=== PATIENT | male | born 1975 | race Caucasian/White ===

== ENCOUNTER 2016-12-08 12:44 | Emergency (ER) | payer OTHER ==
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
--- NOTE | 2016-12-08 17:57 | ED ORDER SUMMARY ---
..... Patient: JUANIS HENSON OrderSheet [facility] VisitID: [id number] [place] [address] 41y, M Registration Date/Time: 12/08/2016 ORDER SHEET Weight: 113.3 kg (stated) Allergies: No Known Drug Allergy GENERAL ORDERS: Culture, Wound Surface (Arm) (R) Urgent (15:28 12/08/2016 EKoroleva P.A.-C) (Ack 15:30 LNations ER Tech1) (16:43 JRomanelli R.N.) CBC w Diff Urgent (15:29 12/08/2016 EKoroleva P.A.-C) (Ack 15:30 LNations ER Tech1) (15:49 JRomanelli R.N.) BMP Urgent (15:29 12/08/2016 EKoroleva P.A.-C) (Ack 15:30 LNations ER Tech1) (15:49 JRomanelli R.N.) Acetone, Serum Urgent (16:04 12/08/2016 EKoroleva P.A.-C) (Ack 16:10 LTapper) (17:10 JRomanelli R.N.) (17:10 LNations ER Tech1) POC Glucose (16:57 12/08/2016 EKoroleva P.A.-C) (Ack 17:09 LNations ER Tech1) (17:09 LNations ER Tech1) (17:10 JRomanelli R.N.) MEDICATION ORDERS: Insulin Reg Subcut 6 units (HIGH ALERT MEDICATION, NOW) (17:13 12/08/2016 EKoroleva P.A.-C) (17:44 JRomanelli R.N.) Bactrim DS PO (Tablet 800-160 mg) 2 tabs (NOW) (17:30 12/08/2016 EKoroleva P.A.-C) (17:45 JRomanelli R.N.) IV FLUIDS: IV NS : initial bolus 1000 mL (1000 mL/hr), then 1000 mL/hr for X1 (NOW); Vazquez (15:28 12/08/2016 EKoroleva P.A.-C) (15:51 JRomanelli R.N.) Dilaudid IV 1 mg (HIGH ALERT MEDICATION, NOW) (15:29 12/08/2016 Trung Julian) (15:51 Tracy Atikns) ORDER SHEET NOTES: [Electronically signed by Mary Arias P.A.-C (18:20 12/08/2016)] [Electronically signed by Javier Centeno R.N. (18:32 12/08/2016)] [Electronically locked/signed by Javier Centeno R.N. (18:32 12/08/2016)]
--- NOTE | 2016-12-08 17:57 | ED ORDER SUMMARY ---
..... Patient: JUANIS HENSON OrderSheet [facility] VisitID: [id number] [place] [address] 41y, M Registration Date/Time: 12/08/2016 ORDER SHEET Weight: 113.3 kg (stated) Allergies: No Known Drug Allergy GENERAL ORDERS: Culture, Wound Surface (Arm) (R) Urgent (15:28 12/08/2016 EKoroleva P.A.-C) (Ack 15:30 LNations ER Tech1) (16:43 JRomanelli R.N.) CBC w Diff Urgent (15:29 12/08/2016 EKoroleva P.A.-C) (Ack 15:30 LNations ER Tech1) (15:49 JRomanelli R.N.) BMP Urgent (15:29 12/08/2016 EKoroleva P.A.-C) (Ack 15:30 LNations ER Tech1) (15:49 JRomanelli R.N.) Acetone, Serum Urgent (16:04 12/08/2016 EKoroleva P.A.-C) (Ack 16:10 LTapper) (17:10 JRomanelli R.N.) (17:10 LNations ER Tech1) POC Glucose (16:57 12/08/2016 EKoroleva P.A.-C) (Ack 17:09 LNations ER Tech1) (17:09 LNations ER Tech1) (17:10 JRomanelli R.N.) MEDICATION ORDERS: Insulin Reg Subcut 6 units (HIGH ALERT MEDICATION, NOW) (17:13 12/08/2016 EKoroleva P.A.-C) (17:44 JRomanelli R.N.) Bactrim DS PO (Tablet 800-160 mg) 2 tabs (NOW) (17:30 12/08/2016 EKoroleva P.A.-C) (17:45 JRomanelli R.N.) IV FLUIDS: IV NS : initial bolus 1000 mL (1000 mL/hr), then 1000 mL/hr for X1 (NOW); Vazquez (15:28 12/08/2016 EKoroleva P.A.-C) (15:51 JRomanelli R.N.) Dilaudid IV 1 mg (HIGH ALERT MEDICATION, NOW) (15:29 12/08/2016 Trung Julian) (15:51 Tracy Atkins) ORDER SHEET NOTES: [Electronically signed by Mary Arias P.A.-C (18:20 12/08/2016)] [Electronically signed by Javier Centeno R.N. (18:32 12/08/2016)] [Electronically locked/signed by Javier Cneteno R.N. (18:32 12/08/2016)]
--- NOTE | 2016-12-08 17:57 | ED NURSING NOTES ---
Clinical Report - Nurses [address] [place] [address] 12/08/2016 12:47 [id number] Triage time 14:05 Dec 08 2016. Chief Complaint: SKIN LESION and . RUE. --14:14 Arya Cano R.N. Acuity: LEVEL 3. Alert. CHERI COMA SCORE: Cheri Coma Scale: 15- eyes open spontaneously (4); best verbal response- oriented x 4 (5); best motor response- obeys commands (6). --14:20 Arya Cano R.N. 14:19 12/08/16. BP: 162/108. HR: 100. RR: 18. O2 saturation: 95%. Temp: 98.5 F. Pain level now: 810. Additional comments: RUE. --14:20 Arya Cano R.N. Weight: 113.3 kg stated. Height/Length: 70 inches Per Patient. BMI: 35.8. --14:17 Arya Cano R.N. Medications Levomir Insulin. --14:11 Arya Cano R.N. NovoLOG Subcutaneous. --14:11 Arya Cano R.N. Abilify Oral. KlonoPIN Oral. Lisinopril Oral. Metoprolol Tartrate Oral. Synthroid Oral. Zoloft Oral. --14:13 Arya Cano R.N. Allergies No Known Drug Allergy. --14:13 Arya Cano R.N. History Arrived by private vehicle. Historian: patient. Unaccompanied. Primary physician (none). ( RUE abscess on the forearm). Reported as located on the right forearm. ( Pain in RUE). 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 --14:14 Arya Cano R.N. Arrived by private vehicle. Historian: patient. Unaccompanied. It is described as burning and painful. SOCIAL HX: Heavy tobacco smoker (cigarette)- 1 pack per day. No alcohol use or drug use. No infectious disease exposure. ABUSE ASSESSMENT: No report of abuse. FALL RISK ASSESSMENT: Fall risk assessment completed. No fall risk identified. NUTRITIONAL RISK ASSESSMENT: The nutritional risk assessment revealed no deficiencies. FUNCTIONAL ASSESSMENT: Functional assessment: no impairments noted. LEARNING NEEDS ASSESSMENT: The learning needs assessment revealed no barriers. SKIN INTEGRITY ASSESSMENT: Skin integrity risk assessment completed. No skin integrity risk identified. --14:20 Arya Cano R.N. PROBLEMS: Thyroid Disease. Hypertension. Diabetes Mellitus. --14:16 Arya Cano R.N. ADDITIONAL SURGERIES: Back Surgery. --14:16 Arya Cano R.N. Interventions ID band on patient. To room. --14:20 Arya Cano R.N. PHYSICAL ASSESSMENT Ambulatory to room. GENERAL / NEURO / PSYCH: Alert. Appears in pain. Oriented X 4. HEENT: Mucous membranes are pink. RESPIRATORY: Respirations not labored. CVS: Pulses within normal limits. GI / : Abdomen nontender. SKIN: Skin is warm and dry. Tenderness on the right forearm. Erythema on the right forearm. No skin rash. ( Abscess RFA). --15:19 Arya Cano R.N. NURSING PROGRESS NOTES Patient gowned. Reassurance given to the patient. Patient identifiers checked. Call light placed in reach. Side rails up x 1. Bed placed in lowest position. Brakes of bed on. Patient ready for evaluation- chart flagged and ED physician and PA notified. --15:19 Arya Cano R.N. 15:45 12/08/2016 Site #1 started via IV in the right upper arm with an 22g angiocath, with aseptic technique and good blood return; one attempt. Saline lock flushed with 10 mL saline. --15:50 Arya Cano R.N. 15:51 12/08/2016 Started IV Fluids IV NS (Saline); at 1000 mL/hr over 60 minute(s) via site #1 via IV pump. Allergies verified and confirmed 5 rights. IV patency established. IV site checked: no pain, redness, or swelling. IV flushed thoroughly pre- and post-medication administration. --15:51 Arya Cano R.N. 15:51 12/08/2016 Dilaudid (HYDROmorphone HCl PF) IVP 1 mg given over 2 minute(s) via site #1. Allergies verified, confirmed 5 rights and sedative warning given to the patient. IV patency established. IV site checked: no pain, redness, or swelling. IV flushed thoroughly pre- and post-medication administration. IVP given by RN. --15:51 Arya Cano R.N. 16:00. Patient ID band checked for patient name, birthdate and medical record number: patient confirmed. Wound to right forearm swabbed for culture; collected by PA. Specimen labeled in the presence of the patient ((R) forearm abscess). --16:45 Arya Cano R.N. Glucose: 316. --17:11 Mata Lr 17:44 12/08/2016 Regular Insulin * Subcutaneous 6 Units RUE --17:44 Arya Cano R.N. 17:45 12/08/2016 Bactrim DS (Sulfamethoxazole-TMP DS) PO Tablets 2 tab given. Allergies verified and confirmed 5 rights. --17:45 Arya Cano R.N. late entry -16:30. ( wound dressed by tech). --18:16 Javier Centeno R.N. 18:00 12/08/2016 IV Fluids IV NS Discontinued: bag #1 infused. Total amount infused: 1Liter mL. IV patency established. IV site checked: no pain, redness, or swelling. IV flushed thoroughly. --18:30 Javier Centeno R.N. Applied sterile bulky dressing consisting of Band-Aid. Secured with kerlix. --18:31 Mata Lr. DISPOSITION / DISCHARGE 18:14 12/08/2016 Site #1 removed upon discharge. Catheter intact. --18:15 Javier Centeno R.N. 18:16 12/08/16. Condition at departure: improved. The goals identified in the patient's plan of care were met. ( Pt given phone number for follow up care for repacking in 2 days). No learning barriers present. Discharge instructions provided and reviewed with the patient. Reviewed warnings. Reviewed medication(s). Treatments reviewed. Patient verbalized understanding. Written instructions provided in Wallisian. The patient was discharged by the physician assistant food service manager. He was discharged home and accompanied by family. He left the Emergency Department ambulatory and via private vehicle. Patient driving. FALL RISK ASSESSMENT: Fall risk assessment completed. No fall risk identified. --18:16 Javier Centeno R.N. 18:14 12/08/16. BP: 158/99. HR: 89. RR: 14. O2 saturation: 99% on room air. Temp: 98.2 F (oral). --18:16 Javier Centeno R.N. 18:17 12/08/16. Departure time: 18:17. --18:17 Javier Centeno R.N. Locked/Released at 12/08/2016 18:32 by Javier Centeno R.N.
--- NOTE | 2016-12-08 17:57 | ED NURSING NOTES ---
Clinical Report - Nurses [facility] [address] [place] [address] 12/08/2016 12:47 [id number] Triage time 14:05 Dec 08 2016. Chief Complaint: SKIN LESION and . RUE. --14:14 Arya Cano R.N. Acuity: LEVEL 3. Alert. CHERI COMA SCORE: Cheri Coma Scale: 15- eyes open spontaneously (4); best verbal response- oriented x 4 (5); best motor response- obeys commands (6). --14:20 Arya Cano R.N. 14:19 12/08/16. BP: 162/108. HR: 100. RR: 18. O2 saturation: 95%. Temp: 98.5 F. Pain level now: 810. Additional comments: RUE. --14:20 Arya Cano R.N. Weight: 113.3 kg stated. Height/Length: 70 inches Per Patient. BMI: 35.8. --14:17 Arya Cano R.N. Medications Levomir Insulin. --14:11 Arya Cano R.N. NovoLOG Subcutaneous. --14:11 Arya Cano R.N. Abilify Oral. KlonoPIN Oral. Lisinopril Oral. Metoprolol Tartrate Oral. Synthroid Oral. Zoloft Oral. --14:13 Arya Cano R.N. Allergies No Known Drug Allergy. --14:13 Arya Cano R.N. History Arrived by private vehicle. Historian: patient. Unaccompanied. Primary physician (none). ( RUE abscess on the forearm). Reported as located on the right forearm. ( Pain in RUE). Treatment [employer]PER[employer]: (Sulfa Antibiotic). --14:14 Arya Cano R.N. Arrived by private vehicle. Historian: patient. Unaccompanied. It is described as burning and painful. SOCIAL HX: Heavy tobacco smoker (cigarette)- 1 pack per day. No alcohol use or drug use. No infectious disease exposure. ABUSE ASSESSMENT: No report of abuse. FALL RISK ASSESSMENT: Fall risk assessment completed. No fall risk identified. NUTRITIONAL RISK ASSESSMENT: The nutritional risk assessment revealed no deficiencies. FUNCTIONAL ASSESSMENT: Functional assessment: no impairments noted. LEARNING NEEDS ASSESSMENT: The learning needs assessment revealed no barriers. SKIN INTEGRITY ASSESSMENT: Skin integrity risk assessment completed. No skin integrity risk identified. --14:20 Arya Cano R.N. PROBLEMS: Thyroid Disease. Hypertension. Diabetes Mellitus. --14:16 Arya Cano R.N. ADDITIONAL SURGERIES: Back Surgery. --14:16 Arya Cano R.N. Interventions ID band on patient. To room. --14:20 Arya Cano R.N. PHYSICAL ASSESSMENT Ambulatory to room. GENERAL / NEURO / PSYCH: Alert. Appears in pain. Oriented X 4. HEENT: Mucous membranes are pink. RESPIRATORY: Respirations not labored. CVS: Pulses within normal limits. GI / : Abdomen nontender. SKIN: Skin is warm and dry. Tenderness on the right forearm. Erythema on the right forearm. No skin rash. ( Abscess RFA). --15:19 Arya Cano R.N. NURSING PROGRESS NOTES Patient gowned. Reassurance given to the patient. Patient identifiers checked. Call light placed in reach. Side rails up x 1. Bed placed in lowest position. Brakes of bed on. Patient ready for evaluation- chart flagged and ED physician and PA notified. --15:19 Arya Cano R.N. 15:45 12/08/2016 Site #1 started via IV in the right upper arm with an 22g angiocath, with aseptic technique and good blood return; one attempt. Saline lock flushed with 10 mL saline. --15:50 Arya Cano R.N. 15:51 12/08/2016 Started IV Fluids IV NS (Saline); at 1000 mL/hr over 60 minute(s) via site #1 via IV pump. Allergies verified and confirmed 5 rights. IV patency established. IV site checked: no pain, redness, or swelling. IV flushed thoroughly pre- and post-medication administration. --15:51 Arya Cano R.N. 15:51 12/08/2016 Dilaudid (HYDROmorphone HCl PF) IVP 1 mg given over 2 minute(s) via site #1. Allergies verified, confirmed 5 rights and sedative warning given to the patient. IV patency established. IV site checked: no pain, redness, or swelling. IV flushed thoroughly pre- and post-medication administration. IVP given by RN. --15:51 Arya Cano R.N. 16:00. Patient ID band checked for patient name, birthdate and medical record number: patient confirmed. Wound to right forearm swabbed for culture; collected by PA. Specimen labeled in the presence of the patient ((R) forearm abscess). --16:45 Arya Cano R.N. Glucose: 316. --17:11 Mata Lr 17:44 12/08/2016 Regular Insulin * Subcutaneous 6 Units RUE --17:44 Arya Cano R.N. 17:45 12/08/2016 Bactrim DS (Sulfamethoxazole-TMP DS) PO Tablets 2 tab given. Allergies verified and confirmed 5 rights. --17:45 Arya Cano R.N. late entry -16:30. ( wound dressed by tech). --18:16 Javier Centeno R.N. 18:00 12/08/2016 IV Fluids IV NS Discontinued: bag #1 infused. Total amount infused: 1Liter mL. IV patency established. IV site checked: no pain, redness, or swelling. IV flushed thoroughly. --18:30 Javier Centeno R.N. Applied sterile bulky dressing consisting of Band-Aid. Secured with kerlix. --18:31 Mata Lr. DISPOSITION / DISCHARGE 18:14 12/08/2016 Site #1 removed upon discharge. Catheter intact. --18:15 Javier Centeno R.N. 18:16 12/08/16. Condition at departure: improved. The goals identified in the patient's plan of care were met. ( Pt given phone number for follow up care for repacking in 2 days). No learning barriers present. Discharge instructions provided and reviewed with the patient. Reviewed warnings. Reviewed medication(s). Treatments reviewed. Patient verbalized understanding. Written instructions provided in Omani. The patient was discharged by the physician histology assistant. He was discharged home and accompanied by family. He left the Emergency Department ambulatory and via private vehicle. Patient driving. FALL RISK ASSESSMENT: Fall risk assessment completed. No fall risk identified. --18:16 Javier Centeno R.N. 18:14 12/08/16. BP: 158/99. HR: 89. RR: 14. O2 saturation: 99% on room air. Temp: 98.2 F (oral). --18:16 Javier Centeno R.N. 18:17 12/08/16. Departure time: 18:17. --18:17 Javier Centeno R.N. Locked/Released at 12/08/2016 18:32 by Javier Centeno R.N.
--- NOTE | 2016-12-08 18:33 | ED MAR SUMMARY ---
..... Medication Administration Record [facility] [address] [place] [address] Patient: JUANIS HENSON Visit ID: [id number] 41y, M Weight: 113.3 kg Height/Length: 70 in BMI: 35.8 ALLERGIES: No Known Drug Allergy Start 15:51 12/08/2016 Arya Cano RAnuel, Stop 18:00 12/08/2016 Javier Centeno R.N. Medication Administered: IV NS (SALINE), Dose: IV Fluids over 60 minute(s), Rate: 1000 mL/hr, Site: #1 right upper arm. Medication Ordered: IV NS : initial bolus 1000 mL (1000 mL/hr), then 1000 mL/hr for X1 (NOW); Vazquez. Given 15:51 12/08/2016 Arya Cano RAnuel Medication Administered: DILAUDID [IVP] (HYDROMORPHONE HCL PF), Dose: 1 mg IVP over 2 minute(s), Site: #1 right upper arm. Medication Ordered: Dilaudid IV 1 mg (HIGH ALERT MEDICATION, NOW). Given 17:44 12/08/2016 Arya Cano RAlteheaN. Medication Administered: Regular Insulin *, Dose: 6 Units * Subcutaneous. Medication Ordered: Insulin Reg Subcut 6 units (HIGH ALERT MEDICATION, NOW). Given 17:45 12/08/2016 Arya Cano RAletheaN. Medication Administered: BACTRIM DS [PO] (SULFAMETHOXAZOLE-TMP DS), Dose: 2 tab Tablets PO. Medication Ordered: Bactrim DS PO (Tablet 800-160 mg) 2 tabs (NOW).
--- NOTE | 2016-12-08 18:33 | ED MAR SUMMARY ---
..... Medication Administration Record [facility] [address] [place] [address] Patient: JUANIS HENSON Visit ID: [id number] 41y, M Weight: 113.3 kg Height/Length: 70 in BMI: 35.8 ALLERGIES: No Known Drug Allergy Start 15:51 12/08/2016 Arya Cnao RAnuel, Stop 18:00 12/08/2016 Javier Centeno R.N. Medication Administered: IV NS (SALINE), Dose: IV Fluids over 60 minute(s), Rate: 1000 mL/hr, Site: #1 right upper arm. Medication Ordered: IV NS : initial bolus 1000 mL (1000 mL/hr), then 1000 mL/hr for X1 (NOW); Vazquez. Given 15:51 12/08/2016 Arya Cano RAnuel Medication Administered: DILAUDID [IVP] (HYDROMORPHONE HCL PF), Dose: 1 mg IVP over 2 minute(s), Site: #1 right upper arm. Medication Ordered: Dilaudid IV 1 mg (HIGH ALERT MEDICATION, NOW). Given 17:44 12/08/2016 Arya Cano RAletheaN. Medication Administered: Regular Insulin *, Dose: 6 Units * Subcutaneous. Medication Ordered: Insulin Reg Subcut 6 units (HIGH ALERT MEDICATION, NOW). Given 17:45 12/08/2016 Arya Cano RAletheaN. Medication Administered: BACTRIM DS [PO] (SULFAMETHOXAZOLE-TMP DS), Dose: 2 tab Tablets PO. Medication Ordered: Bactrim DS PO (Tablet 800-160 mg) 2 tabs (NOW).
--- NOTE | 2016-12-08 18:33 | ED MED RECONCILIATION SUMMARY ---
Patient: JUANIS HENSON Medication Reconciliation Report [facility] VisitID: [id number] [place] [address] 41y, M Registration Date/Time: 12/08/2016 Weight: 113.3 kg Height/Length: 70 in. BMI: 35.8 ALLERGIES: No Known Drug Allergy The patient's Home Medications are listed below: THE FOLLOWING MEDICATIONS NEED TO BE RECONCILED: Abilify Oral KlonoPIN Oral Levomir Insulin Lisinopril Oral Metoprolol Tartrate Oral NovoLOG Subcutaneous Synthroid Oral Zoloft Oral The source(s) of the original Home Medication information: Not obtained. The following Medications were given to the patient in the Emergency Department: IV NS IV Fluids bolus 0, then 1000 mL/hr, administered: 12/08/2016 3:51:00 PM Dilaudid [IVP] IVP 1 mg, administered: 12/08/2016 3:51:00 PM Regular Insulin Subcutaneous 6 Units, administered: 12/08/2016 5:44:00 PM Bactrim DS [PO] PO 2 tab, administered: 12/08/2016 5:45:00 PM The following Medications were prescribed to the patient: Hydrocodone/APAP 5mg / 325mg: take 1 orally every 6 hours as needed for pain. Dispense ten (10). No refill. -- Mary Arias P.AAlethea-Shante Lancets : 100 , use as directed, up to 6x daily. -- Mary Arias P.A.-Shante Bactrim DS 800 mg / 160 mg: take 1 tablet orally every 12 hours for 10 days. No refill. Substitution is permissible. -- Mary Arias P.A.-C
--- NOTE | 2016-12-08 18:33 | ED MED RECONCILIATION SUMMARY ---
Patient: JUANIS HENSON Medication Reconciliation Report [facility] VisitID: [id number] [place] [address] 41y, M Registration Date/Time: 12/08/2016 Weight: 113.3 kg Height/Length: 70 in. BMI: 35.8 ALLERGIES: No Known Drug Allergy The patient's Home Medications are listed below: THE FOLLOWING MEDICATIONS NEED TO BE RECONCILED: Abilify Oral KlonoPIN Oral Levomir Insulin Lisinopril Oral Metoprolol Tartrate Oral NovoLOG Subcutaneous Synthroid Oral Zoloft Oral The source(s) of the original Home Medication information: Not obtained. The following Medications were given to the patient in the Emergency Department: IV NS IV Fluids bolus 0, then 1000 mL/hr, administered: 12/08/2016 3:51:00 PM Dilaudid [IVP] IVP 1 mg, administered: 12/08/2016 3:51:00 PM Regular Insulin Subcutaneous 6 Units, administered: 12/08/2016 5:44:00 PM Bactrim DS [PO] PO 2 tab, administered: 12/08/2016 5:45:00 PM The following Medications were prescribed to the patient: Hydrocodone/APAP 5mg / 325mg: take 1 orally every 6 hours as needed for pain. Dispense ten (10). No refill. -- Mary Arias P.AAlethea-Shante Lancets : 100 , use as directed, up to 6x daily. -- Mary Arias P.A.-Shante Bactrim DS 800 mg / 160 mg: take 1 tablet orally every 12 hours for 10 days. No refill. Substitution is permissible. -- Mary Arias P.A.-C
--- NOTE | 2016-12-08 18:33 | ED DISCHARGE INSTRUCTIONS ---
Patient: JUANIS HENSON General Instructions [facility] VisitID: [id number] [place] [address] 41y, M Registration Date/Time: 12/08/2016 Single deep abscess to the right upper extremity with incision and drainage. Chronic, poorly controlled type 1 diabetes. Hypertension. INSTRUCTIONS ( Call for appointment and re-packing/ packing removal in 2-3 days Warm packs to area Take your medicaitons). Prescription Medications: Hydrocodone/APAP 5mg / 325mg: take 1 orally every 6 hours as needed for pain. Dispense ten (10). No refill. Bactrim DS 800 mg / 160 mg: take 1 tablet orally every 12 hours for 10 days. No refill. Substitution is permissible. Lancets : 100 , use as directed, up to 6x daily. ADDITIONAL INFORMATION Abscess [Incision & Drainage] An abscess (sometimes called a boil) occurs when bacteria get trapped under the skin and begin to grow. Pus forms inside the abscess as the body responds to the bacteria. An abscess can occur with an insect bite, ingrown hair, blocked oil gland, pimple, cyst, or puncture wound. Treatment of your abscess has required an incision to drain the pus. If the abscess pocket was large, a gauze packing may have been inserted. This will need to be removed and possibly replaced on your next visit. Antibiotics are not required in the treatment of a simple abscess, unless the infection is spreading into the skin around the wound (known as cellulitis). Healing of the wound will take about one to two weeks depending on the size of the abscess. Healthy tissue will grow from the bottom and sides of the opening until it seals over. Home Care: The wound may drain for the first two days. Cover the wound with a clean dry dressing. If the dressing becomes soaked with blood or pus, change it. If a gauze packing was placed inside the abscess cavity, you may be advised to remove it yourself. You may do this in the shower. Once the packing is removed, you should wash the area in the shower or bath 3 to 4 times a day, until the skin opening has closed. If you were prescribed antibiotics, take them as directed until they are all gone. You may use acetaminophen (Tylenol) or ibuprofen (Motrin, Advil) to control pain, unless another pain medicine was prescribed. [ NOTE: If you have liver disease or ever had a stomach ulcer, talk with your doctor before using these medicines.] Follow Up with your doctor as advised by our staff. If a gauze packing was inserted in your wound, it should be removed in 1-2 days. Check your wound every day for the signs of worsening infection listed below. Get Prompt Medical Attention if any of the following occur: Increasing redness or swelling Red streaks in the skin leading away from the wound Increasing local pain or swelling Continued pus draining from the wound two days after treatment Fever of 100.4F (38C) or higher, or as directed by your healthcare provider Hydrocodone Bitartrate, Acetaminophen Oral tablet What is this medicine? ACETAMINOPHEN; HYDROCODONE (a set a CORY albina fen; ashish droe KOE done) is a pain reliever. It is used to treat mild to moderate pain. How should I use this medicine? Take this medicine by mouth. Swallow it with a full glass of water. Follow the directions on the prescription label. If the medicine upsets your stomach, take the medicine with food or milk. Do not take more than you are told to take. Talk to your college associate regarding the use of this medicine in children. This medicine is not approved for use in children. What side effects may I notice from receiving this medicine? Side effects that you should report to your doctor or health home care giver as soon as possible: allergic reactions like skin rash, itching or hives, swelling of the face, lips, or tongue breathing problems confusion feeling faint or lightheaded, falls stomach pain yellowing of the eyes or skin Side effects that usually do not require medical attention (report to your doctor or health home care giver if they continue or are bothersome): nausea, vomiting stomach upset What may interact with this medicine? alcohol antihistamines isoniazid medicines for depression, anxiety, or psychotic disturbances medicines for sleep muscle relaxants naltrexone narcotic medicines (opiates) for pain phenobarbital ritonavir tramadol What if I miss a dose? If you miss a dose, take it as soon as you can. If it is almost time for your next dose, take only that dose. Do not take double or extra doses. Where should I keep my medicine? Keep out of the reach of children. This medicine can be abused. Keep your medicine in a safe place to protect it from theft. Do not share this medicine with anyone. Selling or giving away this medicine is dangerous and against the law. Store at room temperature between 15 and 30 degrees C (59 and 86 degrees F). Protect from light. Keep container tightly closed. Throw away any unused medicine after the expiration date. Discard unused medicine and used packaging carefully. Pets and children can be harmed if they find used or lost packages. What should I tell my health care provider before I take this medicine? They need to know if you have any of these conditions: brain tumor Crohn's disease, inflammatory bowel disease, or ulcerative colitis drink more than 3 alcohol-containing drinks per day drug abuse or addiction head injury heart or circulation problems kidney disease or problems going to the bathroom liver disease lung disease, asthma, or breathing problems an unusual or allergic reaction to acetaminophen, hydrocodone, other opioid analgesics, other medicines, foods, dyes, or preservatives or trying to get breast-feeding What should I watch for while using this medicine? Tell your doctor or health home care giver if your pain does not go away, if it gets worse, or if you have new or a different type of pain. You may develop tolerance to the medicine. Tolerance means that you will need a higher dose of the medicine for pain relief. Tolerance is normal and is expected if you take the medicine for a long time. Do not suddenly stop taking your medicine because you may develop a severe reaction. Your body becomes used to the medicine. This does NOT mean you are addicted. Addiction is a behavior related to getting and using a drug for a non-medical reason. If you have pain, you have a medical reason to take pain medicine. Your doctor will tell you how much medicine to take. If your doctor wants you to stop the medicine, the dose will be slowly lowered over time to avoid any side effects. You may get drowsy or dizzy when you first start taking the medicine or change doses. Do not drive, use machinery, or do anything that may be dangerous until you know how the medicine affects you. Stand or sit up slowly. There are different types of narcotic medicines (opiates) for pain. If you take more than one type at the same time, you may have more side effects. Give your health care provider a list of all medicines you use. Your doctor will tell you how much medicine to take. Do not take more medicine than directed. Call emergency for help if you have problems breathing. The medicine will cause constipation. Try to have a bowel movement at least every 2 to 3 days. If you do not have a bowel movement for 3 days, call your doctor or health home care giver. Too much acetaminophen can be very dangerous. Do not take Tylenol (acetaminophen) or medicines that contain acetaminophen with this medicine. Many non-prescription medicines contain acetaminophen. Always read the labels carefully. Sulfamethoxazole, Trimethoprim Oral tablet What is this medicine? SULFAMETHOXAZOLE; TRIMETHOPRIM or SMX-TMP (suhl fuh meth OK julien zohl; trye METH oh prim) is a combination of a sulfonamide antibiotic and a second antibiotic, trimethoprim. It is used to treat or prevent certain kinds of bacterial infections. It will not work for colds, flu, or other viral infections. How should I use this medicine? Take this medicine by mouth with a full glass of water. Follow the directions on the prescription label. Take your medicine at regular intervals. Do not take it more often than directed. Do not skip doses or stop your medicine early. Talk to your college associate regarding the use of this medicine in children. Special care may be needed. This medicine has been used in children as young as 2 months of age. What side effects may I notice from receiving this medicine? Side effects that you should report to your doctor or health home care giver as soon as possible: allergic reactions like skin rash or hives, swelling of the face, lips, or tongue breathing problems fever or chills, sore throat irregular heartbeat, chest pain joint or muscle pain pain or difficulty passing urine red pinpoint spots on skin redness, blistering, peeling or loosening of the skin, including inside the mouth unusual bleeding or bruising unusually weak or tired yellowing of the eyes or skin Side effects that usually do not require medical attention (report to your doctor or health home care giver if they continue or are bothersome): diarrhea dizziness headache loss of appetite nausea, vomiting nervousness What may interact with this medicine? Do not take this medicine with any of the following medications: aminobenzoate potassium dofetilide metronidazole This medicine may also interact with the following medications: HERBIE inhibitors like benazepril, enalapril, lisinopril, and ramipril cyclosporine digoxin diuretics indomethacin medicines for diabetes methenamine methotrexate phenytoin potassium supplements pyrimethamine sulfinpyrazone tricyclic antidepressants warfarin What if I miss a dose? If you miss a dose, take it as soon as you can. If it is almost time for your next dose, take only that dose. Do not take double or extra doses. Where should I keep my medicine? Keep out of the reach of children. Store at room temperature between 20 to 25 degrees C (68 to 77 degrees F). Protect from light. Throw away any unused medicine after the expiration date. What should I tell my health care provider before I take this medicine? They need to know if you have any of these conditions: anemia asthma being treated with anticonvulsants if you frequently drink alcohol containing drinks kidney disease liver disease low level of folic acid or [id number] dehydrogenase poor nutrition or malabsorption porphyria severe allergies thyroid disorder an unusual or allergic reaction to sulfamethoxazole, trimethoprim, sulfa drugs, other medicines, foods, dyes, or preservatives or trying to get breast-feeding What should I watch for while using this medicine? Tell your doctor or health home care giver if your symptoms do not improve. Drink several glasses of water a day to reduce the risk of kidney problems. Do not treat diarrhea with over the counter products. Contact your doctor if you have diarrhea that lasts more than 2 days or if it is severe and watery. This medicine can make you more sensitive to the sun. Keep out of the sun. If you cannot avoid being in the sun, wear protective clothing and use a sunscreen. Do not use sun lamps or tanning beds/booths. You have been given the following additional information: Abscess, Incision And Drainage Hydrocodone Bitartrate, Acetaminophen Oral tablet Sulfamethoxazole, Trimethoprim Oral tablet (Electronically signed by Mary Arias P.A.-C 12/08/2016 18:20)
--- NOTE | 2016-12-08 18:33 | ED DISCHARGE INSTRUCTIONS ---
Patient: JUANIS HENSON General Instructions [facility] VisitID: [id number] [place] [address] 41y, M Registration Date/Time: 12/08/2016 Single deep abscess to the right upper extremity with incision and drainage. Chronic, poorly controlled type 1 diabetes. Hypertension. INSTRUCTIONS ( Call for appointment and re-packing/ packing removal in 2-3 days Warm packs to area Take your medicaitons). Prescription Medications: Hydrocodone/APAP 5mg / 325mg: take 1 orally every 6 hours as needed for pain. Dispense ten (10). No refill. Bactrim DS 800 mg / 160 mg: take 1 tablet orally every 12 hours for 10 days. No refill. Substitution is permissible. Lancets : 100 , use as directed, up to 6x daily. ADDITIONAL INFORMATION Abscess [Incision & Drainage] An abscess (sometimes called a boil) occurs when bacteria get trapped under the skin and begin to grow. Pus forms inside the abscess as the body responds to the bacteria. An abscess can occur with an insect bite, ingrown hair, blocked oil gland, pimple, cyst, or puncture wound. Treatment of your abscess has required an incision to drain the pus. If the abscess pocket was large, a gauze packing may have been inserted. This will need to be removed and possibly replaced on your next visit. Antibiotics are not required in the treatment of a simple abscess, unless the infection is spreading into the skin around the wound (known as cellulitis). Healing of the wound will take about one to two weeks depending on the size of the abscess. Healthy tissue will grow from the bottom and sides of the opening until it seals over. Home Care: The wound may drain for the first two days. Cover the wound with a clean dry dressing. If the dressing becomes soaked with blood or pus, change it. If a gauze packing was placed inside the abscess cavity, you may be advised to remove it yourself. You may do this in the shower. Once the packing is removed, you should wash the area in the shower or bath 3 to 4 times a day, until the skin opening has closed. If you were prescribed antibiotics, take them as directed until they are all gone. You may use acetaminophen (Tylenol) or ibuprofen (Motrin, Advil) to control pain, unless another pain medicine was prescribed. [ NOTE: If you have liver disease or ever had a stomach ulcer, talk with your doctor before using these medicines.] Follow Up with your doctor as advised by our staff. If a gauze packing was inserted in your wound, it should be removed in 1-2 days. Check your wound every day for the signs of worsening infection listed below. Get Prompt Medical Attention if any of the following occur: Increasing redness or swelling Red streaks in the skin leading away from the wound Increasing local pain or swelling Continued pus draining from the wound two days after treatment Fever of 100.4F (38C) or higher, or as directed by your healthcare provider Hydrocodone Bitartrate, Acetaminophen Oral tablet What is this medicine? ACETAMINOPHEN; HYDROCODONE (a set a CORY albina fen; ashish droe KOE done) is a pain reliever. It is used to treat mild to moderate pain. How should I use this medicine? Take this medicine by mouth. Swallow it with a full glass of water. Follow the directions on the prescription label. If the medicine upsets your stomach, take the medicine with food or milk. Do not take more than you are told to take. Talk to your construction equipment mechanic helper regarding the use of this medicine in children. This medicine is not approved for use in children. What side effects may I notice from receiving this medicine? Side effects that you should report to your doctor or health caretaker grounds as soon as possible: allergic reactions like skin rash, itching or hives, swelling of the face, lips, or tongue breathing problems confusion feeling faint or lightheaded, falls stomach pain yellowing of the eyes or skin Side effects that usually do not require medical attention (report to your doctor or health caretaker grounds if they continue or are bothersome): nausea, vomiting stomach upset What may interact with this medicine? alcohol antihistamines isoniazid medicines for depression, anxiety, or psychotic disturbances medicines for sleep muscle relaxants naltrexone narcotic medicines (opiates) for pain phenobarbital ritonavir tramadol What if I miss a dose? If you miss a dose, take it as soon as you can. If it is almost time for your next dose, take only that dose. Do not take double or extra doses. Where should I keep my medicine? Keep out of the reach of children. This medicine can be abused. Keep your medicine in a safe place to protect it from theft. Do not share this medicine with anyone. Selling or giving away this medicine is dangerous and against the law. Store at room temperature between 15 and 30 degrees C (59 and 86 degrees F). Protect from light. Keep container tightly closed. Throw away any unused medicine after the expiration date. Discard unused medicine and used packaging carefully. Pets and children can be harmed if they find used or lost packages. What should I tell my health care provider before I take this medicine? They need to know if you have any of these conditions: brain tumor Crohn's disease, inflammatory bowel disease, or ulcerative colitis drink more than 3 alcohol-containing drinks per day drug abuse or addiction head injury heart or circulation problems kidney disease or problems going to the bathroom liver disease lung disease, asthma, or breathing problems an unusual or allergic reaction to acetaminophen, hydrocodone, other opioid analgesics, other medicines, foods, dyes, or preservatives or trying to get breast-feeding What should I watch for while using this medicine? Tell your doctor or health caretaker grounds if your pain does not go away, if it gets worse, or if you have new or a different type of pain. You may develop tolerance to the medicine. Tolerance means that you will need a higher dose of the medicine for pain relief. Tolerance is normal and is expected if you take the medicine for a long time. Do not suddenly stop taking your medicine because you may develop a severe reaction. Your body becomes used to the medicine. This does NOT mean you are addicted. Addiction is a behavior related to getting and using a drug for a non-medical reason. If you have pain, you have a medical reason to take pain medicine. Your doctor will tell you how much medicine to take. If your doctor wants you to stop the medicine, the dose will be slowly lowered over time to avoid any side effects. You may get drowsy or dizzy when you first start taking the medicine or change doses. Do not drive, use machinery, or do anything that may be dangerous until you know how the medicine affects you. Stand or sit up slowly. There are different types of narcotic medicines (opiates) for pain. If you take more than one type at the same time, you may have more side effects. Give your health care provider a list of all medicines you use. Your doctor will tell you how much medicine to take. Do not take more medicine than directed. Call emergency for help if you have problems breathing. The medicine will cause constipation. Try to have a bowel movement at least every 2 to 3 days. If you do not have a bowel movement for 3 days, call your doctor or health caretaker grounds. Too much acetaminophen can be very dangerous. Do not take Tylenol (acetaminophen) or medicines that contain acetaminophen with this medicine. Many non-prescription medicines contain acetaminophen. Always read the labels carefully. Sulfamethoxazole, Trimethoprim Oral tablet What is this medicine? SULFAMETHOXAZOLE; TRIMETHOPRIM or SMX-TMP (suhl fuh meth OK julien zohl; trye METH oh prim) is a combination of a sulfonamide antibiotic and a second antibiotic, trimethoprim. It is used to treat or prevent certain kinds of bacterial infections. It will not work for colds, flu, or other viral infections. How should I use this medicine? Take this medicine by mouth with a full glass of water. Follow the directions on the prescription label. Take your medicine at regular intervals. Do not take it more often than directed. Do not skip doses or stop your medicine early. Talk to your construction equipment mechanic helper regarding the use of this medicine in children. Special care may be needed. This medicine has been used in children as young as 2 months of age. What side effects may I notice from receiving this medicine? Side effects that you should report to your doctor or health caretaker grounds as soon as possible: allergic reactions like skin rash or hives, swelling of the face, lips, or tongue breathing problems fever or chills, sore throat irregular heartbeat, chest pain joint or muscle pain pain or difficulty passing urine red pinpoint spots on skin redness, blistering, peeling or loosening of the skin, including inside the mouth unusual bleeding or bruising unusually weak or tired yellowing of the eyes or skin Side effects that usually do not require medical attention (report to your doctor or health caretaker grounds if they continue or are bothersome): diarrhea dizziness headache loss of appetite nausea, vomiting nervousness What may interact with this medicine? Do not take this medicine with any of the following medications: aminobenzoate potassium dofetilide metronidazole This medicine may also interact with the following medications: HERBIE inhibitors like benazepril, enalapril, lisinopril, and ramipril cyclosporine digoxin diuretics indomethacin medicines for diabetes methenamine methotrexate phenytoin potassium supplements pyrimethamine sulfinpyrazone tricyclic antidepressants warfarin What if I miss a dose? If you miss a dose, take it as soon as you can. If it is almost time for your next dose, take only that dose. Do not take double or extra doses. Where should I keep my medicine? Keep out of the reach of children. Store at room temperature between 20 to 25 degrees C (68 to 77 degrees F). Protect from light. Throw away any unused medicine after the expiration date. What should I tell my health care provider before I take this medicine? They need to know if you have any of these conditions: anemia asthma being treated with anticonvulsants if you frequently drink alcohol containing drinks kidney disease liver disease low level of folic acid or [id number] dehydrogenase poor nutrition or malabsorption porphyria severe allergies thyroid disorder an unusual or allergic reaction to sulfamethoxazole, trimethoprim, sulfa drugs, other medicines, foods, dyes, or preservatives or trying to get breast-feeding What should I watch for while using this medicine? Tell your doctor or health caretaker grounds if your symptoms do not improve. Drink several glasses of water a day to reduce the risk of kidney problems. Do not treat diarrhea with over the counter products. Contact your doctor if you have diarrhea that lasts more than 2 days or if it is severe and watery. This medicine can make you more sensitive to the sun. Keep out of the sun. If you cannot avoid being in the sun, wear protective clothing and use a sunscreen. Do not use sun lamps or tanning beds/booths. You have been given the following additional information: Abscess, Incision And Drainage Hydrocodone Bitartrate, Acetaminophen Oral tablet Sulfamethoxazole, Trimethoprim Oral tablet (Electronically signed by Mary Arias P.A.-C 12/08/2016 18:20)
== END 2016-12-08 18:17 | disposition home or self-care (01) ==
LOC: ED SRH 12:44
DX: L02.413 Cutaneous abscess of right upper limb (principal); E10.628 Type 1 diabetes mellitus with other skin complications; I10 Essential (primary) hypertension; E07.9 Disorder of thyroid, unspecified; Z79.899 Other long term (current) drug therapy; F17.210 Nicotine dependence, cigarettes, uncomplicated
CPT/HCPCS: 90047; 90131; 90148; 90301; 90309; 95059

== ENCOUNTER 2016-12-13 14:34 | Emergency (ER) | payer OTHER ==
--- NOTE | 2016-12-13 16:08 | DIAGNOSTIC IMAGING REPORT ---
PROCEDURE: XR CHEST 1 VIEW INDICATION: CHEST PAIN, initial encounter TECHNIQUE: Portable AP view 03:22 p.m. COMPARISON: None. FINDINGS: Lungs are clear. Heart and mediastinum are normal. Thorax is normal. IMPRESSION: 1. Negative chest.
--- NOTE | 2016-12-13 17:30 | ED CLINICAL REPORT ---
Clinical Report - Physicians/Mid Levels [facility] [address] [place] [address] 12/13/2016 14:35 Patient: JUANIS TOWNSEND Time Seen: 15:12. Arrived- By private vehicle. Historian- patient. HISTORY OF PRESENT ILLNESS Chief Complaint: CHEST PAIN. This started today at 3 AM and is still present. It has been constant and waxing/waning. Onset during light activity. At its maximum, severity described as severe. When seen in the E.D., severity described as severe. Modifying factors. Not worsened by anything. Not relieved by anything. It is described as located in the left chest area and left arm. The patient has had nausea and has experienced diaphoresis. He has had vomiting (1 times). No difficulty breathing. Similar symptoms previously: ( Review of old records [facility] 11/12/2016 Admitted for sepsis due to multiple lower extremity abscesses. Hx IVDA Meth). Recent medical care: The patient was seen recently at this facility in the emergency department. ( For treatment of Abscess at [facility] on 12/08 2016 ICU - [facility]) "septic" abscess/diabetes). REVIEW OF SYSTEMS No fever, cough, pedal edema, headache or sore throat. No blurred vision, abdominal pain, black stools, difficulty with urination or skin rash. No bloody stools. He has had chills. All systems otherwise negative, except as recorded above. PAST HISTORY PCP: Ops: Back x 5, Cardiac ablation, cardiac cath (5-6 years ago) Hosp: Cardiac Cath, recent hosp for Sepsis Illness: DM. AF, multiple abscesses, HBP, Bipolar. SOCIAL HISTORY Smoker- current status unknown. ADDITIONAL NOTES The nursing notes have been reviewed. PHYSICAL EXAM Appearance: Alert. No acute distress. Eyes: Eyes normal inspection. Neck: Normal inspection. Neck supple. CVS: Normal heart rate and rhythm. Heart sounds normal. Respiratory: No respiratory distress. Breath sounds normal. Chest nontender. Abdomen: Soft and nontender. Obese. Skin: Skin warm. Normal skin color. Extremities: (multiple healing medical vein punctures and I&D incisions.). Neuro: No alteration in mental status. LABS, X-RAYS, AND EKG EKG: No acute process. Rate: 102. Tachycardia. EKG #2: Normal. Chest X-ray: No acute disease. (PROCEDURE: XR CHEST 1 VIEW INDICATION: CHEST PAIN, initial encounter TECHNIQUE: Portable AP view 03:22 p.m. COMPARISON: None. FINDINGS: Lungs are clear. Heart and mediastinum are normal. Thorax is normal. IMPRESSION: 1. Negative chest. Electronically Final signed by:Oleg Sow MD 12/13/2016 4:08:02 PM). The X-rays were interpreted by the radiologist and contemporaneously by me. Laboratory Tests: CBC w Diff: (NIKOLAS: 12/13/2016 15:10) ( MsgRcvd 12/13/2016 15:24) Final results Test Result Flag Units (Reference) WHITE BLOOD COUNT 8.8 K/uL (4.5-11.5) RED BLOOD COUNT 5.91 H M/uL (4.50-5.90) HEMOGLOBIN 16.0 gm/dL (13.5-17.5) HEMATOCRIT 47.8 % (41.0-53.0) MEAN CELL VOLUME 81 fL (80-100) MEAN CORPUSCULAR HGB 27 pg (26-34) MEAN CORPUSCULAR HGB CONC 33 g/dL (31-37) RED CELL DISTRIBUTION WIDTH 14.6 % (11.6-14.8) PLATELET COUNT 258 K/uL (150-400) NEUTROPHIL % 70.5 % (50-75) LYMPH % 22.4 L % (25-40) MONO % 4.7 % (3-14) EOSINOPHIL % 1.6 % (0-4) BASOPHIL % 0.8 % (0-2) [id number]: (NIKOLAS: 12/13/2016 15:10) ( MsgRcvd 12/13/2016 16:57) Final results Test Result Flag Units (Reference) D-DIMER QUANTITATIVE 0.52 ug/mLFEU (0.27-0.52) The primary value of this quantitative assay relates toits negative predictive value (i.e. exclusion) of pulmonaryembolism/deep vein thrombosis/DIC.Elevated levels of d-dimer may also occur with:, age, cancer, inflammation, liver disease,post-op, infection, hematoma, coronary disease, peripheralarteriopathy, bleeding disorders and thrombolytic treatment.Results should be correlated with other clinical andradiological data.Testing Methodology: Latex Immunoassay BNP: (NIKOLAS: 12/13/2016 15:10) ( [facility] [place] [facility]13/[place] 15:48) Final results Test Result Flag Units (Reference) B-TYPE NATRIURETIC PEPTIDE 15.7 pg/ml (5-100) CHEM 13 PANEL: (NIKOLAS: 12/13/2016 15:10) ( LagRcvd 12/13/2016 15:45) Final results Test Result Flag Units (Reference) GLUCOSE 495 H mg/dL (70-110) BUN 14 mg/dL (7-18) CREATININE 1.1 mg/dL (0.6-1.3) Estimated GFR >60 mL/min Estimated GFR- >60 mL/min Note: Persistent reduction over 3 months in eGFR<60 mL/min/1.73 m2 defines CKD. Patients with eGFR values>=60 mL/min/1.73 m2 may also have CKD if evidence ofpersistent proteinuria. Additional information may be foundat www.[email or web address].org. SODIUM 133 L mmol/L (136-145) POTASSIUM 4.2 mmol/L (3.5-5.1) CHLORIDE 98 mmol/L (98-107) CARBON DIOXIDE 22 mmol/L (21-32) CALCIUM 9.1 mg/dL (8.5-10.1) TOTAL PROTEIN 7.9 g/dL (6.4-8.2) ALBUMIN 3.3 g/dL (3.3-5.0) BILIRUBIN, TOTAL 0.4 mg/dL (0.0-1.0) ALKALINE PHOSPHATASE 110 U/L (46-116) AST (SGOT) 22 U/L (15-37) ALT (SGPT) 43 U/L (12-78) MAGNESIUM 1.8 mg/dL (1.8-2.4) CPK 71 U/L (24-260) TROPONIN I <0.05 L ng/mL (0.00-1.5) TROPONIN REFERENCE RANGE:<0.1 NEGATIVE0.1-1.5 INDETERMINANT>1.5 POSITIVE . PROGRESS AND PROCEDURES Course of Care: 15:12 12/13/16. Report from RN. Initaial orders given 16:12 12/13/16. Troponin negative 12 hours after symptom onset with continuous pain. The likelihood of this being ACS is very very low. 16:18 12/13/16. INSULIN 10 200 PER DAY. He states that he would take 50 units of regular insulin for his BS of over 400. We will start with 10 IV. 16:21 12/13/16. Re Does not want to take toraol 17:06 12/13/16. D.dimer is negative. 17:17 12/13/16. Mr Townsend is offered NTG, Toradol, Gi coctail Hydrococone for his non cardiac pain. He is angry and states that from his prior experience he should have been promptly given morphine. And that he is being treated like a drug addict. He is the only person to bring this subject up. Since he had a normal EKG after 12 hours of continuous pain corroborated by negative cardiac markers at 12 hours of pain this is very unlikely ACS. After 10 units of regular insulin the patient's BS declines from just under 500 to 318. This can be further managed at home. 12/13/2016 17:58 BP: 145/72. HR: 100. RR: 20. O2 saturation: 97%. Temp: 98.5 F. 12/13/2016 15:52 BP: 137/73. HR: 104. RR: 20. O2 saturation: 97%. 12/13/2016 15:21 BP: 141/77. 12/13/2016 14:45 BP: 155/99. HR: 105. RR: 25. O2 saturation: 98%. Temp: 98.2 F. Pain level now: 8/10. Differential Diagnosis: I considered myocardial infarction, unstable angina, aortic dissection, pulmonary embolism, pneumonia, pneumothorax and esophageal spasm as a possible cause of chest pain in this patient. (esophageal rupture). Disposition: Discharged. CLINICAL IMPRESSION Atypical chest pain. DIABETES POOR CONTROL. INSTRUCTIONS (IMMEDIATE RECHECK FOR FEVER, SHORTNESS OF BREATH OR MARKED CHANGE IN PAIN. IT DOES NOT LOOK LIKE HEART ATTACK, UNSTABLE ANGINA, COLLAPSED LUNG, AORTIC ANEURISM OR BLOOD CLOT IN LUNG. ESTABLISH PRIMARY CARE AMONG OTHER THINGS I OFFERED YOU HYDROCODONE FOR TONIGHT. YOU MAY USE THE MEDICATIONS GIVEN THE OTHER NIGHT WELL.). Follow-up with: [facility], , , [address], , [place], [id number] Follow up. Call for an appointment. Reason for referral: ESTABLISH PRIMARY CARE (Electronically signed by Drake Zhang MD 12/15/2016 14:08)
--- NOTE | 2016-12-13 17:30 | ED CLINICAL REPORT ---
Clinical Report - Physicians/Mid Levels [facility] [address] [place] [address] 12/13/2016 14:35 Patient: JUANIS TOWNSEND Time Seen: 15:12. Arrived- By private vehicle. Historian- patient. HISTORY OF PRESENT ILLNESS Chief Complaint: CHEST PAIN. This started today at 3 AM and is still present. It has been constant and waxing/waning. Onset during light activity. At its maximum, severity described as severe. When seen in the E.D., severity described as severe. Modifying factors. Not worsened by anything. Not relieved by anything. It is described as located in the left chest area and left arm. The patient has had nausea and has experienced diaphoresis. He has had vomiting (1 times). No difficulty breathing. Similar symptoms previously: ( Review of old records [facility] 11/12/2016 Admitted for sepsis due to multiple lower extremity abscesses. Hx IVDA Meth). Recent medical care: The patient was seen recently at this facility in the emergency department. ( For treatment of Abscess at [facility] on 12/08 2016 ICU - [facility]) "septic" abscess/diabetes). REVIEW OF SYSTEMS No fever, cough, pedal edema, headache or sore throat. No blurred vision, abdominal pain, black stools, difficulty with urination or skin rash. No bloody stools. He has had chills. All systems otherwise negative, except as recorded above. PAST HISTORY PCP: Ops: Back x 5, Cardiac ablation, cardiac cath (5-6 years ago) Hosp: Cardiac Cath, recent hosp for Sepsis Illness: DM. AF, multiple abscesses, HBP, Bipolar. SOCIAL HISTORY Smoker- current status unknown. ADDITIONAL NOTES The nursing notes have been reviewed. PHYSICAL EXAM Appearance: Alert. No acute distress. Eyes: Eyes normal inspection. Neck: Normal inspection. Neck supple. CVS: Normal heart rate and rhythm. Heart sounds normal. Respiratory: No respiratory distress. Breath sounds normal. Chest nontender. Abdomen: Soft and nontender. Obese. Skin: Skin warm. Normal skin color. Extremities: (multiple healing medical vein punctures and I&D incisions.). Neuro: No alteration in mental status. LABS, X-RAYS, AND EKG EKG: No acute process. Rate: 102. Tachycardia. EKG #2: Normal. Chest X-ray: No acute disease. (PROCEDURE: XR CHEST 1 VIEW INDICATION: CHEST PAIN, initial encounter TECHNIQUE: Portable AP view 03:22 p.m. COMPARISON: None. FINDINGS: Lungs are clear. Heart and mediastinum are normal. Thorax is normal. IMPRESSION: 1. Negative chest. Electronically Final signed by:Oleg Sow MD 12/13/2016 4:08:02 PM). The X-rays were interpreted by the radiologist and contemporaneously by me. Laboratory Tests: CBC w Diff: (NIKOLAS: 12/13/2016 15:10) ( MsgRcvd 12/13/2016 15:24) Final results Test Result Flag Units (Reference) WHITE BLOOD COUNT 8.8 K/uL (4.5-11.5) RED BLOOD COUNT 5.91 H M/uL (4.50-5.90) HEMOGLOBIN 16.0 gm/dL (13.5-17.5) HEMATOCRIT 47.8 % (41.0-53.0) MEAN CELL VOLUME 81 fL (80-100) MEAN CORPUSCULAR HGB 27 pg (26-34) MEAN CORPUSCULAR HGB CONC 33 g/dL (31-37) RED CELL DISTRIBUTION WIDTH 14.6 % (11.6-14.8) PLATELET COUNT 258 K/uL (150-400) NEUTROPHIL % 70.5 % (50-75) LYMPH % 22.4 L % (25-40) MONO % 4.7 % (3-14) EOSINOPHIL % 1.6 % (0-4) BASOPHIL % 0.8 % (0-2) [id number]: (NIKOLAS: 12/13/2016 15:10) ( MsgRcvd 12/13/2016 16:57) Final results Test Result Flag Units (Reference) D-DIMER QUANTITATIVE 0.52 ug/mLFEU (0.27-0.52) The primary value of this quantitative assay relates toits negative predictive value (i.e. exclusion) of pulmonaryembolism/deep vein thrombosis/DIC.Elevated levels of d-dimer may also occur with:, age, cancer, inflammation, liver disease,post-op, infection, hematoma, coronary disease, peripheralarteriopathy, bleeding disorders and thrombolytic treatment.Results should be correlated with other clinical andradiological data.Testing Methodology: Latex Immunoassay BNP: (NIKOLAS: 12/13/2016 15:10) ( [facility] 12/13/2016 15:48) Final results Test Result Flag Units (Reference) B-TYPE NATRIURETIC PEPTIDE 15.7 pg/ml (5-100) CHEM 13 PANEL: (NIKOLAS: 12/13/2016 15:10) ( OhgRcvd 12/13/2016 15:45) Final results Test Result Flag Units (Reference) GLUCOSE 495 H mg/dL (70-110) BUN 14 mg/dL (7-18) CREATININE 1.1 mg/dL (0.6-1.3) Estimated GFR >60 mL/min Estimated GFR- >60 mL/min Note: Persistent reduction over 3 months in eGFR<60 mL/min/1.73 m2 defines CKD. Patients with eGFR values>=60 mL/min/1.73 m2 may also have CKD if evidence ofpersistent proteinuria. Additional information may be foundat www.[email or web address].org. SODIUM 133 L mmol/L (136-145) POTASSIUM 4.2 mmol/L (3.5-5.1) CHLORIDE 98 mmol/L (98-107) CARBON DIOXIDE 22 mmol/L (21-32) CALCIUM 9.1 mg/dL (8.5-10.1) TOTAL PROTEIN 7.9 g/dL (6.4-8.2) ALBUMIN 3.3 g/dL (3.3-5.0) BILIRUBIN, TOTAL 0.4 mg/dL (0.0-1.0) ALKALINE PHOSPHATASE 110 U/L (46-116) AST (SGOT) 22 U/L (15-37) ALT (SGPT) 43 U/L (12-78) MAGNESIUM 1.8 mg/dL (1.8-2.4) CPK 71 U/L (24-260) TROPONIN I <0.05 L ng/mL (0.00-1.5) TROPONIN REFERENCE RANGE:<0.1 NEGATIVE0.1-1.5 INDETERMINANT>1.5 POSITIVE . PROGRESS AND PROCEDURES Course of Care: 15:12 12/13/16. Report from RN. Initaial orders given 16:12 12/13/16. Troponin negative 12 hours after symptom onset with continuous pain. The likelihood of this being ACS is very very low. 16:18 12/13/16. INSULIN 10 200 PER DAY. He states that he would take 50 units of regular insulin for his BS of over 400. We will start with 10 IV. 16:21 12/13/16. Re Does not want to take toraol 17:06 12/13/16. D.dimer is negative. 17:17 12/13/16. Mr Townsend is offered NTG, Toradol, Gi coctail Hydrococone for his non cardiac pain. He is angry and states that from his prior experience he should have been promptly given morphine. And that he is being treated like a drug addict. He is the only person to bring this subject up. Since he had a normal EKG after 12 hours of continuous pain corroborated by negative cardiac markers at 12 hours of pain this is very unlikely ACS. After 10 units of regular insulin the patient's BS declines from just under 500 to 318. This can be further managed at home. 12/13/2016 17:58 BP: 145/72. HR: 100. RR: 20. O2 saturation: 97%. Temp: 98.5 F. 12/13/2016 15:52 BP: 137/73. HR: 104. RR: 20. O2 saturation: 97%. 12/13/2016 15:21 BP: 141/77. 12/13/2016 14:45 BP: 155/99. HR: 105. RR: 25. O2 saturation: 98%. Temp: 98.2 F. Pain level now: 8/10. Differential Diagnosis: I considered myocardial infarction, unstable angina, aortic dissection, pulmonary embolism, pneumonia, pneumothorax and esophageal spasm as a possible cause of chest pain in this patient. (esophageal rupture). Disposition: Discharged. CLINICAL IMPRESSION Atypical chest pain. DIABETES POOR CONTROL. INSTRUCTIONS (IMMEDIATE RECHECK FOR FEVER, SHORTNESS OF BREATH OR MARKED CHANGE IN PAIN. IT DOES NOT LOOK LIKE HEART ATTACK, UNSTABLE ANGINA, COLLAPSED LUNG, AORTIC ANEURISM OR BLOOD CLOT IN LUNG. ESTABLISH PRIMARY CARE AMONG OTHER THINGS I OFFERED YOU HYDROCODONE FOR TONIGHT. YOU MAY USE THE MEDICATIONS GIVEN THE OTHER NIGHT WELL.). Follow-up with: [facility], , , [address], , [place], [address] Follow up. Call for an appointment. Reason for referral: ESTABLISH PRIMARY CARE (Electronically signed by Drake Zhang MD 12/15/2016 14:08)
--- NOTE | 2016-12-13 17:30 | ED ORDER SUMMARY ---
..... Patient: JUANIS HENSON OrderSheet [facility] VisitID: [id number] [address] [place] [address] 41y, M Registration Date/Time: 12/13/2016 ORDER SHEET Weight: 117.9 kg (stated) Allergies: NKA GENERAL ORDERS: Chest 1V Urgent (15:12 12/13/2016 Leonel LUCIO) (15:17 GMarshall R.N.) Manager Of Enterprise (Continuous) (15:13 12/13/2016 Leonel LUCIO) (15:17 GMarshall R.N.) Cardiac Panel Stat (15:13 12/13/2016 Leonel LUCIO) (15:17 GMarshall R.N.) BNP Urgent (15:13 12/13/2016 Leonel LUCIO) (15:17 GMarshall R.N.) Oxygen (2 L/min) (NC) (15:13 12/13/2016 Leonel LUCIO) (15:17 GMarshall R.N.) Pulse oximeter (15:13 12/13/2016 Leonel LUCIO) (15:17 GMarshall R.N.) EKG - ER Stat (15:13 12/13/2016 Leonel LUCIO) (15:17 GMarshall R.N.) EKG - ER Repeat Stat (16:14 12/13/2016 Leonel LUCIO) (Ack 16:31 Irving) (16:49 GMarshall R.N.) - (WATER TO DRINK PLZ) (16:15 12/13/2016 Leonel LUCIO) (Ack 16:31 Irving) (16:47 GMarshall R.N.) D-Dimer Urgent (16:44 12/13/2016 Leonel LUCIO) (Ack 16:46 Irving) (16:47 GMarshall R.N.) MEDICATION ORDERS: NitroGLYCERIN Paste Topical 1 in. (NOW) (15:13 12/13/2016 Leonel LUCIO) (15:20 GMarshall R.N.) NitroGLYCERIN SL 0.4 mg (NOW) (15:13 12/13/2016 Leonel LUCIO) (15:20 GMarshall R.N.) GI Cocktail WHITE PO 30 mL with Lidocaine Viscous Mouth/Throat 15 mL, Maalox Plus Oral 15 mL (16:15 12/13/2016 Leonel LUCIO) (16:48 GMarshall R.N.) IV FLUIDS: IV Saline Lock (15:13 12/13/2016 Leonel LUCIO) (15:20 GMarshall R.N.) Toradol IV 30 mg (NOW) (16:14 12/13/2016 Leonel LUCIO) (Cancelled: Patient Usyntde29:38 GMarshall R.N.) Insulin Reg IV 10 units (HIGH ALERT MEDICATION, NOW) (16:17 12/13/2016 Leonel LUCIO) (16:48 GMarshall R.N.) IV NS : initial bolus none -, then 500 mL/hr for 2h (NOW); Urgent (16:18 12/13/2016 Leonel LUCIO) (16:38 GMarshall R.N.) ORDER SHEET NOTES: [Electronically signed by Tyrone Singh R.N. (18:08 12/13/2016)] [Electronically signed by Drake Zhang MD (14:08 12/15/2016)] [Electronically locked/signed by Tyrone Singh R.N. (18:08 12/13/2016)]
--- NOTE | 2016-12-13 17:30 | ED NURSING NOTES ---
Clinical Report - Nurses [facility] [address] [place] [address] 12/13/2016 14:35 Patient: JUANIS HENSON TRIAGE Triage time 14:46. Acuity: LEVEL 2. Chief Complaint: CHEST PAIN. Alert. MAGI COMA SCORE: [place] Coma Scale: 15- eyes open spontaneously (4); best verbal response- oriented x 4 (5); best motor response- obeys commands (6). --14:57 Comfort Winkler R.N. 14:45 12/13/16. BP: 155/99. HR: 105. RR: 25. O2 saturation: 98%. Temp: 98.2 F. Pain level now: 8/10. Additional comments: 98% on RA. States pain located in upper left chest area and radiates down to left arm. . --14:57 Comfort Winkler R.N. Weight: 117.9 kg stated. Height/Length: 70 inches Per Patient. BMI: 37.3. --14:51 Comfort Winkler R.N. Medications Metoprolol Tartrate Oral. --14:47 Comfort Winkler R.N. ASA Oral 81, daily. --14:48 Comfort Winkler R.N. ClonazePAM Oral. --14:48 Comfort Winkler R.N. Nitroglycerin Sublingual. --14:48 Comfort Winkler R.N. Abilify Oral. --14:48 Comfort Winkler R.N. NovoLOG FlexPen Subcutaneous 40-50, tid. --14:49 Comfort Winkler R.N. Levamir 50 uniits, 2x a day. --14:50 Comfort Winkler R.N. Allergies NKA. --14:50 Comfort Winkler R.N. History Arrived by private vehicle. Historian: patient. This started last night. ( Pt states he has gastric ulcer, thought that was what was bothering him last night, but pain continued to worsen today. Located over left chest, down to left elbow.). PAST MEDICAL HX: Severe type I diabetes mellitus (38 years). Has had diabetic complications including prior DKA, heart disease and neuropathy. ( Past meth use, clean since .). SOCIAL HX: Heavy tobacco smoker- less than 1 pack per day. FALL RISK ASSESSMENT: Fall risk assessment completed. No fall risk identified. NUTRITIONAL RISK ASSESSMENT: The nutritional risk assessment revealed no deficiencies. FUNCTIONAL ASSESSMENT: Functional assessment: no impairments noted. LEARNING NEEDS ASSESSMENT: The learning needs assessment revealed no barriers. SKIN INTEGRITY ASSESSMENT: Skin integrity risk assessment completed. No skin integrity risk identified. --14:57 Comfort Winkler R.N. Assessment The patient states feels the same. --14:57 Comfort Winkler R.N. Interventions ID band on patient. --14:57 Comfort Winkler R.N. NURSING PROGRESS NOTES EKG time: (1505). EKG was performed by a tech and shown to the ED physician. --15:07 Mata Lr 15:10 12/13/2016 Site #1 started via IV in the left upper arm with an 20g angiocath, with aseptic technique and good blood return; one attempt. Blood drawn: rainbow set. Labeled in the presence of the patient and sent to the lab. Saline lock flushed with 10 mL saline. --15:20 Tyrone Singh R.N. 15:15 12/13/2016 Nitroglycerin SL Tablets 0.4 mg given. --15:20 Tyrone Singh R.N. 15:15 12/13/2016 NITROGLYCERIN PASTE Topical Paste 1 inch. Applied to the left upper back. --15:20 Tyrone Singh R.N. 15:10. ( complaining of pain 06/11. Dr Zhang notified. Orders received). --15:21 Tyrone Singh R.N. 15:21 12/13/16. BP: 141/77. --15:21 Tyrone Singh R.N. 15:52 12/13/16. BP: 137/73. HR: 104. RR: 20. O2 saturation: 97%. Pain level now 06/11. --15:55 Tyrone Singh R.N. 15:51 12/13/2016 Nitroglycerin SL Tablets 0.4 mg given. Allergies verified and confirmed 5 rights. --15:56 Tyrone Singh R.N. EKG time: (1631). EKG was performed by a tech and shown to the ED physician. --16:36 Mata Lr 16:38 12/13/2016 Started bag #1 1000 mL IV Fluids IV NS (Saline); at 500 mL/hr over 1 hour(s) via site #1 --16:38 Tyrone Singh R.N. ( Patient continues to complain of chest pain. Now he is angry stating he has never been treated like this before at any of the many hospitals he has gone to. States he wants something stronger for pain, but can't take IV Toradol. Agreed to try the GI cocktail.). --16:46 Tyrone Singh R.N. 16:38 12/13/2016 Insulin REG IVP 10 unit given over 1 minute(s) via site #1. IV patency established. IV site checked: no pain, redness, or swelling. IV flushed thoroughly pre- and post-medication administration. --16:48 Tyrone Singh R.N. 16:43 12/13/2016 GI COCKTAIL WHITE (Simethicone) PO Oral Suspension 30 mL given. --16:48 Tyrone Singh R.N. ( No relief from white GI cocktail. States wants to go home. He can manage his diabetes from home.). --16:59 Tyrone Singh R.N. Finger stick glucose: 318 mg/dL; performed by nurse. --17:57 Tyrone Singh R.N. 17:57 12/13/2016 Site #1 removed upon discharge. --17:58 Tyrone Singh R.N. 17:58 12/13/16. BP: 145/72. HR: 100. RR: 20. O2 saturation: 97%. Temp: 98.5 F. Pain level now 10. --18:00 Tyrone Singh R.N. 17:57 12/13/2016 IV Fluids IV NS Discontinued: bag #1 infused upon discharge. Total amount infused: 950 mL. IV patency established. IV site checked: no pain, redness, or swelling. IV flushed thoroughly. --18:07 Tyrone Singh R.N. DISPOSITION / DISCHARGE Condition at departure: unchanged. No learning barriers present. Discharge instructions provided and reviewed with the patient. Written instructions provided in Chinese. The patient was discharged by the physician. He was discharged home. He left the Emergency Department ambulatory. --18:02 Tyrone Singh R.N. Locked/Released at 12/13/2016 18:08 by Tyrone Sinhg R.N.
--- NOTE | 2016-12-13 17:30 | ED ORDER SUMMARY ---
..... Patient: JUANIS HENSON OrderSheet [facility] VisitID: [id number] [address] [place] [address] 41y, M Registration Date/Time: 12/13/2016 ORDER SHEET Weight: 117.9 kg (stated) Allergies: NKA GENERAL ORDERS: Chest 1V Urgent (15:12 12/13/2016 Leonel LUCIO) (15:17 GMarshall R.N.) Curtain Roller Assembler (Continuous) (15:13 12/13/2016 Leonel LUCIO) (15:17 GMarshall R.N.) Cardiac Panel Stat (15:13 12/13/2016 Leonel LUCIO) (15:17 GMarshall R.N.) BNP Urgent (15:13 12/13/2016 Leonel LUCIO) (15:17 GMarshall R.N.) Oxygen (2 L/min) (NC) (15:13 12/13/2016 Leonel LUCIO) (15:17 GMarshall R.N.) Pulse oximeter (15:13 12/13/2016 Leonel LUCIO) (15:17 GMarshall R.N.) EKG - ER Stat (15:13 12/13/2016 Leonel LUCIO) (15:17 GMarshall R.N.) EKG - ER Repeat Stat (16:14 12/13/2016 Leonel LUCIO) (Ack 16:31 Irving) (16:49 GMarshall R.N.) - (WATER TO DRINK PLZ) (16:15 12/13/2016 Leonel LUCIO) (Ack 16:31 Irving) (16:47 GMarshall R.N.) D-Dimer Urgent (16:44 12/13/2016 Leonel LUCIO) (Ack 16:46 Irving) (16:47 GMarshall R.N.) MEDICATION ORDERS: NitroGLYCERIN Paste Topical 1 in. (NOW) (15:13 12/13/2016 Leonel LUCIO) (15:20 GMarshall R.N.) NitroGLYCERIN SL 0.4 mg (NOW) (15:13 12/13/2016 Leonel LUCIO) (15:20 GMarshall R.N.) GI Cocktail WHITE PO 30 mL with Lidocaine Viscous Mouth/Throat 15 mL, Maalox Plus Oral 15 mL (16:15 12/13/2016 Leonel LUCIO) (16:48 GMarshall R.N.) IV FLUIDS: IV Saline Lock (15:13 12/13/2016 Leonel LUCIO) (15:20 GMarshall R.N.) Toradol IV 30 mg (NOW) (16:14 12/13/2016 Leonel LUCIO) (Cancelled: Patient Cvwaquw10:38 GMarshall R.N.) Insulin Reg IV 10 units (HIGH ALERT MEDICATION, NOW) (16:17 12/13/2016 Leonel LUCIO) (16:48 GMarshall R.N.) IV NS : initial bolus none -, then 500 mL/hr for 2h (NOW); Urgent (16:18 12/13/2016 Leonel LUCIO) (16:38 GMarshall R.N.) ORDER SHEET NOTES: [Electronically signed by Tyrone Singh R.N. (18:08 12/13/2016)] [Electronically signed by Drake Zhang MD (14:08 12/15/2016)] [Electronically locked/signed by Tyrone Singh R.N. (18:08 12/13/2016)]
--- NOTE | 2016-12-15 14:08 | ED MAR SUMMARY ---
..... Medication Administration Record [facility] [address] [place] [address] Patient: JUANIS HENSON Visit ID: [id number] 41y, M Weight: 117.9 kg Height/Length: 70 in BMI: 37.3 ALLERGIES: NKA Given 15:15 12/13/2016 Tyrone Singh R.N. Medication Administered: NITROGLYCERIN PASTE [TOPICAL], Dose: 1 in. Paste Topical. Medication Ordered: NitroGLYCERIN Paste Topical 1 in. (NOW). Given 15:15 12/13/2016 Tyrone Singh R.N. Medication Administered: NITROGLYCERIN [SL], Dose: 0.4 mg Tablets SL. Medication Ordered: NitroGLYCERIN SL 0.4 mg (NOW). Given 15:51 12/13/2016 Tyrone Singh R.N. Medication Administered: NITROGLYCERIN [SL], Dose: 0.4 mg Tablets SL. Medication Ordered: NitroGLYCERIN SL 0.4 mg (NOW). Given 16:38 12/13/2016 Tyrone Singh R.N. Medication Administered: INSULIN REG [IVP], Dose: 10 unit IVP over 1 minute(s), Site: #1 left upper arm. Medication Ordered: Insulin Reg IV 10 units (HIGH ALERT MEDICATION, NOW). Start 16:38 12/13/2016 Tyrone Singh R.N., Stop 17:57 12/13/2016 Tyrone Singh R.N. Medication Administered: IV NS (SALINE), Dose: IV Fluids over 1 hour(s), Rate: 500 mL/hr, Dispensed: 1000 mL bag, Site: #1 left upper arm. Medication Ordered: IV NS : initial bolus none -, then 500 mL/hr for 2h (NOW); Urgent. Given 16:43 12/13/2016 Tyrone Signh R.N. Medication Administered: GI COCKTAIL WHITE [PO] (SIMETHICONE), Dose: 30 mL Oral Suspension PO. Medication Ordered: GI Cocktail WHITE PO 30 mL with Lidocaine Viscous Mouth/Throat 15 mL, Maalox Plus Oral 15 mL.
--- NOTE | 2016-12-15 14:08 | ED MAR SUMMARY ---
..... Medication Administration Record [facility] [address] [place] [address] Patient: JUANIS HENSON Visit ID: [id number] 41y, M Weight: 117.9 kg Height/Length: 70 in BMI: 37.3 ALLERGIES: NKA Given 15:15 12/13/2016 Tyrone Singh R.N. Medication Administered: NITROGLYCERIN PASTE [TOPICAL], Dose: 1 in. Paste Topical. Medication Ordered: NitroGLYCERIN Paste Topical 1 in. (NOW). Given 15:15 12/13/2016 Tyrone Singh R.N. Medication Administered: NITROGLYCERIN [SL], Dose: 0.4 mg Tablets SL. Medication Ordered: NitroGLYCERIN SL 0.4 mg (NOW). Given 15:51 12/13/2016 Tyrone Singh R.N. Medication Administered: NITROGLYCERIN [SL], Dose: 0.4 mg Tablets SL. Medication Ordered: NitroGLYCERIN SL 0.4 mg (NOW). Given 16:38 12/13/2016 Tyrone Singh R.N. Medication Administered: INSULIN REG [IVP], Dose: 10 unit IVP over 1 minute(s), Site: #1 left upper arm. Medication Ordered: Insulin Reg IV 10 units (HIGH ALERT MEDICATION, NOW). Start 16:38 12/13/2016 Tyrone Singh R.N., Stop 17:57 12/13/2016 Tyrone Sinhg R.N. Medication Administered: IV NS (SALINE), Dose: IV Fluids over 1 hour(s), Rate: 500 mL/hr, Dispensed: 1000 mL bag, Site: #1 left upper arm. Medication Ordered: IV NS : initial bolus none -, then 500 mL/hr for 2h (NOW); Urgent. Given 16:43 12/13/2016 Tyrone Singh R.N. Medication Administered: GI COCKTAIL WHITE [PO] (SIMETHICONE), Dose: 30 mL Oral Suspension PO. Medication Ordered: GI Cocktail WHITE PO 30 mL with Lidocaine Viscous Mouth/Throat 15 mL, Maalox Plus Oral 15 mL.
--- NOTE | 2016-12-15 14:08 | ED DISCHARGE INSTRUCTIONS ---
Patient: JUANIS HENSON General Instructions [facility] VisitID: [id number] [address] [place] [address] 41y, M Registration Date/Time: 12/13/2016 Atypical chest pain. DIABETES POOR CONTROL. INSTRUCTIONS (IMMEDIATE RECHECK FOR FEVER, SHORTNESS OF BREATH OR MARKED CHANGE IN PAIN. IT DOES NOT LOOK LIKE HEART ATTACK, UNSTABLE ANGINA, COLLAPSED LUNG, AORTIC ANEURISM OR BLOOD CLOT IN LUNG. ESTABLISH PRIMARY CARE AMONG OTHER THINGS I OFFERED YOU HYDROCODONE FOR TONIGHT. YOU MAY USE THE MEDICATIONS GIVEN THE OTHER NIGHT WELL.). Follow-up with: [facility], , , [address], [place], [phone] Follow up. Call for an appointment. Reason for referral: ESTABLISH PRIMARY CARE (Electronically signed by Drake Zhang MD 12/15/2016 14:08)
--- NOTE | 2016-12-15 14:08 | ED DISCHARGE INSTRUCTIONS ---
Patient: JUANIS HENSON General Instructions [facility] VisitID: [id number] [address] [place] [address] 41y, M Registration Date/Time: 12/13/2016 Atypical chest pain. DIABETES POOR CONTROL. INSTRUCTIONS (IMMEDIATE RECHECK FOR FEVER, SHORTNESS OF BREATH OR MARKED CHANGE IN PAIN. IT DOES NOT LOOK LIKE HEART ATTACK, UNSTABLE ANGINA, COLLAPSED LUNG, AORTIC ANEURISM OR BLOOD CLOT IN LUNG. ESTABLISH PRIMARY CARE AMONG OTHER THINGS I OFFERED YOU HYDROCODONE FOR TONIGHT. YOU MAY USE THE MEDICATIONS GIVEN THE OTHER NIGHT WELL.). Follow-up with: [facility], , , [address], [place], [address] Follow up. Call for an appointment. Reason for referral: ESTABLISH PRIMARY CARE (Electronically signed by Drake Zhang MD 12/15/2016 14:08)
--- NOTE | 2016-12-15 14:09 | ED MED RECONCILIATION SUMMARY ---
Patient: JUANIS HENSON Medication Reconciliation Report [facility] VisitID: [id number] [address] [place] [address] 41y, M Registration Date/Time: 12/13/2016 Weight: 117.9 kg Height/Length: 70 in. BMI: 37.3 ALLERGIES: NKA The patient's Home Medications are listed below: THE FOLLOWING MEDICATIONS NEED TO BE RECONCILED: Abilify Oral ASA Oral 81, daily ClonazePAM Oral Levamir 50 uniits, 2x a day Metoprolol Tartrate Oral Nitroglycerin Sublingual NovoLOG FlexPen Subcutaneous 40-50, tid The source(s) of the original Home Medication information: Not obtained. The following Medications were given to the patient in the Emergency Department: Nitroglycerin [SL] SL 0.4 mg, administered: 12/13/2016 3:15:00 PM NITROGLYCERIN PASTE [TOPICAL] Topical 1 in., administered: 12/13/2016 3:15:00 PM Nitroglycerin [SL] SL 0.4 mg, administered: 12/13/2016 3:51:00 PM IV NS IV Fluids bolus 0, then 500 mL/hr, administered: 12/13/2016 4:38:00 PM GI COCKTAIL WHITE [PO] PO 30 mL, administered: 12/13/2016 4:43:00 PM Insulin REG [IVP] IVP 10 unit, administered: 12/13/2016 4:38:00 PM The following Medications were prescribed to the patient: None.
--- NOTE | 2016-12-15 14:09 | ED MED RECONCILIATION SUMMARY ---
Patient: JUANIS HENSON Medication Reconciliation Report [facility] VisitID: [id number] [address] [place] [address] 41y, M Registration Date/Time: 12/13/2016 Weight: 117.9 kg Height/Length: 70 in. BMI: 37.3 ALLERGIES: NKA The patient's Home Medications are listed below: THE FOLLOWING MEDICATIONS NEED TO BE RECONCILED: Abilify Oral ASA Oral 81, daily ClonazePAM Oral Levamir 50 uniits, 2x a day Metoprolol Tartrate Oral Nitroglycerin Sublingual NovoLOG FlexPen Subcutaneous 40-50, tid The source(s) of the original Home Medication information: Not obtained. The following Medications were given to the patient in the Emergency Department: Nitroglycerin [SL] SL 0.4 mg, administered: 12/13/2016 3:15:00 PM NITROGLYCERIN PASTE [TOPICAL] Topical 1 in., administered: 12/13/2016 3:15:00 PM Nitroglycerin [SL] SL 0.4 mg, administered: 12/13/2016 3:51:00 PM IV NS IV Fluids bolus 0, then 500 mL/hr, administered: 12/13/2016 4:38:00 PM GI COCKTAIL WHITE [PO] PO 30 mL, administered: 12/13/2016 4:43:00 PM Insulin REG [IVP] IVP 10 unit, administered: 12/13/2016 4:38:00 PM The following Medications were prescribed to the patient: None.
== END 2016-12-13 17:55 | disposition home or self-care (01) ==
LOC: ED SRH 14:34
DX: R07.89 Other chest pain (principal); E11.65 Type 2 diabetes mellitus with hyperglycemia; I10 Essential (primary) hypertension; Z79.4 Long term (current) use of insulin; Z79.82 Long term (current) use of aspirin; F17.210 Nicotine dependence, cigarettes, uncomplicated; R11.2 Nausea with vomiting, unspecified
CPT/HCPCS: 90100; 90616; 91320; 91556; 92610; 92720; 95059

== ENCOUNTER 2016-12-19 15:14 | Emergency (ER) | payer OTHER ==
--- NOTE | 2016-12-19 17:46 | DIAGNOSTIC IMAGING REPORT ---
PROCEDURE: XR FOREARM - LEFT INDICATION: Follow-up incision and drainage. TECHNIQUE: AP and lateral views. COMPARISON: None. FINDINGS: There is a small amount of subcutaneous emphysema in the medial/proximal soft tissues of the left forearm. There is no evidence of radiopaque foreign body. Osseous structures are normal. IMPRESSION: 1. Small amount of subcutaneous emphysema in the proximal left forearm compatible with postsurgical changes. 2. Otherwise negative left forearm. 3. Fine discussed with PAC. Adryan.
--- NOTE | 2016-12-19 19:35 | ED CLINICAL REPORT ---
Clinical Report - Physicians/Mid Levels [facility] [address] [place] [address] 12/19/2016 15:13 Patient: JUANIS HENSON Time Seen: 15:33 Dec 19 2016. Arrived- By private vehicle. Historian- patient. HISTORY OF PRESENT ILLNESS This started 3 days ago and is still present and worsening. (patient has a history of schizophrenia. His fatherwas ill and he recently came to [place] to be with him. However, yesterday his fatherdied from a heart attack. Patient says he needs to stay here now to deal with the and thinks he'll probably move air. In the meantime she is overdue for his IMAbilify. He also takes Klonopin for anxiety. Additionally, 3 or 4 days ago he started to get pain and swelling in his left forearm. He says he has a history of multiple abscesses which never grow MRSA according to him. He is requesting a refill of medication as well as treatment for his abscess.). Similar symptoms previously: Many times. Recent medical care: The patient was seen recently at this facility. REVIEW OF SYSTEMS No fever, cough, difficulty breathing, abdominal pain or nausea. No vomiting, chills, difficulty with urination or headache. He has had skin rash. All systems otherwise negative, except as recorded above. PAST HISTORY See nurses notes. Diabetes mellitus. Schizophrenia. No history of heart disease. SOCIAL HISTORY Smoker- current status unknown. History of drug use. ADDITIONAL NOTES The nursing notes have been reviewed. PHYSICAL EXAM Appearance: Alert. No acute distress. Eyes: Pupils equal, round and reactive to light. Eyes normal inspection. ENT: Ears normal. Pharynx normal. Neck: Normal inspection. Neck supple. No JVD. CVS: Normal heart rate and rhythm. Heart sounds normal. Respiratory: No respiratory distress. Breath sounds normal. Abdomen: Soft and nontender. Skin: Single large abscess with fluctuance and cellulitis to left arm. Cellulitis to left arm. No lymphangitis. Neuro: Oriented X 3. No motor deficit. No sensory deficit. Psych: Speech normal. Cognition normal. Thought process and content normal. No apparent delusions. Denies suicidal thoughts. Patient does not express homicidal thoughts. PROGRESS AND PROCEDURES Incision & Drainage of Abscess: The abscess is located in the left arm. The risks of the procedure, benefits and alternatives were explained. Consent was obtained. Parenteral Dilaudid administered. Local anesthesia provided using 2% lidocaine with epi. Skin cleansed with Hibiclens. The abscess was incised with a #15 surgical blade. A moderate amount of pus was drained. Cavity was packed with gauze. Sample obtained for cultures and gram stain. A dressing was applied. Estimated blood loss: 1 mL. Course of Care: 17:36 12/19/16. Patient stable but fairly significant hyperglycemia. IM insulin ordered as well. Patient's glucose improving after subcutaneous insulin. He'll need a follow-up tomorrow for reevaluation of the incision. He was given Dilaudid here. I also gave him a prescription for Klonopin and his Abilify. Disposition: Discharged. CLINICAL IMPRESSION Chronic schizophrenia. Deep abscess to the left upper extremity with incision and drainage (with cellulitis). Chronic, poorly controlled type 2 diabetes with hyperglycemia. INSTRUCTIONS Take Tylenol (Acetaminophen) or Motrin (Ibuprofen) as needed for fever control. Take medication according to label instructions. Rest at home today and tomorrow. Warnings: CONTROLLED SUBSTANCE WARNINGS. GENERAL WARNINGS: Return or contact your physician immediately if your condition worsens or changes unexpectedly, if not improving as expected, or if other problems arise. Specifically return if vomiting, breathing difficulty or fever greater than 102 degrees F fails to improve. Prescription Medications: Abilify 15 mg. Dispense fifteen (15). No refills. Substitution is permissible. Keflex 500 mg: take 1 capsule orally every 6 hours for 7 days. No refill. Substitution is permissible. Septra DS 800 mg / 160 mg: take 1 tablet orally every 12 hours for 5 days. No refill. Substitution is permissible. Klonopin 1 mg tablet: Take 1 orally every 8 hours. Dispense ten (10). No refills. Substitution is permissible. Disp: Abilify Maintena 400mg vial (1 dose). Simg IM Q 3 weeks for schizophrenia. Bring dose to ER for treatment. Follow-up: Return to the emergency department tomorrow even if well. Understanding of the discharge instructions verbalized by patient. (Electronically signed by Junito Boyd, 12/19/2016 23:44)
--- NOTE | 2016-12-19 19:35 | ED NURSING NOTES ---
Clinical Report - Nurses [facility] [address] [place] [address] 12/19/2016 15:13 Patient: JUANIS HENSON TRIAGE Triage time 1540. Acuity: LEVEL 4. Chief Complaint: BOIL and TENDER AREA. --15:45 Kiley Potter R.N. 15:41 12/19/16. BP: 152/84. HR: 92. RR: 20. O2 saturation: 99%. Temp: 98.5 F. Pain level now: 05/11. --15:45 Kiley Potter R.N. Weight: 117.9 kg stated. Height/Length: 70 inches Per Patient. BMI: 37.3. --15:42 Kiley Potter R.N. Medications Abilify Oral. ASA Oral 81, daily. ClonazePAM Oral. Levamir 50 uniits, 2x a day. Metoprolol Tartrate Oral. Nitroglycerin Sublingual. NovoLOG FlexPen Subcutaneous 40-50, tid. --15:43 Kiley Potter R.N. Allergies NKA. --15:43 Kiley Potter R.N. History Arrived by private vehicle. Historian: patient. Unaccompanied. Primary physician (no local PCP). Reported as located on the left forearm. Onset. (12/14 started itching). SOCIAL HX: Heavy tobacco smoker (cigarette)- 1 pack per day. Occasional alcohol use. No drug use. --15:45 Kiley Potter R.N. ( Pt states he is "in a mental health crisis"- is not suicidal, but needs his mental health meds since his father yesterday -- called crisis center and was told to come here "so things don't fall apart"). SELF HARM ASSESSMENT: A self harm assessment was performed. The patient answered "yes" to the question "Have you recently felt down, depressed, or hopeless?", "Have you noticed less interest or pleasure in doing things?" and "Have you ever tried to hurt yourself before today?" and "no" to the question "Do you have thoughts of harming or killing yourself?", "Are you here because you tried to hurt yourself?", "Have you recently had thoughts about harming or killing others?" and "Do you have any dangerous items in your possession?". --15:52 Kiley Potter R.N. PROBLEMS: Atypical Chest Pain. Abscess. Thyroid Disease. Hypertension. Diabetes Mellitus. --15:44 Kiley Potter R.N. ADDITIONAL SURGERIES: Back Surgery. --15:44 Kiley Potter R.N. Interventions ID band on patient. To treatment room. --15:45 Kiley Potter R.N. PHYSICAL ASSESSMENT 15:40. Ambulatory to room. Patient gowned. GENERAL / NEURO / PSYCH: Alert. The patient does not appear to be in acute distress. Oriented X 4. RESPIRATORY: Respirations not labored. CVS: Capillary refill less than 2 seconds. SKIN: Skin tenderness present. Swelling present. Increased warmth present. Erythema present. --15:46 Kiley Potter R.N. NURSING PROGRESS NOTES 15:40. Patient gowned. Head of bed elevated. Reassurance given. Patient identifiers checked. Call light placed in reach. Side rails up. Bed placed in lowest position. Patient ready for evaluation- chart flagged. --15:45 Kiley Potter R.N. 16:23 12/19/2016 Site #1 started via IV in the right hand with an 22g angiocath; one attempt. Blood drawn: rainbow set and cultures x1. Labeled in the presence of the patient. Saline lock flushed with 10 mL saline. --16:23 Jeri Monterroso R.N. 16:35 12/19/2016 Started bag #1 1000 mL IV Fluids IV NS (Saline); at 1000 mL/hr over 1 hour(s) via site #1 via IV pump. IV patency established. IV site checked: no pain, redness, or swelling. IV flushed thoroughly pre- and post-medication administration. --16:49 Kilye Potter R.N. 16:35 12/19/2016 Zofran (Ondansetron HCl) IVP 8 mg given over 2 minute(s) via site #1. IV patency established. IV site checked: no pain, redness, or swelling. IV flushed thoroughly pre- and post-medication administration. IVP given by RN. --16:51 Kiley Potter R.N. 16:40 12/19/2016 Dilaudid (HYDROmorphone HCl PF) IVP 1 mg given over 1 minute(s) via site #1. IV patency established. IV site checked: no pain, redness, or swelling. IV flushed thoroughly pre- and post-medication administration. IVP given by RN. --16:52 Kiley Potter R.N. 16:42 12/19/2016 Started 1 gm of Ancef (CeFAZolin Sodium) IVPB in bag #1 50 mL; at 150 mL/hr over 20 minute(s) via site #1 via IV pump. IV patency established. IV site checked: no pain, redness, or swelling. IV flushed thoroughly pre- and post-medication administration (will give 1Gm + 1 Gm consecutively). --16:54 Kiley Potter R.N. 17:10 12/19/2016 Ancef IVPB Bag Change: bag #1 infused. Total amount infused: 50. STARTED bag #2 (50 mL) at 150 mL/hr. --18:19 Kiley Potter R.N. 17:40 12/19/2016 Ancef IVPB Discontinued: bag #2 infused upon discharge. Total amount infused: 50 mL. IV patency established. IV site checked: no pain, redness, or swelling. IV flushed thoroughly. --18:23 Kiley Potter R.N. 18:00 12/19/2016 Insulin Reg Subcutaneous 20 unit given. Given in the right deltoid. --18:18 Kiley Potter R.N. 18:12 12/19/2016 IV Fluids IV NS Bag Change: bag #1 STOPPED. Total amount infused: 1000. STARTED bag #2 (1000 mL) at 1000 mL/hr via IV pump. IV patency established. IV site checked: no pain, redness, or swelling. IV flushed thoroughly. --18:17 Kiley Potter R.N. Finger stick glucose: 1915: 360 mg/dL. --19:17 Dena Blackwell late entry -16:20 IV started and labs drawn and sent. --23:20 Kiley Potter R.N. 16:40 pain meds given, pt c/o burning pain to red site on left arm. --23:20 Kiley Potter R.N. 17:00. I & D: Incision and Drainage of abscess performed by PA. Assisted by one tech. The abscess is located on the left forearm. Preparation: Incision and Drainage tray set up with 2% lidocaine with epi. Procedure; a moderate amount of pus was drained. Sample obtained for cultures and gram stain. A dressing was applied. Post-procedure: he was stable, no complications, bleeding controlled and dressing intact. Total time of assist / procedure: 15 minutes. --23:22 Kiley Potter R.N. 17:45. ( Pt cont. to c/o arm pain, ERPA notified.). --23:24 Kiley Potter R.N. 17:45 12/19/16. BP: 168/88. HR: 100. RR: 22. O2 saturation: 98%. Temp: deferred. Pain level now: 07/12. --23:24 Kiley Potter R.N. 19:15. Applied clean bulky dressing consisting of 4x4 gauze, following the application of antibiotic ointment (bacitracin). Secured with tape and kerlix. --23:25 Kiley Potter R.N. 19:20. ( Pt states he "just wants to go home" , FSBS rechecked). --23:26 Kiley Potter R.N. 19:30. ( Pt standing at door, states he is going to leave, ERPA in to talk with pt.). --23:27 Kiley Potter R.N. 19:30 12/19/2016 IV Fluids IV NS Discontinued: bag #2 STOPPED upon discharge. Total amount infused: 700 mL. IV patency established. IV site checked: no pain, redness, or swelling. IV flushed thoroughly. --23:28 Kiley Potter R.N. 19:30 12/19/2016 IV Saline Lock Drip IV Discontinued: bag #2 STOPPED upon discharge. Total amount infused: 0 mL. IV patency established. IV site checked: no pain, redness, or swelling. IV flushed thoroughly. --23:29 Kiley Potter R.N. 19:35 12/19/2016 Site #1 removed upon discharge. Bandaid applied. --23:27 Kiley Potter R.N. DISPOSITION / DISCHARGE 19:40. Condition at departure: improved and stable. No learning barriers present. Discharge instructions provided and reviewed with the patient. Reviewed medication(s) (abilify, keflex, septra, klonopin,). Patient verbalized understanding. Written instructions provided in French. The patient was discharged home and accompanied by editor. He left the Emergency Department ambulatory and via private vehicle. [employer] driving. --23:18 Kiley Potter R.N. 19:40 12/19/16. BP: 148/78. HR: 84. RR: 18. O2 saturation: 97% on room air. Temp: deferred. Pain level now: 06/11. --23:18 Kiley Potter R.N. Locked/Released at 12/19/2016 23:29 by Kiley Potter R.N.
--- NOTE | 2016-12-19 19:35 | ED ORDER SUMMARY ---
..... Patient: JUANIS HENSON OrderSheet [facility] VisitID: [id number] [address] [place] [address] 41y, M Registration Date/Time: 12/19/2016 ORDER SHEET Weight: 117.9 kg (stated) Allergies: NKA GENERAL ORDERS: Culture, Wound Surface (Arm) (Left forearm) Urgent (17:06 12/19/2016 JCoates) (Ack 17:35 LTapper) (18:17 DDean R.N.) CBC w Diff Urgent (17:06 12/19/2016 JCoates) (Ack 17:35 LTapper) (18:17 DDean R.N.) CMP Urgent (17:06 12/19/2016 JCoates) (Ack 17:35 LTapper) (18:17 DDean R.N.) Lactate, Serum Urgent (17:06 12/19/2016 JCoates) (Ack 17:35 LTapper) (18:04 JCoates) (Cancelled: Physician Order18:04 JCoates) Forearm Left Urgent (17:12 12/19/2016 JCoates) (Ack 17:35 LTapper) (19:11 [facility]) - (POC glucose. Thanks.) (18:24 12/19/2016 JCoates) (19:42 Darci ER Crtts) MEDICATION ORDERS: Lidocaine-Epinephrine Injection 2 % (soln) (NOW, place at bedside, with syringes & needles) (16:03 12/19/2016 JCoates) (Ack 16:28 DDean R.N.) (Cancelled: Other16:28 DDean R.N.) - (Abilify Maintena 400 mg IM in the ER. Thanks.) (17:12 12/19/2016 JCoates) (Cancelled: Other18:01 DDean R.N.) Insulin Reg Subcut 20 units (NOW) (17:35 12/19/2016 JCoates) (Ack 18:01 DDean R.N.) (18:18 DDean R.N.) IV FLUIDS: IV NS with Normal Saline 1 Liter: initial bolus 1000 mL (1000 mL/hr), then 1000 mL/hr for X1 (NOW) (16:02 12/19/2016 JCoates) (Ack 16:28 DDean R.N.) (16:49 DDean R.N.) Ancef IV 2 gm/100mL (NOW) (16:12/19/2016 JCoates) (Ack 16:28 DDean R.N.) (16:54 DDean R.N.) IV Saline Lock (16:03 12/19/2016 JCoates) (16:23 LSullivan R.N.) Zofran IV 8 mg (NOW) (16:24 12/19/2016 JCoates) (Ack 16:28 DDean R.N.) (16:51 DDean R.N.) Dilaudid IV 1 mg (NOW) (16:24 12/19/2016 JCoates) (Ack 16:28 DDean R.N.) (16:52 DDean R.N.) ORDER SHEET NOTES: [Electronically signed by Kiley Potter R.N. (23:29 12/19/2016)] [Electronically signed by Junito Boyd (23:44 12/19/2016)] [Electronically locked/signed by Kiley Potter R.N. (23:29 12/19/2016)]
--- NOTE | 2016-12-19 19:35 | ED ORDER SUMMARY ---
..... Patient: JUANIS HENSON OrderSheet [facility] VisitID: [id number] [address] [place] [address] 41y, M Registration Date/Time: 12/19/2016 ORDER SHEET Weight: 117.9 kg (stated) Allergies: NKA GENERAL ORDERS: Culture, Wound Surface (Arm) (Left forearm) Urgent (17:06 12/19/2016 JCoates) (Ack 17:35 LTapper) (18:17 DDean R.N.) CBC w Diff Urgent (17:06 12/19/2016 JCoates) (Ack 17:35 LTapper) (18:17 DDean R.N.) CMP Urgent (17:06 12/19/2016 JCoates) (Ack 17:35 LTapper) (18:17 DDean R.N.) Lactate, Serum Urgent (17:06 12/19/2016 JCoates) (Ack 17:35 LTapper) (18:04 JCoates) (Cancelled: Physician Order18:04 JCoates) Forearm Left Urgent (17:12 12/19/2016 JCoates) (Ack 17:35 LTapper) (19:11 [facility]) - (POC glucose. Thanks.) (18:24 12/19/2016 JCoates) (19:42 Darci ER Coil Former) MEDICATION ORDERS: Lidocaine-Epinephrine Injection 2 % (soln) (NOW, place at bedside, with syringes & needles) (16:03 12/19/2016 JCoates) (Ack 16:28 DDean R.N.) (Cancelled: Other16:28 DDean R.N.) - (Abilify Maintena 400 mg IM in the ER. Thanks.) (17:12 12/19/2016 JCoates) (Cancelled: Other18:01 DDean R.N.) Insulin Reg Subcut 20 units (NOW) (17:35 12/19/2016 JCoates) (Ack 18:01 DDean R.N.) (18:18 DDean R.N.) IV FLUIDS: IV NS with Normal Saline 1 Liter: initial bolus 1000 mL (1000 mL/hr), then 1000 mL/hr for X1 (NOW) (16:02 12/19/2016 JCoates) (Ack 16:28 DDean R.N.) (16:49 DDean R.N.) Ancef IV 2 gm/100mL (NOW) (16:12/19/2016 JCoates) (Ack 16:28 DDean R.N.) (16:54 DDean R.N.) IV Saline Lock (16:03 12/19/2016 JCoates) (16:23 LSullivan R.N.) Zofran IV 8 mg (NOW) (16:24 12/19/2016 JCoates) (Ack 16:28 DDean R.N.) (16:51 DDean R.N.) Dilaudid IV 1 mg (NOW) (16:24 12/19/2016 JCoates) (Ack 16:28 DDean R.N.) (16:52 DDean R.N.) ORDER SHEET NOTES: [Electronically signed by Kiley Potter R.N. (23:29 12/19/2016)] [Electronically signed by Junito Boyd (23:44 12/19/2016)] [Electronically locked/signed by Kiley Potter R.N. (23:29 12/19/2016)]
--- NOTE | 2016-12-19 23:44 | ED MAR SUMMARY ---
..... Medication Administration Record [facility] [address], [place] [address] Patient: JUANIS HENSON Visit ID: [id number] 41y, M Weight: 117.9 kg Height/Length: 70 in BMI: 37.3 ALLERGIES: NKA Start 16:35 12/19/2016 Kiley Potter R.N., Stop 19:30 12/19/2016 Kiley Potter R.N. Medication Administered: IV NS (SALINE), Dose: IV Fluids over 1 hour(s), Rate: 1000 mL/hr, Dispensed: 1000 mL bag, Site: #1 right hand. Medication Ordered: IV NS with Normal Saline 1 Liter: initial bolus 1000 mL (1000 mL/hr), then 1000 mL/hr for X1 (NOW). Given 16:35 12/19/2016 Kiley Potter R.N. Medication Administered: ZOFRAN [IVP] (ONDANSETRON HCL), Dose: 8 mg IVP over 2 minute(s), Site: #1 right hand. Medication Ordered: Zofran IV 8 mg (NOW). Given 16:40 12/19/2016 Kiley Potter R.N. Medication Administered: DILAUDID [IVP] (HYDROMORPHONE HCL PF), Dose: 1 mg IVP over 1 minute(s), Site: #1 right hand. Medication Ordered: Dilaudid IV 1 mg (NOW). Start 16:42 12/19/2016 Kiley Potter R.N., Stop 17:40 12/19/2016 Kiley Potter R.N. Medication Administered: ANCEF [IVPB] (CEFAZOLIN SODIUM), Dose: 1 gm IVPB over 20 minute(s), Rate: 150 mL/hr, Dispensed: 50 mL bag, Site: #1 right hand. Medication Ordered: Ancef IV 2 gm/100mL (NOW). Given 18:00 12/19/2016 Kiley Potter R.N. Medication Administered: INSULIN REG [SUBCUTANEOUS], Dose: 20 unit Subcutaneous. Medication Ordered: Insulin Reg Subcut 20 units (NOW).
--- NOTE | 2016-12-19 23:44 | ED MED RECONCILIATION SUMMARY ---
Patient: JUANIS HENSON Medication Reconciliation Report [facility] VisitID: [id number] [address] [place] [address] 41y, M Registration Date/Time: 12/19/2016 Weight: 117.9 kg Height/Length: 70 in. BMI: 37.3 ALLERGIES: NKA The patient's Home Medications are listed below: THE FOLLOWING MEDICATIONS NEED TO BE RECONCILED: Abilify Oral ASA Oral 81, daily ClonazePAM Oral Levamir 50 uniits, 2x a day Metoprolol Tartrate Oral Nitroglycerin Sublingual NovoLOG FlexPen Subcutaneous 40-50, tid The source(s) of the original Home Medication information: Not obtained. The following Medications were given to the patient in the Emergency Department: IV NS IV Fluids bolus 0, then 1000 mL/hr, administered: 12/19/2016 4:35:00 PM Zofran [IVP] IVP 8 mg, administered: 12/19/2016 4:35:00 PM Dilaudid [IVP] IVP 1 mg, administered: 12/19/2016 4:40:00 PM Ancef [IVPB] IVPB bolus 0, then 1 gm 150 mL/hr, administered: 12/19/2016 4:42:00 PM Insulin Reg [Subcutaneous] Subcutaneous 20 unit, administered: 12/19/2016 6:00:00 PM The following Medications were prescribed to the patient: Abilify 15 mg. Dispense fifteen (15). No refills. Substitution is permissible. -- Junito Byod Keflex 500 mg: take 1 capsule orally every 6 hours for 7 days. No refill. Substitution is permissible. -- Junito Boyd Septra DS 800 mg / 160 mg: take 1 tablet orally every 12 hours for 5 days. No refill. Substitution is permissible. -- Junito Boyd Klonopin 1 mg tablet: Take 1 orally every 8 hours. Dispense ten (10). No refills. Substitution is permissible. -- Junito Boyd Disp: Abilify Maintena 400mg vial (1 dose).Simg IM Q 3 weeks for schizophrenia. Bring dose to ER for treatment. -- Junito Boyd
--- NOTE | 2016-12-19 23:44 | ED DISCHARGE INSTRUCTIONS ---
Patient: JUANIS HENSON General Instructions [facility] VisitID: [id number] [place] [address] 41y, M Registration Date/Time: 12/19/2016 Chronic schizophrenia. Deep abscess to the left upper extremity with incision and drainage (with cellulitis). Chronic, poorly controlled type 2 diabetes with hyperglycemia. INSTRUCTIONS Take Tylenol (Acetaminophen) or Motrin (Ibuprofen) as needed for fever control. Take medication according to label instructions. Rest at home today and tomorrow. Warnings: CONTROLLED SUBSTANCE WARNINGS. GENERAL WARNINGS: Return or contact your physician immediately if your condition worsens or changes unexpectedly, if not improving as expected, or if other problems arise. Specifically return if vomiting, breathing difficulty or fever greater than 102 degrees F fails to improve. Prescription Medications: Abilify 15 mg. Dispense fifteen (15). No refills. Substitution is permissible. Keflex 500 mg: take 1 capsule orally every 6 hours for 7 days. No refill. Substitution is permissible. Septra DS 800 mg / 160 mg: take 1 tablet orally every 12 hours for 5 days. No refill. Substitution is permissible. Klonopin 1 mg tablet: Take 1 orally every 8 hours. Dispense ten (10). No refills. Substitution is permissible. Disp: Abilify Maintena 400mg vial (1 dose). Simg IM Q 3 weeks for schizophrenia. Bring dose to ER for treatment. Follow-up: Return to the emergency department tomorrow even if well. Understanding of the discharge instructions verbalized by patient. ADDITIONAL INFORMATION Abscess [Incision & Drainage] An abscess (sometimes called a boil) occurs when bacteria get trapped under the skin and begin to grow. Pus forms inside the abscess as the body responds to the bacteria. An abscess can occur with an insect bite, ingrown hair, blocked oil gland, pimple, cyst, or puncture wound. Treatment of your abscess has required an incision to drain the pus. If the abscess pocket was large, a gauze packing may have been inserted. This will need to be removed and possibly replaced on your next visit. Antibiotics are not required in the treatment of a simple abscess, unless the infection is spreading into the skin around the wound (known as cellulitis). Healing of the wound will take about one to two weeks depending on the size of the abscess. Healthy tissue will grow from the bottom and sides of the opening until it seals over. Home Care: The wound may drain for the first two days. Cover the wound with a clean dry dressing. If the dressing becomes soaked with blood or pus, change it. If a gauze packing was placed inside the abscess cavity, you may be advised to remove it yourself. You may do this in the shower. Once the packing is removed, you should wash the area in the shower or bath 3 to 4 times a day, until the skin opening has closed. If you were prescribed antibiotics, take them as directed until they are all gone. You may use acetaminophen (Tylenol) or ibuprofen (Motrin, Advil) to control pain, unless another pain medicine was prescribed. [ NOTE: If you have liver disease or ever had a stomach ulcer, talk with your doctor before using these medicines.] Follow Up with your doctor as advised by our staff. If a gauze packing was inserted in your wound, it should be removed in 1-2 days. Check your wound every day for the signs of worsening infection listed below. Get Prompt Medical Attention if any of the following occur: Increasing redness or swelling Red streaks in the skin leading away from the wound Increasing local pain or swelling Continued pus draining from the wound two days after treatment Fever of 100.4F (38C) or higher, or as directed by your healthcare provider Cellulitis You have an infection of the skin known as cellulitis. This usually starts with a scrape, cut, insect bite, blister or other opening in the skin which becomes infected. This is a serious condition. It must be watched closely to be sure the infection is not spreading. With antibiotic treatment, the size of the red area will gradually shrink in size until the skin returns to normal. This will take 7-10 days. The red area should never increase in size once the antibiotic medicine has been started. Occasionally, an infection will be resistant to one antibiotic and another one will have to be used. Home Care: 1) Limit the use of the affected part, since excess movement can cause the infection to spread. 2) If the infection is on your leg, walk as little as possible during the first few days of the treatment. Keep your leg elevated while sitting. This will reduce swelling. 3) Take all of the antibiotic medicine exactly as directed until it is gone. Be careful not to miss any doses, especially during the first seven days. Follow Up with your doctor or this facility as directed. Check the infected area daily for the warning signs listed below. Get Prompt Medical Attention if any of the following occur: -- Spreading area of redness -- Increasing swelling or pain -- Appearance of pus or drainage -- Fever over 100.4 F (38.0 C) oral, or over 101.4 F (38.6 C) rectal, after two days on antibiotics Diabetes with High Blood Sugar You have been treated for high blood sugar (hyperglycemia). This may be becauseof an infection or other illness;eating too many sweets or starches ; not taking enough insulin. Home care High blood sugar may cause symptoms that you can learn to recognize, such as these: If you feel like your blood sugar may be too high, measure it using a blood or urine test. If it is above your usual range, use the "sliding scale"rRegular insulin dose your doctor gave you to correct this. If no "sliding scale" orders were given, contact your doctor for further advice. If your blood sugar is over 300, and you can't reach your doctor, go to the hospital emergency room. Monitor and write down your blood sugars - and insulin dose, if you take insulin - atleast twice a day. Do this before breakfast and before dinner. Do this for the next 3 to 5 days. Follow-up care [facility] to review your blood sugar records. You will find out if you need to adjust your dose of insulin or other medicine for blood sugar. When to seek medical care Get prompt medical attention if either of these occur: High blood sugar.Symptoms are frequent urination, feeling dizzy, thirst, headache, nausea or vomiting, abdominal pain, and drowsiness or loss of consciousness. Low blood sugar. Symptoms are fatigue, headache, shakes, excess sweating, hunger, anxiety, reduced vision, drowsiness, weakness, confusion or loss of consciousness, and seizure. Cephalexin Monohydrate Oral tablet What is this medicine? CEPHALEXIN (sef a SHIMA in) is a cephalosporin antibiotic. It is used to treat certain kinds of bacterial infections It will not work for colds, flu, or other viral infections. How should I use this medicine? Take this medicine by mouth with a full glass of water. Follow the directions on the prescription label. This medicine can be taken with or without food. Take your medicine at regular intervals. Do not take your medicine more often than directed. Take all of your medicine as directed even if you think you are better. Do not skip doses or stop your medicine early. Talk to your youth manager regarding the use of this medicine in children. While this drug may be prescribed for selected conditions, precautions do apply. What side effects may I notice from receiving this medicine? Side effects that you should report to your doctor or health caregiver services home as soon as possible: allergic reactions like skin rash, itching or hives, swelling of the face, lips, or tongue breathing problems pain or trouble passing urine redness, blistering, peeling or loosening of the skin, including inside the mouth severe or watery diarrhea unusually weak or tired yellowing of the eyes, skin Side effects that usually do not require medical attention (report to your doctor or health caregiver services home if they continue or are bothersome): gas or heartburn genital or anal irritation headache joint or muscle pain nausea, vomiting What may interact with this medicine? probenecid some other antibiotics What if I miss a dose? If you miss a dose, take it as soon as you can. If it is almost time for your next dose, take only that dose. Do not take double or extra doses. There should be at least 4 to 6 hours between doses. Where should I keep my medicine? Keep out of the reach of children. Store at room temperature between 59 and 86 degrees F (15 and 30 degrees C). Throw away any unused medicine after the expiration date. What should I tell my health care provider before I take this medicine? They need to know if you have any of these conditions: kidney disease stomach or intestine problems, especially colitis an unusual or allergic reaction to cephalexin, other cephalosporins, penicillins, other antibiotics, medicines, foods, dyes or preservatives or trying to get breast-feeding What should I watch for while using this medicine? Tell your doctor or health caregiver services home if your symptoms do not begin to improve in a few days. Do not treat diarrhea with over the counter products. Contact your doctor if you have diarrhea that lasts more than 2 days or if it is severe and watery. If you have diabetes, you may get a false-positive result for sugar in your urine. Check with your doctor or health caregiver services home. Sulfamethoxazole, Trimethoprim Oral tablet What is this medicine? SULFAMETHOXAZOLE; TRIMETHOPRIM or SMX-TMP (suhl fuh meth OK julien zohl; trye METH oh prim) is a combination of a sulfonamide antibiotic and a second antibiotic, trimethoprim. It is used to treat or prevent certain kinds of bacterial infections. It will not work for colds, flu, or other viral infections. How should I use this medicine? Take this medicine by mouth with a full glass of water. Follow the directions on the prescription label. Take your medicine at regular intervals. Do not take it more often than directed. Do not skip doses or stop your medicine early. Talk to your youth manager regarding the use of this medicine in children. Special care may be needed. This medicine has been used in children as young as 2 months of age. What side effects may I notice from receiving this medicine? Side effects that you should report to your doctor or health caregiver services home as soon as possible: allergic reactions like skin rash or hives, swelling of the face, lips, or tongue breathing problems fever or chills, sore throat irregular heartbeat, chest pain joint or muscle pain pain or difficulty passing urine red pinpoint spots on skin redness, blistering, peeling or loosening of the skin, including inside the mouth unusual bleeding or bruising unusually weak or tired yellowing of the eyes or skin Side effects that usually do not require medical attention (report to your doctor or health caregiver services home if they continue or are bothersome): diarrhea dizziness headache loss of appetite nausea, vomiting nervousness What may interact with this medicine? Do not take this medicine with any of the following medications: aminobenzoate potassium dofetilide metronidazole This medicine may also interact with the following medications: HERBIE inhibitors like benazepril, enalapril, lisinopril, and ramipril cyclosporine digoxin diuretics indomethacin medicines for diabetes methenamine methotrexate phenytoin potassium supplements pyrimethamine sulfinpyrazone tricyclic antidepressants warfarin What if I miss a dose? If you miss a dose, take it as soon as you can. If it is almost time for your next dose, take only that dose. Do not take double or extra doses. Where should I keep my medicine? Keep out of the reach of children. Store at room temperature between 20 to 25 degrees C (68 to 77 degrees F). Protect from light. Throw away any unused medicine after the expiration date. What should I tell my health care provider before I take this medicine? They need to know if you have any of these conditions: anemia asthma being treated with anticonvulsants if you frequently drink alcohol containing drinks kidney disease liver disease low level of folic acid or [id number] dehydrogenase poor nutrition or malabsorption porphyria severe allergies thyroid disorder an unusual or allergic reaction to sulfamethoxazole, trimethoprim, sulfa drugs, other medicines, foods, dyes, or preservatives or trying to get breast-feeding What should I watch for while using this medicine? Tell your doctor or health caregiver services home if your symptoms do not improve. Drink several glasses of water a day to reduce the risk of kidney problems. Do not treat diarrhea with over the counter products. Contact your doctor if you have diarrhea that lasts more than 2 days or if it is severe and watery. This medicine can make you more sensitive to the sun. Keep out of the sun. If you cannot avoid being in the sun, wear protective clothing and use a sunscreen. Do not use sun lamps or tanning beds/booths. You have been given the following additional information: Abscess, Incision And Drainage Cellulitis Diabetic Hyperglycemia Cephalexin Monohydrate Oral tablet Sulfamethoxazole, Trimethoprim Oral tablet Rest at home today and tomorrow. (Electronically signed by Junito Boyd, 12/19/2016 23:44)
--- NOTE | 2016-12-19 23:44 | ED MAR SUMMARY ---
..... Medication Administration Record Merged With [facility] [address], [place] [address] Patient: JUANIS HENSON Visit ID: [id number] 41y, M Weight: 117.9 kg Height/Length: 70 in BMI: 37.3 ALLERGIES: NKA Start 16:35 12/19/2016 Kiley Potter R.N., Stop 19:30 12/19/2016 Kiley Potter R.N. Medication Administered: IV NS (SALINE), Dose: IV Fluids over 1 hour(s), Rate: 1000 mL/hr, Dispensed: 1000 mL bag, Site: #1 right hand. Medication Ordered: IV NS with Normal Saline 1 Liter: initial bolus 1000 mL (1000 mL/hr), then 1000 mL/hr for X1 (NOW). Given 16:35 12/19/2016 Kiley Potter R.N. Medication Administered: ZOFRAN [IVP] (ONDANSETRON HCL), Dose: 8 mg IVP over 2 minute(s), Site: #1 right hand. Medication Ordered: Zofran IV 8 mg (NOW). Given 16:40 12/19/2016 Kiley Potter R.N. Medication Administered: DILAUDID [IVP] (HYDROMORPHONE HCL PF), Dose: 1 mg IVP over 1 minute(s), Site: #1 right hand. Medication Ordered: Dilaudid IV 1 mg (NOW). Start 16:42 12/19/2016 Kiley Potter R.N., Stop 17:40 12/19/2016 Kiley Potter R.N. Medication Administered: ANCEF [IVPB] (CEFAZOLIN SODIUM), Dose: 1 gm IVPB over 20 minute(s), Rate: 150 mL/hr, Dispensed: 50 mL bag, Site: #1 right hand. Medication Ordered: Ancef IV 2 gm/100mL (NOW). Given 18:00 12/19/2016 Kiley Pottre R.N. Medication Administered: INSULIN REG [SUBCUTANEOUS], Dose: 20 unit Subcutaneous. Medication Ordered: Insulin Reg Subcut 20 units (NOW).
--- NOTE | 2016-12-19 23:44 | ED MED RECONCILIATION SUMMARY ---
Patient: JUANIS HENSON Medication Reconciliation Report [facility] VisitID: [id number] [address] [place] [place] [address] 41y, M Registration Date/Time: 12/19/2016 Weight: 117.9 kg Height/Length: 70 in. BMI: 37.3 ALLERGIES: NKA The patient's Home Medications are listed below: THE FOLLOWING MEDICATIONS NEED TO BE RECONCILED: Abilify Oral ASA Oral 81, daily ClonazePAM Oral Levamir 50 uniits, 2x a day Metoprolol Tartrate Oral Nitroglycerin Sublingual NovoLOG FlexPen Subcutaneous 40-50, tid The source(s) of the original Home Medication information: Not obtained. The following Medications were given to the patient in the Emergency Department: IV NS IV Fluids bolus 0, then 1000 mL/hr, administered: 12/19/2016 4:35:00 PM Zofran [IVP] IVP 8 mg, administered: 12/19/2016 4:35:00 PM Dilaudid [IVP] IVP 1 mg, administered: 12/19/2016 4:40:00 PM Ancef [IVPB] IVPB bolus 0, then 1 gm 150 mL/hr, administered: 12/19/2016 4:42:00 PM Insulin Reg [Subcutaneous] Subcutaneous 20 unit, administered: 12/19/2016 6:00:00 PM The following Medications were prescribed to the patient: Abilify 15 mg. Dispense fifteen (15). No refills. Substitution is permissible. -- Junito Boyd Keflex 500 mg: take 1 capsule orally every 6 hours for 7 days. No refill. Substitution is permissible. -- Junito Boyd Septra DS 800 mg / 160 mg: take 1 tablet orally every 12 hours for 5 days. No refill. Substitution is permissible. -- Junito Boyd Klonopin 1 mg tablet: Take 1 orally every 8 hours. Dispense ten (10). No refills. Substitution is permissible. -- Junito Boyd Disp: Abilify Maintena 400mg vial (1 dose).Simg IM Q 3 weeks for schizophrenia. Bring dose to ER for treatment. -- Junito Boyd
== END 2016-12-19 19:40 | disposition home or self-care (01) ==
LOC: ED SRH 15:14
DX: L02.414 Cutaneous abscess of left upper limb (principal); E11.65 Type 2 diabetes mellitus with hyperglycemia; F20.89 Other schizophrenia; Z79.4 Long term (current) use of insulin

== ENCOUNTER 2017-01-12 15:50 | Emergency (ER) | payer OTHER ==
--- NOTE | 2017-01-12 17:12 | DIAGNOSTIC IMAGING REPORT ---
PROCEDURE: XR CHEST 2 VIEW INDICATION: CHEST PAIN TECHNIQUE: PA and lateral views. COMPARISON: Chest 12/13/2016 FINDINGS: Lungs are clear. Heart and mediastinum are normal. Thorax is normal. IMPRESSION: 1. Negative chest.
--- NOTE | 2017-01-12 19:30 | ED ORDER SUMMARY ---
..... Patient: JUANIS HENSON OrderSheet [facility] VisitID: [id number] [place] [address] 41y, M Registration Date/Time: 01/12/2017 ORDER SHEET Weight: 117.9 kg (stated) Allergies: NKA, NSAIDs GENERAL ORDERS: Plant Ecologist (Continuous) (16:11 01/12/2017 SBalde R.N. per protocol) (16:11 SBalde R.N.) Cardiac Panel Stat (16:11 01/12/2017 SBalde R.N. per protocol) (Ack 16:14 RKaruga) (16:39 SBalde R.N.) UA-Culture if indicated Urgent (16:11 01/12/2017 SBalde R.N. per protocol) (Ack 16:14 RKaruga) (17:13 SBalde R.N.) Oxygen (2 L/min) (NC) (16:11 01/12/2017 SBalde R.N. per protocol) (Ack 17:19 SBalde R.N.) Pulse oximeter (16:11 01/12/2017 SBalde R.N. per protocol) (16:36 SBalde R.N.) EKG - ER Stat (16:11 01/12/2017 SBalde R.N. per protocol) (16:11 SBalde R.N.) Chest 2V Urgent (16:35 01/12/2017 SBalde R.N. per protocol) (Ack 16:38 RKaruga) (16:55 LTapper) Urine Drug Screen Urgent (17:38 01/12/2017 HBivens A.R.N.P.) (Ack 18:07 RKaruga) (18:29 RMarsden R.N.) CPK Urgent (17:40 01/12/2017 HBivens A.R.N.P.) (Ack 18:07 RKaruga) Troponin-I Urgent (17:40 01/12/2017 HBivens A.R.N.P.) (Ack 18:07 RKaruga) POC Glucose (30-40 min after insulin) (18:07 01/12/2017 HBivens A.R.N.P.) MEDICATION ORDERS: IV FLUIDS: IV Saline Lock (16:11 01/12/2017 SBalde R.N. per protocol) (Ack 17:13 SBalde R.N.) (18:14 JRomanelli R.N.) IV NS : initial bolus 1000 mL (1000 mL/hr), then none - (NOW) (18:07 01/12/2017 HBivens A.R.N.P.) (18:16 RMarsden R.N.) Insulin Reg IV 8 units (HIGH ALERT MEDICATION, NOW) (18:07 01/12/2017 HBivens A.R.N.P.) (Ack 18:16 RMarsden R.N.) (18:30 RMarsden R.N.) Toradol IV 30 mg (NOW) (18:14 01/12/2017 HBivens A.R.N.P.) (Ack 18:16 RMarsden R.N.) ORDER SHEET NOTES: [Electronically signed by Pennie WhartonRAletheaN.P. (20:04 01/12/2017)] [Electronically signed by Maribel Burk R.N. (08:38 01/15/2017)] [Electronically locked/signed by Maribel Burk R.N. (08:38 01/15/2017)]
--- NOTE | 2017-01-12 19:30 | ED CLINICAL REPORT ---
Clinical Report - Physicians/[facility] [address] [place] [address] 01/12/2017 15:51 Patient: JUANIS HENSON Time Seen: 16:38; initial patient contact, initial documentation, patient care assumed. Arrived- By ambulance. Historian- patient. HISTORY OF PRESENT ILLNESS Chief Complaint: CHEST PAIN and DISCOMFORT. It is described as sharp and "pain" and stabbing and it is described as located in the left chest area. No radiation. This started today and is still present. It was abrupt in onset. Onset during sleep. At its maximum, severity described as severe. When seen in the E.D., severity described as mild. Modifying factors- worsened by walking. Relieved by nitroglycerin (two, from patients own supply). Relief was transient. No nausea, vomiting, difficulty breathing or diaphoresis. 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 No additional chest pain. (pt states cp first started this am around 0800, was awakened by it, took x2 of his ntg, and pain went away, then went out later and was shopping and cp came back, so he called 911). Similar symptoms previously: Occasionally, worse. Recent medical care: Not recently seen/assessed. REVIEW OF SYSTEMS No fever or cough. All systems otherwise negative, except as recorded above. PAST HISTORY See nurses notes. PROBLEMS: Schizophrenia. Atypical Chest Pain. Abscess. Thyroid Disease. Hypertension. Diabetes Mellitus. --16:08 Francia Armas R.N. ADDITIONAL SURGERIES: Stent. --16:08 Francia Armas R.N. Recovering substance abuse (methamphetamines). SOCIAL HISTORY Heavy tobacco smoker. History of drug use 8 mos clean: methamphetamines. Is a recovering addict. No alcohol use. No recent travel. Is an out of state resident. Visiting locally. FAMILY HISTORY History of heart disease in first-degree relative (father). ADDITIONAL NOTES The nursing notes have been reviewed with agreement regarding the chief complaint, HPI, ROS, PMH and patient medications and allergies. PHYSICAL EXAM Vital Signs: 01/12/2017 16:00 BP: 115/94. HR: 88. RR: 18. O2 saturation: 99%. Temp: 98.2 F. Have been reviewed as abnormal and appear to be correct. Hypertensive. Heart rate normal. Respiratory rate normal. Temperature normal. Oxygen saturation normal. Appearance: Alert. Oriented X3. No acute distress. Anxious. Eyes: Pupils equal, round and reactive to light. Eyes normal inspection. Neck: Normal inspection. Neck supple. CVS: Normal heart rate and rhythm. Heart sounds normal. Pulses normal. Respiratory: No respiratory distress. Breath sounds normal. Chest nontender. Back: Normal external inspection. Skin: Skin warm and dry. Normal skin color. No rash. Normal skin turgor. (numerous scabs on B forearms and iv track yvan sites). Extremities: Extremities exhibit normal ROM. No lower extremity edema. Neuro: Oriented X 3. No motor deficit. No sensory deficit. LABS, X-RAYS, AND EKG EKG: EKG time: (1559). No acute process. No acute ischemia. Normal EKG. Rate: 87. Normal EKG. The study has been interpreted contemporaneously by me (and dr thurston). The EKG appears to be a good tracing. Chest X-ray: Great vessels normal. Normal Chest X-Ray. (IMPRESSION: 1. Negative chest. Electronically Final signed by:Winston Garza MD 01/12/2017 5:12:40 PM). The X-rays were interpreted by the radiologist and contemporaneously by me. Interpretation time: 17:37. Laboratory Tests: UA-Culture if indicated: (NIKOLAS: 01/12/2017 17:10) ( MsgRcvd 01/12/2017 17:30) Final results Test Result Flag Units (Reference) URINE COLOR YELLOW URINE APPEARANCE CLEAR URINE GLUCOSE 3+ (NEGATIVE) URINE BILIRUBIN NEGATIVE (NEGATIVE) URINE KETONE NEGATIVE (NEGATIVE) URINE SPECIFIC GRAVITY 1.015 (1.010-1.030) URINE PH 6.0 (5.0-8.0) URINE PROTEIN NEGATIVE (NEGATIVE) URINE UROBILINOGEN 0.2 EU/dL (0.2-1.0) URINE NITRITE NEGATIVE (NEGATIVE) URINE BLOOD NEGATIVE (NEGATIVE) URINE LEUK ESTERASE NEGATIVE (NEGATIVE) URINE RBC NONE SEEN rbc/hpf (0-1) URINE WBC RARE wbc/hpf (0-1) URINE EPITHELIAL CELLS 0-1 EPI/hpf (0-5) URINE BACTERIA NONE SEEN (NONE SEEN) URINE COMMENT CULT NOT INDICATED URINE CULTURES ARE SET-UP BASED ON THE FOLLOWING CRITERIA:POSITIVE NITRITEPOSITIVE LEUKOCYTE ESTERASEGREATER THAN 10 WHITE BLOOD CELLSMODERATE (2+) OR GREATER BACTERIA CBC w Diff: (NIKOLAS: 01/12/2017 16:20) ( [facility] 01/12/[facility] 16:52) Final results Test Result Flag Units (Reference) WHITE BLOOD COUNT 7.3 K/uL (4.5-11.5) RED BLOOD COUNT 5.53 M/uL (4.50-5.90) HEMOGLOBIN 14.7 gm/dL (13.5-17.5) HEMATOCRIT 43.9 % (41.0-53.0) MEAN CELL VOLUME 79 L fL (80-100) MEAN CORPUSCULAR HGB 27 pg (26-34) MEAN CORPUSCULAR HGB CONC 34 g/dL (31-37) RED CELL DISTRIBUTION WIDTH 14.5 % (11.6-14.8) PLATELET COUNT 250 K/uL (150-400) NEUTROPHIL % 64.6 % (50-75) LYMPH % 27.4 % (25-40) MONO % 6.0 % (3-14) EOSINOPHIL % 1.5 % (0-4) BASOPHIL % 0.5 % (0-2) Urine Drug Screen: (NIKOLAS: 01/12/2017 17:10) ( NmgRcvd 01/12/2017 18:01) Final results Test Result Flag Units (Reference) AMPHETAMINE/METHAMPHETAMINE NEGATIVE (NEGATIVE) BARBITURATE NEGATIVE (NEGATIVE) BENZODIAZEPINE NEGATIVE (NEGATIVE) CANNABINOID NEGATIVE (NEGATIVE) COCAINE NEGATIVE (NEGATIVE) ECSTASY NEGATIVE (NEGATIVE) METHADONE NEGATIVE (NEGATIVE) OPIATE NEGATIVE (NEGATIVE) The urine drug screen is a qualitative screening test fordrug overdose and abuse. All screen results should beconsidered as presumptive.Drugs screened for are as follows:BenzodiazepinesCocaineAmphetamines/MetamphetaminesTHC (Tetrahydrocannabinol)OpiatesBarbituratesEcstasyMethadonePositive results are unconfirmed. For confirmation, notifythe lab for the specimen to be sent to the reference lab.All confirmations must be performed by a differentmethodology.The ingestion of natural herbal and plant productscontaining Ephedra/Ephedra metabolites can produce in urineone or more substances capable of cross reacting withamphetamine/methamphetamine immunoassays. These testsprovide a preliminary result only. A more specificalternative chemical method must be used to obtain aconfirmed analytical result. CHEM 13 PANEL: (NIKOLAS: 01/12/2017 16:20) ( MsgRcvd 01/12/2017 16:53) Final results Test Result Flag Units (Reference) GLUCOSE 371 H mg/dL (70-110) BUN 10 mg/dL (7-18) CREATININE 1.0 mg/dL (0.6-1.3) Estimated GFR >60 mL/min Estimated GFR- >60 mL/min Note: Persistent reduction over 3 months in eGFR<60 mL/min/1.73 m2 defines CKD. Patients with eGFR values>=60 mL/min/1.73 m2 may also have CKD if evidence ofpersistent proteinuria. Additional information may be foundat www.kidney.org. SODIUM 133 L mmol/L (136-145) POTASSIUM 3.7 mmol/L (3.5-5.1) CHLORIDE 98 mmol/L (98-107) CARBON DIOXIDE 22 mmol/L (21-32) CALCIUM 8.8 mg/dL (8.5-10.1) TOTAL PROTEIN 7.6 g/dL (6.4-8.2) ALBUMIN 3.2 L g/dL (3.3-5.0) BILIRUBIN, TOTAL 0.5 mg/dL (0.0-1.0) ALKALINE PHOSPHATASE 92 U/L (46-116) AST (SGOT) 20 U/L (15-37) ALT (SGPT) 49 U/L (12-78) CPK 52 U/L (24-260) MAGNESIUM 1.8 mg/dL (1.8-2.4) TROPONIN I <0.05 ng/mL (0.00-1.5) TROPONIN REFERENCE RANGE:<0.1 NEGATIVE0.1-1.5 INDETERMINANT>1.5 POSITIVE . Bedside Tests: Glucose: moderate hyperglycemia - Finger stick glucose performed (378). --16:15 Francia Armas R.N. (performed at bedside). PROGRESS AND PROCEDURES Course of Care: pt upset with lab and nursing staff, c/o that if he has to have more blood work, then he wants iv, because nurse stuck him twice, and said someone would be back to put one in, and no one came back but lab, and he doesn't want to be 'just poked and poked', he wants iv, said the staff is treating him 'like a chump' and he wants maybe some ivf's for his sugar, and pt is upset 18:14 01/12/17. nurse informing me pt stated earlier he couldn't have nsaids because they make his ulcer worse 18:41 01/12/17. nurse now reporting pt is unhappy with his care, not happy about only given toradol, and declined toradol 1844. Dr Thurston aware of pt complaints 1849. back in room with nurse, tech as chaperones and assistance, pt unhappy with care, stating he wants to see , I am not qualified to see him, and we are trying to hurt him, because he can't have toradol with his ulcer hx, c/o nurses and being ignored, that they said they would be back after they stuck him, and they weren't, c/o about ems, and they were not even going to transport him, that he was going to complain to medicare, also c/o being able to hear people talking at the desk, demanding to see , refusing to let me talk, and swearing at times, then c/o staff and ems treating him like drug seeker, and that he would give urine to proove he hasn't done drugs, so that I would give him something else besides toradol, pt refusing blood work for 2nd set of cardiac enzymes, explained to pt he could either lets us do the blood work to properly assess his cp or he could go, pt informed of risks, and was encouraged that we were treating his cp, pt being uncooperative, c/o about everything still, so I exited room. Patient counseled in person regarding the patient's stable condition, test results and diagnosis. Differential Diagnosis: I considered muscle strain, costochondritis, myositis, pleurisy, myocardial infarction, intermediate coronary syndrome, unstable angina, angina, aortic dissection, mitral valve prolapse, pericarditis, palpitations, pulmonary embolism, pneumonia, lung cancer, gastroesophageal reflux disease, esophagitis and esophageal spasm as a possible cause of chest pain in this patient. This is a partial list of diagnoses considered. (substance abuse). CLINICAL IMPRESSION Chest pain characterized as "discomfort". (Electronically signed by Pennie Wharton A.R.N.P. 01/12/2017 20:04)
--- NOTE | 2017-01-12 19:30 | ED NURSING NOTES ---
Clinical Report - Nurses [facility] [place] [address] 01/12/2017 15:51 [id number] Triage time 16:00 Jan 12 2017. Acuity: LEVEL 2. Chief Complaint: CHEST PAIN and DISCOMFORT. Alert. No acute distress. (anxious). --16:09 Francia Armas R.N. 16:00 01/12/17. BP: 115/94. HR: 88. RR: 18. O2 saturation: 99%. Temp: 98.2 F. Pain level now 04/11. --16:09 Francia Armas R.N. Weight: 117.9 kg stated. Height/Length: 70 inches Per Patient. BMI: 37.3. --16:00 Francia Armas R.N. Medications Abilify Oral (Solution 1 mg/mL) 400 mg injection. ASA Oral 81, daily. ClonazePAM Oral 1 mg, 2x a day. Levamir 50 uniits, 2x a day. Metoprolol Tartrate Oral 25 mg. Nitroglycerin Sublingual 0.4 mg, as needed. NovoLOG FlexPen Subcutaneous 40-50, tid. --16:05 Francia Armas R.N. Synthroid Oral 75 mcg, daily. --16:06 Francia Armas R.N. Lisinopril Oral 20 mg, 2x a day. --16:06 Francia Armas R.N. Medication/allergy information source: the patient. --16:09 Francia Armas R.N. Allergies NKA. --16:05 Francia Armas R.N. NSAIDs. (doesn't take because he has a Peptic Ulcer) --16:07 Francia Armas R.N. History Arrived by EMS, and ([place]). Historian: patient. Accompanied by friend. Primary physician ([facility]). ( 0900, woke with left sided chest pain, took Nitro right away, took 2 SL. Resolved. Went shopping, ran errands, chest pain resumed, shortness of breath, called 911. Pt is staying with a friend at [facility] while here from [place]. Pt has been here since December. No plans to go back for now, has established a PCP at [facility]. ASA 324mg given RESTAURANT BUSSER by EMS.). Treatment RESTAURANT BUSSER: Took aspirin. ASA 325 mg PO. SOCIAL HX: Heavy tobacco smoker (cigarette)- 1 pack per day. 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 No alcohol use. No infectious disease exposure. FALL RISK ASSESSMENT: Fall risk assessment completed. No fall risk identified. NUTRITIONAL RISK ASSESSMENT: The nutritional risk assessment revealed no deficiencies. FUNCTIONAL ASSESSMENT: Functional assessment: no impairments noted. LEARNING NEEDS ASSESSMENT: The learning needs assessment revealed no barriers. SKIN INTEGRITY ASSESSMENT: Skin integrity risk assessment completed. No skin integrity risk identified. --16:09 Francia Armas R.N. Treatment RESTAURANT BUSSER: Finger stick glucose performed (378). --16:15 Francia Armas R.N. PROBLEMS: Schizophrenia. Atypical Chest Pain. Abscess. Thyroid Disease. Hypertension. Diabetes Mellitus. --16:08 Francia Armas R.N. ADDITIONAL SURGERIES: Stent. --16:08 Francia Armas R.N. Interventions ID band on patient. To room. --16:09 Francia Armas R.N. PHYSICAL ASSESSMENT To room via stretcher. GENERAL / NEURO / PSYCH: Oriented X 4. Appears anxious. CVS: Capillary refill less than 2 seconds. SKIN: Skin is warm and dry. --16:10 Francia Armas R.N. NURSING PROGRESS NOTES patient monitor, pulse oximeter and NIBP monitor placed on patient; front desk monitor- Lead II; monitor alarms on. Patient gowned. Reassurance given. Side rails up x 1. Bed placed in lowest position. Brakes of bed on. --16:09 Francia Armas R.N. ( Multiple attempts for IV access by Carolina Hammer RN. No IV at this time.). --16:16 Francia Armas R.N. 16:29 01/12/17. Finger stick glucose: 324 mg/dL; performed by nurse. --16:29 Adelaida Alamo R.N. EKG time: (15:59 PM). EKG was performed by a tech and shown to the ED physician. --16:42 Mata Lr 17:59 01/12/2017 Site #1 started via IV in the left upper arm with an 22g angiocath, with aseptic technique and good blood return; one attempt. Saline lock flushed with 10 mL saline (unable to draw blood from this site). --18:14 Arya Cano R.N. 18:16 01/12/2017 Started bag #1 1000 mL IV Fluids IV NS (Saline); bolus of 1000 mL wide open via site #1. Allergies verified and confirmed 5 rights. IV patency established. IV site checked: no pain, redness, or swelling. IV flushed thoroughly pre- and post-medication administration. --18:16 Adelaida Alamo R.N. 18:30 01/12/2017 Insulin REG IVP 8 unit given over 1 minute(s) via site #1. IV patency established. IV site checked: no pain, redness, or swelling. IV flushed thoroughly pre- and post-medication administration. --18:30 Adelaida Alamo R.N. late entry - 18:55. ( Pt became upset when offered toradol and refused the medication. Pt stated "you don't understand how much pain that gives me". HALEIGH Feldman explained that toradol would not affect his peptic ulcer, as it would bypass the stomach when given via IV. Pt asked for medicare number and the doctor and stated that he "received horrible care". HALEIGH Feldman explained that his care has followed protocol for a complaint of chest pain, and that his provider was Pennie Wharton NP. Pennie Smiley NP later went into the room with HALEIGH Feldman and this RN to discuss the patient's care. The patient told the JAVA SOFTWARE ARCHITECT he has been "treated like crap". The plan of care was explained again and the pt stated he just wants to leave. The pt's friend explained that the patient has been frustrated by recent health problems and past visits to healthcare providers.). --19:28 Adelaida Alamo R.N. ( Late Entry: chart taken away while charting and lost all charting details. Pt had multiple compliants during visit: Pt arrived with chest pain and started by saying he wanted us to do a drug screen so "you can se that I'm clean". "I have been clean for 8 months from using Meth". RN thanked pt for the information and informed that the test may not be necessary. Pt was a difficult IV stick, 2 attempts by another RN. Pt had cardiac protocol initiated, another RN will attempt an IV when pt returns from XRAY. IN the mean time, lab came and has drawn pt. Pt asked for something for his chest pain. RN informed provider. It was decided that if an IV cannot be placed we will do PO and SQ for meds and treatment, but will attempt an IV. Pt returned from XRAY, pt said, "you're not going to stick me over and over with lab draws, I want an IV. RN informed pt that we will try again and HALEIGH Koenig came in and was able to place a small 22g in the pt's LUE. IVF initiated. Insulin IV and when offered Tordol, pt became upset and stated he cannot have NSAIDS because of his ulcer. RN had informed provider this and the drug of choice would not affect pt's ulcer d/t route of administration. Pt refused Tordol, "you know beter than this". "I can't have that, I'll be puking all night". Pt wanted the Medicare Hotline Complaint # to file a complaint. RN asked provider to intervene and provider came in to talk with pt, HALEIGH Feldman and Adelaida RICARDO at bedside. Pt became more upset that he was seeing Nurse Practiioner and not a doctor, "I want to see a doctor now"! "I'm not doing anything more until I see a doctor". Current provider explained that ER Doctor is not going to come in and see him at this time. "I want to see a doctor", pt puts on the call light. More staff come to the room, Security at the door also, pt refuses more blood and states that we are not doing our jobs and he wants to see a doctor. Again, pt explained the plan of care and protocol to pt, he refuses and pt is told that if he is refusing care then he can sign out AMA, "you have the right to refuse the blood and Tordol, but we are not done with the workup". Pt holds on to the call light, asks to see a doctor over intercom, pt informed that RN will take out his IV and he will be escorted off the premises by security after he is dressed. Friend arrives and is apologetic for pt's behavior and has called for a ride.). --20:12 Francia Armas R.N. ( Late Entry: Pt left cooperative to the lobby with friend, all his belongings and bags with security.). --20:13 Francia Armas R.N. DISPOSITION / DISCHARGE Departure time: 19:10 Jan 12 2017. --20:14 Francia Armas R.N. 19:05 01/12/2017 Site #1 removed upon discharge. Bandage applied. --20:14 Francia Armas R.N. 20:14 01/12/17 late entry -. The patient left the Emergency Department against medical advice and without completion of treatment; patient was accompanied by a commercial decorator (refusing treatment). The patient appears to be alert and in no acute distress. The patient notified the ED staff prior to leaving the department and stated is leaving the ED due to personal reasons. Notified the ED physician and charge nurse of patient departure. Prior to leaving the ED, he was advised to return if needed. Patient refused to sign form prior to leaving. He left the Emergency Department ambulatory and via private vehicle. --20:14 Francia Armas R.N. Locked/Released at 01/15/2017 8:38 by Maribel Burk R.N.
--- NOTE | 2017-01-12 19:30 | ED NURSING NOTES ---
Clinical Report - Nurses [facility] [place] [address] 01/12/2017 15:51 [id number] TRI[facility] Triage time 16:00 Jan 12 2017. Acuity: LEVEL 2. Chief Complaint: CHEST PAIN and DISCOMFORT. Alert. No acute distress. (anxious). --16:09 Francia Armas R.N. 16:00 01/12/17. BP: 115/94. HR: 88. RR: 18. O2 saturation: 99%. Temp: 98.2 F. Pain level now 04/11. --16:09 Francia Armas R.N. Weight: 117.9 kg stated. Height/Length: 70 inches Per Patient. BMI: 37.3. --16:00 Francia Armas R.N. Medications Abilify Oral (Solution 1 mg/mL) 400 mg injection. ASA Oral 81, daily. ClonazePAM Oral 1 mg, 2x a day. Levamir 50 uniits, 2x a day. Metoprolol Tartrate Oral 25 mg. Nitroglycerin Sublingual 0.4 mg, as needed. NovoLOG FlexPen Subcutaneous 40-50, tid. --16:05 Francia Armas R.N. Synthroid Oral 75 mcg, daily. --16:06 Francia Armas R.N. Lisinopril Oral 20 mg, 2x a day. --16:06 Francia Armas R.N. Medication/allergy information source: the patient. --16:09 Francia Armas R.N. Allergies NKA. --16:05 Francia Armas R.N. NSAIDs. (doesn't take because he has a Peptic Ulcer) --16:07 Francia Armas R.N. History Arrived by EMS, and ([facility]). Historian: patient. Accompanied by friend. Primary physician ([facility]). ( 0900, woke with left sided chest pain, took Nitro right away, took 2 SL. Resolved. Went shopping, ran errands, chest pain resumed, shortness of breath, called 911. Pt is staying with a friend at [facility] while here from [place]. Pt has been here since December. No plans to go back for now, has established a PCP at [facility]. ASA 324mg given PRODUCTION SOUND MIXER by EMS.). Treatment PRODUCTION SOUND MIXER: Took aspirin. ASA 325 mg PO. SOCIAL HX: Heavy tobacco smoker (cigarette)- 1 pack per day. 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 No alcohol use. No infectious disease exposure. FALL RISK ASSESSMENT: Fall risk assessment completed. No fall risk identified. NUTRITIONAL RISK ASSESSMENT: The nutritional risk assessment revealed no deficiencies. FUNCTIONAL ASSESSMENT: Functional assessment: no impairments noted. LEARNING NEEDS ASSESSMENT: The learning needs assessment revealed no barriers. SKIN INTEGRITY ASSESSMENT: Skin integrity risk assessment completed. No skin integrity risk identified. --16:09 Francia Armas R.N. Treatment PRODUCTION SOUND MIXER: Finger stick glucose performed (378). --16:15 Francia Armas R.N. PROBLEMS: Schizophrenia. Atypical Chest Pain. Abscess. Thyroid Disease. Hypertension. Diabetes Mellitus. --16:08 Francia Armas R.N. ADDITIONAL SURGERIES: Stent. --16:08 Francia Armas R.N. Interventions ID band on patient. To room. --16:09 Francia Armas R.N. PHYSICAL ASSESSMENT To room via stretcher. GENERAL / NEURO / PSYCH: Oriented X 4. Appears anxious. CVS: Capillary refill less than 2 seconds. SKIN: Skin is warm and dry. --16:10 Francia Armas R.N. NURSING PROGRESS NOTES medical accounts receivable specialist, pulse oximeter and NIBP monitor placed on patient; cap inspector- Lead II; monitor alarms on. Patient gowned. Reassurance given. Side rails up x 1. Bed placed in lowest position. Brakes of bed on. --16:09 Francia Armas R.N. ( Multiple attempts for IV access by Carolina Hammer RN. No IV at this time.). --16:16 Francia Armas R.N. 16:29 01/12/17. Finger stick glucose: 324 mg/dL; performed by nurse. --16:29 Adelaida Alamo R.N. EKG time: (15:59 PM). EKG was performed by a tech and shown to the ED physician. --16:42 Mata Lr 17:59 01/12/2017 Site #1 started via IV in the left upper arm with an 22g angiocath, with aseptic technique and good blood return; one attempt. Saline lock flushed with 10 mL saline (unable to draw blood from this site). --18:14 Arya Cano R.N. 18:16 01/12/2017 Started bag #1 1000 mL IV Fluids IV NS (Saline); bolus of 1000 mL wide open via site #1. Allergies verified and confirmed 5 rights. IV patency established. IV site checked: no pain, redness, or swelling. IV flushed thoroughly pre- and post-medication administration. --18:16 Adelaida Alamo R.N. 18:30 01/12/2017 Insulin REG IVP 8 unit given over 1 minute(s) via site #1. IV patency established. IV site checked: no pain, redness, or swelling. IV flushed thoroughly pre- and post-medication administration. --18:30 Adelaida Alamo R.N. late entry - 18:55. ( Pt became upset when offered toradol and refused the medication. Pt stated "you don't understand how much pain that gives me". HALEIGH Feldman explained that toradol would not affect his peptic ulcer, as it would bypass the stomach when given via IV. Pt asked for medicare number and the doctor and stated that he "received horrible care". HALEIGH Feldman explained that his care has followed protocol for a complaint of chest pain, and that his provider was Pennie Wharton NP. Pennie Smiley NP later went into the room with HALEIGH Feldman and this RN to discuss the patient's care. The patient told the SOUND PERSON he has been "treated like crap". The plan of care was explained again and the pt stated he just wants to leave. The pt's friend explained that the patient has been frustrated by recent health problems and past visits to healthcare providers.). --19:28 Adelaida Alamo R.N. ( Late Entry: chart taken away while charting and lost all charting details. Pt had multiple compliants during visit: Pt arrived with chest pain and started by saying he wanted us to do a drug screen so "you can se that I'm clean". "I have been clean for 8 months from using Meth". RN thanked pt for the information and informed that the test may not be necessary. Pt was a difficult IV stick, 2 attempts by another RN. Pt had cardiac protocol initiated, another RN will attempt an IV when pt returns from XRAY. IN the mean time, lab came and has drawn pt. Pt asked for something for his chest pain. RN informed provider. It was decided that if an IV cannot be placed we will do PO and SQ for meds and treatment, but will attempt an IV. Pt returned from XRAY, pt said, "you're not going to stick me over and over with lab draws, I want an IV. RN informed pt that we will try again and HALEIGH Koenig came in and was able to place a small 22g in the pt's LUE. IVF initiated. Insulin IV and when offered Tordol, pt became upset and stated he cannot have NSAIDS because of his ulcer. RN had informed provider this and the drug of choice would not affect pt's ulcer d/t route of administration. Pt refused Tordol, "you know beter than this". "I can't have that, I'll be puking all night". Pt wanted the Medicare Hotline Complaint # to file a complaint. RN asked provider to intervene and provider came in to talk with pt, HALEIGH Feldman and Adelaida RICARDO at bedside. Pt became more upset that he was seeing Nurse Practiioner and not a doctor, "I want to see a doctor now"! "I'm not doing anything more until I see a doctor". Current provider explained that ER Doctor is not going to come in and see him at this time. "I want to see a doctor", pt puts on the call light. More staff come to the room, Security at the door also, pt refuses more blood and states that we are not doing our jobs and he wants to see a doctor. Again, pt explained the plan of care and protocol to pt, he refuses and pt is told that if he is refusing care then he can sign out AMA, "you have the right to refuse the blood and Tordol, but we are not done with the workup". Pt holds on to the call light, asks to see a doctor over intercom, pt informed that RN will take out his IV and he will be escorted off the premises by security after he is dressed. Friend arrives and is apologetic for pt's behavior and has called for a ride.). --20:12 Francia Armas R.N. ( Late Entry: Pt left cooperative to the lobby with friend, all his belongings and bags with security.). --20:13 Francia Armas R.N. DISPOSITION / DISCHARGE Departure time: 19:10 Jan 12 2017. --20:14 Francia Armas R.N. 19:05 01/12/2017 Site #1 removed upon discharge. Bandage applied. --20:14 Francia Armas R.N. 20:14 01/12/17 late entry -. The patient left the Emergency Department against medical advice and without completion of treatment; patient was accompanied by a shoe parts molder (refusing treatment). The patient appears to be alert and in no acute distress. The patient notified the ED staff prior to leaving the department and stated is leaving the ED due to personal reasons. Notified the ED physician and charge nurse of patient departure. Prior to leaving the ED, he was advised to return if needed. Patient refused to sign form prior to leaving. He left the Emergency Department ambulatory and via private vehicle. --20:14 Francia Armas R.N. Locked/Released at 01/15/2017 8:38 by Maribel Burk R.N.
--- NOTE | 2017-01-12 19:30 | ED ORDER SUMMARY ---
..... Patient: JUANIS HENSON OrderSheet [facility] VisitID: [id number] [place] [address] 41y, M Registration Date/Time: 01/12/2017 ORDER SHEET Weight: 117.9 kg (stated) Allergies: NKA, NSAIDs GENERAL ORDERS: Nurse Outreach Case Manager (Continuous) (16:11 01/12/2017 SBalde R.N. per protocol) (16:11 SBalde R.N.) Cardiac Panel Stat (16:11 01/12/2017 SBalde R.N. per protocol) (Ack 16:14 RKaruga) (16:39 SBalde R.N.) UA-Culture if indicated Urgent (16:11 01/12/2017 SBalde R.N. per protocol) (Ack 16:14 RKaruga) (17:13 SBalde R.N.) Oxygen (2 L/min) (NC) (16:11 01/12/2017 SBalde R.N. per protocol) (Ack 17:19 SBalde R.N.) Pulse oximeter (16:11 01/12/2017 SBalde R.N. per protocol) (16:36 SBalde R.N.) EKG - ER Stat (16:11 01/12/2017 SBalde R.N. per protocol) (16:11 SBalde R.N.) Chest 2V Urgent (16:35 01/12/2017 SBalde R.N. per protocol) (Ack 16:38 RKaruga) (16:55 LTapper) Urine Drug Screen Urgent (17:38 01/12/2017 HBivens A.R.N.P.) (Ack 18:07 RKaruga) (18:29 RMarsden R.N.) CPK Urgent (17:40 01/12/2017 HBivens A.R.N.P.) (Ack 18:07 RKaruga) Troponin-I Urgent (17:40 01/12/2017 HBivens A.R.N.P.) (Ack 18:07 RKaruga) POC Glucose (30-40 min after insulin) (18:07 01/12/2017 HBivens A.R.N.P.) MEDICATION ORDERS: IV FLUIDS: IV Saline Lock (16:11 01/12/2017 SBalde R.N. per protocol) (Ack 17:13 SBalde R.N.) (18:14 JRomanelli R.N.) IV NS : initial bolus 1000 mL (1000 mL/hr), then none - (NOW) (18:07 01/12/2017 HBivens A.R.N.P.) (18:16 RMarsden R.N.) Insulin Reg IV 8 units (HIGH ALERT MEDICATION, NOW) (18:07 01/12/2017 HBivens A.R.N.P.) (Ack 18:16 RMarsden R.N.) (18:30 RMarsden R.N.) Toradol IV 30 mg (NOW) (18:14 01/12/2017 HBivens A.R.N.P.) (Ack 18:16 RMarsden R.N.) ORDER SHEET NOTES: [Electronically signed by Pennie WhartonRAletheaN.P. (20:04 01/12/2017)] [Electronically signed by Maribel Burk R.N. (08:38 01/15/2017)] [Electronically locked/signed by Maribel Burk R.N. (08:38 01/15/2017)]
--- NOTE | 2017-01-15 08:39 | ED MAR SUMMARY ---
..... Medication Administration Record [facility] [address] [place] [address] Patient: JUANIS HENSON Visit ID: [id number] 41y, M Weight: 117.9 kg Height/Length: 70 in BMI: 37.3 ALLERGIES: NSAIDs, NKA Start 18:16 01/12/2017 Adelaida Alamo R.N. Medication Administered: IV NS (SALINE), Dose: IV Fluids, Bolus: 1000 mL wide open, Dispensed: 1000 mL bag, Site: #1 left upper arm. Medication Ordered: IV NS : initial bolus 1000 mL (1000 mL/hr), then none - (NOW). Given 18:30 01/12/2017 Adelaida Alamo R.N. Medication Administered: INSULIN REG [IVP], Dose: 8 unit IVP over 1 minute(s), Site: #1 left upper arm. Medication Ordered: Insulin Reg IV 8 units (HIGH ALERT MEDICATION, NOW).
--- NOTE | 2017-01-15 08:39 | ED DISCHARGE INSTRUCTIONS ---
Patient: JUANIS HENSON General Instructions [facility] VisitID: [id number] [place] [address] 41y, M Registration Date/Time: 01/12/2017 Chest pain characterized as "discomfort". ADDITIONAL INFORMATION Chest Pain, Uncertain Cause Chest pain can happen for a number of reasons. Sometimes the cause can not be determined. If yourcondition does not seem serious, and your pain does not appear to be coming from your heart, your doctor may recommend watching it closely. Sometimes the signs of a serious problem take more time to appear. Therefore, watch for the warning signs listed below. Home care After your visit, follow these recommendations: Rest today and avoid strenuous activity. Take any prescribed medicine as directed. Follow-up care Follow up with your doctor or this facility as instructed or if you do not start to feel better within 24 hours. Call 911 Get immediate medical attention if any of the following occur: A change in the type of pain: if it feels different, becomes more severe, lasts longer, or begins to spread into your shoulder, arm, neck, jaw or back Shortness of breath or increased pain with breathing Weakness, dizziness, or fainting Rapid heart beat Get prompt medical attention Call your doctor right away if any of the following occur: Cough with dark colored sputum (phlegm) or blood Fever of 100.4F(38C) or higher, or as directed by your health care provider Swelling, pain or redness in one leg You have been given the following additional information: Chest Pain, Uncertain Cause (Electronically signed by Pennie Wharton A.R.N.P. 01/12/2017 20:04)
--- NOTE | 2017-01-15 08:39 | ED MED RECONCILIATION SUMMARY ---
Patient: JUANIS HENSON Medication Reconciliation Report [facility] VisitID: [id number] [address] [place] [address] 41y, M Registration Date/Time: 01/12/2017 Weight: 117.9 kg Height/Length: 70 in. BMI: 37.3 ALLERGIES: NKA, NSAIDs The patient's Home Medications are listed below: THE FOLLOWING MEDICATIONS NEED TO BE RECONCILED: Abilify Oral (1 mg/mL) 400 mg injection ASA Oral 81, daily ClonazePAM Oral 1 mg, 2x a day Levamir 50 uniits, 2x a day Lisinopril Oral 20 mg, 2x a day Metoprolol Tartrate Oral 25 mg Nitroglycerin Sublingual 0.4 mg NovoLOG FlexPen Subcutaneous 40-50, tid Synthroid Oral 75 mcg, daily The source(s) of the original Home Medication information: patient The following Medications were given to the patient in the Emergency Department: IV NS IV Fluids bolus 1000 mL wide open, administered: 01/12/2017 6:16:00 PM Insulin REG [IVP] IVP 8 unit, administered: 01/12/2017 6:30:00 PM The following Medications were prescribed to the patient: None.
--- NOTE | 2017-01-15 08:39 | ED MAR SUMMARY ---
..... Medication Administration Record [facility] [address] [place] [address] Patient: JUANIS HENSON Visit ID: [id number] 41y, M Weight: 117.9 kg Height/Length: 70 in BMI: 37.3 ALLERGIES: NSAIDs, NKA Start 18:16 01/12/2017 Adelaida Alamo R.N. Medication Administered: IV NS (SALINE), Dose: IV Fluids, Bolus: 1000 mL wide open, Dispensed: 1000 mL bag, Site: #1 left upper arm. Medication Ordered: IV NS : initial bolus 1000 mL (1000 mL/hr), then none - (NOW). Given 18:30 01/12/2017 Adelaida Alamo R.N. Medication Administered: INSULIN REG [IVP], Dose: 8 unit IVP over 1 minute(s), Site: #1 left upper arm. Medication Ordered: Insulin Reg IV 8 units (HIGH ALERT MEDICATION, NOW).
--- NOTE | 2017-01-15 08:39 | ED MED RECONCILIATION SUMMARY ---
Patient: JUANIS HENSON Medication Reconciliation Report [facility] VisitID: [id number] [address] [place] [address] 41y, M Registration Date/Time: 01/12/2017 Weight: 117.9 kg Height/Length: 70 in. BMI: 37.3 ALLERGIES: NKA, NSAIDs The patient's Home Medications are listed below: THE FOLLOWING MEDICATIONS NEED TO BE RECONCILED: Abilify Oral (1 mg/mL) 400 mg injection ASA Oral 81, daily ClonazePAM Oral 1 mg, 2x a day Levamir 50 uniits, 2x a day Lisinopril Oral 20 mg, 2x a day Metoprolol Tartrate Oral 25 mg Nitroglycerin Sublingual 0.4 mg NovoLOG FlexPen Subcutaneous 40-50, tid Synthroid Oral 75 mcg, daily The source(s) of the original Home Medication information: patient The following Medications were given to the patient in the Emergency Department: IV NS IV Fluids bolus 1000 mL wide open, administered: 01/12/2017 6:16:00 PM Insulin REG [IVP] IVP 8 unit, administered: 01/12/2017 6:30:00 PM The following Medications were prescribed to the patient: None.
--- NOTE | 2017-01-15 08:39 | ED DISCHARGE INSTRUCTIONS ---
Patient: JUANIS HENSON General Instructions [facility] VisitID: [id number] [place] [address] 41y, M Registration Date/Time: 01/12/2017 Chest pain characterized as "discomfort". ADDITIONAL INFORMATION Chest Pain, Uncertain Cause Chest pain can happen for a number of reasons. Sometimes the cause can not be determined. If yourcondition does not seem serious, and your pain does not appear to be coming from your heart, your doctor may recommend watching it closely. Sometimes the signs of a serious problem take more time to appear. Therefore, watch for the warning signs listed below. Home care After your visit, follow these recommendations: Rest today and avoid strenuous activity. Take any prescribed medicine as directed. Follow-up care Follow up with your doctor or this facility as instructed or if you do not start to feel better within 24 hours. Call 911 Get immediate medical attention if any of the following occur: A change in the type of pain: if it feels different, becomes more severe, lasts longer, or begins to spread into your shoulder, arm, neck, jaw or back Shortness of breath or increased pain with breathing Weakness, dizziness, or fainting Rapid heart beat Get prompt medical attention Call your doctor right away if any of the following occur: Cough with dark colored sputum (phlegm) or blood Fever of 100.4F(38C) or higher, or as directed by your health care provider Swelling, pain or redness in one leg You have been given the following additional information: Chest Pain, Uncertain Cause (Electronically signed by Pennie Wharton A.R.N.P. 01/12/2017 20:04)
== END 2017-01-12 19:10 | disposition left against medical advice (07) ==
LOC: ED SRH 15:50
DX: R07.89 Other chest pain (principal); E11.9 Type 2 diabetes mellitus without complications; E07.9 Disorder of thyroid, unspecified; F17.210 Nicotine dependence, cigarettes, uncomplicated; Z95.5 Presence of coronary angioplasty implant and graft; Z79.82 Long term (current) use of aspirin; Z79.899 Other long term (current) drug therapy; Z79.4 Long term (current) use of insulin
CPT/HCPCS: 90004; 90074; 90098; 90100; 90616; 92610; 92720; 92760; 92761; 92762; 92763; 92764; 92765; 92766; 92767; 95059

== ENCOUNTER 2017-01-21 23:03 | Emergency (ER) | payer OTHER ==
--- NOTE | 2017-01-22 01:54 | ED NURSING NOTES ---
Clinical Report - Nurses [facility] [address] [place] [address] 01/21/2017 23:05 [id number] Triage time 23:Jan 21 2017. Acuity: LEVEL 3. Chief Complaint: (high blood sugar). 23:12 01/21/17. SEPSIS SCREEN: Sepsis Screen: negative. Negative (no infection suspected/documented). MAGI COMA SCORE: Chambers Coma Scale: 15- eyes open spontaneously (4); best verbal response- oriented x 4 (5); best motor response- obeys commands (6). --23:17 Melody Anna R.N. 23:12 01/21/17. BP: 162/102. HR: 94. RR: 18. O2 saturation: 100%. Temp: 97.9 F. Pain level now 7/10. --23:17 Melody Anna R.N. Weight: 117.9 kg stated. Height/Length: 70 inches Per Patient. BMI: 37.3. --23:12 Melody Anna R.N. Medications Abilify Oral (Solution 1 mg/mL) 400 mg injection. ASA Oral 81, daily. ClonazePAM Oral 1 mg, 2x a day. Levamir 50 uniits, 2x a day. Lisinopril Oral 20 mg, 2x a day. Metoprolol Tartrate Oral 25 mg. Nitroglycerin Sublingual 0.4 mg, as needed. NovoLOG FlexPen Subcutaneous 40-50, tid. Synthroid Oral 75 mcg, daily. --23:16 Melody Anna R.N. Allergies Non-Steroidal Antinflammatory. --23:15 Melody Anna R.N. Toradol. --23:16 Melody Anna R.N. Medication/allergy information source: the patient. --23:17 Melody Anna R.N. History Arrived by private vehicle. Historian: patient. Accompanied by family. This started today. ( checked sugar at home because he had blurred vision. meter read high, limit is 600. took levemir 50 units and novolog 50 around 9 pm, recheck sugar and 520. Now reading 363 in ER during triage). SOCIAL HX: Heavy tobacco smoker (cigarette)- 1 pack per day. Occasional alcohol use. History of drug use. (denies any drug use). No infectious disease exposure. ABUSE ASSESSMENT: No report of abuse. SELF HARM ASSESSMENT: A self harm assessment was performed. The patient answered "no" to the question "Have you recently felt down, depressed, or hopeless?", "Have you noticed less interest or pleasure in doing things?", "Do you have thoughts of harming or killing yourself?", "Are you here because you tried to hurt yourself?", "Have you ever tried to hurt yourself before today?", "Have you recently had thoughts about harming or killing others?" and "Do you have any dangerous items in your possession?". NUTRITIONAL RISK ASSESSMENT: The nutritional risk assessment revealed no deficiencies. FUNCTIONAL ASSESSMENT: Functional assessment: no impairments noted. LEARNING NEEDS ASSESSMENT: The learning needs assessment revealed no barriers. SKIN INTEGRITY ASSESSMENT: Skin integrity risk assessment completed. No skin integrity risk identified. --23:17 Melody Anna R.N. PROBLEMS: Chest Pain. Substance Abuse. Schizophrenia. Atypical Chest Pain. Hypertension. Thyroid Disease. Diabetes Mellitus. --23:16 Melody Anna R.N. Coronary Artery Disease. --23:17 Melody Anna R.N. ADDITIONAL SURGERIES: Back Surgery. Stent. --23:16 Melody Anna R.N. Coronary stents. --23:17 Melody Anna R.N. Interventions ID band on patient. --23:17 Melody Anna R.N. PHYSICAL ASSESSMENT 23:19 01/21/17. GENERAL / NEURO / PSYCH: Alert. Oriented X 4. HEENT: Pupils equal, round and reactive to light. No facial asymmetry noted. Mucous membranes are pink. RESPIRATORY: Breath sounds within normal limits. CVS: Capillary refill less than 2 seconds. Pulses within normal limits. GI / : Abdomen soft and nontender. SKIN: Skin intact. Skin is warm and dry. Normal skin turgor. --23:19 Melody Anna R.N. NURSING PROGRESS NOTES 23:20 01/21/17. The initial plan of care for this patient has been created This plan of care was discussed with the patient. Patient gowned. Reassurance given. Patient identifiers checked. Call light placed in reach. Side rails up x 1. Bed placed in lowest position. Brakes of bed on. Patient ready for evaluation. --23:20 Melody Anna R.N. Finger stick glucose: 363 mg/dL; ordered; performed by tech; result shown to the ED physician and RN. --23:23 Eric Wu, ER Benzol Operator 23:48 01/21/17. ( unsuccessful x 3 IV attempts. 2nd RN in to attempt access). --23:48 Melody Anna R.N. 23:55 01/21/2017 Site #1 started via IV in the right forearm with an 20g angiocath, with good blood return (unable to draw blood from site). --23:57 Melody Anna R.N. 23:58 01/21/2017 Started bag #1 1000 mL IV Fluids IV NS (Saline); at 1000 mL/hr over 1 hour(s) via site #1. Allergies verified and confirmed 5 rights. IV patency established. IV site checked: no pain, redness, or swelling. IV flushed thoroughly pre- and post-medication administration. --23:58 Melody Anna R.N. 00:55 01/22/2017 Insulin REG IVP 8 unit given over 1 minute(s) via site #1. Allergies verified and confirmed 5 rights. IV patency established. IV site checked: no pain, redness, or swelling. IV flushed thoroughly pre- and post-medication administration. IVP given by RN. --00:55 Melody Anna R.N. 01:00 01/22/2017 IV Fluids IV NS Discontinued: completed. Total amount infused: 1000 mL. IV patency established. IV site checked: no pain, redness, or swelling. IV flushed thoroughly. --01:11 Melody Anna R.N. 01:12 01/22/17. Reassessment after fluids administered and medication administered. He has had no adverse reaction. Overall patient status is the same- he states feels the same. --01:12 Melody Anna R.N. 01:12 01/22/17. BP: 139/86. HR: 90. RR: 18. O2 saturation: 98%. Temp: 97.7 F. Pain level now 04/11. --01:12 Melody Anna R.N. 01:42 01/22/17. Finger stick glucose: 212; performed by tech; result shown to the ED physician and RN. --01:42 Melody Anna R.N. DISPOSITION / DISCHARGE 02:01/22/2017 Site #1 removed upon discharge. Catheter intact. Pressure dressing applied. --02:01 Melody Anna R.N. 02:01 01/22/17. Departure time: 02:Jan 22 2017. Condition at departure: improved and stable. The goals identified in the patient's plan of care were met. No learning barriers present. Discharge instructions provided and reviewed with the patient. Patient verbalized understanding. Written instructions provided in Kittitian. The patient was discharged home and accompanied by paint grinder. He left the Emergency Department ambulatory and via private vehicle. Portfolio Administrator driving. --02:01 Melody Anna R.N. 01:11 01/22/17. BP: 139/86. HR: 90. RR: 18. O2 saturation: 98%. Temp: 97.7 F. Pain level now 04/11. 23:12 01/21/17. BP: 162/102. HR: 94. RR: 18. O2 saturation: 100%. Temp: 97.9 F. Pain level now 7/10. --02:01 Melody Anna R.N. Locked/Released at 01/22/2017 2:02 by Melody Anna R.N.
--- NOTE | 2017-01-22 01:54 | ED ORDER SUMMARY ---
..... Patient: JUANIS HENSON OrderSheet [facility] VisitID: [id number] [place] [address] 41y, M Registration Date/Time: 01/21/2017 ORDER SHEET Weight: 117.9 kg (stated) Allergies: Non-Steroidal Antinflammatory, Toradol GENERAL ORDERS: POC Glucose (23:24 01/21/2017 CHagerty ER Chart Changer per protocol) (23:24 CHagerty ER Chart Changer) CBC w Diff Urgent (:01/21/2017 Cain LUCIO) (Ack 23:28 SRedmond) (0:50 EInderbitzen R.N.) CMP Urgent (:01/21/2017 Cain LUCIO) (Ack 23:28 SRedmond) (0:50 EInderbitzen R.N.) UA-Culture if indicated Urgent (:01/21/2017 Cain LUCIO) (Ack 23:28 SRedmond) (0:50 EInderbitzen R.N.) Amylase Urgent (23:25 01/21/2017 Cain LUCIO) (Ack 23:28 SRedmond) (0:50 EInderbitzen R.N.) Lipase Urgent (:01/21/2017 Cain LUCIO) (Ack 23:28 SRedmond) (0:50 EInderbitzen R.N.) Acetone, Serum Urgent (:01/21/2017 Cain LUCIO) (Ack 23:28 SRedmond) (0:50 EInderbitzen R.N.) POC Glucose (Q 30 minutes) (00:44 01/22/2017 Cain LUCIO) (0:55 EInderbitzen R.N.) MEDICATION ORDERS: IV FLUIDS: IV NS : initial bolus 1000 mL (1000 mL/hr), then 150 mL/hr for 4h (NOW); Urgent (23:25 01/21/2017 Cani LUCIO) (23:58 EInderbitzen R.N.) Insulin Reg IV 8 units (HIGH ALERT MEDICATION, NOW) (00:43 01/22/2017 Cain LUCIO) (0:55 EInderbitzen R.N.) ORDER SHEET NOTES: [Electronically signed by Melody Anna R.N. (02:02 01/22/2017)] [Electronically signed by Edgardo Nuñez MD (06:49 01/22/2017)] [Electronically locked/signed by Melody Anna R.N. (02:02 01/22/2017)]
--- NOTE | 2017-01-22 01:54 | ED CLINICAL REPORT ---
Clinical Report - Physicians/Mid Levels [facility] [address] [place] [address] 01/21/2017 23:05 Patient: JUANSI HENSON Time Seen: 23:38. Arrived- By private vehicle. Historian- patient. HISTORY OF PRESENT ILLNESS Chief Complaint: DIZZINESS. At its maximum, severity described as moderate. When seen in the E.D., it was almost gone. This started today and is still present but is better now. It was gradual in onset. REVIEW OF SYSTEMS No chills, muscle aches, sweats, calf pain or chest pain. No cough, difficulty breathing, pedal edema, palpitations or abdominal pain. No black stools, bloody stools, constipation, diarrhea or nausea. No vomiting. The patient has had diabetic symptoms, including polydipsia and polyuria. No polyphagia, weight loss or fatigue. All systems otherwise negative, except as recorded above. PAST HISTORY Problems: Peptic Ulcer Disease. Coronary Artery Disease. Chest Pain. Substance Abuse. Schizophrenia. Atypical Chest Pain. Abscess. Hypertension. Thyroid Disease. Diabetes Mellitus. Additional Surgeries: Back Surgery. Coronary stents. Stent. Medications: Abilify Oral (Solution 1 mg/mL) 400 mg injection. ASA Oral 81, daily. ClonazePAM Oral 1 mg, 2x a day. Levamir 50 uniits, 2x a day. Lisinopril Oral 20 mg, 2x a day. Metoprolol Tartrate Oral 25 mg. Nitroglycerin Sublingual 0.4 mg, as needed. NovoLOG FlexPen Subcutaneous 40-50, tid. Synthroid Oral 75 mcg, daily. Allergies: Non-Steroidal Antinflammatory. Toradol. SOCIAL HISTORY Current every day heavy tobacco smoker (cigarette)- 1 pack per day. Occasional alcohol use. No drug use. FAMILY HISTORY Diabetes in first-degree relative (father); heart disease in first-degree relative (father). ADDITIONAL NOTES The nursing notes have been reviewed. PHYSICAL EXAM Vital Signs: 01/21/2017 23:12 BP: 162/102. HR: 94. RR: 18. O2 saturation: 100%. Temp: 97.9 F. Have been reviewed. Appearance: Alert. He is morbidly obese. Eyes: Pupils equal, round and reactive to light. ENT: Pharynx normal. Neck: Neck supple. CVS: Normal heart rate and rhythm. Heart sounds normal. Respiratory: No respiratory distress. Breath sounds normal. Abdomen: No visible injury. Soft and nontender. Bowel sounds normal. No organomegaly. No mass. Obese. Back: Normal inspection. Skin: Skin warm and dry. Normal skin color. Normal skin turgor. Extremities: Extremities exhibit normal ROM. No calf tenderness. No lower extremity edema. LABS, X-RAYS, AND EKG Laboratory Tests: UA-Culture if indicated: (NIKOLAS: 01/22/2017 00:45) ( MsgRcvd 01/22/2017 01:09) Final results Test Result Flag Units (Reference) URINE COLOR YELLOW URINE APPEARANCE CLEAR URINE GLUCOSE 3+ (NEGATIVE) URINE BILIRUBIN NEGATIVE (NEGATIVE) URINE KETONE NEGATIVE (NEGATIVE) URINE SPECIFIC GRAVITY 1.015 (1.010-1.030) URINE PH 5.0 (5.0-8.0) URINE PROTEIN NEGATIVE (NEGATIVE) URINE UROBILINOGEN 0.2 EU/dL (0.2-1.0) URINE NITRITE NEGATIVE (NEGATIVE) URINE BLOOD NEGATIVE (NEGATIVE) URINE LEUK ESTERASE NEGATIVE (NEGATIVE) URINE RBC 0-1 rbc/hpf (0-1) URINE WBC 0-1 wbc/hpf (0-1) URINE EPITHELIAL CELLS 0-1 EPI/hpf (0-5) URINE BACTERIA NONE SEEN (NONE SEEN) URINE COMMENT CULT NOT INDICATED URINE CULTURES ARE SET-UP BASED ON THE FOLLOWING CRITERIA:POSITIVE NITRITEPOSITIVE LEUKOCYTE ESTERASEGREATER THAN 10 WHITE BLOOD CELLSMODERATE (2+) OR GREATER BACTERIA CBC w Diff: (NIKOLAS: 01/22/2017 00:15) ( MsgRcvd 01/22/2017 00:33) Final results Test Result Flag Units (Reference) WHITE BLOOD COUNT 6.6 K/uL (4.5-11.5) RED BLOOD COUNT 5.27 M/uL (4.50-5.90) HEMOGLOBIN 14.1 gm/dL (13.5-17.5) HEMATOCRIT 42.4 % (41.0-53.0) MEAN CELL VOLUME 80 fL (80-100) MEAN CORPUSCULAR HGB 27 pg (26-34) MEAN CORPUSCULAR HGB CONC 33 g/dL (31-37) RED CELL DISTRIBUTION WIDTH 14.9 H % (11.6-14.8) PLATELET COUNT 206 K/uL (150-400) NEUTROPHIL % 66.2 % (50-75) LYMPH % 25.3 % (25-40) MONO % 7.2 % (3-14) EOSINOPHIL % 1.0 % (0-4) BASOPHIL % 0.3 % (0-2) CMP: (NIKOLAS: 01/22/2017 00:15) ( MsgRcvd 01/22/2017 00:35) Final results Test Result Flag Units (Reference) ACETONE, SERUM QUALITATIVE NEGATIVE (NEGATIVE) GLUCOSE 405 H mg/dL (70-110) BUN 13 mg/dL (7-18) CREATININE 0.9 mg/dL (0.6-1.3) Estimated GFR >60 mL/min Estimated GFR- >60 mL/min Note: Persistent reduction over 3 months in eGFR<60 mL/min/1.73 m2 defines CKD. Patients with eGFR values>=60 mL/min/1.73 m2 may also have CKD if evidence ofpersistent proteinuria. Additional information may be foundat www.kidney.org. SODIUM 137 mmol/L (136-145) POTASSIUM 3.9 mmol/L (3.5-5.1) CHLORIDE 102 mmol/L (98-107) CARBON DIOXIDE 23 mmol/L (21-32) CALCIUM 8.6 mg/dL (8.5-10.1) TOTAL PROTEIN 7.2 g/dL (6.4-8.2) ALBUMIN 3.2 L g/dL (3.3-5.0) BILIRUBIN, TOTAL 0.2 mg/dL (0.0-1.0) ALKALINE PHOSPHATASE 79 U/L (46-116) AST (SGOT) 10 L U/L (15-37) ALT (SGPT) 41 U/L (12-78) LIPASE 106 U/L (73-393) AMYLASE 27 U/L (25-115) . PROGRESS AND PROCEDURES Course of Care: Patient is stable. Patient/family counseled. Old medical records reviewed. Disposition: Discharged. Condition: stable. CLINICAL IMPRESSION Chronic, poorly controlled diabetes with hyperglycemia. INSTRUCTIONS Follow a diabetic diet. Warnings: Further evaluation is necessary. GENERAL WARNINGS: Return or contact your physician immediately if your condition worsens or changes unexpectedly, if not improving as expected, or if other problems arise. Your Current Medications: CONTINUE TAKING THE FOLLOWING MEDICATIONS: Abilify Oral : Solution 1 mg/mL, 400 mg injection. ASA Oral : 81 daily. ClonazePAM Oral : 1 mg 2x a day. Levamir* : 50 uniits 2x a day. Lisinopril Oral : 20 mg 2x a day. Metoprolol Tartrate Oral : 25 mg. Nitroglycerin Sublingual : 0.4 mg, prn. NovoLOG FlexPen Subcutaneous : 40-50 tid. Synthroid Oral : 75 mcg daily. Follow-up: Follow up with your doctor in seven days. Call for an appointment. Follow up with a specialist- as recommended by your primary care physician- licensing worker, dietitian, diabetes counseling. Understanding of the discharge instructions verbalized by patient. (Electronically signed by Edgardo Nuñez MD 01/22/2017 6:49)
--- NOTE | 2017-01-22 01:54 | ED ORDER SUMMARY ---
..... Patient: JUANIS HENSON OrderSheet [facility] VisitID: [id number] [place] [address] 41y, M Registration Date/Time: 01/21/2017 ORDER SHEET Weight: 117.9 kg (stated) Allergies: Non-Steroidal Antinflammatory, Toradol GENERAL ORDERS: POC Glucose (23:24 01/21/2017 CHagerty ER Music Publisher per protocol) (23:24 CHagerty ER Music Publisher) CBC w Diff Urgent (:01/21/2017 Cain LUCIO) (Ack 23:28 SRedmond) (0:50 EInderbitzen R.N.) CMP Urgent (:01/21/2017 Cain LUCIO) (Ack 23:28 SRedmond) (0:50 EInderbitzen R.N.) UA-Culture if indicated Urgent (:01/21/2017 Cain LUCIO) (Ack 23:28 SRedmond) (0:50 EInderbitzen R.N.) Amylase Urgent (23:25 01/21/2017 Cain LUCIO) (Ack 23:28 SRedmond) (0:50 EInderbitzen R.N.) Lipase Urgent (:01/21/2017 Cain LUCIO) (Ack 23:28 SRedmond) (0:50 EInderbitzen R.N.) Acetone, Serum Urgent (:01/21/2017 Cain LUCIO) (Ack 23:28 SRedmond) (0:50 EInderbitzen R.N.) POC Glucose (Q 30 minutes) (00:44 01/22/2017 Cain LUCIO) (0:55 EInderbitzen R.N.) MEDICATION ORDERS: IV FLUIDS: IV NS : initial bolus 1000 mL (1000 mL/hr), then 150 mL/hr for 4h (NOW); Urgent (23:25 01/21/2017 Cain LUCIO) (23:58 EInderbitzen R.N.) Insulin Reg IV 8 units (HIGH ALERT MEDICATION, NOW) (00:43 01/22/2017 Cain LUCIO) (0:55 EInderbitzen R.N.) ORDER SHEET NOTES: [Electronically signed by Melody Anna R.N. (02:02 01/22/2017)] [Electronically signed by Edgardo Nuñez MD (06:49 01/22/2017)] [Electronically locked/signed by Melody Anna R.N. (02:02 01/22/2017)]
--- NOTE | 2017-01-22 06:49 | ED MED RECONCILIATION SUMMARY ---
Patient: JUANIS HENSON Medication Reconciliation Report [facility] VisitID: [id number] [place] [address] 41y, M Registration Date/Time: 01/21/2017 Weight: 117.9 kg Height/Length: 70 in. BMI: 37.3 ALLERGIES: Non-Steroidal Antinflammatory, Toradol The patient's Home Medications are listed below: CONTINUE TAKING THE FOLLOWING MEDICATIONS: Abilify Oral (1 mg/mL) 400 mg injection ASA Oral 81, daily ClonazePAM Oral 1 mg, 2x a day Levamir 50 uniits, 2x a day Lisinopril Oral 20 mg, 2x a day Metoprolol Tartrate Oral 25 mg Nitroglycerin Sublingual 0.4 mg NovoLOG FlexPen Subcutaneous 40-50, tid Synthroid Oral 75 mcg, daily The source(s) of the original Home Medication information: patient The following Medications were given to the patient in the Emergency Department: IV NS IV Fluids bolus 0, then 1000 mL/hr, administered: 01/21/2017 11:58:00 PM Insulin REG [IVP] IVP 8 unit, administered: 01/22/2017 12:55:00 AM The following Medications were prescribed to the patient: None.
--- NOTE | 2017-01-22 06:49 | ED MAR SUMMARY ---
..... Medication Administration Record [facility] [address] [place] [address] Patient: JUANIS HENSON Visit ID: [id number] 41y, M Weight: 117.9 kg Height/Length: 70 in BMI: 37.3 ALLERGIES: Toradol, Non-Steroidal Antinflammatory Start 23:58 01/21/2017 Melody Anna R.N., Stop 01:00 01/22/2017 Melody Anna R.N. Medication Administered: IV NS (SALINE), Dose: IV Fluids over 1 hour(s), Rate: 1000 mL/hr, Dispensed: 1000 mL bag, Site: #1 right forearm. Medication Ordered: IV NS : initial bolus 1000 mL (1000 mL/hr), then 150 mL/hr for 4h (NOW); Urgent. Given 00:55 01/22/2017 Melody Anna R.N. Medication Administered: INSULIN REG [IVP], Dose: 8 unit IVP over 1 minute(s), Site: #1 right forearm. Medication Ordered: Insulin Reg IV 8 units (HIGH ALERT MEDICATION, NOW).
--- NOTE | 2017-01-22 06:49 | ED DISCHARGE INSTRUCTIONS ---
Patient: JUANIS HENSON General Instructions [facility] VisitID: [id number] [place] [address] 41y, M Registration Date/Time: 01/21/2017 Chronic, poorly controlled diabetes with hyperglycemia. INSTRUCTIONS Follow a diabetic diet. Warnings: Further evaluation is necessary. GENERAL WARNINGS: Return or contact your physician immediately if your condition worsens or changes unexpectedly, if not improving as expected, or if other problems arise. Your Current Medications: CONTINUE TAKING THE FOLLOWING MEDICATIONS: Abilify Oral : Solution 1 mg/mL, 400 mg injection. ASA Oral : 81 daily. ClonazePAM Oral : 1 mg 2x a day. Levamir* : 50 uniits 2x a day. Lisinopril Oral : 20 mg 2x a day. Metoprolol Tartrate Oral : 25 mg. Nitroglycerin Sublingual : 0.4 mg, prn. NovoLOG FlexPen Subcutaneous : 40-50 tid. Synthroid Oral : 75 mcg daily. Follow-up: Follow up with your doctor in seven days. Call for an appointment. Follow up with a specialist- as recommended by your primary care physician- camera systems engineer, dietitian, diabetes counseling. Understanding of the discharge instructions verbalized by patient. ADDITIONAL INFORMATION Diabetes with High Blood Sugar You have been treated for high blood sugar (hyperglycemia). This may be becauseof an infection or other illness;eating too many sweets or starches ; not taking enough insulin. Home care High blood sugar may cause symptoms that you can learn to recognize, such as these: If you feel like your blood sugar may be too high, measure it using a blood or urine test. If it is above your usual range, use the "sliding scale"rRegular insulin dose your doctor gave you to correct this. If no "sliding scale" orders were given, contact your doctor for further advice. If your blood sugar is over 300, and you can't reach your doctor, go to the hospital emergency room. Monitor and write down your blood sugars - and insulin dose, if you take insulin - atleast twice a day. Do this before breakfast and before dinner. Do this for the next 3 to 5 days. Follow-up care Follow up with your health care provderring the next week to review your blood sugar records. You will find out if you need to adjust your dose of insulin or other medicine for blood sugar. When to seek medical care Get prompt medical attention if either of these occur: High blood sugar.Symptoms are frequent urination, feeling dizzy, thirst, headache, nausea or vomiting, abdominal pain, and drowsiness or loss of consciousness. Low blood sugar. Symptoms are fatigue, headache, shakes, excess sweating, hunger, anxiety, reduced vision, drowsiness, weakness, confusion or loss of consciousness, and seizure. You have been given the following additional information: Diabetic Hyperglycemia (Electronically signed by Edgardo Nuñez MD 01/22/2017 6:49)
--- NOTE | 2017-01-22 06:49 | ED DISCHARGE INSTRUCTIONS ---
Patient: JUANIS HENSON General Instructions [facility] VisitID: [id number] [place] [address] 41y, M Registration Date/Time: 01/21/2017 Chronic, poorly controlled diabetes with hyperglycemia. INSTRUCTIONS Follow a diabetic diet. Warnings: Further evaluation is necessary. GENERAL WARNINGS: Return or contact your physician immediately if your condition worsens or changes unexpectedly, if not improving as expected, or if other problems arise. Your Current Medications: CONTINUE TAKING THE FOLLOWING MEDICATIONS: Abilify Oral : Solution 1 mg/mL, 400 mg injection. ASA Oral : 81 daily. ClonazePAM Oral : 1 mg 2x a day. Levamir* : 50 uniits 2x a day. Lisinopril Oral : 20 mg 2x a day. Metoprolol Tartrate Oral : 25 mg. Nitroglycerin Sublingual : 0.4 mg, prn. NovoLOG FlexPen Subcutaneous : 40-50 tid. Synthroid Oral : 75 mcg daily. Follow-up: Follow up with your doctor in seven days. Call for an appointment. Follow up with a specialist- as recommended by your primary care physician- shop teacher, dietitian, diabetes counseling. Understanding of the discharge instructions verbalized by patient. ADDITIONAL INFORMATION Diabetes with High Blood Sugar You have been treated for high blood sugar (hyperglycemia). This may be becauseof an infection or other illness;eating too many sweets or starches ; not taking enough insulin. Home care High blood sugar may cause symptoms that you can learn to recognize, such as these: If you feel like your blood sugar may be too high, measure it using a blood or urine test. If it is above your usual range, use the "sliding scale"rRegular insulin dose your doctor gave you to correct this. If no "sliding scale" orders were given, contact your doctor for further advice. If your blood sugar is over 300, and you can't reach your doctor, go to the hospital emergency room. Monitor and write down your blood sugars - and insulin dose, if you take insulin - atleast twice a day. Do this before breakfast and before dinner. Do this for the next 3 to 5 days. Follow-up care Follow up with your health care provderring the next week to review your blood sugar records. You will find out if you need to adjust your dose of insulin or other medicine for blood sugar. When to seek medical care Get prompt medical attention if either of these occur: High blood sugar.Symptoms are frequent urination, feeling dizzy, thirst, headache, nausea or vomiting, abdominal pain, and drowsiness or loss of consciousness. Low blood sugar. Symptoms are fatigue, headache, shakes, excess sweating, hunger, anxiety, reduced vision, drowsiness, weakness, confusion or loss of consciousness, and seizure. You have been given the following additional information: Diabetic Hyperglycemia (Electronically signed by Edgardo Nuñez MD 01/22/2017 6:49)
--- NOTE | 2017-01-22 06:49 | ED MED RECONCILIATION SUMMARY ---
Patient: JUANIS HENSON Medication Reconciliation Report [facility] VisitID: [id number] [address] [place] [address] 41y, M Registration Date/Time: 01/21/2017 Weight: 117.9 kg Height/Length: 70 in. BMI: 37.3 ALLERGIES: Non-Steroidal Antinflammatory, Toradol The patient's Home Medications are listed below: CONTINUE TAKING THE FOLLOWING MEDICATIONS: Abilify Oral (1 mg/mL) 400 mg injection ASA Oral 81, daily ClonazePAM Oral 1 mg, 2x a day Levamir 50 uniits, 2x a day Lisinopril Oral 20 mg, 2x a day Metoprolol Tartrate Oral 25 mg Nitroglycerin Sublingual 0.4 mg NovoLOG FlexPen Subcutaneous 40-50, tid Synthroid Oral 75 mcg, daily The source(s) of the original Home Medication information: patient The following Medications were given to the patient in the Emergency Department: IV NS IV Fluids bolus 0, then 1000 mL/hr, administered: 01/21/2017 11:58:00 PM Insulin REG [IVP] IVP 8 unit, administered: 01/22/2017 12:55:00 AM The following Medications were prescribed to the patient: None.
--- NOTE | 2017-01-22 06:49 | ED MAR SUMMARY ---
..... Medication Administration Record [facility] [address] [place] [address] Patient: JUANIS HENSON Visit ID: [id number] 41y, M Weight: 117.9 kg Height/Length: 70 in BMI: 37.3 ALLERGIES: Toradol, Non-Steroidal Antinflammatory Start 23:58 01/21/2017 Melody Anna R.N., Stop 01:00 01/22/2017 Melody Anna R.N. Medication Administered: IV NS (SALINE), Dose: IV Fluids over 1 hour(s), Rate: 1000 mL/hr, Dispensed: 1000 mL bag, Site: #1 right forearm. Medication Ordered: IV NS : initial bolus 1000 mL (1000 mL/hr), then 150 mL/hr for 4h (NOW); Urgent. Given 00:55 01/22/2017 Melody Anna R.N. Medication Administered: INSULIN REG [IVP], Dose: 8 unit IVP over 1 minute(s), Site: #1 right forearm. Medication Ordered: Insulin Reg IV 8 units (HIGH ALERT MEDICATION, NOW).
== END 2017-01-22 02:02 | disposition home or self-care (01) ==
LOC: ED SRH 23:03
DX: E11.65 Type 2 diabetes mellitus with hyperglycemia (principal); E07.9 Disorder of thyroid, unspecified; I10 Essential (primary) hypertension; Z79.82 Long term (current) use of aspirin; Z79.4 Long term (current) use of insulin; Z79.899 Other long term (current) drug therapy; Z88.5 Allergy status to narcotic agent; Z79.1 Long term (current) use of non-steroidal anti-inflammatories (NSAID)
CPT/HCPCS: 90004; 90074; 90098; 90100; 90301; 92235; 92530; 95059

== ENCOUNTER 2017-01-30 17:08 | Emergency (ER) | payer OTHER ==
--- NOTE | 2017-01-30 19:15 | ED ORDER SUMMARY ---
..... Patient: JUANIS HENSON OrderSheet Located Within [facility] VisitID: [id number] [place] [address] 41y, M Registration Date/Time: 01/30/2017 ORDER SHEET Weight: 90.7 kg (estimated) Allergies: Non-Steroidal Antinflammatory, Toradol GENERAL ORDERS: POC Glucose (approx 30-40 min after insulin) (17:30 01/30/2017 HBivens A.R.N.P.) (18:38 SBalde R.N.) CBC w Diff Urgent (17:30 01/30/2017 HBivens A.R.N.P.) (Ack 17:41 Sadianandez) (18:06 SBalde R.N.) CMP Urgent (17:01/30/2017 HBivens A.R.N.P.) (Ack 17:41 Sadianandez) (18:06 SBalde R.N.) Acetone, Serum Urgent (17:30 01/30/2017 HBivens A.R.N.P.) (Ack 17:41 Sadianandez) (18:08 SBalde R.N.) CPK Urgent (17:30 01/30/2017 HBivens A.R.N.P.) (Ack 17:41 Sadianandez) (18:06 SBalde R.N.) Troponin-I Urgent (17:30 01/30/2017 HBivens A.R.N.P.) (Ack 17:41 Sami) (18:06 SBalde R.N.) EKG - ER Stat (17:01/30/2017 HBivens A.R.N.P.) (Ack 17:41 Sami) (17:58 RKaruga) MEDICATION ORDERS: IV FLUIDS: IV NS : initial bolus 1000 mL (1000 mL/hr), then none - (NOW) (17:29 01/30/2017 HBivens A.R.N.P.) (18:06 SBalde R.N.) Insulin Reg IV 10 units (HIGH ALERT MEDICATION, NOW) (17:01/30/2017 HBivens A.R.N.P.) (18:08 SBnandini R.N.) IV Saline Lock (17:30 01/30/2017 HBivens A.R.N.P.) (18:06 SBalde R.N.) Dilaudid IV 1 mg (HIGH ALERT MEDICATION, NOW) (17:30 01/30/2017 HBivens A.R.N.P.) (18:08 SBalde R.N.) ORDER SHEET NOTES: [Electronically signed by Anuradha Dimas R.N. (19:37 01/30/2017)] [Electronically signed by Pennie WhartonNAletheaPAlethea (21:19 01/30/2017)] [Electronically locked/signed by Anuradha Dimas R.N. (19:37 01/30/2017)]
--- NOTE | 2017-01-30 19:15 | ED CLINICAL REPORT ---
Clinical Report - Physicians/Mid Levels [facility] [address] [place] [address] 01/30/2017 17:08 Patient: JUANIS HENSON Time Seen: 17:17; initial patient contact, initial documentation, patient care assumed. Arrived- By private vehicle. Historian- patient. RETURN VISIT: recently seen in this ED by another ED physician. Seen now for the same problem as before. HISTORY OF PRESENT ILLNESS Chief Complaint: ABNORMAL GLUCOSE. At its maximum, severity described as severe. This started today and is still present. (c/o chest pain, states that his sugar read twice high, which means it was over 600, last dose of insulin around 1400 today, chest pain comes on when his sugar gets high, feels same as he has in past, states that his sugar kept going up, which was making him anxious, and the anxiety made his chest pain worse and caused his bp to go up). Similar symptoms previously: Chronically, worse. Recent medical care: The patient was seen recently at this facility in the emergency department. ( txed here 01/21 for high blood sugar, 01/12 high blood sugar and chest pain, no f/u pt states he can't get a dr, no one will take his medicaid). REVIEW OF SYSTEMS No fever, cough, difficulty breathing, abdominal pain or vomiting. No diarrhea. He has had chest pain. All systems otherwise negative, except as recorded above. PAST HISTORY See nurses notes. PAST HISTORY See nurses notes. PROBLEMS: Schizophrenia. Atypical Chest Pain. Abscess. Thyroid Disease. Hypertension. Diabetes Mellitus. --16:08 Francia Armas R.N. ADDITIONAL SURGERIES: Stent. --16:08 Francia Armas R.N. Recovering substance abuse (methamphetamines). SOCIAL HISTORY Heavy tobacco smoker. 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 Is a recovering addict. No alcohol use. No recent travel. Is an out of state resident. Visiting locally. FAMILY HISTORY Diabetes in first-degree relative (father); heart disease in first-degree relative (father). ADDITIONAL NOTES The nursing notes have been reviewed with agreement regarding the chief complaint, HPI, ROS, PMH and patient medications and allergies. PHYSICAL EXAM Vital Signs: 01/30/2017 17:13 BP: 129/83. HR: 97. RR: 18. O2 saturation: 95%. Temp: 98.2 F. Have been reviewed as normal and appear to be correct. Appearance: Alert. No acute distress. Eyes: Pupils equal, round and reactive to light. Eyes normal inspection. Neck: Normal inspection. Neck supple. CVS: Normal heart rate and rhythm. Heart sounds normal. Pulses normal. Respiratory: No respiratory distress. Breath sounds normal. Chest nontender. Abdomen: No visible injury. Soft and nontender. Moderately obese. Back: Normal inspection. Skin: Skin warm and dry. Normal skin color. No rash. Normal skin turgor. Extremities: Extremities exhibit normal ROM. No lower extremity edema. Neuro: Oriented X 3. No motor deficit. No sensory deficit. LABS, X-RAYS, AND EKG EKG: EKG time: (1751). No acute process. No acute ischemia. Normal EKG. Rate: 97. Normal EKG. The study has been interpreted contemporaneously by me (and Dr Brennan). The EKG appears to be a good tracing. Interpretation time: 1751. Laboratory Tests: CBC w Diff: (NIKOLAS: 01/30/2017 18:00) ( MsgRcvd 01/30/2017 18:24) Final results Test Result Flag Units (Reference) WHITE BLOOD COUNT 8.5 K/uL (4.5-11.5) RED BLOOD COUNT 5.59 M/uL (4.50-5.90) HEMOGLOBIN 14.9 gm/dL (13.5-17.5) HEMATOCRIT 44.8 % (41.0-53.0) MEAN CELL VOLUME 80 fL (80-100) MEAN CORPUSCULAR HGB 27 pg (26-34) MEAN CORPUSCULAR HGB CONC 33 g/dL (31-37) RED CELL DISTRIBUTION WIDTH 15.1 H % (11.6-14.8) PLATELET COUNT 191 K/uL (150-400) NEUTROPHIL % 66.4 % (50-75) LYMPH % 24.8 L % (25-40) MONO % 7.7 % (3-14) EOSINOPHIL % 0.9 % (0-4) BASOPHIL % 0.2 % (0-2) CMP: (NIKOLAS: 01/30/2017 18:00) ( MsgRcvd 01/30/2017 18:58) Final results Test Result Flag Units (Reference) ACETONE, SERUM QUALITATIVE NEGATIVE (NEGATIVE) CPK 54 U/L (24-260) TROPONIN I <0.05 L ng/mL (0.00-1.5) TROPONIN REFERENCE RANGE:<0.1 NEGATIVE0.1-1.5 INDETERMINANT>1.5 POSITIVE GLUCOSE 503 *H mg/dL (70-110) CRITICAL RESULTS CALLEDCalled to HALEIGH GARVIN, 01/30/17 7723Were 2 patient identifiers used? YWas the result read back? Y BUN 16 mg/dL (7-18) CREATININE 1.1 mg/dL (0.6-1.3) Estimated GFR >60 mL/min Estimated GFR- >60 mL/min Note: Persistent reduction over 3 months in eGFR<60 mL/min/1.73 m2 defines CKD. Patients with eGFR values>=60 mL/min/1.73 m2 may also have CKD if evidence ofpersistent proteinuria. Additional information may be foundat www.kidney.org. SODIUM 131 L mmol/L (136-145) POTASSIUM 4.0 mmol/L (3.5-5.1) CHLORIDE 99 mmol/L (98-107) CARBON DIOXIDE 22 mmol/L (21-32) CALCIUM 8.9 mg/dL (8.5-10.1) TOTAL PROTEIN 7.4 g/dL (6.4-8.2) ALBUMIN 3.3 g/dL (3.3-5.0) BILIRUBIN, TOTAL 0.2 mg/dL (0.0-1.0) ALKALINE PHOSPHATASE 91 U/L (46-116) AST (SGOT) 23 U/L (15-37) ALT (SGPT) 54.0 U/L (12-78) . PROGRESS AND PROCEDURES Peripheral IV Placement: Time: 175. Performed by or. Indication: others unavailable to perform. IV placed in the right antecubital space with a 20g angiocath with aseptic technique and good blood return; one attempt. Saline lock flushed with 3 mL saline. Course of Care: pt has jing for #8 er visits, and this is 6th visit here since 12/08, see report for full details. pt is known to me and staff, remember pt from last visit, because he got angry at staff, was cussing and stormed out pt asking for pain meds as soon as I walked into room, and something other than tordadol, explained policy and given copy of it, agreed to treat pt's pain and pt fully aware that today would be last time for any controlled substance because pt has now maxed out, hit 01/11 policy 17:40. 17:24 01/30/17. Finger stick glucose: 431 mg/dL; performed by nurse; result shown to the RADIATION OFFICER. --17:24 Nahomy Queen R.N. Patient counseled in person regarding the patient's stable condition, test results and diagnosis. 19:14. Differential Diagnosis: Other possible considerations: substance abuse, drug seeking behavior, noncompliant, psych, dm uncontrolled, dka. Above considerations are based on history, physical exam, laboratory data and EKG. Differential diagnosis was discussed with patient. Disposition: Discharged home in good and improved condition (19:14). Condition: good and stable. CLINICAL IMPRESSION Chronic, poorly controlled type 1 diabetes with hyperglycemia. INSTRUCTIONS Warnings: GENERAL WARNINGS: Return or contact your physician immediately if your condition worsens or changes unexpectedly, if not improving as expected, or if other problems arise. Specifically return if problem worsens. Follow-up: Follow up with your doctor in about two days even if well. Call for an appointment. Summary of care provided to patient. Understanding of the discharge instructions verbalized by patient. Follow-up with: Garett Thomason MD, [facility], , [facility], [address] [place] [address] Follow up in about two days even if well. Call for an appointment. Summary of care provided to patient. (Electronically signed by Pennie Wharton A.R.N.P. 01/30/2017 21:19)
--- NOTE | 2017-01-30 19:15 | ED NURSING NOTES ---
Clinical Report - Nurses [facility] [address] [place] [address] 01/30/2017 17:08 Patient: JUANIS HENSON TRIAGE Triage time 17:13 Jan 30 2017. Acuity: LEVEL 3. Chief Complaint: (elevated blood sugar). Alert. No acute distress. (anxious). CHERI COMA SCORE: Cheri Coma Scale: 15- eyes open spontaneously (4); best verbal response- oriented x 4 (5); best motor response- obeys commands (6). --17:16 Francia Armas R.N. 17:13 01/30/17. BP: 129/83. HR: 97. RR: 18. O2 saturation: 95%. Temp: 98.2 F. Pain level now 0/10. --17:16 Francia Armas R.N. Weight: 90.7 kg estimated. Height/Length: 68 inches Estimated. BMI: 30.4. --17:12 Francia Armas R.N. Medications Abilify Oral (Solution 1 mg/mL) 400 mg injection. ASA Oral 81, daily. ClonazePAM Oral 1 mg, 2x a day. Levamir 50 uniits, 2x a day. Lisinopril Oral 20 mg, 2x a day. Metoprolol Tartrate Oral 25 mg. Nitroglycerin Sublingual 0.4 mg, as needed. NovoLOG FlexPen Subcutaneous 40-50, tid. Synthroid Oral 75 mcg, daily. --17:15 Francia Armas R.N. Medication/allergy information source: the patient. --17:16 Francia Armas R.N. Allergies Non-Steroidal Antinflammatory. Toradol. --17:15 Francia Armas R.N. History Arrived by private vehicle. Historian: patient. Primary physician (none). ( Blood Sugar reading read HIGH. Took Insulin 100 units Novolog, 50 units Levimir). This started just prior to arrival. 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 SOCIAL HX: Smoker- current status unknown. History of drug use. Is a recovering addict. No alcohol use. No infectious disease exposure. FALL RISK ASSESSMENT: Fall risk assessment completed. No fall risk identified. NUTRITIONAL RISK ASSESSMENT: The nutritional risk assessment revealed no deficiencies. FUNCTIONAL ASSESSMENT: Functional assessment: no impairments noted. LEARNING NEEDS ASSESSMENT: The learning needs assessment revealed no barriers. SKIN INTEGRITY ASSESSMENT: Skin integrity risk assessment completed. No skin integrity risk identified. --17:16 Francia Armas R.N. PROBLEMS: Peptic Ulcer Disease. Coronary Artery Disease. Chest Pain. Substance Abuse. Schizophrenia. Atypical Chest Pain. Abscess. Hypertension. Thyroid Disease. Diabetes Mellitus. --17:15 Francia Armas R.N. ADDITIONAL SURGERIES: Back Surgery. Coronary stents. Stent. --17:15 Francia Armas R.N. Interventions ID band on patient. To room. --17:16 Francia Armas R.N. PHYSICAL ASSESSMENT Ambulatory to room. GENERAL / NEURO / PSYCH: Oriented X 4. Appears anxious. HEENT: Mucous membranes are pink. RESPIRATORY: Respirations not labored. CVS: Capillary refill less than 2 seconds. GI / : Abdomen soft. SKIN: Skin is diaphoretic. ( scarring all over upper extremities from previous IV drug use. Pt has PMH of abscesses. Scarring from this also. Difficult IV access.). --18:33 Francia Armas R.N. NURSING PROGRESS NOTES 17:24 01/30/17. Finger stick glucose: 431 mg/dL; performed by nurse; result shown to the MAIL DELIVERER. --17:24 Nahomy Queen R.N. EKG time: (17:51). EKG was performed by a tech and shown to the ED physician. --17:58 Meryl James 18:06 01/30/2017 Site #1 started via IV in the right antecubital space with an 20g angiocath; one attempt. Blood drawn: rainbow set. Labeled in the presence of the patient and sent to the lab. Saline lock flushed with 10 mL saline (started by Pennie Wharton APRN). --18:06 Francia Armas R.N. 18:06 01/30/2017 Started bag #1 1000 mL IV Fluids IV NS (Saline); at 1000 mL/hr over 1 hour(s) via site #1. Allergies verified and confirmed 5 rights. IV patency established. IV site checked: no pain, redness, or swelling. IV flushed thoroughly pre- and post-medication administration. Completed per protocol. --18:06 Francia Armas R.N. 18:08 01/30/2017 Insulin REG IVP 10 unit given over 1 second(s) via site #1. IV patency established. IV site checked: no pain, redness, or swelling. IV flushed thoroughly pre- and post-medication administration. IVP given by RN (dose checked by HALEIGH Wilcox). --18:08 Francia Armas R.N. 18:01/30/2017 Dilaudid (HYDROmorphone HCl PF) IVP 1 mg given over 2 minute(s) via site #1. Sedative warning given to the patient. IV patency established. IV site checked: no pain, redness, or swelling. IV flushed thoroughly pre- and post-medication administration. IVP given by RN. --18:08 Francia Armas R.N. features editor, pulse oximeter and NIBP monitor placed on patient; computer systems security administrator- Lead II; monitor alarms on. Call light placed in reach. Side rails up x 2. Bed placed in lowest position. Brakes of bed on. --18:09 Francia Armas R.N. 18:01/30/17. BP: 129/83. HR: 93. RR: 18. O2 saturation: 99%. Pain level now 3/10. --18:09 Francia Armas R.N. features editor, pulse oximeter and NIBP monitor placed on patient; computer systems security administrator- Lead II; monitor alarms on. Reassurance given. Reassessment after medication administered. He has had no adverse reaction. Overall patient status is improved- he states feels better. Call light placed in reach. Side rails up x 2. Bed placed in lowest position. Brakes of bed on. ( Pt very difficult with IV access. Used US machine to find an IV. Still unsuccessful. Marleni Wharton able to access an IV to Right AC. Blood drawn from this site also and sent to lab. Pt medicated and was also informed by Jess that he has now met our Narcotic Policy and a copy of this policy provided. Pt states an understanding.). --18:36 Francia Armas R.N. 18:33 01/30/17. BP: 129/83. HR: 89. RR: 16. O2 saturation: 95%. --18:36 Francia Armas R.N. 18:39 01/30/2017 IV Fluids IV NS Discontinued: bag #1 infused. Total amount infused: 1000 mL. IV patency established. IV site checked: no pain, redness, or swelling. IV flushed thoroughly. --18:39 Francia Armas R.N. Finger stick glucose: 285 mg/dL; performed by [employer]; result shown to the RN. --18:39 Meryl James Cardiac rhythm: normal sinus rhythm. --19:11 Francia Armas R.N. 19:11 01/30/17. BP: 132/77. HR: 90. RR: 18. O2 saturation: 94%. Pain level now 4/10. --19:11 Francia Armas R.N. Care transferred and report given (report to HALEIGH Ling). --19:11 Francia Armas R.N. DISPOSITION / DISCHARGE 19:36 01/30/2017 Site #1 removed upon discharge. Catheter intact. Bandaid applied. --19:36 Wilbert Lanza Departure time: 19:37. Condition at departure: improved. No learning barriers present. Discharge instructions provided and reviewed with the patient. Treatments reviewed. Reviewed referrals. Follow up contact number. Patient verbalized understanding. Written instructions provided in Maltese. No warning instructions, medication instructions, diet instructions, activity restrictions or note given. No stop smoking instructions. The patient was discharged by the nurse practitioner. He was discharged home. He left the Emergency Department ambulatory and via private vehicle. Patient driving. FALL RISK ASSESSMENT: Fall risk assessment completed. No fall risk identified. --19:37 Wilbert Lanza 19:35 01/30/17. BP: 137/77. HR: 68. RR: 18. O2 saturation: 99%. Temp: deferred. Pain level now: 0/10. --19:37 Wilbert Lanza Locked/Released at 01/30/2017 19:37 by Wilbert Lanza
--- NOTE | 2017-01-30 19:15 | ED ORDER SUMMARY ---
..... Patient: JUANIS HENSON OrderSheet [facility] VisitID: [id number] [place] [address] 41y, M Registration Date/Time: 01/30/2017 ORDER SHEET Weight: 90.7 kg (estimated) Allergies: Non-Steroidal Antinflammatory, Toradol GENERAL ORDERS: POC Glucose (approx 30-40 min after insulin) (17:30 01/30/2017 HBivens A.R.N.P.) (18:38 SBalde R.N.) CBC w Diff Urgent (17:30 01/30/2017 HBivens A.R.N.P.) (Ack 17:41 Sadianandez) (18:06 SBalde R.N.) CMP Urgent (17:01/30/2017 HBivens A.R.N.P.) (Ack 17:41 Sadianandez) (18:06 SBalde R.N.) Acetone, Serum Urgent (17:30 01/30/2017 HBivens A.R.N.P.) (Ack 17:41 Sadianandez) (18:08 SBalde R.N.) CPK Urgent (17:30 01/30/2017 HBivens A.R.N.P.) (Ack 17:41 Sadianandez) (18:06 SBalde R.N.) Troponin-I Urgent (17:30 01/30/2017 HBivens A.R.N.P.) (Ack 17:41 Sami) (18:06 SBalde R.N.) EKG - ER Stat (17:01/30/2017 HBivens A.R.N.P.) (Ack 17:41 Sami) (17:58 RKaruga) MEDICATION ORDERS: IV FLUIDS: IV NS : initial bolus 1000 mL (1000 mL/hr), then none - (NOW) (17:29 01/30/2017 HBivens A.R.N.P.) (18:06 SBalde R.N.) Insulin Reg IV 10 units (HIGH ALERT MEDICATION, NOW) (17:01/30/2017 HBivens A.R.N.P.) (18:08 SBnandini R.N.) IV Saline Lock (17:30 01/30/2017 HBivens A.R.N.P.) (18:06 SBalde R.N.) Dilaudid IV 1 mg (HIGH ALERT MEDICATION, NOW) (17:30 01/30/2017 HBivens A.R.N.P.) (18:08 SBalde R.N.) ORDER SHEET NOTES: [Electronically signed by Anuradha Dimas R.N. (19:37 01/30/2017)] [Electronically signed by Pennie WhartonNAletheaPAlethea (21:19 01/30/2017)] [Electronically locked/signed by Anuradha Dimas R.N. (19:37 01/30/2017)]
--- NOTE | 2017-01-30 19:15 | ED NURSING NOTES ---
Clinical Report - Nurses [facility] [address] [place] [address] 01/30/2017 17:08 Patient: JUANIS HENSON TRIAGE Triage time 17:13 Jan 30 2017. Acuity: LEVEL 3. Chief Complaint: (elevated blood sugar). Alert. No acute distress. (anxious). CHERI COMA SCORE: Cheri Coma Scale: 15- eyes open spontaneously (4); best verbal response- oriented x 4 (5); best motor response- obeys commands (6). --17:16 Francia Armas R.N. 17:13 01/30/17. BP: 129/83. HR: 97. RR: 18. O2 saturation: 95%. Temp: 98.2 F. Pain level now 0/10. --17:16 Francia Armas R.N. Weight: 90.7 kg estimated. Height/Length: 68 inches Estimated. BMI: 30.4. --17:12 Francia Armas R.N. Medications Abilify Oral (Solution 1 mg/mL) 400 mg injection. ASA Oral 81, daily. ClonazePAM Oral 1 mg, 2x a day. Levamir 50 uniits, 2x a day. Lisinopril Oral 20 mg, 2x a day. Metoprolol Tartrate Oral 25 mg. Nitroglycerin Sublingual 0.4 mg, as needed. NovoLOG FlexPen Subcutaneous 40-50, tid. Synthroid Oral 75 mcg, daily. --17:15 Francia Armas R.N. Medication/allergy information source: the patient. --17:16 Francia Armas R.N. Allergies Non-Steroidal Antinflammatory. Toradol. --17:15 Francia Armas R.N. History Arrived by private vehicle. Historian: patient. Primary physician (none). ( Blood Sugar reading read HIGH. Took Insulin 100 units Novolog, 50 units Levimir). This started just prior to arrival. 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 SOCIAL HX: Smoker- current status unknown. History of drug use. Is a recovering addict. No alcohol use. No infectious disease exposure. FALL RISK ASSESSMENT: Fall risk assessment completed. No fall risk identified. NUTRITIONAL RISK ASSESSMENT: The nutritional risk assessment revealed no deficiencies. FUNCTIONAL ASSESSMENT: Functional assessment: no impairments noted. LEARNING NEEDS ASSESSMENT: The learning needs assessment revealed no barriers. SKIN INTEGRITY ASSESSMENT: Skin integrity risk assessment completed. No skin integrity risk identified. --17:16 Francia Armas R.N. PROBLEMS: Peptic Ulcer Disease. Coronary Artery Disease. Chest Pain. Substance Abuse. Schizophrenia. Atypical Chest Pain. Abscess. Hypertension. Thyroid Disease. Diabetes Mellitus. --17:15 Francia Armas R.N. ADDITIONAL SURGERIES: Back Surgery. Coronary stents. Stent. --17:15 Francia Armas R.N. Interventions ID band on patient. To room. --17:16 Francia Armas R.N. PHYSICAL ASSESSMENT Ambulatory to room. GENERAL / NEURO / PSYCH: Oriented X 4. Appears anxious. HEENT: Mucous membranes are pink. RESPIRATORY: Respirations not labored. CVS: Capillary refill less than 2 seconds. GI / : Abdomen soft. SKIN: Skin is diaphoretic. ( scarring all over upper extremities from previous IV drug use. Pt has PMH of abscesses. Scarring from this also. Difficult IV access.). --18:33 Francia Armas R.N. NURSING PROGRESS NOTES 17:24 01/30/17. Finger stick glucose: 431 mg/dL; performed by nurse; result shown to the [employer]. --17:24 Nahomy Queen R.N. EKG time: (17:51). EKG was performed by a tech and shown to the ED physician. --17:58 Meryl James 18:06 01/30/2017 Site #1 started via IV in the right antecubital space with an 20g angiocath; one attempt. Blood drawn: rainbow set. Labeled in the presence of the patient and sent to the lab. Saline lock flushed with 10 mL saline (started by Pennie Wharton APRN). --18:06 Francia Armas R.N. 18:06 01/30/2017 Started bag #1 1000 mL IV Fluids IV NS (Saline); at 1000 mL/hr over 1 hour(s) via site #1. Allergies verified and confirmed 5 rights. IV patency established. IV site checked: no pain, redness, or swelling. IV flushed thoroughly pre- and post-medication administration. Completed per protocol. --18:06 Francia Armas R.N. 18:08 01/30/2017 Insulin REG IVP 10 unit given over 1 second(s) via site #1. IV patency established. IV site checked: no pain, redness, or swelling. IV flushed thoroughly pre- and post-medication administration. IVP given by RN (dose checked by HALEIGH Wilcox). --18:08 Francia Armas R.N. 18:01/30/2017 Dilaudid (HYDROmorphone HCl PF) IVP 1 mg given over 2 minute(s) via site #1. Sedative warning given to the patient. IV patency established. IV site checked: no pain, redness, or swelling. IV flushed thoroughly pre- and post-medication administration. IVP given by RN. --18:08 Francia Armas R.N. ekg monitor, pulse oximeter and NIBP monitor placed on patient; hospital monitor- Lead II; monitor alarms on. Call light placed in reach. Side rails up x 2. Bed placed in lowest position. Brakes of bed on. --18:09 Francia Armas R.N. 18:01/30/17. BP: 129/83. HR: 93. RR: 18. O2 saturation: 99%. Pain level now 3/10. --18:09 Francia Armas R.N. ekg monitor, pulse oximeter and NIBP monitor placed on patient; hospital monitor- Lead II; monitor alarms on. Reassurance given. Reassessment after medication administered. He has had no adverse reaction. Overall patient status is improved- he states feels better. Call light placed in reach. Side rails up x 2. Bed placed in lowest position. Brakes of bed on. ( Pt very difficult with IV access. Used US machine to find an IV. Still unsuccessful. Marleni Wharton able to access an IV to Right AC. Blood drawn from this site also and sent to lab. Pt medicated and was also informed by Jess that he has now met our Narcotic Policy and a copy of this policy provided. Pt states an understanding.). --18:36 Francia Armas R.N. 18:33 01/30/17. BP: 129/83. HR: 89. RR: 16. O2 saturation: 95%. --18:36 Francia Armas R.N. 18:39 01/30/2017 IV Fluids IV NS Discontinued: bag #1 infused. Total amount infused: 1000 mL. IV patency established. IV site checked: no pain, redness, or swelling. IV flushed thoroughly. --18:39 Francia Armas R.N. Finger stick glucose: 285 mg/dL; performed by [employer]; result shown to the RN. --18:39 Meryl James Cardiac rhythm: normal sinus rhythm. --19:11 Francia Armas R.N. 19:11 01/30/17. BP: 132/77. HR: 90. RR: 18. O2 saturation: 94%. Pain level now 4/10. --19:11 Frnacia Armas R.N. Care transferred and report given (report to HALEIGH Ling). --19:11 Francia Armas R.N. DISPOSITION / DISCHARGE 19:36 01/30/2017 Site #1 removed upon discharge. Catheter intact. Bandaid applied. --19:36 Wilbert Lanza Departure time: 19:37. Condition at departure: improved. No learning barriers present. Discharge instructions provided and reviewed with the patient. Treatments reviewed. Reviewed referrals. Follow up contact number. Patient verbalized understanding. Written instructions provided in Nepali. No warning instructions, medication instructions, diet instructions, activity restrictions or note given. No stop smoking instructions. The patient was discharged by the nurse practitioner. He was discharged home. He left the Emergency Department ambulatory and via private vehicle. Patient driving. FALL RISK ASSESSMENT: Fall risk assessment completed. No fall risk identified. --19:37 Wilbert Lanza 19:35 01/30/17. BP: 137/77. HR: 68. RR: 18. O2 saturation: 99%. Temp: deferred. Pain level now: 0/10. --19:37 Wilbert Lanza Locked/Released at 01/30/2017 19:37 by Wilbert Lanza
--- NOTE | 2017-01-30 19:15 | ED CLINICAL REPORT ---
Clinical Report - Physicians/Mid Levels [facility] [address] [place] [address] 01/30/2017 17:08 Patient: JUANIS HENSON Time Seen: 17:17; initial patient contact, initial documentation, patient care assumed. Arrived- By private vehicle. Historian- patient. RETURN VISIT: recently seen in this ED by another ED physician. Seen now for the same problem as before. HISTORY OF PRESENT ILLNESS Chief Complaint: ABNORMAL GLUCOSE. At its maximum, severity described as severe. This started today and is still present. (c/o chest pain, states that his sugar read twice high, which means it was over 600, last dose of insulin around 1400 today, chest pain comes on when his sugar gets high, feels same as he has in past, states that his sugar kept going up, which was making him anxious, and the anxiety made his chest pain worse and caused his bp to go up). Similar symptoms previously: Chronically, worse. Recent medical care: The patient was seen recently at this facility in the emergency department. ( txed here 01/21 for high blood sugar, 01/12 high blood sugar and chest pain, no f/u pt states he can't get a dr, no one will take his medicaid). REVIEW OF SYSTEMS No fever, cough, difficulty breathing, abdominal pain or vomiting. No diarrhea. He has had chest pain. All systems otherwise negative, except as recorded above. PAST HISTORY See nurses notes. PAST HISTORY See nurses notes. PROBLEMS: Schizophrenia. Atypical Chest Pain. Abscess. Thyroid Disease. Hypertension. Diabetes Mellitus. --16:08 Francia Armas R.N. ADDITIONAL SURGERIES: Stent. --16:08 Francia Armas R.N. Recovering substance abuse (methamphetamines). SOCIAL HISTORY Heavy tobacco smoker. 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 Is a recovering addict. No alcohol use. No recent travel. Is an out of state resident. Visiting locally. FAMILY HISTORY Diabetes in first-degree relative (father); heart disease in first-degree relative (father). ADDITIONAL NOTES The nursing notes have been reviewed with agreement regarding the chief complaint, HPI, ROS, PMH and patient medications and allergies. PHYSICAL EXAM Vital Signs: 01/30/2017 17:13 BP: 129/83. HR: 97. RR: 18. O2 saturation: 95%. Temp: 98.2 F. Have been reviewed as normal and appear to be correct. Appearance: Alert. No acute distress. Eyes: Pupils equal, round and reactive to light. Eyes normal inspection. Neck: Normal inspection. Neck supple. CVS: Normal heart rate and rhythm. Heart sounds normal. Pulses normal. Respiratory: No respiratory distress. Breath sounds normal. Chest nontender. Abdomen: No visible injury. Soft and nontender. Moderately obese. Back: Normal inspection. Skin: Skin warm and dry. Normal skin color. No rash. Normal skin turgor. Extremities: Extremities exhibit normal ROM. No lower extremity edema. Neuro: Oriented X 3. No motor deficit. No sensory deficit. LABS, X-RAYS, AND EKG EKG: EKG time: (1751). No acute process. No acute ischemia. Normal EKG. Rate: 97. Normal EKG. The study has been interpreted contemporaneously by me (and Dr Brennan). The EKG appears to be a good tracing. Interpretation time: 1751. Laboratory Tests: CBC w Diff: (NIKOLAS: 01/30/2017 18:00) ( MsgRcvd 01/30/2017 18:24) Final results Test Result Flag Units (Reference) WHITE BLOOD COUNT 8.5 K/uL (4.5-11.5) RED BLOOD COUNT 5.59 M/uL (4.50-5.90) HEMOGLOBIN 14.9 gm/dL (13.5-17.5) HEMATOCRIT 44.8 % (41.0-53.0) MEAN CELL VOLUME 80 fL (80-100) MEAN CORPUSCULAR HGB 27 pg (26-34) MEAN CORPUSCULAR HGB CONC 33 g/dL (31-37) RED CELL DISTRIBUTION WIDTH 15.1 H % (11.6-14.8) PLATELET COUNT 191 K/uL (150-400) NEUTROPHIL % 66.4 % (50-75) LYMPH % 24.8 L % (25-40) MONO % 7.7 % (3-14) EOSINOPHIL % 0.9 % (0-4) BASOPHIL % 0.2 % (0-2) CMP: (NIKOLAS: 01/30/2017 18:00) ( MsgRcvd 01/30/2017 18:58) Final results Test Result Flag Units (Reference) ACETONE, SERUM QUALITATIVE NEGATIVE (NEGATIVE) CPK 54 U/L (24-260) TROPONIN I <0.05 L ng/mL (0.00-1.5) TROPONIN REFERENCE RANGE:<0.1 NEGATIVE0.1-1.5 INDETERMINANT>1.5 POSITIVE GLUCOSE 503 *H mg/dL (70-110) CRITICAL RESULTS CALLEDCalled to HALEIGH GARVIN, 01/30/17 [id number] 2 patient identifiers used? YWas the result read back? Y BUN 16 mg/dL (7-18) CREATININE 1.1 mg/dL (0.6-1.3) Estimated GFR >60 mL/min Estimated GFR- >60 mL/min Note: Persistent reduction over 3 months in eGFR<60 mL/min/1.73 m2 defines CKD. Patients with eGFR values>=60 mL/min/1.73 m2 may also have CKD if evidence ofpersistent proteinuria. Additional information may be foundat www.kidney.org. SODIUM 131 L mmol/L (136-145) POTASSIUM 4.0 mmol/L (3.5-5.1) CHLORIDE 99 mmol/L (98-107) CARBON DIOXIDE 22 mmol/L (21-32) CALCIUM 8.9 mg/dL (8.5-10.1) TOTAL PROTEIN 7.4 g/dL (6.4-8.2) ALBUMIN 3.3 g/dL (3.3-5.0) BILIRUBIN, TOTAL 0.2 mg/dL (0.0-1.0) ALKALINE PHOSPHATASE 91 U/L (46-116) AST (SGOT) 23 U/L (15-37) ALT (SGPT) 54.0 U/L (12-78) . PROGRESS AND PROCEDURES Peripheral IV Placement: Time: 175. Performed by va. Indication: others unavailable to perform. IV placed in the right antecubital space with a 20g angiocath with aseptic technique and good blood return; one attempt. Saline lock flushed with 3 mL saline. Course of Care: pt has jing for #8 er visits, and this is 6th visit here since 12/08, see report for full details. pt is known to me and staff, remember pt from last visit, because he got angry at staff, was cussing and stormed out pt asking for pain meds as soon as I walked into room, and something other than tordadol, explained policy and given copy of it, agreed to treat pt's pain and pt fully aware that today would be last time for any controlled substance because pt has now maxed out, hit 01/11 policy 17:40. 17:24 01/30/17. Finger stick glucose: 431 mg/dL; performed by nurse; result shown to the AUDITING CONTROL CLERK. --17:24 Nahomy Queen R.N. Patient counseled in person regarding the patient's stable condition, test results and diagnosis. 19:14. Differential Diagnosis: Other possible considerations: substance abuse, drug seeking behavior, noncompliant, psych, dm uncontrolled, dka. Above considerations are based on history, physical exam, laboratory data and EKG. Differential diagnosis was discussed with patient. Disposition: Discharged home in good and improved condition (19:14). Condition: good and stable. CLINICAL IMPRESSION Chronic, poorly controlled type 1 diabetes with hyperglycemia. INSTRUCTIONS Warnings: GENERAL WARNINGS: Return or contact your physician immediately if your condition worsens or changes unexpectedly, if not improving as expected, or if other problems arise. Specifically return if problem worsens. Follow-up: Follow up with your doctor in about two days even if well. Call for an appointment. Summary of care provided to patient. Understanding of the discharge instructions verbalized by patient. Follow-up with: Garett Thomason MD, [facility], , [facility], [address] [place] [address] Follow up in about two days even if well. Call for an appointment. Summary of care provided to patient. (Electronically signed by Pennie Wharton A.R.N.P. 01/30/2017 21:19)
--- NOTE | 2017-01-30 21:19 | ED MAR SUMMARY ---
..... Medication Administration Record [facility] [address] [place] [address] Patient: JUANIS HENSON Visit ID: [id number] 41y, M Weight: 90.7 kg Height/Length: 68 in BMI: 30.4 ALLERGIES: Non-Steroidal Antinflammatory, Toradol Start 18:06 01/30/2017 Francia Armas R.N., Stop 18:39 01/30/2017 Francia Armas R.N. Medication Administered: IV NS (SALINE), Dose: IV Fluids over 1 hour(s), Rate: 1000 mL/hr, Dispensed: 1000 mL bag, Site: #1 right AC. Medication Ordered: IV NS : initial bolus 1000 mL (1000 mL/hr), then none - (NOW). Given 18:08 01/30/2017 Francia Armas R.N. Medication Administered: INSULIN REG [IVP], Dose: 10 unit IVP over 1 second(s), Site: #1 right AC. Medication Ordered: Insulin Reg IV 10 units (HIGH ALERT MEDICATION, NOW). Given 18:08 01/30/2017 Francia Armas R.N. Medication Administered: DILAUDID [IVP] (HYDROMORPHONE HCL PF), Dose: 1 mg IVP over 2 minute(s), Site: #1 right AC. Medication Ordered: Dilaudid IV 1 mg (HIGH ALERT MEDICATION, NOW).
--- NOTE | 2017-01-30 21:19 | ED MED RECONCILIATION SUMMARY ---
Patient: JUANIS HENSON Medication Reconciliation Report [facility] VisitID: [id number] [address] [place] [address] 41y, M Registration Date/Time: 01/30/2017 Weight: 90.7 kg Height/Length: 68 in. BMI: 30.4 ALLERGIES: Non-Steroidal Antinflammatory, Toradol The patient's Home Medications are listed below: THE FOLLOWING MEDICATIONS NEED TO BE RECONCILED: Abilify Oral (1 mg/mL) 400 mg injection ASA Oral 81, daily ClonazePAM Oral 1 mg, 2x a day Levamir 50 uniits, 2x a day Lisinopril Oral 20 mg, 2x a day Metoprolol Tartrate Oral 25 mg Nitroglycerin Sublingual 0.4 mg NovoLOG FlexPen Subcutaneous 40-50, tid Synthroid Oral 75 mcg, daily The source(s) of the original Home Medication information: patient The following Medications were given to the patient in the Emergency Department: IV NS IV Fluids bolus 0, then 1000 mL/hr, administered: 01/30/2017 6:06:00 PM Insulin REG [IVP] IVP 10 unit, administered: 01/30/2017 6:08:00 PM Dilaudid [IVP] IVP 1 mg, administered: 01/30/2017 6:08:00 PM The following Medications were prescribed to the patient: None.
--- NOTE | 2017-01-30 21:19 | ED MAR SUMMARY ---
..... Medication Administration Record [facility] [address] [place] [address] Patient: JUANIS HENSON Visit ID: [id number] 41y, M Weight: 90.7 kg Height/Length: 68 in BMI: 30.4 ALLERGIES: Non-Steroidal Antinflammatory, Toradol Start 18:06 01/30/2017 Francia Armas R.N., Stop 18:39 01/30/2017 Francia Armas R.N. Medication Administered: IV NS (SALINE), Dose: IV Fluids over 1 hour(s), Rate: 1000 mL/hr, Dispensed: 1000 mL bag, Site: #1 right AC. Medication Ordered: IV NS : initial bolus 1000 mL (1000 mL/hr), then none - (NOW). Given 18:08 01/30/2017 Francia Armas R.N. Medication Administered: INSULIN REG [IVP], Dose: 10 unit IVP over 1 second(s), Site: #1 right AC. Medication Ordered: Insulin Reg IV 10 units (HIGH ALERT MEDICATION, NOW). Given 18:08 01/30/2017 Francia Armas R.N. Medication Administered: DILAUDID [IVP] (HYDROMORPHONE HCL PF), Dose: 1 mg IVP over 2 minute(s), Site: #1 right AC. Medication Ordered: Dilaudid IV 1 mg (HIGH ALERT MEDICATION, NOW).
--- NOTE | 2017-01-30 21:19 | ED DISCHARGE INSTRUCTIONS ---
Patient: JUANIS HENSON General Instructions [facility] VisitID: [id number] [place] [address] 41y, M Registration Date/Time: 01/30/2017 Chronic, poorly controlled type 1 diabetes with hyperglycemia. INSTRUCTIONS Warnings: GENERAL WARNINGS: Return or contact your physician immediately if your condition worsens or changes unexpectedly, if not improving as expected, or if other problems arise. Specifically return if problem worsens. Follow-up: Follow up with your doctor in about two days even if well. Call for an appointment. Summary of care provided to patient. Understanding of the discharge instructions verbalized by patient. Follow-up with: Garett Thomason MD, [facility], , [facility], [address] [place] [address] Follow up in about two days even if well. Call for an appointment. Summary of care provided to patient. ADDITIONAL INFORMATION Diabetes with High Blood Sugar You have been treated for high blood sugar (hyperglycemia). This may be becauseof an infection or other illness;eating too many sweets or starches ; not taking enough insulin. Home care High blood sugar may cause symptoms that you can learn to recognize, such as these: If you feel like your blood sugar may be too high, measure it using a blood or urine test. If it is above your usual range, use the "sliding scale"rRegular insulin dose your doctor gave you to correct this. If no "sliding scale" orders were given, contact your doctor for further advice. If your blood sugar is over 300, and you can't reach your doctor, go to the hospital emergency room. Monitor and write down your blood sugars - and insulin dose, if you take insulin - atleast twice a day. Do this before breakfast and before dinner. Do this for the next 3 to 5 days. Follow-up care Follow up with your health care provderduring the next week to review your blood sugar records. You will find out if you need to adjust your dose of insulin or other medicine for blood sugar. When to seek medical care Get prompt medical attention if either of these occur: High blood sugar.Symptoms are frequent urination, feeling dizzy, thirst, headache, nausea or vomiting, abdominal pain, and drowsiness or loss of consciousness. Low blood sugar. Symptoms are fatigue, headache, shakes, excess sweating, hunger, anxiety, reduced vision, drowsiness, weakness, confusion or loss of consciousness, and seizure. Diabetes (General Information) Cells of the body need glucose (sugar) for fuel. Insulin is the hormone in the body that lets glucose move from the blood into the cells. Diabetes is a chronic health condition where the body is not able to produce enough insulin, or does not respond well to its own insulin. Because the glucose in the blood cannot get into the cells, it builds up in the blood causing high blood sugar (hyperglycemia). Your actual blood sugar level is a result of the balance between several factors. These include what kind of food you eat and how much of it you eat, how much exercise you get, and the amount of insulin present in your body. Eating too much of the wrong kinds of food or not taking diabetes medicine on time can cause high blood sugar. Infections can cause high blood sugar even if you are taking medicines correctly. Missing meals, not eating enough food, or taking too much diabetes medicine can lead to low blood sugar. Untreated over long periods of time, diabetes can cause serious problems such as heart disease, stroke, kidney failure, blindness, nerve pain or loss of feeling in the legs and feet, and gangrene of the feet. With good treatment keeping your blood sugar under control, you can prevent or delay the complications of diabetes. Normal blood sugar levels are 70-130 one to two hours before a meal and not more than 180 two hours after a meal. Home Care: Follow your prescribed diabetic diet and take insulin or oral diabetic medicine exactly as ordered. Monitor blood sugars as advised. Keep a log of your results. This will help your doctor adjust your medicines to keep your blood sugar under control. Try to achieve your ideal weight. Proper diet and exercise can reduce or eliminate the need to take diabetes medicine. Avoid tobacco smoking, which worsens the effect of diabetes on your circulation. The risk of a heart attack in a diabetic is 15 times more likely if you smoke. Pay attention to good foot care. If you have lost feeling in your feet you may not notice an injury or infection. Check your feet and between your toes at least once a week. Wear a medical alert bracelet or carry a card in your wallet explaining that you are diabetic. In the event that you become very ill and are unable to give this information, it will help medical personnel provide proper care. If you become sick with a cold, the flu, or an infection (viral or bacterial), please do the following: Review your diabetes sick plan and contact your physician as instructed. You may have been advised to call the doctor immediately if: Your blood sugar is above 240 while taking your diabetes medication Your urine ketone levels are above normal or showing high levels of ketones You have been vomiting more than 6 hours You experience difficulty to trouble breathing You develop a high fever or you have had a fever for a couple of days and you aren't getting better You become light-headed and more sleepy than usual Keep taking your oral diabetes medicine (pills) even if you have been vomiting and feeling sick. Contact your doctor immediately for advice because you may need insulin to lower your blood sugar until you recover from your illness. Keep taking your insulin, even if you have been vomiting and feeling sick. Call your doctor immediately and ask if a temporary adjustment of your insulin dose is needed based on your blood glucose (sugar) results. Check your blood sugar every 2 to 4 hours, or at least 4 times a day. Check your keytones often. If you are vomiting and having diarrhea, monitor them more frequently. Don't skip meals. Try to eat small meals on a regular schedule, even if you do not have an appetite. Drink water or other calorie-free, non-caffeinated liquids to stay hydrated. If you are nauseated or vomiting, drink small amounts (sips, a teaspoon) every 5 minutes. To prevent dehydration, try to drink a cup or 8 ounces of fluids every hour while you are awake. Always carry a source of fast-acting sugar with you in case you get symptoms of low blood sugar (below 70). At the first sign of low blood sugar, eat or drink 15 to 20 grams of fast-acting sugar to raise your blood sugar. Examples include: 3 to 4 glucose tablets (found at most drugstores) 4 ounces (1/2 cup) of regular (not diet) softdrinks 4 ounces (1/2 cup) of any fruit juice 8 ounces (1 cup) of milk 5 to 6 pieces of hard candy 1 tablespoon of honey Check your blood sugar 15 minutes after treating yourself. If it is still low (below 70), take another 15 to 20 grams of fast-acting sugar. Test again in 15 minutes. If it returns to normal (70 or above), eat a snack or meal to keep your blood sugar in a safe range. If it remains low, call your doctor or go to an emergency room. Follow Up with your doctor as advised by our staff. For more information, contact the [employer]. www.diabetes.org or 696-626-7360. Get Prompt Medical Attention if any of the following occur: HIGH BLOOD SUGAR: frequent urination, dizziness, drowsiness, thirst, headache, nausea or vomiting, abdominal pain, vision changes, fast breathing, confusion or loss of consciousness LOW BLOOD SUGAR: fatigue, headache, shakes, excess sweating, hunger, feeling anxious or restless, vision changes, drowsiness, weakness, confusion or loss of consciousness Chest pain or shortness of breath Dizziness or fainting Weakness of an arm or leg or one side of the face Trouble with speech or vision You have been given the following additional information: Diabetic Hyperglycemia Diabetes, General Info (Electronically signed by Pennie Wharton A.R.NAletheaPAlethea 01/30/2017 21:19)
--- NOTE | 2017-01-30 21:19 | ED MED RECONCILIATION SUMMARY ---
Patient: JUANIS HENSON Medication Reconciliation Report [facility] VisitID: [id number] [address] [place] [address] 41y, M Registration Date/Time: 01/30/2017 Weight: 90.7 kg Height/Length: 68 in. BMI: 30.4 ALLERGIES: Non-Steroidal Antinflammatory, Toradol The patient's Home Medications are listed below: THE FOLLOWING MEDICATIONS NEED TO BE RECONCILED: Abilify Oral (1 mg/mL) 400 mg injection ASA Oral 81, daily ClonazePAM Oral 1 mg, 2x a day Levamir 50 uniits, 2x a day Lisinopril Oral 20 mg, 2x a day Metoprolol Tartrate Oral 25 mg Nitroglycerin Sublingual 0.4 mg NovoLOG FlexPen Subcutaneous 40-50, tid Synthroid Oral 75 mcg, daily The source(s) of the original Home Medication information: patient The following Medications were given to the patient in the Emergency Department: IV NS IV Fluids bolus 0, then 1000 mL/hr, administered: 01/30/2017 6:06:00 PM Insulin REG [IVP] IVP 10 unit, administered: 01/30/2017 6:08:00 PM Dilaudid [IVP] IVP 1 mg, administered: 01/30/2017 6:08:00 PM The following Medications were prescribed to the patient: None.
== END 2017-01-30 19:35 | disposition home or self-care (01) ==
LOC: ED SRH 17:08
DX: E10.65 Type 1 diabetes mellitus with hyperglycemia (principal); I10 Essential (primary) hypertension; R07.9 Chest pain, unspecified; F17.210 Nicotine dependence, cigarettes, uncomplicated
CPT/HCPCS: 90098; 90100; 90301; 90616; 92610; 95059

== ENCOUNTER 2017-01-30 23:09 | Emergency (ER) | payer OTHER ==
--- NOTE | 2017-01-31 01:24 | ED NURSING NOTES ---
Clinical Report - Nurses [facility] [address] [place] [address] 01/30/2017 23:10 Patient: JUANIS HENSON TRIAGE Triage time 23:17. Acuity: LEVEL 3. --23:20 Wilbert Lanza 23:17 01/30/17. BP: 159/92. HR: 103. RR: 18. O2 saturation: 99%. Temp: 98.3 F. Pain level now: 05/11. --23:20 Wilbert Lanza Chief Complaint: (high blood sugar). --01:18 Wilbert Lanza Weight: 97.9 kg. Height/Length: 70 inches. BMI: 31. --23:18 Keon Lanza. Medications Abilify Oral (Solution 1 mg/mL) 400 mg injection. ASA Oral 81, daily. ClonazePAM Oral 1 mg, 2x a day. Levamir 50 uniits, 2x a day. Lisinopril Oral 20 mg, 2x a day. Metoprolol Tartrate Oral 25 mg. Nitroglycerin Sublingual 0.4 mg, as needed. NovoLOG FlexPen Subcutaneous 40-50, tid. Synthroid Oral 75 mcg, daily. --23:19 Keon Lanza. Allergies Non-Steroidal Antinflammatory. Toradol. --23:19 Wilbert Lanza History Arrived by private vehicle. Historian: patient. This started just prior to arrival. ( pt states BS was over 500 at home, pt was here earlier and was DC fromER). 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 PAST MEDICAL HX: Immunizations: up-to-date. SOCIAL HX: Smoker- current status unknown. No alcohol use or drug use. No infectious disease exposure. FALL RISK ASSESSMENT: Fall risk assessment completed. No fall risk identified. NUTRITIONAL RISK ASSESSMENT: The nutritional risk assessment revealed no deficiencies. FUNCTIONAL ASSESSMENT: Functional assessment: no impairments noted. LEARNING NEEDS ASSESSMENT: The learning needs assessment revealed no barriers. SKIN INTEGRITY ASSESSMENT: Skin integrity risk assessment completed. No skin integrity risk identified. --23:20 Wilbert Lanza PROBLEMS: Peptic Ulcer Disease. Coronary Artery Disease. Chest Pain. Substance Abuse. Schizophrenia. Atypical Chest Pain. Abscess. Hypertension. Thyroid Disease. Diabetes Mellitus. --23:19 Keon Lanza. ADDITIONAL SURGERIES: Back Surgery. Coronary stents. Stent. --23:19 Keon Lanza. Interventions ID band on patient. To treatment room. --23:20 Wilbert Lanza PHYSICAL ASSESSMENT GENERAL / NEURO / PSYCH: Alert. Oriented X 4. Appears in no acute distress. Appears anxious. HEENT: Pupils equal, round and reactive to light. No facial asymmetry noted. Mucous membranes are pink. RESPIRATORY: Respirations not labored. Chest nontender. Breath sounds within normal limits. CVS: Normal sinus rhythm noted. Capillary refill less than 2 seconds. Pulses within normal limits. GI / : Abdomen soft and nontender and normal bowel sounds. SKIN: Skin intact. Skin is warm and dry. Normal skin turgor. --23:20 Wilbert Lanza NURSING PROGRESS NOTES Finger stick glucose: 424 23:20. --23:20 Wilbert Lanza 00:17 01/31/2017 NitroGLYCERIN Paste Topical 1 in. (NOW, to CW) was refused by patient because of concern over the side effects. Anuradha Dimas --00:17 Wilbert Lanza ( attempted IV start x 2, was able to collect small amount of blood and sent to lab, both IV infiltrated , pt refused nitro, pt requesting pain medication, explained to pt that he has exceeded our pain medication dosing per our policy and that he is allergic to NSAIDS, pt requested to speak with , aware). --00:19 Wilbert Lanza late entry -. Monitoring of patient in place. --00:19 Wilbert Lanza ( pt drinking water at this time, pt still asking for pain medication and explained to pt again about our policy.). --00:36 Wilbert Lanza 01:03 01/31/17. BP: 125/57. HR: 74. RR: 18. O2 saturation: 99%. Temp: deferred. --01:04 Wilbert Lanza Finger stick glucose: 355 mg/dL; ordered; performed by tech; result shown to the ED physician. --01:04 Eric Wu, ER Hvac Technician Residential 01:11 01/31/2017 IV NS : initial bolus none -, then 1000 mL/hr for X1 (NOW) was refused by unable to get IV. Anuradha Dimas --01:11 Wilbert Lanza 01:11 01/31/2017 Insulin Reg Subcutaneous 10 unit given. Given in the right upper arm. Allergies verified and confirmed 5 rights. --01:11 Wilbert Lanza DISPOSITION / DISCHARGE Departure time: :17. The patient left the Emergency Department against medical advice; patient was unaccompanied. The patient appears to be alert and oriented x4. He stated is leaving the ED due to personal reasons. Notified the ED physician and charge nurse of patient departure. Prior to leaving the ED, he was advised to stay for completion of treatment and return if needed. He was informed of the risks of leaving and verbalized understanding of these risks. Patient signed form prior to leaving. He left the Emergency Department ambulatory and via private vehicle. --01:17 Wilbert Lanza 01:17 01/31/17. BP: deferred. HR: deferred. RR: deferred. O2 saturation: deferred. Temp: deferred. Pain level now deferred. --01:18 Wilbert Lanza Locked/Released at 01/31/2017 1:18 by Wilbert Lanza
--- NOTE | 2017-01-31 01:24 | ED MAR SUMMARY ---
..... Medication Administration Record [facility] [address] [place] [address] Patient: JUANIS HENSON Visit ID: [id number] 41y, M Weight: 97.9 kg Height/Length: 70 in BMI: 31 ALLERGIES: Non-Steroidal Antinflammatory, Toradol Given 01:11 01/31/2017 Wilbert Lanza Medication Administered: INSULIN REG [SUBCUTANEOUS], Dose: 10 unit Subcutaneous. Medication Ordered: Insulin Reg Subcut 10 units (HIGH ALERT MEDICATION, NOW).
--- NOTE | 2017-01-31 01:24 | ED ORDER SUMMARY ---
..... Patient: JUANIS HENSON OrderSheet [facility] VisitID: [id number] [address] [place] [address] 41y, M Registration Date/Time: 01/30/2017 ORDER SHEET Weight: 97.9 kg Allergies: Non-Steroidal Antinflammatory, Toradol GENERAL ORDERS: CBC w Diff Urgent (23:45 01/30/2017 Aidan Motta) (Ack 23:47 Romeekimana) (0:20 TBowen R.N.) CMP Urgent (23:45 01/30/2017 Aidan Motta) (Ack 23:47 Rashidimana) (0:20 TBowen R.N.) Acetone, Serum Urgent (23:45 01/30/2017 Aidan Motta) (Ack 23:47 Rashidimana) (0:20 TBowen R.N.) POC Glucose (01:05 01/31/2017 Darci ER Staple Cutter verbal order read back to Aidan Motta) (1:05 Darci ER Staple Cutter) MEDICATION ORDERS: NitroGLYCERIN Paste Topical 1 in. (NOW, to CW) (23:45 01/30/2017 Aidan Motta) (0:17 TBowen R.N.) Insulin Reg Subcut 10 units (HIGH ALERT MEDICATION, NOW) (01:03 01/31/2017 Aidan Motta) (1:11 TBowen R.N.) IV FLUIDS: IV NS : initial bolus none -, then 1000 mL/hr for X1 (NOW) (23:43 01/30/2017 Aidan Motta) (Ack 0:20 TBowen R.N.) ORDER SHEET NOTES: [Electronically signed by Anuradha Dimas R.N. (:01/31/2017)] [Electronically signed by Rod Thurston Dr. (:01/31/2017)] [Electronically locked/signed by Anuradha Dimas R.N. (:01/31/2017)]
--- NOTE | 2017-01-31 01:24 | ED MED RECONCILIATION SUMMARY ---
Patient: JUANIS HENSON Medication Reconciliation Report [facility] VisitID: [id number] [address] [place] [address] 41y, M Registration Date/Time: 01/30/2017 Weight: 97.9 kg Height/Length: 70 in. BMI: 31.0 ALLERGIES: Non-Steroidal Antinflammatory, Toradol The patient's Home Medications are listed below: CONTINUE TAKING THE FOLLOWING MEDICATIONS: Abilify Oral (1 mg/mL) 400 mg injection ASA Oral 81, daily ClonazePAM Oral 1 mg, 2x a day Levamir 50 uniits, 2x a day Lisinopril Oral 20 mg, 2x a day Metoprolol Tartrate Oral 25 mg Nitroglycerin Sublingual 0.4 mg NovoLOG FlexPen Subcutaneous 40-50, tid Synthroid Oral 75 mcg, daily The source(s) of the original Home Medication information: Not obtained. The following Medications were given to the patient in the Emergency Department: Insulin Reg [Subcutaneous] Subcutaneous 10 unit, administered: 01/31/2017 1:11:00 AM The following Medications were prescribed to the patient: None.
--- NOTE | 2017-01-31 01:24 | ED ORDER SUMMARY ---
..... Patient: JUANIS HENSON OrderSheet VisitID: [id number] [address] [place] [address] 41y, M Registration Date/Time: 01/30/2017 ORDER SHEET Weight: 97.9 kg Allergies: Non-Steroidal Antinflammatory, Toradol GENERAL ORDERS: CBC w Diff Urgent (23:45 01/30/2017 Aidan Motta) (Ack 23:47 Romeekimana) (0:20 TBowen R.N.) CMP Urgent (23:45 01/30/2017 Aidan Motta) (Ack 23:47 Rashidimana) (0:20 TBowen R.N.) Acetone, Serum Urgent (23:45 01/30/2017 Aidan Motta) (Ack 23:47 Rashidimana) (0:20 TBowen R.N.) POC Glucose (01:05 01/31/2017 Darci ER Life Science Research Assistant verbal order read back to Aidan Motta) (1:05 Darci ER Life Science Research Assistant) MEDICATION ORDERS: NitroGLYCERIN Paste Topical 1 in. (NOW, to CW) (23:45 01/30/2017 Aidan Motta) (0:17 TBowen R.N.) Insulin Reg Subcut 10 units (HIGH ALERT MEDICATION, NOW) (01:03 01/31/2017 Aidan Motta) (1:11 TBowen R.N.) IV FLUIDS: IV NS : initial bolus none -, then 1000 mL/hr for X1 (NOW) (23:43 01/30/2017 Aidan Motta) (Ack 0:20 TBowen R.N.) ORDER SHEET NOTES: [Electronically signed by Anuradha Dimas R.N. (:01/31/2017)] [Electronically signed by Rod Thurston Dr. (:01/31/2017)] [Electronically locked/signed by Anuradha Dimas R.N. (:01/31/2017)]
--- NOTE | 2017-01-31 01:24 | ED MAR SUMMARY ---
..... Medication Administration Record [facility] [address] [place] [address] Patient: JUANIS HENSON Visit ID: [id number] 41y, M Weight: 97.9 kg Height/Length: 70 in BMI: 31 ALLERGIES: Non-Steroidal Antinflammatory, Toradol Given 01:11 01/31/2017 Wilbert Lanza Medication Administered: INSULIN REG [SUBCUTANEOUS], Dose: 10 unit Subcutaneous. Medication Ordered: Insulin Reg Subcut 10 units (HIGH ALERT MEDICATION, NOW).
--- NOTE | 2017-01-31 01:24 | ED NURSING NOTES ---
Clinical Report - Nurses [facility] [address] [place] [address] 01/30/2017 23:10 Patient: JUANIS HENSON TRIAGE Triage time 23:17. Acuity: LEVEL 3. --23:20 Wilbert Lanza 23:17 01/30/17. BP: 159/92. HR: 103. RR: 18. O2 saturation: 99%. Temp: 98.3 F. Pain level now: 05/11. --23:20 Wilbert Lanza Chief Complaint: (high blood sugar). --01:18 Wilbert Lanza Weight: 97.9 kg. Height/Length: 70 inches. BMI: 31. --23:18 Keon Lanza. Medications Abilify Oral (Solution 1 mg/mL) 400 mg injection. ASA Oral 81, daily. ClonazePAM Oral 1 mg, 2x a day. Levamir 50 uniits, 2x a day. Lisinopril Oral 20 mg, 2x a day. Metoprolol Tartrate Oral 25 mg. Nitroglycerin Sublingual 0.4 mg, as needed. NovoLOG FlexPen Subcutaneous 40-50, tid. Synthroid Oral 75 mcg, daily. --23:19 Keon Lanza. Allergies Non-Steroidal Antinflammatory. Toradol. --23:19 Wilbert Lanza History Arrived by private vehicle. Historian: patient. This started just prior to arrival. ( pt states BS was over 500 at home, pt was here earlier and was DC fromER). 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 PAST MEDICAL HX: Immunizations: up-to-date. SOCIAL HX: Smoker- current status unknown. No alcohol use or drug use. No infectious disease exposure. FALL RISK ASSESSMENT: Fall risk assessment completed. No fall risk identified. NUTRITIONAL RISK ASSESSMENT: The nutritional risk assessment revealed no deficiencies. FUNCTIONAL ASSESSMENT: Functional assessment: no impairments noted. LEARNING NEEDS ASSESSMENT: The learning needs assessment revealed no barriers. SKIN INTEGRITY ASSESSMENT: Skin integrity risk assessment completed. No skin integrity risk identified. --23:20 Wilbert Lanza PROBLEMS: Peptic Ulcer Disease. Coronary Artery Disease. Chest Pain. Substance Abuse. Schizophrenia. Atypical Chest Pain. Abscess. Hypertension. Thyroid Disease. Diabetes Mellitus. --23:19 Keon Lanza. ADDITIONAL SURGERIES: Back Surgery. Coronary stents. Stent. --23:19 Keon Lanza. Interventions ID band on patient. To treatment room. --23:20 Wilbert Lanza PHYSICAL ASSESSMENT GENERAL / NEURO / PSYCH: Alert. Oriented X 4. Appears in no acute distress. Appears anxious. HEENT: Pupils equal, round and reactive to light. No facial asymmetry noted. Mucous membranes are pink. RESPIRATORY: Respirations not labored. Chest nontender. Breath sounds within normal limits. CVS: Normal sinus rhythm noted. Capillary refill less than 2 seconds. Pulses within normal limits. GI / : Abdomen soft and nontender and normal bowel sounds. SKIN: Skin intact. Skin is warm and dry. Normal skin turgor. --23:20 Wilbert Lanza NURSING PROGRESS NOTES Finger stick glucose: 424 23:20. --23:20 Wilbert Lanza 00:17 01/31/2017 NitroGLYCERIN Paste Topical 1 in. (NOW, to CW) was refused by patient because of concern over the side effects. Anuradha Dimas --00:17 Wilbert Lanza ( attempted IV start x 2, was able to collect small amount of blood and sent to lab, both IV infiltrated , pt refused nitro, pt requesting pain medication, explained to pt that he has exceeded our pain medication dosing per our policy and that he is allergic to NSAIDS, pt requested to speak with , aware). --00:19 Wilbert Lanza late entry -. Monitoring of patient in place. --00:19 Wilbert Lanza ( pt drinking water at this time, pt still asking for pain medication and explained to pt again about our policy.). --00:36 Wilbert Lanza 01:03 01/31/17. BP: 125/57. HR: 74. RR: 18. O2 saturation: 99%. Temp: deferred. --01:04 Wilbert Lanza Finger stick glucose: 355 mg/dL; ordered; performed by tech; result shown to the ED physician. --01:04 Eric Wu, ER Radio Journalist 01:11 01/31/2017 IV NS : initial bolus none -, then 1000 mL/hr for X1 (NOW) was refused by unable to get IV. Anuradha Dimas --01:11 Wilbert Lanza 01:11 01/31/2017 Insulin Reg Subcutaneous 10 unit given. Given in the right upper arm. Allergies verified and confirmed 5 rights. --01:11 Wilbert Lanza DISPOSITION / DISCHARGE Departure time: :17. The patient left the Emergency Department against medical advice; patient was unaccompanied. The patient appears to be alert and oriented x4. He stated is leaving the ED due to personal reasons. Notified the ED physician and charge nurse of patient departure. Prior to leaving the ED, he was advised to stay for completion of treatment and return if needed. He was informed of the risks of leaving and verbalized understanding of these risks. Patient signed form prior to leaving. He left the Emergency Department ambulatory and via private vehicle. --01:17 Wilbert Lanza 01:17 01/31/17. BP: deferred. HR: deferred. RR: deferred. O2 saturation: deferred. Temp: deferred. Pain level now deferred. --01:18 Wilbert Lanza Locked/Released at 01/31/2017 1:18 by Wilbert Lanza
--- NOTE | 2017-01-31 01:24 | ED CLINICAL REPORT ---
Clinical Report - Physicians/Mid Levels [facility] [address] [place] [address] 01/30/2017 23:10 Patient: JUANIS HENSON Time Seen: 23:30; initial patient contact. Arrived- By private vehicle. Historian- patient. RETURN VISIT: recently seen in this ED by another ED physician. Seen now for the same problem as before. HISTORY OF PRESENT ILLNESS Chief Complaint: ABNORMAL GLUCOSE. Modifying factors- worsened by food. Not relieved by anything. This started today and is still present. No loss of appetite, weight loss or headache. He has had visual disturbance. (Pt immediately asked for pain meds when I walked in the room for his CP. He has received Narcs x 3 in a 12 month period.). Similar symptoms previously: Many times. Recent medical care: ( Recent medical care: The patient was seen recently at this facility in the emergency department. ( txed here today high glucose and CP3/22 for high blood sugar, 3 high blood sugar and chest pain, no f/u pt states he can't get a dr, no one will take his medicaid).). REVIEW OF SYSTEMS The patient has had chest pain (Which was present earlier today at his prior visit, had a full cardiac W/U which was negative). No abdominal pain, nausea, vomiting, difficulty with urination or double vision. He has had diabetic symptoms, including polydipsia and polyuria. It has been similar to previous symptoms. All systems otherwise negative, except as recorded above. PAST HISTORY Peptic Ulcer Disease. Coronary Artery Disease. Chest Pain. Substance Abuse. Schizophrenia. Atypical Chest Pain. Abscess. Hypertension. Thyroid Disease. Diabetes Mellitus. SURGERIES: Back Surgery. Coronary stents. Stent. SOCIAL HISTORY Smoker - current status unknown. 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 No alcohol use. ADDITIONAL NOTES The nursing notes have been reviewed. PHYSICAL EXAM Vital Signs: 01/30/2017 23:17 BP: 159/92. HR: 103. RR: 18. O2 saturation: 99%. Temp: 98.3 F. Pain level now: 05/11. Have been reviewed. Hypertensive. Tachycardic. Respiratory rate normal. Temperature normal. Oxygen saturation normal. Appearance: Alert. No acute distress. Eyes: Eyes normal inspection. ENT: Dry mucous membranes present. Neck: Normal inspection. CVS: Tachycardia. Heart sounds normal. Rhythm normal. Respiratory: No respiratory distress. Breath sounds normal. Abdomen: No visible injury. Soft and nontender. Bowel sounds normal. No organomegaly. No mass. Skin: Skin warm and dry. Normal skin color. Extremities: No lower extremity edema. Neuro: Oriented X 3. LABS, X-RAYS, AND EKG Laboratory Tests: CBC w Diff: (NIKOLAS: 01/31/2017 00:01) ( MsgRcvd 01/31/2017 00:35) Final results Test Result Flag Units (Reference) WHITE BLOOD COUNT 6.2 K/uL (4.5-11.5) RED BLOOD COUNT 5.26 M/uL (4.50-5.90) HEMOGLOBIN 14.1 gm/dL (13.5-17.5) HEMATOCRIT 41.9 % (41.0-53.0) MEAN CELL VOLUME 80 fL (80-100) MEAN CORPUSCULAR HGB 27 pg (26-34) MEAN CORPUSCULAR HGB CONC 34 g/dL (31-37) RED CELL DISTRIBUTION WIDTH 15.2 H % (11.6-14.8) PLATELET COUNT 117 L K/uL (150-400) NEUTROPHIL % 55.1 % (50-75) LYMPH % 34.5 % (25-40) MONO % 7.6 % (3-14) EOSINOPHIL % 1.5 % (0-4) BASOPHIL % 1.3 % (0-2) CMP: (NIKOLAS: 01/31/2017 00:01) ( MsgRcvd 01/31/2017 00:42) Final results Test Result Flag Units (Reference) GLUCOSE 497 H mg/dL (70-110) BUN 16 mg/dL (7-18) CREATININE 1.0 mg/dL (0.6-1.3) Estimated GFR >60 mL/min Estimated GFR- >60 mL/min Note: Persistent reduction over 3 months in eGFR<60 mL/min/1.73 m2 defines CKD. Patients with eGFR values>=60 mL/min/1.73 m2 may also have CKD if evidence ofpersistent proteinuria. Additional information may be foundat www.kidney.org. SODIUM 130 L mmol/L (136-145) POTASSIUM 4.1 mmol/L (3.5-5.1) CHLORIDE 99 mmol/L (98-107) CARBON DIOXIDE 19 L mmol/L (21-32) CALCIUM 8.3 L mg/dL (8.5-10.1) TOTAL PROTEIN 7.0 g/dL (6.4-8.2) ALBUMIN 2.9 L g/dL (3.3-5.0) BILIRUBIN, TOTAL 0.4 mg/dL (0.0-1.0) ALKALINE PHOSPHATASE 83 U/L (46-116) AST (SGOT) 29 U/L (15-37) ALT (SGPT) 50 U/L (12-78) ACETONE, SERUM QUALITATIVE NEGATIVE (NEGATIVE) . CLINICAL IMPRESSION Chronic, poorly controlled type 1 diabetes with hyperglycemia. No diabetic ketoacidosis, hyperosmolar nonketotic state or coma. INSTRUCTIONS Your Current Medications: CONTINUE TAKING THE FOLLOWING MEDICATIONS: Abilify Oral : Solution 1 mg/mL, 400 mg injection. ASA Oral : 81 daily. ClonazePAM Oral : 1 mg 2x a day. Levamir* : 50 uniits 2x a day. Lisinopril Oral : 20 mg 2x a day. Metoprolol Tartrate Oral : 25 mg. Nitroglycerin Sublingual : 0.4 mg, prn. NovoLOG FlexPen Subcutaneous : 40-50 tid. Synthroid Oral : 75 mcg daily. Follow-up: Follow up with your doctor in about three days. Call for an appointment. Blood pressure screening was not performed during this visit because the patient has an active diagnosis of hypertension. AMA warnings: Time of assessment: 01:10. Oriented to person, place, and time. Gives appropriate answers and rational explanation of refusal of care. No indication for involuntary commitment is present, signs of psychosis, auditory hallucinations, delusional thinking or suicidal ideations. No slurred speech, tangential thinking, visual hallucinations or homicidal ideations. Speaks coherently. Abstract thinking intact. Clinical Impression: the patient has the capacity to make decisions regarding the medical care offered. Relevant issues reviewed and discussed with the patient. Aware of suspected diagnosis suggested by screening exam (Diabetes with hyperglycemia). The suspected diagnosis, based upon the initiated medical screening exam, is DM w/ hyperglycemia w/out DKA and has been discussed with the patient. Acknowledges understanding of the reasons for recommendations regarding medical treatment and further observation. The recommended medical care being refused is Monitoring glucose to assure it is decreasing appropriately and has been discussed with the patient. The risks of refusing recommended care that were disclosed and acknowledged are . Discharge instructions were not provided to patient (Left prior to printing). REFUSAL OF CARE STATEMENT (patient to review and sign in discharge instructions): I have read this paragraph. I understand that a doctor at this hospital wants to give me certain medical care. The doctor explained that care to me, and I understand what that care is. The doctor also explained to me what could happen to me if I leave here without having that care, and I understand what he said. I want to leave this hospital without receiving the recommended care. I know that I am welcome to return to this hospital at any time to receive the recommended care or any other care that I may need at any time, regardless of my ability to pay for such care. (Electronically signed by Rod Thurston Dr. 01/31/2017 1:23)
--- NOTE | 2017-01-31 01:24 | ED MED RECONCILIATION SUMMARY ---
Patient: JUANIS HENSON Medication Reconciliation Report [facility] VisitID: [id number] [address] [place] [address] 41y, M Registration Date/Time: 01/30/2017 Weight: 97.9 kg Height/Length: 70 in. BMI: 31.0 ALLERGIES: Non-Steroidal Antinflammatory, Toradol The patient's Home Medications are listed below: CONTINUE TAKING THE FOLLOWING MEDICATIONS: Abilify Oral (1 mg/mL) 400 mg injection ASA Oral 81, daily ClonazePAM Oral 1 mg, 2x a day Levamir 50 uniits, 2x a day Lisinopril Oral 20 mg, 2x a day Metoprolol Tartrate Oral 25 mg Nitroglycerin Sublingual 0.4 mg NovoLOG FlexPen Subcutaneous 40-50, tid Synthroid Oral 75 mcg, daily The source(s) of the original Home Medication information: Not obtained. The following Medications were given to the patient in the Emergency Department: Insulin Reg [Subcutaneous] Subcutaneous 10 unit, administered: 01/31/2017 1:11:00 AM The following Medications were prescribed to the patient: None.
== END 2017-01-31 01:10 | disposition left against medical advice (07) ==
LOC: ED SRH 23:09
DX: E10.65 Type 1 diabetes mellitus with hyperglycemia (principal); I10 Essential (primary) hypertension; Z79.4 Long term (current) use of insulin; F17.210 Nicotine dependence, cigarettes, uncomplicated; Z79.899 Other long term (current) drug therapy; Z79.82 Long term (current) use of aspirin; Z88.5 Allergy status to narcotic agent; Z88.6 Allergy status to analgesic agent
CPT/HCPCS: 90098; 90100; 90301; 90616; 92610; 95059

== ENCOUNTER 2017-02-08 15:20 | Emergency (ER) | payer OTHER ==
--- NOTE | 2017-02-08 19:42 | ED CLINICAL REPORT ---
Clinical Report - Physicians/Mid Levels [facility] [address] [place] [address] 02/08/2017 15:20 Patient: JUANIS HENSON Time Seen: 15:57 Feb 08 2017. Arrived- By private vehicle. Historian- patient and family. HISTORY OF PRESENT ILLNESS Chief Complaint: SKIN RASH and TENDER AREA. This started 2 weeks [employer] and is still present. It is described as painful. It has been located on the trunk. (Patient originally came to the urgent care, for a skin rash that he has had for 2 weeks, denies any drainage. History of recurrent skin rashes as such, recently treated with antibiotics in December as seen in this [facility], emergency Department. Patient is found to have a blood glucose greater than 600, and was urged to come to the emergency department, they wished to bring him by ambulance, however patient wished to arrived by POV. He reports his glucose was around 300 this morning, he last took NovoLog 50 units at noon. Denies any emesis or diarrhea.). Similar symptoms previously: Once. Recent medical care: The patient was seen recently in a clinic. REVIEW OF SYSTEMS The patient has had chills. No cough, headache or diarrhea. All systems otherwise negative, except as recorded above. PAST HISTORY See nurses notes. Tetanus immunization status is up-to-date. Medications: Dilaudid 4mg q 6 hrs prn . Abilify Oral (Solution 1 mg/mL) 400 mg injection. ASA Oral 81, daily. Levamir 50 uniits, 2x a day. Lisinopril Oral 20 mg, 2x a day. Metoprolol Tartrate Oral 25 mg. Nitroglycerin Sublingual 0.4 mg, as needed. NovoLOG FlexPen Subcutaneous 40-50, tid. Synthroid Oral 75 mcg, daily. Allergies: Toradol. SOCIAL HISTORY Heavy tobacco smoker. Alcohol use. History of drug use Former IV drug abuse clean for the last 2 years. No recent travel. Is a local resident. ADDITIONAL NOTES The nursing notes have been reviewed. PHYSICAL EXAM Vital Signs: 02/08/2017 15:51 BP: 149/100. HR: 101. RR: 20. O2 saturation: 98%. Temp: 98 F. Pain level now: 9/10. Hypertensive. Oxygen saturation normal. Appearance: Alert. Oriented X3. No acute distress. Eyes: Pupils equal, round and reactive to light. Conjunctivae and eyelids normal. ENT: Ears normal. Nose normal. Pharynx normal. CVS: Normal heart rate and rhythm. Heart sounds normal. Respiratory: No respiratory distress. Breath sounds normal. Chest nontender. Abdomen: Nontender. No organomegaly. Skin: Single large tender indurated area. Medium area of cellulitis with erythema and warmth (anterior abdominal wall). Single large abscess with fluctuance (anterior abdominal wall). Extremities: Normal external inspection. Extremities nontender. LABS, X-RAYS, AND EKG Laboratory Tests: UA-Culture if indicated: (NIKOLAS: 02/08/2017 18:40) ( [facility] 02/08/2017 18:58) Final results Test Result Flag Units (Reference) URINE COLOR LIGHT YELLOW URINE APPEARANCE CLEAR URINE GLUCOSE 3+ (NEGATIVE) URINE BILIRUBIN NEGATIVE (NEGATIVE) URINE KETONE NEGATIVE (NEGATIVE) URINE SPECIFIC GRAVITY 1.010 (1.010-1.030) URINE PH 5.5 (5.0-8.0) URINE PROTEIN NEGATIVE (NEGATIVE) URINE UROBILINOGEN 0.2 EU/dL (0.2-1.0) URINE NITRITE NEGATIVE (NEGATIVE) URINE BLOOD NEGATIVE (NEGATIVE) URINE LEUK ESTERASE NEGATIVE (NEGATIVE) URINE RBC NONE SEEN rbc/hpf (0-1) URINE WBC RARE wbc/hpf (0-1) URINE EPITHELIAL CELLS RARE EPI/hpf (0-5) URINE BACTERIA NONE SEEN (NONE SEEN) URINE COMMENT CULT NOT INDICATED URINE CULTURES ARE SET-UP BASED ON THE FOLLOWING CRITERIA:POSITIVE NITRITEPOSITIVE LEUKOCYTE ESTERASEGREATER THAN 10 WHITE BLOOD CELLSMODERATE (2+) OR GREATER BACTERIA CBC w Diff: (NIKOLAS: 02/08/2017 16:15) ( [facility] 02/08/2017 16:51) Final results Test Result Flag Units (Reference) WHITE BLOOD COUNT 10.4 K/uL (4.5-11.5) RED BLOOD COUNT 5.73 M/uL (4.50-5.90) HEMOGLOBIN 15.2 gm/dL (13.5-17.5) HEMATOCRIT 46.1 % (41.0-53.0) MEAN CELL VOLUME 80 fL (80-100) MEAN CORPUSCULAR HGB 26 pg (26-34) MEAN CORPUSCULAR HGB CONC 33 g/dL (31-37) RED CELL DISTRIBUTION WIDTH 15.1 H % (11.6-14.8) PLATELET COUNT 245 K/uL (150-400) NEUTROPHIL % 73.5 % (50-75) LYMPH % 18.2 L % (25-40) MONO % 7.1 % (3-14) EOSINOPHIL % 0.8 % (0-4) BASOPHIL % 0.4 % (0-2) Lactate, Serum: (NIKOLAS: 02/08/2017 18:30) ( [facility] 02/08/2017 19:04) Final results Test Result Flag Units (Reference) LACTIC ACID 1.3 mmol/L (0.4-2.0) Lactate, Serum: (NIKOLAS: 02/08/2017 16:15) ( MsgRcvd 02/08/2017 17:10) Final results Test Result Flag Units (Reference) LACTIC ACID 2.2 H mmol/L (0.4-2.0) CMP: (NIKOLAS: 02/08/2017 16:15) ( MsgRcvd 02/08/2017 17:16) Final results Test Result Flag Units (Reference) GLUCOSE 472 H mg/dL (70-110) BUN 15 mg/dL (7-18) CREATININE 1.1 mg/dL (0.6-1.3) Estimated GFR >60 mL/min Estimated GFR- >60 mL/min Note: Persistent reduction over 3 months in eGFR<60 mL/min/1.73 m2 defines CKD. Patients with eGFR values>=60 mL/min/1.73 m2 may also have CKD if evidence ofpersistent proteinuria. Additional information may be foundat [email or web address].org. SODIUM 132 L mmol/L (136-145) POTASSIUM 4.3 mmol/L (3.5-5.1) CHLORIDE 96 L mmol/L (98-107) CARBON DIOXIDE 24 mmol/L (21-32) CALCIUM 9.2 mg/dL (8.5-10.1) TOTAL PROTEIN 8.1 g/dL (6.4-8.2) ALBUMIN 3.3 g/dL (3.3-5.0) BILIRUBIN, TOTAL 0.4 mg/dL (0.0-1.0) ALKALINE PHOSPHATASE 99 U/L (46-116) AST (SGOT) 17 U/L (15-37) ALT (SGPT) 44 U/L (12-78) LIPASE 114 U/L (73-393) ACETONE, SERUM QUALITATIVE NEGATIVE (NEGATIVE) . PROGRESS AND PROCEDURES Course of Care: the patient is a pleasant 41-year-old male with past medical history significant for diabetes and hypertension presenting for a vaginal natively blood sugar as well as abscess to the anterior abdominal wall. Patient with a blood glucose level reportedly over 600 in the clinic. Patient was told to go to the emergency department for further evaluation. Patient is resting in bed and in no acute distress. Patient appears nontoxic. No evidence of DKA at this time on examination. Patient is agreeable to treatment plan. Abscess noted on patient's anterior abdominal wall likely needincision and drainage. Please see mid-level provider's note for further information on the procedure. Laboratory studies at this time are pending. Patient be given a large bolus of fluids for likely dehydration from sugar and water being excretedthrough the kidneys. Will also help with lowering the patient's blood sugar. We'll wait for patient's electrolytes to administer insulin As we would be very cautious with the patient's potassium. Patient's workup was markable for the findings above. Patient with hyperglycemia however not significantly elevatedfrom reported levels in the clinic. Patient does have elevated levels of blood sugar and would likely improve with further fluid boluses as well as insulin. Patient's potassium is noted to be normal. In order to prophylactically prevent the patient from becoming hypokalemic, we'll provide patient with by mouth potassium. Insulin will be given. We'll monitor patient and have her repeat Accu-Chek after the insulin has been given. Patient's lactic noted to be elevated. Patient however appears nontoxic. Do not fill patient needs to be admitted to the hospital however will repeat lactic acid for any signs of improvement. If lactic acid is noted to be still elevated, patient will need to be admitted to the hospital. If lactic acids improve, patient can be managed as an outpatient. Patient tolerated procedure well. Again please see mid-level provider's note for further details in regards to the patient's procedure. Lactic acid significantly improved. Patient's blood sugar had significantly improved As well while here in the emergency department. Expressed to the patient my deep concern for his elevated blood sugar and chronic long-term effects of uncontrolled diabetes. Explained to patient serious effects of hyperglycemia on the patient's health. I discussed with the patient is workup here in the emergency department including home care, follow-up, and return precautions. All questions have been answered. The patient expressed understanding of these instructions and was agreeable to them. Disposition: Discharged. Condition: good. CLINICAL IMPRESSION 02/08/2017 19:33 BP: 149/77. HR: 96. RR: 20. O2 saturation: 97%. Pain level now: 8/10. Blood pressure normal. Oxygen saturation normal. Severe hyperglycemia Cellulitis (anterior abdominal wall). Single deep abscess with incision and drainage (anterior abdominal wall). acute lactic acidosis, resolved. INSTRUCTIONS Warnings: GENERAL WARNINGS: Return or contact your physician immediately if your condition worsens or changes unexpectedly, if not improving as expected, or if other problems arise. Specifically return if pain, vomiting, bleeding, breathing difficulty or fever. Your Current Medications: CONTINUE TAKING THE FOLLOWING MEDICATIONS: Abilify Oral : Solution 1 mg/mL, 400 mg injection. ASA Oral : 81 daily. Dilaudid 4mg q 6 hrs prn *. Levamir* : 50 uniits 2x a day. Lisinopril Oral : 20 mg 2x a day. Metoprolol Tartrate Oral : 25 mg. Nitroglycerin Sublingual : 0.4 mg, prn. NovoLOG FlexPen Subcutaneous : 40-50 tid. Synthroid Oral : 75 mcg daily. Prescription Medications: Bactrim DS 800 mg / 160 mg: take 1 tablet orally every 12 hours for 10 days. No refill. Substitution is permissible. (disp 20 tabs) Keflex 500 mg: take 1 capsule orally every 8 hours for 10 days. No refill. Substitution is permissible. (Disp 30 caps) Percocet 5 mg/325 mg: take 1 tablet orally every 6 hours as needed for pain. Dispense twelve (12). No refill. Substitution is permissible. Follow-up: Return to the emergency department as needed. Follow up with your doctor in three days. Reason for referral: recheck today's concerns. Summary of care provided to patient via paper. Screening today revealed the patient's blood pressure to be in the normal range. The patient should follow up with a primary care provider for blood pressure management. Understanding of the discharge instructions verbalized by patient. (Electronically signed by Cordell Reid Dr. 02/11/2017 8:07)
--- NOTE | 2017-02-08 19:42 | ED ORDER SUMMARY ---
..... Patient: JUANIS HENSON OrderSheet [facility] VisitID: [id number] [address] [place] [address] 41y, M Registration Date/Time: 02/08/2017 ORDER SHEET Weight: 99.7 kg (estimated) Allergies: Toradol GENERAL ORDERS: CBC w Diff Urgent (15:48 02/08/2017 EKoroleva P.A.-C) (Ack 16:01 TBergley) (16:26 SRoberts R.N.) CMP Urgent (15:48 02/08/2017 EKoroleva P.A.-C) (Ack 16:01 TBergley) (16:26 SRoberts R.N.) UA-Culture if indicated Urgent (15:48 02/08/2017 EKoroleva P.A.-C) (Ack 16:01 TBergley) (19:16 SRoberts R.N.) Lipase Urgent (15:48 02/08/2017 EKoroleva P.A.-C) (Ack 16:01 TBergley) (16:26 SRoberts R.N.) Acetone, Serum Urgent (15:48 02/08/2017 EKoroleva P.A.-C) (Ack 16:01 TBergley) (16:26 SRoberts R.N.) Lactate, Serum Urgent (15:49 02/08/2017 EKoroleva P.A.-C) (Ack 16:01 TBergley) (16:26 SRoberts R.N.) ABG (G) Urgent (15:49 02/08/2017 EKoroleva P.A.-C) (Ack 16:01 TBergley) (Cancelled: not [id number] Wallace Motta) Blood Culture (No) (N/A) Urgent (16:00 02/08/2017 EKoroleva P.A.-C) (Ack 16:01 TBergley) (16:26 SRoberts R.N.) I&D Tray (16:14 02/08/2017 Wallace Motat) (Ack 17:47 TBergley) (18:44 TLewis R.N.) Lactate, Serum Urgent (17:39 02/08/2017 Wallace Motta) (Ack 17:47 TBergley) (18:44 TLewis R.N.) POC Glucose (30 minutes after insulin) (17:41 02/08/2017 Wallace Motta) (Ack 17:47 TBergley) (19:16 SRoberts R.N.) MEDICATION ORDERS: Lidocaine-Epinephrine Injection 1% (place at bedside, with syringes & needles) (16:14 02/08/2017 Wallace Motta) (16:27 SRoberbrian R.N.) Potassium Chloride PO 60 meq (NOW) (17:38 02/08/2017 Wallace Motta) (18:37 TLewis R.N.) Keflex PO 500 mg (NOW) (17:39 02/08/2017 Wallace Motta) (18:37 TLewis R.N.) Bactrim DS PO (Tablet 800-160 mg) 1 tab (NOW) (17:40 02/08/2017 Wallace Motta) (18:37 TLewis R.N.) IV FLUIDS: IV NS : initial bolus 1000 mL (1000 mL/hr), then 1000 mL/hr for X1 (NOW); Vazquez (15:48 02/08/2017 EKoroleva P.A.-C) (Ack 19:31 SRoberts R.N.) (20:37 AMcQuoid ER Tech1) Dilaudid IV 1 mg (HIGH ALERT MEDICATION, NOW) (16:20 02/08/2017 EKoroleva P.A.-C) (Ack 16:27 SRoberts R.N.) (16:37 SRoberts R.N.) IV NS : initial bolus 1000 mL (1000 mL/hr), then none - for X1 (NOW) (16:40 02/08/2017 Wallace Motta) (18:32 TLewis R.N.) Insulin Reg IV 10 units (HIGH ALERT MEDICATION, NOW) (17:38 02/08/2017 Wallace Motta) (18:33 TLewis R.N.) Morphine IV 8 mg (HIGH ALERT MEDICATION, NOW) (18:09 02/08/2017 Wallace Motta) (18:34 Roselyn Atkins) ORDER SHEET NOTES: [Electronically signed by Barbara Wing R.N. (20:43 02/08/2017)] [Electronically signed by Cordell Reid Dr. (08:07 02/11/2017)] [Electronically locked/signed by Barbara Wing R.N. (20:43 02/08/2017)]
--- NOTE | 2017-02-08 19:42 | ED ORDER SUMMARY ---
..... Patient: JUANIS HENSON OrderSheet [facility] VisitID: [id number] [address] [place] [address] 41y, M Registration Date/Time: 02/08/2017 ORDER SHEET Weight: 99.7 kg (estimated) Allergies: Toradol GENERAL ORDERS: CBC w Diff Urgent (15:48 02/08/2017 EKoroleva P.A.-C) (Ack 16:01 TBergley) (16:26 SRoberts R.N.) CMP Urgent (15:48 02/08/2017 EKoroleva P.A.-C) (Ack 16:01 TBergley) (16:26 SRoberts R.N.) UA-Culture if indicated Urgent (15:48 02/08/2017 EKoroleva P.A.-C) (Ack 16:01 TBergley) (19:16 SRoberts R.N.) Lipase Urgent (15:48 02/08/2017 EKoroleva P.A.-C) (Ack 16:01 TBergley) (16:26 SRoberts R.N.) Acetone, Serum Urgent (15:48 02/08/2017 EKoroleva P.A.-C) (Ack 16:01 TBergley) (16:26 SRoberts R.N.) Lactate, Serum Urgent (15:49 02/08/2017 EKoroleva P.A.-C) (Ack 16:01 TBergley) (16:26 SRoberts R.N.) ABG (G) Urgent (15:49 02/08/2017 EKoroleva P.A.-C) (Ack 16:01 TBergley) (Cancelled: not [id number] Wallace Motta) Blood Culture (No) (N/A) Urgent (16:00 02/08/2017 EKoroleva P.A.-C) (Ack 16:01 TBergley) (16:26 SRoberts R.N.) I&D Tray (16:14 02/08/2017 Wallace Motta) (Ack 17:47 TBergley) (18:44 TLewis R.N.) Lactate, Serum Urgent (17:39 02/08/2017 Wallace Motta) (Ack 17:47 TBergley) (18:44 TLewis R.N.) POC Glucose (30 minutes after insulin) (17:41 02/08/2017 Wallace Motta) (Ack 17:47 TBergley) (19:16 SRoberts R.N.) MEDICATION ORDERS: Lidocaine-Epinephrine Injection 1% (place at bedside, with syringes & needles) (16:14 02/08/2017 Wallace Motta) (16:27 SRoberbrian R.N.) Potassium Chloride PO 60 meq (NOW) (17:38 02/08/2017 Wallace Motta) (18:37 TLewis R.N.) Keflex PO 500 mg (NOW) (17:39 02/08/2017 Wallace Motta) (18:37 TLewis R.N.) Bactrim DS PO (Tablet 800-160 mg) 1 tab (NOW) (17:40 02/08/2017 Wallace Motta) (18:37 TLewis R.N.) IV FLUIDS: IV NS : initial bolus 1000 mL (1000 mL/hr), then 1000 mL/hr for X1 (NOW); Vazquez (15:48 02/08/2017 EKoroleva P.A.-C) (Ack 19:31 SRoberts R.N.) (20:37 AMcQuoid ER Tech1) Dilaudid IV 1 mg (HIGH ALERT MEDICATION, NOW) (16:20 02/08/2017 EKoroleva P.A.-C) (Ack 16:27 SRoberts R.N.) (16:37 SRoberts R.N.) IV NS : initial bolus 1000 mL (1000 mL/hr), then none - for X1 (NOW) (16:40 02/08/2017 Wallace Motta) (18:32 TLewis R.N.) Insulin Reg IV 10 units (HIGH ALERT MEDICATION, NOW) (17:38 02/08/2017 Wallace Motta) (18:33 TLewis R.N.) Morphine IV 8 mg (HIGH ALERT MEDICATION, NOW) (18:09 02/08/2017 Wallace Motta) (18:34 Roselyn Atkins) ORDER SHEET NOTES: [Electronically signed by Barbara Wing R.N. (20:43 02/08/2017)] [Electronically signed by Cordell Reid Dr. (08:07 02/11/2017)] [Electronically locked/signed by Barbara Wing R.N. (20:43 02/08/2017)]
--- NOTE | 2017-02-08 19:42 | ED NURSING NOTES ---
Clinical Report - Nurses [facility] [address] [place] [address] 02/08/2017 15:20 Patient: JUANIS HENSON TRIAGE Triage time 15:51. Acuity: LEVEL 3. Chief Complaint: (Abcess on Lt Lower abd, red and painful.). Alert. No acute distress. CHERI COMA SCORE: Cheri Coma Scale: 15- eyes open spontaneously (4); best verbal response- oriented x 4 (5); best motor response- obeys commands (6). --16:00 Emily Menjivar R.N. 15:51 02/08/17. BP: 149/100. HR: 101. RR: 20. O2 saturation: 98% on room air. Temp: 98 F. Pain level now: 07/12. --16:00 Emily Menjivar R.N. 15:51 02/08/17. BP: 149/100. HR: 101. RR: 20. O2 saturation: 98% on room air. Temp: 98 F. Pain level now: 07/12. --16:00 Emily Menjivar R.N. Weight: 99.7 kg estimated. Height/Length: 68 inches Per Patient. BMI: 33.4. --15:53 Emily Menjivar R.N. Medications Abilify Oral (Solution 1 mg/mL) 400 mg injection. ASA Oral 81, daily. Levamir 50 uniits, 2x a day. Lisinopril Oral 20 mg, 2x a day. Metoprolol Tartrate Oral 25 mg. Nitroglycerin Sublingual 0.4 mg, as needed. NovoLOG FlexPen Subcutaneous 40-50, tid. Synthroid Oral 75 mcg, daily. --15:59 Emily Menjivar R.N. Dilaudid 4mg q 6 hrs prn . --15:59 Emily Menjivar R.N. Medication/allergy information source: the patient. --16:00 Emily Menjivar R.N. Allergies Toradol. --15:59 Emily Menjivar R.N. History Historian: patient. Patient has a primary care physician. Primary physician (). Onset. (2 weeks ago). No fever. 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 PAST MEDICAL HX: Immunizations: status is unknown. SOCIAL HX: Heavy tobacco smoker (cigarette)- less than 1 pack per day. Alcohol use; consumes beer occasionally. No drug use. FALL RISK ASSESSMENT: Fall risk assessment completed. No fall risk identified. NUTRITIONAL RISK ASSESSMENT: The nutritional risk assessment revealed no deficiencies. FUNCTIONAL ASSESSMENT: Functional assessment: no impairments noted. LEARNING NEEDS ASSESSMENT: The learning needs assessment revealed no barriers. SKIN INTEGRITY ASSESSMENT: Skin integrity risk assessment completed. No skin integrity risk identified. --16:00 Emily Menjivar R.N. PROBLEMS: Peptic Ulcer Disease. Coronary Artery Disease. Chest Pain. Substance Abuse. Schizophrenia. Atypical Chest Pain. Abscess. Hypertension. Thyroid Disease. Diabetes Mellitus. --15:56 Emily Menjivar R.N. ADDITIONAL SURGERIES: Back Surgery. Coronary stents. Stent. --15:56 Emily Menjivar R.N. Interventions ID band on patient. To room. --16:00 Emily Menjivar R.N. PHYSICAL ASSESSMENT Ambulatory to room. Patient gowned. GENERAL / NEURO / PSYCH: Alert. Oriented X 4. Appears in pain and anxious. HEENT: Mucous membranes are pink. RESPIRATORY: Respirations not labored. CVS: Capillary refill less than 2 seconds. GI / : Abdomen nontender. SKIN: Skin intact. Skin is warm and dry. Normal skin turgor. --16:00 Emily Menjivar R.N. NURSING PROGRESS NOTES Patient gowned. Head of bed elevated. Two patient identifiers checked. Call light placed in reach. Side rails up x 1. Bed placed in lowest position. Brakes of bed on. Patient ready for evaluation. --16:01 Emily Menjivar R.N. 16:15 02/08/2017 Site #1 started via IV in the left antecubital space with an 18g angiocath, with aseptic technique and good blood return; one attempt. Blood drawn: rainbow set. Labeled in the presence of the patient and sent to the lab. Saline lock flushed with 10 mL saline (Blood cultures , done. IV done with US xi Shankar RN). --16:37 Barbara Wing R.N. 16:15 02/08/2017 Dilaudid (HYDROmorphone HCl PF) IVP 1 mg given over 1 minute(s) via site #1. Allergies verified, confirmed 5 rights and sedative warning given to the patient. IV patency established. IV site checked: no pain, redness, or swelling. IV flushed thoroughly pre- and post-medication administration. IVP given by RN. --16:37 Barbara Wing R.N. 16:26 02/08/2017 Lidocaine-Epinephrine (Lidocaine-Epinephrine) Injection. (Used by the PA.). --16:27 Barbara Wing R.N. 16:20. Care transferred and report given (to Barbara Contreras RN). --16:38 Emily Menjivar R.N. 18:32 02/08/2017 Started bag #1 1000 mL IV Fluids IV NS (Saline); at 1000 mL/hr over 1 minute(s) via site #1 via IV pump. Allergies verified and confirmed 5 rights. --18:32 Glen Hatch R.N. 18:33 02/08/2017 Insulin REG IVP 10 unit given over 1 minute(s) via site #1. Allergies verified and confirmed 5 rights. IV patency established. IV site checked: no pain, redness, or swelling. IV flushed thoroughly pre- and post-medication administration. IVP given by RN. --18:33 Glen Hatch R.N. 18:34 02/08/2017 Morphine IVP 10 mg given over 1 minute(s) via site #1. Allergies verified, confirmed 5 rights and sedative warning given to the patient. IV patency established. IV site checked: no pain, redness, or swelling. IV flushed thoroughly pre- and post-medication administration. IVP given by RN. --18:34 Glen Hatch R.N. 18:37 02/08/2017 Keflex (Cephalexin) PO 500 mg given. Allergies verified and confirmed 5 rights. --18:37 Glen Hatch R.N. 18:37 02/08/2017 Potassium Chloride (Potassium Chloride ER) PO 60 meq given. Allergies verified and confirmed 5 rights. --18:37 Glen Hatch R.N. 18:37 02/08/2017 Bactrim DS (Sulfamethoxazole-TMP DS) PO 1 tab given. Allergies verified and confirmed 5 rights. --18:37 Glen Hatch R.N. 18:38 02/08/17. BP: 153/97. HR: 87. RR: 22. O2 saturation: 97%. Pain level now 10/10. --18:38 Glen Hatch R.N. ( VS were taken due to the pain and the 4mg of morphine IV that was given.). --18:38 Glen Hatch R.N. ( 18g IV in Left basilic with ultrasound guidance x20 minutes. 2.5" long dwelling IV placed). --18:45 Chas Shankar R.N. 19:19. Finger stick glucose: 197 mg/dL. --19:19 McQuoid Debbie, ER Tech1 19:00 02/08/2017 IV Fluids IV NS Bag Change: bag #1 infused. Total amount infused: 1000. STARTED bag #2 (1000 mL) at 1000 mL/hr via IV pump. Confirmed 5 rights. IV patency established. IV site checked: no pain, redness, or swelling. IV flushed thoroughly. --20:35 McQujorje, Debbie, ER Tech1 19:21 02/08/2017 morphine * IV 8mg --19:21 Glen Hatch R.N. 19:36 02/08/2017 IV Fluids IV NS Discontinued: bag #2 infused. Total amount infused: 1000 mL. IV patency established. IV site checked: no pain, redness, or swelling. IV flushed thoroughly. --20:36 McQuoid, Debbie, ER Tech1 19:37 02/08/2017 Started bag #1 1000 mL IV Fluids IV NS (Saline); at 1000 mL/hr over 30 minute(s) via site #1 via IV pump. Allergies verified and confirmed 5 rights. IV patency established. IV site checked: no pain, redness, or swelling. IV flushed thoroughly pre- and post-medication administration. --20:37 McQuoid, Debbie, ER Tech1 19:56 02/08/2017 Site #1 removed upon discharge. Catheter intact. Bandaid applied. --20:38 McQuoid, Debbie, ER Tech1 19:56 02/08/2017 Morphine IV Discontinued: bag #3 infused. Total amount infused: 1000 mL. IV patency established. IV site checked: no pain, redness, or swelling. IV flushed thoroughly. --20:37 KobyRadha Debbie ER Tech1. DISPOSITION / DISCHARGE 19:57. Condition at departure: improved. No learning barriers present. Reviewed medication(s) side effects, precautions, dosing and course information. Prescription(s) given to the patient. Patient verbalized understanding. Written instructions provided in [employer]. The patient was discharged home and accompanied by sewer builder. He left the Emergency Department ambulatory and via private vehicle. Jewel Stringer driving. Medication list reviewed and validated. --20:39 KobyRadhaDebbie ER Tech1 19:55 02/08/17. BP: 148/78. HR: 89. RR: 20. O2 saturation: 97% on room air. Temp: deferred. Pain level now: 12/12. 19:33 02/08/17. BP: 149/77. HR: 96. RR: 20. O2 saturation: 97% on room air. Pain level now: 06/11. 18:38 02/08/17. BP: 153/97. HR: 87. RR: 22. O2 saturation: 97%. Pain level now 08/11. 15:51 02/08/17. BP: 149/100. HR: 101. RR: 20. O2 saturation: 98% on room air. Temp: 98 F. Pain level now: 07/12. --20:39 Debbie Amador ER Tech1 ( Discharge accidently charted under tech's name. Discharge done by myself.). --20:41 Debbie Amador, ER Tech1. Locked/Released at 02/08/2017 20:43 by Barbara Wing R.N.
--- NOTE | 2017-02-11 08:07 | ED DISCHARGE INSTRUCTIONS ---
Patient: JUANIS HENSON General Instructions [facility] VisitID: [id number] [place] [address] 41y, M Registration Date/Time: 02/08/2017 02/08/2017 19:33 BP: 149/77. HR: 96. RR: 20. O2 saturation: 97%. Pain level now: 8/10. Blood pressure normal. Oxygen saturation normal. Severe hyperglycemia Cellulitis (anterior abdominal wall). Single deep abscess with incision and drainage (anterior abdominal wall). acute lactic acidosis, resolved. INSTRUCTIONS Warnings: GENERAL WARNINGS: Return or contact your physician immediately if your condition worsens or changes unexpectedly, if not improving as expected, or if other problems arise. Specifically return if pain, vomiting, bleeding, breathing difficulty or fever. Your Current Medications: CONTINUE TAKING THE FOLLOWING MEDICATIONS: Abilify Oral : Solution 1 mg/mL, 400 mg injection. ASA Oral : 81 daily. Dilaudid 4mg q 6 hrs prn *. Levamir* : 50 uniits 2x a day. Lisinopril Oral : 20 mg 2x a day. Metoprolol Tartrate Oral : 25 mg. Nitroglycerin Sublingual : 0.4 mg, prn. NovoLOG FlexPen Subcutaneous : 40-50 tid. Synthroid Oral : 75 mcg daily. Prescription Medications: Bactrim DS 800 mg / 160 mg: take 1 tablet orally every 12 hours for 10 days. No refill. Substitution is permissible. (disp 20 tabs) Keflex 500 mg: take 1 capsule orally every 8 hours for 10 days. No refill. Substitution is permissible. (Disp 30 caps) Percocet 5 mg/325 mg: take 1 tablet orally every 6 hours as needed for pain. Dispense twelve (12). No refill. Substitution is permissible. Follow-up: Return to the emergency department as needed. Follow up with your doctor in three days. Reason for referral: recheck today's concerns. Summary of care provided to patient via paper. Screening today revealed the patient's blood pressure to be in the normal range. The patient should follow up with a primary care provider for blood pressure management. Understanding of the discharge instructions verbalized by patient. ADDITIONAL INFORMATION Cellulitis You have an infection of the skin known as cellulitis. This usually starts with a scrape, cut, insect bite, blister or other opening in the skin which becomes infected. This is a serious condition. It must be watched closely to be sure the infection is not spreading. With antibiotic treatment, the size of the red area will gradually shrink in size until the skin returns to normal. This will take 7-10 days. The red area should never increase in size once the antibiotic medicine has been started. Occasionally, an infection will be resistant to one antibiotic and another one will have to be used. Home Care: 1) Limit the use of the affected part, since excess movement can cause the infection to spread. 2) If the infection is on your leg, walk as little as possible during the first few days of the treatment. Keep your leg elevated while sitting. This will reduce swelling. 3) Take all of the antibiotic medicine exactly as directed until it is gone. Be careful not to miss any doses, especially during the first seven days. Follow Up with your doctor or this facility as directed. Check the infected area daily for the warning signs listed below. Get Prompt Medical Attention if any of the following occur: -- Spreading area of redness -- Increasing swelling or pain -- Appearance of pus or drainage -- Fever over 100.4 F (38.0 C) oral, or over 101.4 F (38.6 C) rectal, after two days on antibiotics Abscess [Incision & Drainage] An abscess (sometimes called a boil) occurs when bacteria get trapped under the skin and begin to grow. Pus forms inside the abscess as the body responds to the bacteria. An abscess can occur with an insect bite, ingrown hair, blocked oil gland, pimple, cyst, or puncture wound. Treatment of your abscess has required an incision to drain the pus. If the abscess pocket was large, a gauze packing may have been inserted. This will need to be removed and possibly replaced on your next visit. Antibiotics are not required in the treatment of a simple abscess, unless the infection is spreading into the skin around the wound (known as cellulitis). Healing of the wound will take about one to two weeks depending on the size of the abscess. Healthy tissue will grow from the bottom and sides of the opening until it seals over. Home Care: The wound may drain for the first two days. Cover the wound with a clean dry dressing. If the dressing becomes soaked with blood or pus, change it. If a gauze packing was placed inside the abscess cavity, you may be advised to remove it yourself. You may do this in the shower. Once the packing is removed, you should wash the area in the shower or bath 3 to 4 times a day, until the skin opening has closed. If you were prescribed antibiotics, take them as directed until they are all gone. You may use acetaminophen (Tylenol) or ibuprofen (Motrin, Advil) to control pain, unless another pain medicine was prescribed. [ NOTE: If you have liver disease or ever had a stomach ulcer, talk with your doctor before using these medicines.] Follow Up with your doctor as advised by our staff. If a gauze packing was inserted in your wound, it should be removed in 1-2 days. Check your wound every day for the signs of worsening infection listed below. Get Prompt Medical Attention if any of the following occur: Increasing redness or swelling Red streaks in the skin leading away from the wound Increasing local pain or swelling Continued pus draining from the wound two days after treatment Fever of 100.4F (38C) or higher, or as directed by your healthcare provider Diabetes with High Blood Sugar You have been treated for high blood sugar (hyperglycemia). This may be becauseof an infection or other illness;eating too many sweets or starches ; not taking enough insulin. Home care High blood sugar may cause symptoms that you can learn to recognize, such as these: If you feel like your blood sugar may be too high, measure it using a blood or urine test. If it is above your usual range, use the "sliding scale"rRegular insulin dose your doctor gave you to correct this. If no "sliding scale" orders were given, contact your doctor for further advice. If your blood sugar is over 300, and you can't reach your doctor, go to the hospital emergency room. Monitor and write down your blood sugars - and insulin dose, if you take insulin - atleast twice a day. Do this before breakfast and before dinner. Do this for the next 3 to 5 days. Follow-up care Follow up with your health care provderduring the next week to review your blood sugar records. You will find out if you need to adjust your dose of insulin or other medicine for blood sugar. When to seek medical care Get prompt medical attention if either of these occur: High blood sugar.Symptoms are frequent urination, feeling dizzy, thirst, headache, nausea or vomiting, abdominal pain, and drowsiness or loss of consciousness. Low blood sugar. Symptoms are fatigue, headache, shakes, excess sweating, hunger, anxiety, reduced vision, drowsiness, weakness, confusion or loss of consciousness, and seizure. Sulfamethoxazole, Trimethoprim Oral tablet What is this medicine? SULFAMETHOXAZOLE; TRIMETHOPRIM or SMX-TMP (suhl fuh meth OK julien zohl; trye METH oh prim) is a combination of a sulfonamide antibiotic and a second antibiotic, trimethoprim. It is used to treat or prevent certain kinds of bacterial infections. It will not work for colds, flu, or other viral infections. How should I use this medicine? Take this medicine by mouth with a full glass of water. Follow the directions on the prescription label. Take your medicine at regular intervals. Do not take it more often than directed. Do not skip doses or stop your medicine early. Talk to your stock roller regarding the use of this medicine in children. Special care may be needed. This medicine has been used in children as young as 2 months of age. What side effects may I notice from receiving this medicine? Side effects that you should report to your doctor or health respiratory care assistant as soon as possible: allergic reactions like skin rash or hives, swelling of the face, lips, or tongue breathing problems fever or chills, sore throat irregular heartbeat, chest pain joint or muscle pain pain or difficulty passing urine red pinpoint spots on skin redness, blistering, peeling or loosening of the skin, including inside the mouth unusual bleeding or bruising unusually weak or tired yellowing of the eyes or skin Side effects that usually do not require medical attention (report to your doctor or health respiratory care assistant if they continue or are bothersome): diarrhea dizziness headache loss of appetite nausea, vomiting nervousness What may interact with this medicine? Do not take this medicine with any of the following medications: aminobenzoate potassium dofetilide metronidazole This medicine may also interact with the following medications: HERBIE inhibitors like benazepril, enalapril, lisinopril, and ramipril cyclosporine digoxin diuretics indomethacin medicines for diabetes methenamine methotrexate phenytoin potassium supplements pyrimethamine sulfinpyrazone tricyclic antidepressants warfarin What if I miss a dose? If you miss a dose, take it as soon as you can. If it is almost time for your next dose, take only that dose. Do not take double or extra doses. Where should I keep my medicine? Keep out of the reach of children. Store at room temperature between 20 to 25 degrees C (68 to 77 degrees F). Protect from light. Throw away any unused medicine after the expiration date. What should I tell my health care provider before I take this medicine? They need to know if you have any of these conditions: anemia asthma being treated with anticonvulsants if you frequently drink alcohol containing drinks kidney disease liver disease low level of folic acid or kuhshid-1-angpndryk dehydrogenase poor nutrition or malabsorption porphyria severe allergies thyroid disorder an unusual or allergic reaction to sulfamethoxazole, trimethoprim, sulfa drugs, other medicines, foods, dyes, or preservatives or trying to get breast-feeding What should I watch for while using this medicine? Tell your doctor or health respiratory care assistant if your symptoms do not improve. Drink several glasses of water a day to reduce the risk of kidney problems. Do not treat diarrhea with over the counter products. Contact your doctor if you have diarrhea that lasts more than 2 days or if it is severe and watery. This medicine can make you more sensitive to the sun. Keep out of the sun. If you cannot avoid being in the sun, wear protective clothing and use a sunscreen. Do not use sun lamps or tanning beds/booths. Cephalexin Monohydrate Oral tablet What is this medicine? CEPHALEXIN (sef a SHIMA in) is a cephalosporin antibiotic. It is used to treat certain kinds of bacterial infections It will not work for colds, flu, or other viral infections. How should I use this medicine? Take this medicine by mouth with a full glass of water. Follow the directions on the prescription label. This medicine can be taken with or without food. Take your medicine at regular intervals. Do not take your medicine more often than directed. Take all of your medicine as directed even if you think you are better. Do not skip doses or stop your medicine early. Talk to your stock roller regarding the use of this medicine in children. While this drug may be prescribed for selected conditions, precautions do apply. What side effects may I notice from receiving this medicine? Side effects that you should report to your doctor or health respiratory care assistant as soon as possible: allergic reactions like skin rash, itching or hives, swelling of the face, lips, or tongue breathing problems pain or trouble passing urine redness, blistering, peeling or loosening of the skin, including inside the mouth severe or watery diarrhea unusually weak or tired yellowing of the eyes, skin Side effects that usually do not require medical attention (report to your doctor or health respiratory care assistant if they continue or are bothersome): gas or heartburn genital or anal irritation headache joint or muscle pain nausea, vomiting What may interact with this medicine? probenecid some other antibiotics What if I miss a dose? If you miss a dose, take it as soon as you can. If it is almost time for your next dose, take only that dose. Do not take double or extra doses. There should be at least 4 to 6 hours between doses. Where should I keep my medicine? Keep out of the reach of children. Store at room temperature between 59 and 86 degrees F (15 and 30 degrees C). Throw away any unused medicine after the expiration date. What should I tell my health care provider before I take this medicine? They need to know if you have any of these conditions: kidney disease stomach or intestine problems, especially colitis an unusual or allergic reaction to cephalexin, other cephalosporins, penicillins, other antibiotics, medicines, foods, dyes or preservatives or trying to get breast-feeding What should I watch for while using this medicine? Tell your doctor or health respiratory care assistant if your symptoms do not begin to improve in a few days. Do not treat diarrhea with over the counter products. Contact your doctor if you have diarrhea that lasts more than 2 days or if it is severe and watery. If you have diabetes, you may get a false-positive result for sugar in your urine. Check with your doctor or health respiratory care assistant. Oxycodone Hydrochloride, Acetaminophen Oral tablet What is this medicine? ACETAMINOPHEN; OXYCODONE (a set a CORY albina fen; ox i KOE done) is a pain reliever. It is used to treat mild to moderate pain. How should I use this medicine? Take this medicine by mouth with a full glass of water. Follow the directions on the prescription label. Take your medicine at regular intervals. Do not take your medicine more often than directed. Talk to your stock roller regarding the use of this medicine in children. Special care may be needed. Patients over 65 years old may have a stronger reaction and need a smaller dose. What side effects may I notice from receiving this medicine? Side effects that you should report to your doctor or health respiratory care assistant as soon as possible: allergic reactions like skin rash, itching or hives, swelling of the face, lips, or tongue breathing difficulties, wheezing confusion light headedness or fainting spells severe stomach pain yellowing of the skin or the whites of the eyes Side effects that usually do not require medical attention (report to your doctor or health respiratory care assistant if they continue or are bothersome): dizziness drowsiness nausea vomiting What may interact with this medicine? alcohol antihistamines barbiturates like amobarbital, butalbital, butabarbital, methohexital, pentobarbital, phenobarbital, thiopental, and secobarbital benztropine drugs for bladder problems like solifenacin, trospium, oxybutynin, tolterodine, hyoscyamine, and methscopolamine drugs for breathing problems like ipratropium and tiotropium drugs for certain stomach or intestine problems like propantheline, homatropine methylbromide, glycopyrrolate, atropine, belladonna, and dicyclomine general anesthetics like etomidate, ketamine, nitrous oxide, propofol, desflurane, enflurane, halothane, isoflurane, and sevoflurane medicines for depression, anxiety, or psychotic disturbances medicines for sleep muscle relaxants naltrexone narcotic medicines (opiates) for pain phenothiazines like perphenazine, thioridazine, chlorpromazine, mesoridazine, fluphenazine, prochlorperazine, promazine, and trifluoperazine scopolamine tramadol trihexyphenidyl What if I miss a dose? If you miss a dose, take it as soon as you can. If it is almost time for your next dose, take only that dose. Do not take double or extra doses. Where should I keep my medicine? Keep out of the reach of children. This medicine can be abused. Keep your medicine in a safe place to protect it from theft. Do not share this medicine with anyone. Selling or giving away this medicine is dangerous and against the law. Store at room temperature between 20 and 25 degrees C (68 and 77 degrees F). Keep container tightly closed. Protect from light. This medicine may cause accidental overdose and if it is taken by other adults, children, or pets. Flush any unused medicine down the toilet to reduce the chance of harm. Do not use the medicine after the expiration date. What should I tell my health care provider before I take this medicine? They need to know if you have any of these conditions: brain tumor Crohn's disease, inflammatory bowel disease, or ulcerative colitis drink more than 3 alcohol containing drinks per day drug abuse or addiction head injury heart or circulation problems kidney disease or problems going to the bathroom liver disease lung disease, asthma, or breathing problems an unusual or allergic reaction to acetaminophen, oxycodone, other opioid analgesics, other medicines, foods, dyes, or preservatives or trying to get breast-feeding What should I watch for while using this medicine? Tell your doctor or health respiratory care assistant if your pain does not go away, if it gets worse, or if you have new or a different type of pain. You may develop tolerance to the medicine. Tolerance means that you will need a higher dose of the medication for pain relief. Tolerance is normal and is expected if you take this medicine for a long time. Do not suddenly stop taking your medicine because you may develop a severe reaction. Your body becomes used to the medicine. This does NOT mean you are addicted. Addiction is a behavior related to getting and using a drug for a non-medical reason. If you have pain, you have a medical reason to take pain medicine. Your doctor will tell you how much medicine to take. If your doctor wants you to stop the medicine, the dose will be slowly lowered over time to avoid any side effects. You may get drowsy or dizzy. Do not drive, use machinery, or do anything that needs mental alertness until you know how this medicine affects you. Do not stand or sit up quickly, especially if you are an older patient. This reduces the risk of dizzy or fainting spells. Alcohol may interfere with the effect of this medicine. Avoid alcoholic drinks. There are different types of narcotic medicines (opiates) for pain. If you take more than one type at the same time, you may have more side effects. Give your health care provider a list of all medicines you use. Your doctor will tell you how much medicine to take. Do not take more medicine than directed. Call emergency for help if you have problems breathing. The medicine will cause constipation. Try to have a bowel movement at least every 2 to 3 days. If you do not have a bowel movement for 3 days, call your doctor or health respiratory care assistant. Do not take Tylenol (acetaminophen) or medicines that have acetaminophen with this medicine. Too much acetaminophen can be very dangerous. Many nonprescription medicines contain acetaminophen. Always read the labels carefully to avoid taking more acetaminophen. You have been given the following additional information: Cellulitis Abscess, Incision And Drainage Diabetic Hyperglycemia Sulfamethoxazole, Trimethoprim Oral tablet Cephalexin Monohydrate Oral tablet Oxycodone Hydrochloride, Acetaminophen Oral tablet (Electronically signed by Coredll Reid Dr. 02/11/2017 8:07)
--- NOTE | 2017-02-11 08:08 | ED MAR SUMMARY ---
..... Medication Administration Record [facility] [address] [place] [address] Patient: JUANIS HENSON Visit ID: [id number] 41y, M Weight: 99.7 kg Height/Length: 68 in BMI: 33.4 ALLERGIES: Toradol Given 16:15 02/08/2017 Barbara Wing R.N. Medication Administered: DILAUDID [IVP] (HYDROMORPHONE HCL PF), Dose: 1 mg IVP over 1 minute(s), Site: #1 left AC. Medication Ordered: Dilaudid IV 1 mg (HIGH ALERT MEDICATION, NOW). Given 16:26 02/08/2017 Barbara Wing R.N. Medication Administered: LIDOCAINE-EPINEPHRINE [INJECTION] (LIDOCAINE-EPINEPHRINE), Dose: Injection. Medication Ordered: Lidocaine-Epinephrine Injection 1% (place at bedside, with syringes & needles). Start 18:32 02/08/2017 Glen Hatch R.N., Stop 19:36 02/08/2017 McQuoid, Debbie, ER Tech1 Medication Administered: IV NS (SALINE), Dose: IV Fluids over 1 minute(s), Rate: 1000 mL/hr, Dispensed: 1000 mL bag, Site: #1 left AC. Medication Ordered: IV NS : initial bolus 1000 mL (1000 mL/hr), then none - for X1 (NOW). Given 18:33 02/08/2017 Glen Hatch R.N. Medication Administered: INSULIN REG [IVP], Dose: 10 unit IVP over 1 minute(s), Site: #1 left AC. Medication Ordered: Insulin Reg IV 10 units (HIGH ALERT MEDICATION, NOW). Given 18:34 02/08/2017 Glen Hatch R.N. Medication Administered: MORPHINE [IVP], Dose: 10 mg IVP over 1 minute(s), Site: #1 left AC. Medication Ordered: Morphine IV 8 mg (HIGH ALERT MEDICATION, NOW). Given 18:37 02/08/2017 Glen Hatch R.N. Medication Administered: KEFLEX [PO] (CEPHALEXIN), Dose: 500 mg PO. Medication Ordered: Keflex PO 500 mg (NOW). Given 18:37 02/08/2017 Glen Hatch R.N. Medication Administered: BACTRIM DS [PO] (SULFAMETHOXAZOLE-TMP DS), Dose: 1 tab PO. Medication Ordered: Bactrim DS PO (Tablet 800-160 mg) 1 tab (NOW). Given 18:37 02/08/2017 Glen Hatch R.N. Medication Administered: POTASSIUM CHLORIDE [PO] (POTASSIUM CHLORIDE ER), Dose: 60 meq PO. Medication Ordered: Potassium Chloride PO 60 meq (NOW). Start 19:21 02/08/2017 Glen Hatch R.N., Stop 19:56 02/08/2017 McQuoid, Debbie, ER Tech1 Medication Administered: morphine *, Dose: 8mg * IV. Medication Ordered: Morphine IV 8 mg (HIGH ALERT MEDICATION, NOW). Start 19:37 02/08/2017 McQuoid, Debbie, ER Tech1 Medication Administered: IV NS (SALINE), Dose: IV Fluids over 30 minute(s), Rate: 1000 mL/hr, Dispensed: 1000 mL bag, Site: #1 left AC. Medication Ordered: IV NS : initial bolus 1000 mL (1000 mL/hr), then 1000 mL/hr for X1 (NOW); Vazquez.
--- NOTE | 2017-02-11 08:08 | ED MED RECONCILIATION SUMMARY ---
Patient: JUANIS HENSON Medication Reconciliation Report [facility] VisitID: [id number] [address] [place] [address] 41y, M Registration Date/Time: 02/08/2017 Weight: 99.7 kg Height/Length: 68 in. BMI: 33.4 ALLERGIES: Toradol The patient's Home Medications are listed below: CONTINUE TAKING THE FOLLOWING MEDICATIONS: Abilify Oral (1 mg/mL) 400 mg injection ASA Oral 81, daily Dilaudid 4mg q 6 hrs prn Levamir 50 uniits, 2x a day Lisinopril Oral 20 mg, 2x a day Metoprolol Tartrate Oral 25 mg Nitroglycerin Sublingual 0.4 mg NovoLOG FlexPen Subcutaneous 40-50, tid Synthroid Oral 75 mcg, daily The source(s) of the original Home Medication information: patient The following Medications were given to the patient in the Emergency Department: Lidocaine-Epinephrine [Injection] Injection, administered: 02/08/2017 4:26:00 PM Dilaudid [IVP] IVP 1 mg, administered: 02/08/2017 4:15:00 PM IV NS IV Fluids bolus 0, then 1000 mL/hr, administered: 02/08/2017 6:32:00 PM Insulin REG [IVP] IVP 10 unit, administered: 02/08/2017 6:33:00 PM Morphine [IVP] IVP 10 mg, administered: 02/08/2017 6:34:00 PM Keflex [PO] PO 500 mg, administered: 02/08/2017 6:37:00 PM Potassium Chloride [PO] PO 60 meq, administered: 02/08/2017 6:37:00 PM Bactrim DS [PO] PO 1 tab, administered: 02/08/2017 6:37:00 PM morphine IV bolus 0, then 8mg, administered: 02/08/2017 7:21:00 PM IV NS IV Fluids bolus 0, then 1000 mL/hr, administered: 02/08/2017 7:37:00 PM The following Medications were prescribed to the patient: Bactrim DS 800 mg / 160 mg: take 1 tablet orally every 12 hours for 10 days. No refill. Substitution is permissible.(disp 20 tabs) -- Cordell Reid Dr. Keflex 500 mg: take 1 capsule orally every 8 hours for 10 days. No refill. Substitution is permissible.(Disp 30 caps) -- Cordell Reid Dr. Percocet 5 mg/325 mg: take 1 tablet orally every 6 hours as needed for pain. Dispense twelve (12). No refill. Substitution is permissible. -- Cordell Reid Dr.
--- NOTE | 2017-02-11 08:08 | ED MAR SUMMARY ---
..... Medication Administration Record [address] [place] [address] Patient: JUANIS HENSON Visit ID: [id number] 41y, M Weight: 99.7 kg Height/Length: 68 in BMI: 33.4 ALLERGIES: Toradol Given 16:15 02/08/2017 Barbara Wing R.N. Medication Administered: DILAUDID [IVP] (HYDROMORPHONE HCL PF), Dose: 1 mg IVP over 1 minute(s), Site: #1 left AC. Medication Ordered: Dilaudid IV 1 mg (HIGH ALERT MEDICATION, NOW). Given 16:26 02/08/2017 Barbara Wing R.N. Medication Administered: LIDOCAINE-EPINEPHRINE [INJECTION] (LIDOCAINE-EPINEPHRINE), Dose: Injection. Medication Ordered: Lidocaine-Epinephrine Injection 1% (place at bedside, with syringes & needles). Start 18:32 02/08/2017 Glen Hatch R.N., Stop 19:36 02/08/2017 McQuoid, Debbie, ER Tech1 Medication Administered: IV NS (SALINE), Dose: IV Fluids over 1 minute(s), Rate: 1000 mL/hr, Dispensed: 1000 mL bag, Site: #1 left AC. Medication Ordered: IV NS : initial bolus 1000 mL (1000 mL/hr), then none - for X1 (NOW). Given 18:33 02/08/2017 Glen Hatch R.N. Medication Administered: INSULIN REG [IVP], Dose: 10 unit IVP over 1 minute(s), Site: #1 left AC. Medication Ordered: Insulin Reg IV 10 units (HIGH ALERT MEDICATION, NOW). Given 18:34 02/08/2017 Glen Hatch R.N. Medication Administered: MORPHINE [IVP], Dose: 10 mg IVP over 1 minute(s), Site: #1 left AC. Medication Ordered: Morphine IV 8 mg (HIGH ALERT MEDICATION, NOW). Given 18:37 02/08/2017 Glen Hatch R.N. Medication Administered: KEFLEX [PO] (CEPHALEXIN), Dose: 500 mg PO. Medication Ordered: Keflex PO 500 mg (NOW). Given 18:37 02/08/2017 Glen Hatch R.N. Medication Administered: BACTRIM DS [PO] (SULFAMETHOXAZOLE-TMP DS), Dose: 1 tab PO. Medication Ordered: Bactrim DS PO (Tablet 800-160 mg) 1 tab (NOW). Given 18:37 02/08/2017 Glen Hatch R.N. Medication Administered: POTASSIUM CHLORIDE [PO] (POTASSIUM CHLORIDE ER), Dose: 60 meq PO. Medication Ordered: Potassium Chloride PO 60 meq (NOW). Start 19:21 02/08/2017 Glen Hatch R.N., Stop 19:56 02/08/2017 McQuoid, Debbie, ER Tech1 Medication Administered: morphine *, Dose: 8mg * IV. Medication Ordered: Morphine IV 8 mg (HIGH ALERT MEDICATION, NOW). Start 19:37 02/08/2017 McQuoid, Debbie, ER Tech1 Medication Administered: IV NS (SALINE), Dose: IV Fluids over 30 minute(s), Rate: 1000 mL/hr, Dispensed: 1000 mL bag, Site: #1 left AC. Medication Ordered: IV NS : initial bolus 1000 mL (1000 mL/hr), then 1000 mL/hr for X1 (NOW); Vazquez.
--- NOTE | 2017-02-11 08:08 | ED MED RECONCILIATION SUMMARY ---
Patient: JUANIS HENSON Medication Reconciliation Report [facility] VisitID: [id number] [address] [place] [address] 41y, M Registration Date/Time: 02/08/2017 Weight: 99.7 kg Height/Length: 68 in. BMI: 33.4 ALLERGIES: Toradol The patient's Home Medications are listed below: CONTINUE TAKING THE FOLLOWING MEDICATIONS: Abilify Oral (1 mg/mL) 400 mg injection ASA Oral 81, daily Dilaudid 4mg q 6 hrs prn Levamir 50 uniits, 2x a day Lisinopril Oral 20 mg, 2x a day Metoprolol Tartrate Oral 25 mg Nitroglycerin Sublingual 0.4 mg NovoLOG FlexPen Subcutaneous 40-50, tid Synthroid Oral 75 mcg, daily The source(s) of the original Home Medication information: patient The following Medications were given to the patient in the Emergency Department: Lidocaine-Epinephrine [Injection] Injection, administered: 02/08/2017 4:26:00 PM Dilaudid [IVP] IVP 1 mg, administered: 02/08/2017 4:15:00 PM IV NS IV Fluids bolus 0, then 1000 mL/hr, administered: 02/08/2017 6:32:00 PM Insulin REG [IVP] IVP 10 unit, administered: 02/08/2017 6:33:00 PM Morphine [IVP] IVP 10 mg, administered: 02/08/2017 6:34:00 PM Keflex [PO] PO 500 mg, administered: 02/08/2017 6:37:00 PM Potassium Chloride [PO] PO 60 meq, administered: 02/08/2017 6:37:00 PM Bactrim DS [PO] PO 1 tab, administered: 02/08/2017 6:37:00 PM morphine IV bolus 0, then 8mg, administered: 02/08/2017 7:21:00 PM IV NS IV Fluids bolus 0, then 1000 mL/hr, administered: 02/08/2017 7:37:00 PM The following Medications were prescribed to the patient: Bactrim DS 800 mg / 160 mg: take 1 tablet orally every 12 hours for 10 days. No refill. Substitution is permissible.(disp 20 tabs) -- Cordell Reid Dr. Keflex 500 mg: take 1 capsule orally every 8 hours for 10 days. No refill. Substitution is permissible.(Disp 30 caps) -- Cordell Reid Dr. Percocet 5 mg/325 mg: take 1 tablet orally every 6 hours as needed for pain. Dispense twelve (12). No refill. Substitution is permissible. -- Cordell Reid Dr.
== END 2017-02-08 19:55 | disposition home or self-care (01) ==
LOC: ED SRH 15:20
DX: L02.211 Cutaneous abscess of abdominal wall (principal); L03.311 Cellulitis of abdominal wall; E11.65 Type 2 diabetes mellitus with hyperglycemia; I10 Essential (primary) hypertension; E07.9 Disorder of thyroid, unspecified; Z79.82 Long term (current) use of aspirin; Z79.4 Long term (current) use of insulin; Z79.899 Other long term (current) drug therapy; F17.210 Nicotine dependence, cigarettes, uncomplicated; Z88.6 Allergy status to analgesic agent
CPT/HCPCS: 90004; 90065; 90098; 90100; 90301; 92031; 92235; 95059

== ENCOUNTER 2017-02-09 14:51 | Emergency (ER) | payer OTHER ==
--- NOTE | 2017-02-09 17:08 | ED ORDER SUMMARY ---
..... Patient: JUANIS HENSON OrderSheet [facility] VisitID: [id number] [place] [address] 41y, M Registration Date/Time: 02/09/2017 ORDER SHEET Weight: 120.2 kg (stated) Allergies: Toradol GENERAL ORDERS: CBC w Diff Urgent (15:08 02/09/2017 EKoroleva P.A.-C) (Ack 15:09 KHoerner) (15:34 DMaziarka R.N.) BMP Urgent (15:08 02/09/2017 EKoroleva P.A.-C) (Ack 15:09 KHoerner) (15:34 DMaziarka R.N.) Acetone, Serum Urgent (15:08 02/09/2017 EKoroleva P.A.-C) (Ack 15:09 KHoerner) (16:01 JRomanelli R.N.) Vitals (15:58 02/09/2017 EKoroleva P.A.-C) (Ack 15:58 KHoerner) (16:23 JRomanelli R.N.) POC Glucose (16:41 02/09/2017 EKoroleva P.A.-C) (Ack 16:43 KHoerner) (17:01 KHoerner) Vitals (16:57 02/09/2017 EKoroleva P.A.-C) (17:01 KHoerner) MEDICATION ORDERS: IV FLUIDS: IV NS : initial bolus 1000 mL (1000 mL/hr), then 1000 mL/hr for X1 (NOW); Vazquez (15:07 02/09/2017 EKoroleva P.A.-C) (15:36 DMaziarka R.N.) Dilaudid IV 1 mg (HIGH ALERT MEDICATION, NOW) (15:08 02/09/2017 EKoroleva P.A.-C) (15:53 JRomanelli R.N.) Insulin Reg IV 10 units (HIGH ALERT MEDICATION, NOW) (15:48 02/09/2017 EKoroleva P.A.-C) (16:00 JRomanelli R.N.) ORDER SHEET NOTES: [Electronically signed by Eliz Sánchez R.N. (17:19 02/09/2017)] [Electronically signed by Mary Arias P.A.-C (19:30 02/09/2017)] [Electronically locked/signed by Eliz Sánchez R.N. (17:02/09/2017)]
--- NOTE | 2017-02-09 17:08 | ED CLINICAL REPORT ---
Clinical Report - Physicians/Mid Levels [facility] [address] [place] [address] 02/09/2017 14:51 [id number] Time Seen: 15:56 Feb 09 2017. Arrived- By private vehicle. Historian- patient. HISTORY OF PRESENT ILLNESS Chief Complaint: SKIN RASH and LESION. This started today and is still present. It has been located on the trunk. (Patient reports persistent abdominal pain. Reports he was laying on the sign, somewhat packing started to come out, thus he consequently pulled the remainder of the packing. Reports packing was hurt him, now he feels improved. He did not check his blood glucose this morning.). Recent medical care: The patient was seen recently in the emergency department (Pt was seen by me and DR. Reid yesterday in ER). REVIEW OF SYSTEMS No fever, difficulty breathing or lump in throat. All systems otherwise negative, except as recorded above. PAST HISTORY Problems: Hyperglycemia. Cellulitis. Peptic Ulcer Disease. Coronary Artery Disease. Chest Pain. Substance Abuse. Schizophrenia. Atypical Chest Pain. Abscess. Hypertension. Thyroid Disease. Diabetes Mellitus. Additional Surgeries: Back Surgery. Coronary stents. Stent. Medications: Bactrim DS Oral 1 tablet, 2x a day. Keflex Oral. Levamir 50 uniits, 2x a day. Lisinopril Oral 20 mg, 2x a day. Metoprolol Tartrate Oral 25 mg. Nitroglycerin Sublingual 0.4 mg, as needed. NovoLOG FlexPen Subcutaneous 40-50, tid. Synthroid Oral 75 mcg, daily. Abilify Oral (Solution 1 mg/mL) 400 mg injection. ASA Oral 81, daily. Dilaudid 4mg q 6 hrs prn . Allergies: Toradol. Definite Moderate(nausea, vomiting). SOCIAL HISTORY History of IV drug use. Is a recovering addict. ADDITIONAL NOTES The nursing notes have been reviewed. PHYSICAL EXAM Vital Signs: 02/09/2017 15:01 BP: 158/86. HR: 104. RR: 20. O2 saturation: 95%. Temp: 99.2 F. Pain level now: 8/10. Appearance: Alert. Appears to be in pain. Patient in mild distress. ENT: Nose normal. Neck: No lymphadenopathy. CVS: Normal heart rate and rhythm. Heart sounds normal. Respiratory: No respiratory distress. Abdomen: Tenderness (at left side of erythema). Skin: Skin warm. Cellulitis. Neuro: Oriented X 3. LABS, X-RAYS, AND EKG Laboratory Tests: CBC w Diff: (NIKOLAS: 02/09/2017 15:15) ( MsgRcvd 02/09/2017 15:45) Final results Test Result Flag Units (Reference) WHITE BLOOD COUNT 9.4 K/uL (4.5-11.5) RED BLOOD COUNT 5.53 M/uL (4.50-5.90) HEMOGLOBIN 14.7 gm/dL (13.5-17.5) HEMATOCRIT 44.2 % (41.0-53.0) MEAN CELL VOLUME 80 fL (80-100) MEAN CORPUSCULAR HGB 27 pg (26-34) MEAN CORPUSCULAR HGB CONC 33 g/dL (31-37) RED CELL DISTRIBUTION WIDTH 15.2 H % (11.6-14.8) PLATELET COUNT 235 K/uL (150-400) NEUTROPHIL % 73.3 % (50-75) LYMPH % 18.5 L % (25-40) MONO % 6.7 % (3-14) EOSINOPHIL % 1.1 % (0-4) BASOPHIL % 0.4 % (0-2) BMP: (NIKOLAS: 02/09/2017 15:15) ( MsgRcvd 02/09/2017 15:47) Final results Test Result Flag Units (Reference) ACETONE, SERUM QUALITATIVE NEGATIVE (NEGATIVE) GLUCOSE 624 *H mg/dL (70-110) CRITICAL RESULTS CALLEDCalled to YUMIKO 02/09/17 1545Were 2 patient identifiers used? YWas the result read back? Y BUN 13 mg/dL (7-18) CREATININE 1.1 mg/dL (0.6-1.3) Estimated GFR >60 mL/min Estimated GFR- >60 mL/min Note: Persistent reduction over 3 months in eGFR<60 mL/min/1.73 m2 defines CKD. Patients with eGFR values>=60 mL/min/1.73 m2 may also have CKD if evidence ofpersistent proteinuria. Additional information may be foundat www.kidney.org. SODIUM 130 L mmol/L (136-145) POTASSIUM 4.3 mmol/L (3.5-5.1) CHLORIDE 97 L mmol/L (98-107) CARBON DIOXIDE 20 L mmol/L (21-32) CALCIUM 9.0 mg/dL (8.5-10.1) . PROGRESS AND PROCEDURES Course of Care: Nonseptic patient, with poorly controlled insulin-dependent diabetes. Patient is afebrile, no leukocytosis. Sounds like he removed part of his packing, as he was bothering him. Packing was placed after lidocaine anesthetic to the area locally. Patient will continue taking antibiotics. No signs of acidosis here. He is hyperglycemic. Such was treated. Lengthy discussion regarding the patient's need for follow-up. Patient seems to understand the plan. 02/09/2017 17:17 BP: 121/65. HR: 88. RR: 20. O2 saturation: 98%. Patient is stable. Physical exam findings are improved. Symptoms better. Patient/family counseled. Disposition: Discharged. Condition: good. CLINICAL IMPRESSION Single deep abscess with incision and drainage (abdomen). Poorly controlled type 2 diabetes with hyperglycemia. INSTRUCTIONS (packing removal in 2-3 days take medications as prescribed increase your novolog use to 4x daily, same dose (40-50 units)). Prescription Medications: Hydrocodone/APAP 5mg / 325mg: take 1 orally every 6 hours. Dispense five (5). Understanding of the discharge instructions verbalized by patient. Follow-up with: [facility], , , [facility], [address], [place], [address] Follow up. Call for the next available appointment. (Electronically signed by Mary Arias P.A.-C 02/09/2017 19:30)
--- NOTE | 2017-02-09 17:08 | ED ORDER SUMMARY ---
..... Patient: JUANIS HENSON OrderSheet [facility] VisitID: [id number] [place] [address] 41y, M Registration Date/Time: 02/09/2017 ORDER SHEET Weight: 120.2 kg (stated) Allergies: Toradol GENERAL ORDERS: CBC w Diff Urgent (15:08 02/09/2017 EKoroleva P.A.-C) (Ack 15:09 KHoerner) (15:34 DMaziarka R.N.) BMP Urgent (15:08 02/09/2017 EKoroleva P.A.-C) (Ack 15:09 KHoerner) (15:34 DMaziarka R.N.) Acetone, Serum Urgent (15:08 02/09/2017 EKoroleva P.A.-C) (Ack 15:09 KHoerner) (16:01 JRomanelli R.N.) Vitals (15:58 02/09/2017 EKoroleva P.A.-C) (Ack 15:58 KHoerner) (16:23 JRomanelli R.N.) POC Glucose (16:41 02/09/2017 EKoroleva P.A.-C) (Ack 16:43 KHoerner) (17:01 KHoerner) Vitals (16:57 02/09/2017 EKoroleva P.A.-C) (17:01 KHoerner) MEDICATION ORDERS: IV FLUIDS: IV NS : initial bolus 1000 mL (1000 mL/hr), then 1000 mL/hr for X1 (NOW); Vazquez (15:07 02/09/2017 EKoroleva P.A.-C) (15:36 DMaziarka R.N.) Dilaudid IV 1 mg (HIGH ALERT MEDICATION, NOW) (15:08 02/09/2017 EKoroleva P.A.-C) (15:53 JRomanelli R.N.) Insulin Reg IV 10 units (HIGH ALERT MEDICATION, NOW) (15:48 02/09/2017 EKoroleva P.A.-C) (16:00 JRomanelli R.N.) ORDER SHEET NOTES: [Electronically signed by Eliz Sánchez R.N. (17:19 02/09/2017)] [Electronically signed by Mary Arias P.A.-C (19:30 02/09/2017)] [Electronically locked/signed by Eliz Sánchez R.N. (17:02/09/2017)]
--- NOTE | 2017-02-09 17:08 | ED CLINICAL REPORT ---
Clinical Report - Physicians/Mid Levels [facility] [address] [place] [address] 02/09/2017 14:51 [id number] Time Seen: 15:56 Feb 09 2017. Arrived- By private vehicle. Historian- patient. HISTORY OF PRESENT ILLNESS Chief Complaint: SKIN RASH and LESION. This started today and is still present. It has been located on the trunk. (Patient reports persistent abdominal pain. Reports he was laying on the sign, somewhat packing started to come out, thus he consequently pulled the remainder of the packing. Reports packing was hurt him, now he feels improved. He did not check his blood glucose this morning.). Recent medical care: The patient was seen recently in the emergency department (Pt was seen by me and DR. Reid yesterday in ER). REVIEW OF SYSTEMS No fever, difficulty breathing or lump in throat. All systems otherwise negative, except as recorded above. PAST HISTORY Problems: Hyperglycemia. Cellulitis. Peptic Ulcer Disease. Coronary Artery Disease. Chest Pain. Substance Abuse. Schizophrenia. Atypical Chest Pain. Abscess. Hypertension. Thyroid Disease. Diabetes Mellitus. Additional Surgeries: Back Surgery. Coronary stents. Stent. Medications: Bactrim DS Oral 1 tablet, 2x a day. Keflex Oral. Levamir 50 uniits, 2x a day. Lisinopril Oral 20 mg, 2x a day. Metoprolol Tartrate Oral 25 mg. Nitroglycerin Sublingual 0.4 mg, as needed. NovoLOG FlexPen Subcutaneous 40-50, tid. Synthroid Oral 75 mcg, daily. Abilify Oral (Solution 1 mg/mL) 400 mg injection. ASA Oral 81, daily. Dilaudid 4mg q 6 hrs prn . Allergies: Toradol. Definite Moderate(nausea, vomiting). SOCIAL HISTORY History of IV drug use. Is a recovering addict. ADDITIONAL NOTES The nursing notes have been reviewed. PHYSICAL EXAM Vital Signs: 02/09/2017 15:01 BP: 158/86. HR: 104. RR: 20. O2 saturation: 95%. Temp: 99.2 F. Pain level now: 8/10. Appearance: Alert. Appears to be in pain. Patient in mild distress. ENT: Nose normal. Neck: No lymphadenopathy. CVS: Normal heart rate and rhythm. Heart sounds normal. Respiratory: No respiratory distress. Abdomen: Tenderness (at left side of erythema). Skin: Skin warm. Cellulitis. Neuro: Oriented X 3. LABS, X-RAYS, AND EKG Laboratory Tests: CBC w Diff: (NIKOLAS: 02/09/2017 15:15) ( MsgRcvd 02/09/2017 15:45) Final results Test Result Flag Units (Reference) WHITE BLOOD COUNT 9.4 K/uL (4.5-11.5) RED BLOOD COUNT 5.53 M/uL (4.50-5.90) HEMOGLOBIN 14.7 gm/dL (13.5-17.5) HEMATOCRIT 44.2 % (41.0-53.0) MEAN CELL VOLUME 80 fL (80-100) MEAN CORPUSCULAR HGB 27 pg (26-34) MEAN CORPUSCULAR HGB CONC 33 g/dL (31-37) RED CELL DISTRIBUTION WIDTH 15.2 H % (11.6-14.8) PLATELET COUNT 235 K/uL (150-400) NEUTROPHIL % 73.3 % (50-75) LYMPH % 18.5 L % (25-40) MONO % 6.7 % (3-14) EOSINOPHIL % 1.1 % (0-4) BASOPHIL % 0.4 % (0-2) BMP: (NIKOLAS: 02/09/2017 15:15) ( MsgRcvd 02/09/2017 15:47) Final results Test Result Flag Units (Reference) ACETONE, SERUM QUALITATIVE NEGATIVE (NEGATIVE) GLUCOSE 624 *H mg/dL (70-110) CRITICAL RESULTS CALLEDCalled to YUMIKO 02/09/17 1545Were 2 patient identifiers used? YWas the result read back? Y BUN 13 mg/dL (7-18) CREATININE 1.1 mg/dL (0.6-1.3) Estimated GFR >60 mL/min Estimated GFR- >60 mL/min Note: Persistent reduction over 3 months in eGFR<60 mL/min/1.73 m2 defines CKD. Patients with eGFR values>=60 mL/min/1.73 m2 may also have CKD if evidence ofpersistent proteinuria. Additional information may be foundat www.kidney.org. SODIUM 130 L mmol/L (136-145) POTASSIUM 4.3 mmol/L (3.5-5.1) CHLORIDE 97 L mmol/L (98-107) CARBON DIOXIDE 20 L mmol/L (21-32) CALCIUM 9.0 mg/dL (8.5-10.1) . PROGRESS AND PROCEDURES Course of Care: Nonseptic patient, with poorly controlled insulin-dependent diabetes. Patient is afebrile, no leukocytosis. Sounds like he removed part of his packing, as he was bothering him. Packing was placed after lidocaine anesthetic to the area locally. Patient will continue taking antibiotics. No signs of acidosis here. He is hyperglycemic. Such was treated. Lengthy discussion regarding the patient's need for follow-up. Patient seems to understand the plan. 02/09/2017 17:17 BP: 121/65. HR: 88. RR: 20. O2 saturation: 98%. Patient is stable. Physical exam findings are improved. Symptoms better. Patient/family counseled. Disposition: Discharged. Condition: good. CLINICAL IMPRESSION Single deep abscess with incision and drainage (abdomen). Poorly controlled type 2 diabetes with hyperglycemia. INSTRUCTIONS (packing removal in 2-3 days take medications as prescribed increase your novolog use to 4x daily, same dose (40-50 units)). Prescription Medications: Hydrocodone/APAP 5mg / 325mg: take 1 orally every 6 hours. Dispense five (5). Understanding of the discharge instructions verbalized by patient. Follow-up with: [facility], , , [facility], [address]. [address], [place], [address] Follow up. Call for the next available appointment. (Electronically signed by Mary Arias P.A.-C 02/09/2017 19:30)
--- NOTE | 2017-02-09 17:08 | ED NURSING NOTES ---
Clinical Report - Nurses [facility] [address] [place] [address] 02/09/2017 14:51 [id number] TRI[facility] Triage time 15:00 Feb 09 2017. Acuity: LEVEL 3. Chief Complaint: SKIN LESION and . (L) Abdominal Abscess. Alert. CHERI COMA SCORE: Cheri Coma Scale: 15- eyes open spontaneously (4); best verbal response- oriented x 4 (5); best motor response- obeys commands (6). --15:15 Arya Cano R.N. 15:01 02/09/17. BP: 158/86. HR: 104. RR: 20. O2 saturation: 95%. Temp: 99.2 F (oral). Pain level now: 8/10. Additional comments: (L) Abd Abscess. --15:15 Arya Cano R.N. Weight: 120.2 kg stated. Height/Length: 70 inches Per Patient. BMI: 38. --15:03 Arya Cano R.N. Medications Abilify Oral (Solution 1 mg/mL) 400 mg injection. ASA Oral 81, daily. Dilaudid 4mg q 6 hrs prn . --15:11 Arya Cano R.N. Levamir 50 uniits, 2x a day. Lisinopril Oral 20 mg, 2x a day. Metoprolol Tartrate Oral 25 mg. Nitroglycerin Sublingual 0.4 mg, as needed. NovoLOG FlexPen Subcutaneous 40-50, tid. Synthroid Oral 75 mcg, daily. --15:11 Arya Cano R.N. Keflex Oral. --15:11 Arya Cano R.N. Bactrim DS Oral 1 tablet, 2x a day. --15:11 Arya Cano R.N. Allergies Toradol. Definite Moderate(nausea, vomiting) --15:11 Arya Cano R.N. The following entry was struck and corrected by Arya Cano R.N., 15:15 (02/09/17) Reason for correction - other(correction). <<STRICKEN ENTRY-- Toradol. --15:11 Arya Cano R.N. --END STRIKE>>. History Arrived by private vehicle. Historian: patient. Unaccompanied. ( (L) Abdominal pain/Abscess where he had an I+D with packing yesterday. Pt states that the packing, "slipped out," this morning.). Reported as ((L) Abdominal Abscess). Onset. (about 2 weeks ago). It is described as burning and painful. Treatment RADIOLOGY RECEPTIONIST: (I+D with packing yesterday). PAST MEDICAL HX: Immunizations: up-to-date. SOCIAL HX: Heavy tobacco smoker (cigarette)- less than 1 pack per day. History of drug use: methamphetamines. No infectious disease exposure. ABUSE ASSESSMENT: No report of abuse. FALL RISK ASSESSMENT: Fall risk assessment completed. No fall risk identified. NUTRITIONAL RISK ASSESSMENT: The nutritional risk assessment revealed no deficiencies. FUNCTIONAL ASSESSMENT: Functional assessment: no impairments noted. LEARNING NEEDS ASSESSMENT: The learning needs assessment revealed no barriers. SKIN INTEGRITY ASSESSMENT: Skin integrity risk assessment completed. No skin integrity risk identified. --15:15 Arya Cano R.N. PROBLEMS: Hyperglycemia. Cellulitis. Peptic Ulcer Disease. Coronary Artery Disease. Chest Pain. Substance Abuse. Schizophrenia. Atypical Chest Pain. Abscess. Hypertension. Thyroid Disease. Diabetes Mellitus. --15:12 Arya Cano R.N. ADDITIONAL SURGERIES: Back Surgery. Coronary stents. --15:12 Arya Cano R.N. The following entry was struck by Arya Cano R.N., 15:13 <<STRICKEN ENTRY-- Stent. --16:08 Arya Cano R.N. --END STRIKE>>. Interventions ID and allergy band on patient. To treatment room. --15:15 Arya Cano R.N. PHYSICAL ASSESSMENT Ambulatory to room. GENERAL / NEURO / PSYCH: Alert. Oriented X 4. HEENT: Pupils equal, round and reactive to light. RESPIRATORY: Respirations not labored. CVS: Pulses within normal limits. GI / : Abdomen nontender. SKIN: Skin is intact, warm and dry. Wound present- (L) Abd Abscess. Tenderness on the abdomen. ( Multiple scaring up both forearms). --15:19 Arya Cano R.N. NURSING PROGRESS NOTES Patient gowned. Reassurance given. Patient identifiers checked. Call light placed in reach. Side rails up x 1. Patient ready for evaluation- chart flagged and PA notified. --15:20 Arya Cano R.N. 15:36 02/09/2017 Site #1 started via IV in the left hand with an 20g angiocath using 1% intra-dermal lidocaine, with aseptic technique and good blood return; one attempt. Blood drawn: rainbow set. Labeled in the presence of the patient and sent to the lab. --15:36 Eliz Sánchez R.N. 15:36 02/09/2017 Started bag #1 1000 mL IV Fluids IV NS (Saline); bolus of 1000 mL over 1 hour(s) via site #1. Allergies verified and confirmed 5 rights. IV patency established. IV site checked: no pain, redness, or swelling. IV flushed thoroughly pre- and post-medication administration. --15:36 Eliz Sánchez R.N. 15:45 02/09/17. Critical value relayed to ED by Lab. Critical value received by Arya Cano RN. Glucose: 624. Critical value read back. ED physician notifed of critical value. Orders were not received. --15:52 Arya Cano R.N. 15:48 02/09/2017 Dilaudid (HYDROmorphone HCl PF) IVP 1 mg given over 2 minute(s) via site #1. Allergies verified, confirmed 5 rights and sedative warning given. IV patency established. IV site checked: no pain, redness, or swelling. IV flushed thoroughly pre- and post-medication administration. IVP given by RN. --15:53 Arya Cano R.N. 15:55 02/09/2017 Insulin REG IVP 10 unit given over 2 minute(s) via site #1. Allergies verified and confirmed 5 rights. IV patency established. IV site checked: no pain, redness, or swelling. IV flushed thoroughly pre- and post-medication administration. IVP given by RN (Dose co-confirmed by HALEIGH Ramirez). --16:00 Arya Cano R.N. 16:25 02/09/17. ( Pt visited by discharge planning and arrangements are being made to provide him with an AccuChek and 10 strips.). --16:54 Arya Cano R.N. 16:47 02/09/17. Finger stick glucose: 384 mg/dL. --16:47 Clifford Downs 16:57 02/09/17. BP: 128/79. HR: 88. RR: 16. O2 saturation: 96% on room air. --16:59 Arya Cano R.N. 17:18 02/09/2017 Site #1 removed upon discharge. Bandaid applied. --17:18 Eliz Sánchez R.N. DISPOSITION / DISCHARGE Departure time: 17:17. Condition at departure: improved. No learning barriers present. Discharge instructions provided and reviewed with the patient. Written instructions provided in Luxembourgish. Patient did not verbalize understanding. The patient was discharged home. He left the Emergency Department ambulatory and via private vehicle. Patient driving. --17:17 Eliz Sánchez R.N. 17:17 02/09/17. BP: 121/65. HR: 88. RR: 20. O2 saturation: 98%. Pain level now 01/09. --17:17 Eliz Sánchez R.N. Locked/Released at 02/09/2017 17:19 by Eliz Sánchez R.N.
--- NOTE | 2017-02-09 19:30 | ED MAR SUMMARY ---
..... Medication Administration Record [facility] [address] [place] [address] Patient: JUANIS HENSON Visit ID: [id number] 41y, M Weight: 120.2 kg Height/Length: 70 in BMI: 38 ALLERGIES: Toradol Start 15:36 02/09/2017 Eliz Sánchez R.N. Medication Administered: IV NS (SALINE), Dose: IV Fluids, Bolus: 1000 mL over 1 hour(s), Dispensed: 1000 mL bag, Site: #1 left hand. Medication Ordered: IV NS : initial bolus 1000 mL (1000 mL/hr), then 1000 mL/hr for X1 (NOW); Vazquez. Given 15:48 02/09/2017 Arya Cano R.N. Medication Administered: DILAUDID [IVP] (HYDROMORPHONE HCL PF), Dose: 1 mg IVP over 2 minute(s), Site: #1 left hand. Medication Ordered: Dilaudid IV 1 mg (HIGH ALERT MEDICATION, NOW). Given 15:55 02/09/2017 Arya Cano RAletheaNAlethea Medication Administered: INSULIN REG [IVP], Dose: 10 unit IVP over 2 minute(s), Site: #1 left hand. Medication Ordered: Insulin Reg IV 10 units (HIGH ALERT MEDICATION, NOW).
--- NOTE | 2017-02-09 19:30 | ED MAR SUMMARY ---
..... Medication Administration Record [facility] [address] [place] [address] Patient: JUANIS HENSON Visit ID: [id number] 41y, M Weight: 120.2 kg Height/Length: 70 in BMI: 38 ALLERGIES: Toradol Start 15:36 02/09/2017 Eliz Sánchez R.N. Medication Administered: IV NS (SALINE), Dose: IV Fluids, Bolus: 1000 mL over 1 hour(s), Dispensed: 1000 mL bag, Site: #1 left hand. Medication Ordered: IV NS : initial bolus 1000 mL (1000 mL/hr), then 1000 mL/hr for X1 (NOW); Vazquez. Given 15:48 02/09/2017 Arya Cano R.N. Medication Administered: DILAUDID [IVP] (HYDROMORPHONE HCL PF), Dose: 1 mg IVP over 2 minute(s), Site: #1 left hand. Medication Ordered: Dilaudid IV 1 mg (HIGH ALERT MEDICATION, NOW). Given 15:55 02/09/2017 Arya Cano RAletheaNAlethea Medication Administered: INSULIN REG [IVP], Dose: 10 unit IVP over 2 minute(s), Site: #1 left hand. Medication Ordered: Insulin Reg IV 10 units (HIGH ALERT MEDICATION, NOW).
--- NOTE | 2017-02-09 19:30 | ED DISCHARGE INSTRUCTIONS ---
Patient: JUANIS HENSON General Instructions [facility] VisitID: [id number] [place] [address] 41y, M Registration Date/Time: 02/09/2017 Single deep abscess with incision and drainage (abdomen). Poorly controlled type 2 diabetes with hyperglycemia. INSTRUCTIONS (packing removal in 2-3 days take medications as prescribed increase your novolog use to 4x daily, same dose (40-50 units)). Prescription Medications: Hydrocodone/APAP 5mg / 325mg: take 1 orally every 6 hours. Dispense five (5). Understanding of the discharge instructions verbalized by patient. Follow-up with: [facility], , , [facility], [address] [place] [address] [address], [place], [address] Follow up. Call for the next available appointment. ADDITIONAL INFORMATION Abscess [Incision & Drainage] An abscess (sometimes called a boil) occurs when bacteria get trapped under the skin and begin to grow. Pus forms inside the abscess as the body responds to the bacteria. An abscess can occur with an insect bite, ingrown hair, blocked oil gland, pimple, cyst, or puncture wound. Treatment of your abscess has required an incision to drain the pus. If the abscess pocket was large, a gauze packing may have been inserted. This will need to be removed and possibly replaced on your next visit. Antibiotics are not required in the treatment of a simple abscess, unless the infection is spreading into the skin around the wound (known as cellulitis). Healing of the wound will take about one to two weeks depending on the size of the abscess. Healthy tissue will grow from the bottom and sides of the opening until it seals over. Home Care: The wound may drain for the first two days. Cover the wound with a clean dry dressing. If the dressing becomes soaked with blood or pus, change it. If a gauze packing was placed inside the abscess cavity, you may be advised to remove it yourself. You may do this in the shower. Once the packing is removed, you should wash the area in the shower or bath 3 to 4 times a day, until the skin opening has closed. If you were prescribed antibiotics, take them as directed until they are all gone. You may use acetaminophen (Tylenol) or ibuprofen (Motrin, Advil) to control pain, unless another pain medicine was prescribed. [ NOTE: If you have liver disease or ever had a stomach ulcer, talk with your doctor before using these medicines.] Follow Up with your doctor as advised by our staff. If a gauze packing was inserted in your wound, it should be removed in 1-2 days. Check your wound every day for the signs of worsening infection listed below. Get Prompt Medical Attention if any of the following occur: Increasing redness or swelling Red streaks in the skin leading away from the wound Increasing local pain or swelling Continued pus draining from the wound two days after treatment Fever of 100.4F (38C) or higher, or as directed by your healthcare provider Diabetes (General Information) Cells of the body need glucose (sugar) for fuel. Insulin is the hormone in the body that lets glucose move from the blood into the cells. Diabetes is a chronic health condition where the body is not able to produce enough insulin, or does not respond well to its own insulin. Because the glucose in the blood cannot get into the cells, it builds up in the blood causing high blood sugar (hyperglycemia). Your actual blood sugar level is a result of the balance between several factors. These include what kind of food you eat and how much of it you eat, how much exercise you get, and the amount of insulin present in your body. Eating too much of the wrong kinds of food or not taking diabetes medicine on time can cause high blood sugar. Infections can cause high blood sugar even if you are taking medicines correctly. Missing meals, not eating enough food, or taking too much diabetes medicine can lead to low blood sugar. Untreated over long periods of time, diabetes can cause serious problems such as heart disease, stroke, kidney failure, blindness, nerve pain or loss of feeling in the legs and feet, and gangrene of the feet. With good treatment keeping your blood sugar under control, you can prevent or delay the complications of diabetes. Normal blood sugar levels are 70-130 one to two hours before a meal and not more than 180 two hours after a meal. Home Care: Follow your prescribed diabetic diet and take insulin or oral diabetic medicine exactly as ordered. Monitor blood sugars as advised. Keep a log of your results. This will help your doctor adjust your medicines to keep your blood sugar under control. Try to achieve your ideal weight. Proper diet and exercise can reduce or eliminate the need to take diabetes medicine. Avoid tobacco smoking, which worsens the effect of diabetes on your circulation. The risk of a heart attack in a diabetic is 15 times more likely if you smoke. Pay attention to good foot care. If you have lost feeling in your feet you may not notice an injury or infection. Check your feet and between your toes at least once a week. Wear a medical alert bracelet or carry a card in your wallet explaining that you are diabetic. In the event that you become very ill and are unable to give this information, it will help medical personnel provide proper care. If you become sick with a cold, the flu, or an infection (viral or bacterial), please do the following: Review your diabetes sick plan and contact your physician as instructed. You may have been advised to call the doctor immediately if: Your blood sugar is above 240 while taking your diabetes medication Your urine ketone levels are above normal or showing high levels of ketones You have been vomiting more than 6 hours You experience difficulty to trouble breathing You develop a high fever or you have had a fever for a couple of days and you aren't getting better You become light-headed and more sleepy than usual Keep taking your oral diabetes medicine (pills) even if you have been vomiting and feeling sick. Contact your doctor immediately for advice because you may need insulin to lower your blood sugar until you recover from your illness. Keep taking your insulin, even if you have been vomiting and feeling sick. Call your doctor immediately and ask if a temporary adjustment of your insulin dose is needed based on your blood glucose (sugar) results. Check your blood sugar every 2 to 4 hours, or at least 4 times a day. Check your keytones often. If you are vomiting and having diarrhea, monitor them more frequently. Don't skip meals. Try to eat small meals on a regular schedule, even if you do not have an appetite. Drink water or other calorie-free, non-caffeinated liquids to stay hydrated. If you are nauseated or vomiting, drink small amounts (sips, a teaspoon) every 5 minutes. To prevent dehydration, try to drink a cup or 8 ounces of fluids every hour while you are awake. Always carry a source of fast-acting sugar with you in case you get symptoms of low blood sugar (below 70). At the first sign of low blood sugar, eat or drink 15 to 20 grams of fast-acting sugar to raise your blood sugar. Examples include: 3 to 4 glucose tablets (found at most drugstores) 4 ounces (1/2 cup) of regular (not diet) softdrinks 4 ounces (1/2 cup) of any fruit juice 8 ounces (1 cup) of milk 5 to 6 pieces of hard candy 1 tablespoon of honey Check your blood sugar 15 minutes after treating yourself. If it is still low (below 70), take another 15 to 20 grams of fast-acting sugar. Test again in 15 minutes. If it returns to normal (70 or above), eat a snack or meal to keep your blood sugar in a safe range. If it remains low, call your doctor or go to an emergency room. Follow Up with your doctor as advised by our staff. For more information, contact the [place]. www.diabetes.org or 373-142-8994. Get Prompt Medical Attention if any of the following occur: HIGH BLOOD SUGAR: frequent urination, dizziness, drowsiness, thirst, headache, nausea or vomiting, abdominal pain, vision changes, fast breathing, confusion or loss of consciousness LOW BLOOD SUGAR: fatigue, headache, shakes, excess sweating, hunger, feeling anxious or restless, vision changes, drowsiness, weakness, confusion or loss of consciousness Chest pain or shortness of breath Dizziness or fainting Weakness of an arm or leg or one side of the face Trouble with speech or vision Hydrocodone Bitartrate, Acetaminophen Oral tablet What is this medicine? ACETAMINOPHEN; HYDROCODONE (a set a CORY albina fen; ashish droe KOE done) is a pain reliever. It is used to treat mild to moderate pain. How should I use this medicine? Take this medicine by mouth. Swallow it with a full glass of water. Follow the directions on the prescription label. If the medicine upsets your stomach, take the medicine with food or milk. Do not take more than you are told to take. Talk to your security vehicle patrol officer regarding the use of this medicine in children. This medicine is not approved for use in children. What side effects may I notice from receiving this medicine? Side effects that you should report to your doctor or health personal care aide as soon as possible: allergic reactions like skin rash, itching or hives, swelling of the face, lips, or tongue breathing problems confusion feeling faint or lightheaded, falls stomach pain yellowing of the eyes or skin Side effects that usually do not require medical attention (report to your doctor or health personal care aide if they continue or are bothersome): nausea, vomiting stomach upset What may interact with this medicine? alcohol antihistamines isoniazid medicines for depression, anxiety, or psychotic disturbances medicines for sleep muscle relaxants naltrexone narcotic medicines (opiates) for pain phenobarbital ritonavir tramadol What if I miss a dose? If you miss a dose, take it as soon as you can. If it is almost time for your next dose, take only that dose. Do not take double or extra doses. Where should I keep my medicine? Keep out of the reach of children. This medicine can be abused. Keep your medicine in a safe place to protect it from theft. Do not share this medicine with anyone. Selling or giving away this medicine is dangerous and against the law. Store at room temperature between 15 and 30 degrees C (59 and 86 degrees F). Protect from light. Keep container tightly closed. Throw away any unused medicine after the expiration date. Discard unused medicine and used packaging carefully. Pets and children can be harmed if they find used or lost packages. What should I tell my health care provider before I take this medicine? They need to know if you have any of these conditions: brain tumor Crohn's disease, inflammatory bowel disease, or ulcerative colitis drink more than 3 alcohol-containing drinks per day drug abuse or addiction head injury heart or circulation problems kidney disease or problems going to the bathroom liver disease lung disease, asthma, or breathing problems an unusual or allergic reaction to acetaminophen, hydrocodone, other opioid analgesics, other medicines, foods, dyes, or preservatives or trying to get breast-feeding What should I watch for while using this medicine? Tell your doctor or health personal care aide if your pain does not go away, if it gets worse, or if you have new or a different type of pain. You may develop tolerance to the medicine. Tolerance means that you will need a higher dose of the medicine for pain relief. Tolerance is normal and is expected if you take the medicine for a long time. Do not suddenly stop taking your medicine because you may develop a severe reaction. Your body becomes used to the medicine. This does NOT mean you are addicted. Addiction is a behavior related to getting and using a drug for a non-medical reason. If you have pain, you have a medical reason to take pain medicine. Your doctor will tell you how much medicine to take. If your doctor wants you to stop the medicine, the dose will be slowly lowered over time to avoid any side effects. You may get drowsy or dizzy when you first start taking the medicine or change doses. Do not drive, use machinery, or do anything that may be dangerous until you know how the medicine affects you. Stand or sit up slowly. There are different types of narcotic medicines (opiates) for pain. If you take more than one type at the same time, you may have more side effects. Give your health care provider a list of all medicines you use. Your doctor will tell you how much medicine to take. Do not take more medicine than directed. Call emergency for help if you have problems breathing. The medicine will cause constipation. Try to have a bowel movement at least every 2 to 3 days. If you do not have a bowel movement for 3 days, call your doctor or health personal care aide. Too much acetaminophen can be very dangerous. Do not take Tylenol (acetaminophen) or medicines that contain acetaminophen with this medicine. Many non-prescription medicines contain acetaminophen. Always read the labels carefully. You have been given the following additional information: Abscess, Incision And Drainage Diabetes, General Info Hydrocodone Bitartrate, Acetaminophen Oral tablet (Electronically signed by Mary Arias P.A.-C 02/09/2017 19:30)
--- NOTE | 2017-02-09 19:30 | ED MED RECONCILIATION SUMMARY ---
Patient: JUANIS HENSON Medication Reconciliation Report [facility] VisitID: [id number] [place] [address] 41y, M Registration Date/Time: 02/09/2017 Weight: 120.2 kg Height/Length: 70 in. BMI: 38.0 ALLERGIES: Toradol The patient's Home Medications are listed below: THE FOLLOWING MEDICATIONS NEED TO BE RECONCILED: Abilify Oral (1 mg/mL) 400 mg injection ASA Oral 81, daily Bactrim DS Oral 1 tablet, 2x a day Dilaudid 4mg q 6 hrs prn Keflex Oral Levamir 50 uniits, 2x a day Lisinopril Oral 20 mg, 2x a day Metoprolol Tartrate Oral 25 mg Nitroglycerin Sublingual 0.4 mg NovoLOG FlexPen Subcutaneous 40-50, tid Synthroid Oral 75 mcg, daily The source(s) of the original Home Medication information: Not obtained. The following Medications were given to the patient in the Emergency Department: IV NS IV Fluids bolus 1000 mL over 1 hour(s), administered: 02/09/2017 3:36:00 PM Dilaudid [IVP] IVP 1 mg, administered: 02/09/2017 3:48:00 PM Insulin REG [IVP] IVP 10 unit, administered: 02/09/2017 3:55:00 PM The following Medications were prescribed to the patient: Hydrocodone/APAP 5mg / 325mg: take 1 orally every 6 hours. Dispense five (5). -- Mary Arias P.A.-C
--- NOTE | 2017-02-09 19:30 | ED MED RECONCILIATION SUMMARY ---
Patient: JUANIS HENSON Medication Reconciliation Report [facility] VisitID: [id number] [place] [address] 41y, M Registration Date/Time: 02/09/2017 Weight: 120.2 kg Height/Length: 70 in. BMI: 38.0 ALLERGIES: Toradol The patient's Home Medications are listed below: THE FOLLOWING MEDICATIONS NEED TO BE RECONCILED: Abilify Oral (1 mg/mL) 400 mg injection ASA Oral 81, daily Bactrim DS Oral 1 tablet, 2x a day Dilaudid 4mg q 6 hrs prn Keflex Oral Levamir 50 uniits, 2x a day Lisinopril Oral 20 mg, 2x a day Metoprolol Tartrate Oral 25 mg Nitroglycerin Sublingual 0.4 mg NovoLOG FlexPen Subcutaneous 40-50, tid Synthroid Oral 75 mcg, daily The source(s) of the original Home Medication information: Not obtained. The following Medications were given to the patient in the Emergency Department: IV NS IV Fluids bolus 1000 mL over 1 hour(s), administered: 02/09/2017 3:36:00 PM Dilaudid [IVP] IVP 1 mg, administered: 02/09/2017 3:48:00 PM Insulin REG [IVP] IVP 10 unit, administered: 02/09/2017 3:55:00 PM The following Medications were prescribed to the patient: Hydrocodone/APAP 5mg / 325mg: take 1 orally every 6 hours. Dispense five (5). -- Mary Arias P.A.-C
== END 2017-02-09 17:18 | disposition home or self-care (01) ==
LOC: ED SRH 14:51
DX: L02.211 Cutaneous abscess of abdominal wall (principal); E11.65 Type 2 diabetes mellitus with hyperglycemia; I25.10 Atherosclerotic heart disease of native coronary artery without angina pectoris; I10 Essential (primary) hypertension; Z88.6 Allergy status to analgesic agent; Z79.899 Other long term (current) drug therapy; Z79.4 Long term (current) use of insulin; Z79.82 Long term (current) use of aspirin
CPT/HCPCS: 90047; 90098; 90301; 95059

== ENCOUNTER 2017-02-16 18:36 | Observation (INO) | payer OTHER ==
[~2017-02-16] VITALS: Ht 177.8 cm; Wt 120.5 kg
--- NOTE | 2017-02-16 20:54 | DIAGNOSTIC IMAGING REPORT ---
PROCEDURE: XR CHEST 1 VIEW INDICATION: SHORTNESS OF BREATH TECHNIQUE: Portable AP view (1915 hours). COMPARISON: None. FINDINGS: Allowing for suboptimal inspiration, lungs are clear. Heart and mediastinum are normal. Thorax is normal. IMPRESSION: 1. Negative chest.
--- NOTE | 2017-02-16 23:12 | ED CLINICAL REPORT ---
Clinical Report - Physicians/Mid Levels [facility] [address] [place] [address] 02/16/2017 18:36 Patient: JUANIS HENSON Time Seen: 1850. Arrived- By private vehicle. Historian- patient. HISTORY OF PRESENT ILLNESS Chief Complaint: CHEST PAIN. This started today a few hours [employer] and is still present (no change). It was abrupt in onset and has been constant but is not gone now. Onset during rest. At its maximum, severity described as moderate. When seen in the E.D., severity described as moderate. Modifying factors- relieved by nitroglycerin (one). Not worsened by anything. It is described as pressure and it is described as located in the central chest area. No radiation. No nausea, vomiting or diaphoresis. He has had difficulty breathing. No additional chest pain. Similar symptoms previously: Many times. ( hx of cardiac stent.). Recent medical care: The patient was seen recently in the emergency department. ( healing abscess and cellulitis to anterior abdominal wall.). REVIEW OF SYSTEMS No pedal edema, calf pain or skin rash. All systems otherwise negative, except as recorded above. PAST HISTORY See nurses notes. Risk factors for DVT/pulmonary embolism- obesity. Denies the following risk factors for DVT/PE - history of DVT and pulmonary embolism, recent surgery, recent IL and congestive heart failure. Denies the following risk factors for DVT/PE - cancer, clotting disorder, estrogens, immobility and advanced in age. Denies the following risk factors for DVT/PE - vena cava filter. Problems: Hyperglycemia. Cellulitis. Peptic Ulcer Disease. Coronary Artery Disease. Chest Pain. Substance Abuse. Schizophrenia. Atypical Chest Pain. Abscess. Hypertension. Thyroid Disease. Diabetes Mellitus. Additional Surgeries: Back Surgery. Coronary stents. Stent. Medications: NovoLOG FlexPen Subcutaneous 40-50, 4x daily. Abilify Oral (Solution 1 mg/mL) 400 mg injection. ASA Oral 81, daily. Dilaudid 4mg q 6 hrs prn . Keflex Oral. Levamir 50 uniits, 2x a day. Lisinopril Oral 20 mg, 2x a day. Metoprolol Tartrate Oral 25 mg. Nitroglycerin Sublingual 0.4 mg, as needed. Synthroid Oral 75 mcg, daily. Allergies: Toradol. Definite Moderate(nausea, vomiting). SOCIAL HISTORY Smoker- current status unknown. No alcohol use or drug use. No recent travel. Is a local resident. FAMILY HISTORY History of heart disease in multiple family members in first-degree relative (father) and grandparent. ADDITIONAL NOTES The nursing notes have been reviewed. PHYSICAL EXAM Vital Signs: 02/16/2017 18:52 Temp: 98.4 F. 02/16/2017 18:44 BP: 163/89. HR: 103. RR: 24. O2 saturation: 97%. Blood pressure normal. Oxygen saturation normal. Appearance: Alert. Oriented X3. No acute distress. Eyes: Pupils equal, round and reactive to light. Eyes normal inspection. ENT: Ears normal. Nose normal. Pharynx normal. Neck: Normal inspection. Neck supple. CVS: Normal heart rate and rhythm. Heart sounds normal. Pulses normal. Respiratory: No respiratory distress. Breath sounds normal. Chest nontender. No rales, rhonchi or wheezes. Abdomen: Soft and nontender. Bowel sounds normal. (well healing anterior abdominal wall wound consistent with recent abscess I & D). Back: Normal external inspection. Skin: Skin warm and dry. Normal skin color. No rash. Normal skin turgor. Extremities: Extremities exhibit normal ROM. No lower extremity edema. Neuro: Oriented X 3. No motor deficit. No sensory deficit. LABS, X-RAYS, AND EKG EKG: No acute ischemia. Tachycardia (102). Normal P waves. Normal USAMA. Normal QRS complex. Normal axis. Normal ST and T waves, QT and QTc. sinus tach. EKG unchanged when compared with prior EKG. The study has been interpreted contemporaneously. The study has been independently viewed by me. The EKG appears to be a good tracing. Chest X-ray: (IMPRESSION: 1. Negative chest.). The X-rays were interpreted by the radiologist and contemporaneously by me. Laboratory Tests: [id number]: (NIKOLAS: 02/17/2017 00:01) ( MsgRcvd 02/17/2017 01:44) Final results Test Result Flag Units (Reference) CALCULATED A1C 11.4 H % (4.5-6.2) The [place] [employer] recommends that aprimary goal of therapy should be a HbA1c of <7% and thatphysicians should reevaluate the treatment regimen inpatients with HbA1c values consistently >8%. ESTIMATED AVERAGE GLUCOSE 280 mg/dL CBC w Diff: (NIKOLAS: 02/16/2017 18:54) ( MsgRcvd 02/16/2017 19:33) Final results Test Result Flag Units (Reference) WHITE BLOOD COUNT 8.5 K/uL (4.5-11.5) RED BLOOD COUNT 5.73 M/uL (4.50-5.90) HEMOGLOBIN 15.2 gm/dL (13.5-17.5) HEMATOCRIT 45.8 % (41.0-53.0) MEAN CELL VOLUME 80 fL (80-100) MEAN CORPUSCULAR HGB 27 pg (26-34) MEAN CORPUSCULAR HGB CONC 33 g/dL (31-37) RED CELL DISTRIBUTION WIDTH 15.0 H % (11.6-14.8) PLATELET COUNT 225 K/uL (150-400) NEUTROPHIL % 59.1 % (50-75) LYMPH % 31.3 % (25-40) MONO % 7.7 % (3-14) EOSINOPHIL % 0.8 % (0-4) BASOPHIL % 1.1 % (0-2) PT with INR: (NIKOLAS: 02/16/2017 18:54) ( MsgRcvd 02/16/2017 19:41) Final results Test Result Flag Units (Reference) INR 0.9 (0.8-1.2) Low Intensity Therapy: INR 1.5-2.0 PT range 18.5-23.1Mod.Intensity Therapy: INR 2.0-3.0 PT range 23.1-31.5High Intensity Therapy: INR 2.5-3.5 PT range 27.4-35.5High Intensity Therapy 2: INR 3.0-4.0 PT range 31.5-39.3 D-DIMER QUANTITATIVE 0.47 ug/mLFEU (0.27-0.52) The primary value of this quantitative assay relates toits negative predictive value (i.e. exclusion) of pulmonaryembolism/deep vein thrombosis/DIC.Elevated levels of d-dimer may also occur with:, age, cancer, inflammation, liver disease,post-op, infection, hematoma, coronary disease, peripheralarteriopathy, bleeding disorders and thrombolytic treatment.Results should be correlated with other clinical andradiological data.Testing Methodology: Latex Immunoassay TSH: (NIKOLAS: 02/16/2017 21:00) ( [facility] 02/16/2017 23:34) Final results Test Result Flag Units (Reference) THYROID STIMULATING HORMONE 1.255 uIU/mL (0.34-3.74) Troponin-I: (NIKOLAS: 02/16/2017 20:55) ( [facility] 02/16/2017 21:30) Final results Test Result Flag Units (Reference) TROPONIN I <0.05 L ng/mL (0.00-1.5) TROPONIN REFERENCE RANGE:<0.1 NEGATIVE0.1-1.5 INDETERMINANT>1.5 POSITIVE BNP: (NIKOLAS: 02/16/2017 18:54) ( [facility] 02/16/2017 19:57) Final results Test Result Flag Units (Reference) B-TYPE NATRIURETIC PEPTIDE 7.6 pg/ml (5-100) CMP: (NIKOLAS: 02/16/2017 18:54) ( [facility] 02/16/2017 19:49) Final results Test Result Flag Units (Reference) GLUCOSE 550 *H mg/dL (70-110) CRITICAL RESULTS CALLEDCalled to ROBIN PARRISH RN 02/16/171946Were 2 patient identifiers used? YWas the result read back? Y BUN 20 H mg/dL (7-18) CREATININE 1.3 mg/dL (0.6-1.3) Estimated GFR >60 mL/min Estimated GFR- >60 mL/min Note: Persistent reduction over 3 months in eGFR<60 mL/min/1.73 m2 defines CKD. Patients with eGFR values>=60 mL/min/1.73 m2 may also have CKD if evidence ofpersistent proteinuria. Additional information may be foundat www.kidney.org. SODIUM 135 L mmol/L (136-145) POTASSIUM 4.4 mmol/L (3.5-5.1) CHLORIDE 99 mmol/L (98-107) CARBON DIOXIDE 23 mmol/L (21-32) CALCIUM 9.0 mg/dL (8.5-10.1) TOTAL PROTEIN 7.9 g/dL (6.4-8.2) ALBUMIN 3.2 L g/dL (3.3-5.0) BILIRUBIN, TOTAL 0.3 mg/dL (0.0-1.0) ALKALINE PHOSPHATASE 93 U/L (46-116) AST (SGOT) 18 U/L (15-37) ALT (SGPT) 49 U/L (12-78) TROPONIN I <0.05 L ng/mL (0.00-1.5) TROPONIN REFERENCE RANGE:<0.1 NEGATIVE0.1-1.5 INDETERMINANT>1.5 POSITIVE . PROGRESS AND PROCEDURES Course of Care: The patient is a pleasant 41 yo male with hx of DM, Cardiac stents, and HTN presenting for evaluation of chest pain. initial work up started by myself. Care and plan transferred to oncoming doctor at the change of shift after sign out given. Dr. Croft and I reviewed the patient's history and examination findings. He requested that I follow up on the results of the patient's pending studies. I subsequently reviewed the patient's history with him and examined him and my findings were consistent with those noted by Dr. Croft. - . Patient is stable. Discussed case with hospitalist, (Jorge - he saw the patient in the ER). Reviewed test results and need for additional work-up. Agreed upon treatment plan, need for patient follow-up and decision to place in observation. Consult obtained from cardiology. Miri. Case discussed. Phone consult only. Patient/family counseled. Old medical records ordered. ([facility]). Disposition: Admitted to the Critical Care Unit. CLINICAL IMPRESSION Chest pain. Poorly controlled diabetes. (Electronically signed by Edgardo Nuñez MD 02/17/2017 1:58) Addenda for JUANIS HENSON [facility] VisitID: [id number] Date: 02/16/2017 02/17/2017 1:28 PT WAS GIVEN H&P FORM FOR (Electronically signed by Kathleen Martinez - 02/17/2017 1:28)
--- NOTE | 2017-02-16 23:12 | ED CLINICAL REPORT ---
Clinical Report - Physicians/Mid Levels [facility] [address] [place] [address] 02/16/2017 18:36 Patient: JUANIS HENSON Time Seen: 1850. Arrived- By private vehicle. Historian- patient. HISTORY OF PRESENT ILLNESS Chief Complaint: CHEST PAIN. 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 It was abrupt in onset and has been constant but is not gone now. Onset during rest. At its maximum, severity described as moderate. When seen in the E.D., severity described as moderate. Modifying factors- relieved by nitroglycerin (one). Not worsened by anything. It is described as pressure and it is described as located in the central chest area. No radiation. No nausea, vomiting or diaphoresis. He has had difficulty breathing. No additional chest pain. Similar symptoms previously: Many times. ( hx of cardiac stent.). Recent medical care: The patient was seen recently in the emergency department. ( healing abscess and cellulitis to anterior abdominal wall.). REVIEW OF SYSTEMS No pedal edema, calf pain or skin rash. All systems otherwise negative, except as recorded above. PAST HISTORY See nurses notes. Risk factors for DVT/pulmonary embolism- obesity. Denies the following risk factors for DVT/PE - history of DVT and pulmonary embolism, recent surgery, recent MO and congestive heart failure. Denies the following risk factors for DVT/PE - cancer, clotting disorder, estrogens, immobility and advanced in age. Denies the following risk factors for DVT/PE - vena cava filter. Problems: Hyperglycemia. Cellulitis. Peptic Ulcer Disease. Coronary Artery Disease. Chest Pain. Substance Abuse. Schizophrenia. Atypical Chest Pain. Abscess. Hypertension. Thyroid Disease. Diabetes Mellitus. Additional Surgeries: Back Surgery. Coronary stents. Stent. Medications: NovoLOG FlexPen Subcutaneous 40-50, 4x daily. Abilify Oral (Solution 1 mg/mL) 400 mg injection. ASA Oral 81, daily. Dilaudid 4mg q 6 hrs prn . Keflex Oral. Levamir 50 uniits, 2x a day. Lisinopril Oral 20 mg, 2x a day. Metoprolol Tartrate Oral 25 mg. Nitroglycerin Sublingual 0.4 mg, as needed. Synthroid Oral 75 mcg, daily. Allergies: Toradol. Definite Moderate(nausea, vomiting). SOCIAL HISTORY Smoker- current status unknown. No alcohol use or drug use. No recent travel. Is a local resident. FAMILY HISTORY History of heart disease in multiple family members in first-degree relative (father) and grandparent. ADDITIONAL NOTES The nursing notes have been reviewed. PHYSICAL EXAM Vital Signs: 02/16/2017 18:52 Temp: 98.4 F. 02/16/2017 18:44 BP: 163/89. HR: 103. RR: 24. O2 saturation: 97%. Blood pressure normal. Oxygen saturation normal. Appearance: Alert. Oriented X3. No acute distress. Eyes: Pupils equal, round and reactive to light. Eyes normal inspection. ENT: Ears normal. Nose normal. Pharynx normal. Neck: Normal inspection. Neck supple. CVS: Normal heart rate and rhythm. Heart sounds normal. Pulses normal. Respiratory: No respiratory distress. Breath sounds normal. Chest nontender. No rales, rhonchi or wheezes. Abdomen: Soft and nontender. Bowel sounds normal. (well healing anterior abdominal wall wound consistent with recent abscess I & D). Back: Normal external inspection. Skin: Skin warm and dry. Normal skin color. No rash. Normal skin turgor. Extremities: Extremities exhibit normal ROM. No lower extremity edema. Neuro: Oriented X 3. No motor deficit. No sensory deficit. LABS, X-RAYS, AND EKG EKG: No acute ischemia. Tachycardia (102). Normal P waves. Normal USAMA. Normal QRS complex. Normal axis. Normal ST and T waves, QT and QTc. sinus tach. EKG unchanged when compared with prior EKG. The study has been interpreted contemporaneously. The study has been independently viewed by me. The EKG appears to be a good tracing. Chest X-ray: (IMPRESSION: 1. Negative chest.). The X-rays were interpreted by the radiologist and contemporaneously by me. Laboratory Tests: [id number]: (NIKOLAS: 02/17/2017 00:01) ( MsgRcvd 02/17/2017 01:44) Final results Test Result Flag Units (Reference) CALCULATED A1C 11.4 H % (4.5-6.2) The [place] [employer] recommends that aprimary goal of therapy should be a HbA1c of <7% and thatphysicians should reevaluate the treatment regimen inpatients with HbA1c values consistently >8%. ESTIMATED AVERAGE GLUCOSE 280 mg/dL CBC w Diff: (NIKOLAS: 02/16/2017 18:54) ( MsgRcvd 02/16/2017 19:33) Final results Test Result Flag Units (Reference) WHITE BLOOD COUNT 8.5 K/uL (4.5-11.5) RED BLOOD COUNT 5.73 M/uL (4.50-5.90) HEMOGLOBIN 15.2 gm/dL (13.5-17.5) HEMATOCRIT 45.8 % (41.0-53.0) MEAN CELL VOLUME 80 fL (80-100) MEAN CORPUSCULAR HGB 27 pg (26-34) MEAN CORPUSCULAR HGB CONC 33 g/dL (31-37) RED CELL DISTRIBUTION WIDTH 15.0 H % (11.6-14.8) PLATELET COUNT 225 K/uL (150-400) NEUTROPHIL % 59.1 % (50-75) LYMPH % 31.3 % (25-40) MONO % 7.7 % (3-14) EOSINOPHIL % 0.8 % (0-4) BASOPHIL % 1.1 % (0-2) PT with INR: (NIKOLAS: 02/16/2017 18:54) ( MsgRcvd 02/16/2017 19:41) Final results Test Result Flag Units (Reference) INR 0.9 (0.8-1.2) Low Intensity Therapy: INR 1.5-2.0 PT range 18.5-23.1Mod.Intensity Therapy: INR 2.0-3.0 PT range 23.1-31.5High Intensity Therapy: INR 2.5-3.5 PT range 27.4-35.5High Intensity Therapy 2: INR 3.0-4.0 PT range 31.5-39.3 D-DIMER QUANTITATIVE 0.47 ug/mLFEU (0.27-0.52) The primary value of this quantitative assay relates toits negative predictive value (i.e. exclusion) of pulmonaryembolism/deep vein thrombosis/DIC.Elevated levels of d-dimer may also occur with:, age, cancer, inflammation, liver disease,post-op, infection, hematoma, coronary disease, peripheralarteriopathy, bleeding disorders and thrombolytic treatment.Results should be correlated with other clinical andradiological data.Testing Methodology: Latex Immunoassay TSH: (NIKOLAS: 02/16/2017 21:00) ( [facility] 02/16/2017 23:34) Final results Test Result Flag Units (Reference) THYROID STIMULATING HORMONE 1.255 uIU/mL (0.34-3.74) Troponin-I: (NIKOLAS: 02/16/2017 20:55) ( [facility] 02/16/2017 21:30) Final results Test Result Flag Units (Reference) TROPONIN I <0.05 L ng/mL (0.00-1.5) TROPONIN REFERENCE RANGE:<0.1 NEGATIVE0.1-1.5 INDETERMINANT>1.5 POSITIVE BNP: (NIKOLAS: 02/16/2017 18:54) ( [facility] 02/16/2017 19:57) Final results Test Result Flag Units (Reference) B-TYPE NATRIURETIC PEPTIDE 7.6 pg/ml (5-100) CMP: (NIKOLAS: 02/16/2017 18:54) ( [facility] 02/16/2017 19:49) Final results Test Result Flag Units (Reference) GLUCOSE 550 *H mg/dL (70-110) CRITICAL RESULTS CALLEDCalled to ROBIN PARRISH RN 02/16/171946Were 2 patient identifiers used? YWas the result read back? Y BUN 20 H mg/dL (7-18) CREATININE 1.3 mg/dL (0.6-1.3) Estimated GFR >60 mL/min Estimated GFR- >60 mL/min Note: Persistent reduction over 3 months in eGFR<60 mL/min/1.73 m2 defines CKD. Patients with eGFR values>=60 mL/min/1.73 m2 may also have CKD if evidence ofpersistent proteinuria. Additional information may be foundat www.kidney.org. SODIUM 135 L mmol/L (136-145) POTASSIUM 4.4 mmol/L (3.5-5.1) CHLORIDE 99 mmol/L (98-107) CARBON DIOXIDE 23 mmol/L (21-32) CALCIUM 9.0 mg/dL (8.5-10.1) TOTAL PROTEIN 7.9 g/dL (6.4-8.2) ALBUMIN 3.2 L g/dL (3.3-5.0) BILIRUBIN, TOTAL 0.3 mg/dL (0.0-1.0) ALKALINE PHOSPHATASE 93 U/L (46-116) AST (SGOT) 18 U/L (15-37) ALT (SGPT) 49 U/L (12-78) TROPONIN I <0.05 L ng/mL (0.00-1.5) TROPONIN REFERENCE RANGE:<0.1 NEGATIVE0.1-1.5 INDETERMINANT>1.5 POSITIVE . PROGRESS AND PROCEDURES Course of Care: The patient is a pleasant 41 yo male with hx of DM, Cardiac stents, and HTN presenting for evaluation of chest pain. initial work up started by myself. Care and plan transferred to oncoming doctor at the change of shift after sign out given. Dr. Croft and I reviewed the patient's history and examination findings. He requested that I follow up on the results of the patient's pending studies. I subsequently reviewed the patient's history with him and examined him and my findings were consistent with those noted by Dr. Croft. - . Patient is stable. Discussed case with hospitalist, (Jorge - he saw the patient in the ER). Reviewed test results and need for additional work-up. Agreed upon treatment plan, need for patient follow-up and decision to place in observation. Consult obtained from cardiology. Miri. Case discussed. Phone consult only. Patient/family counseled. Old medical records ordered. ([place] [facility]). Disposition: Admitted to the Critical Care Unit. CLINICAL IMPRESSION Chest pain. Poorly controlled diabetes. (Electronically signed by Edgardo Nuñez MD 02/17/2017 1:58) Addenda for JUANIS HENSON Estefani VisitID: [id number] Date: 02/16/2017 02/17/2017 1:28 PT WAS GIVEN H&P FORM FOR (Electronically signed by Kathleen Martinez - 02/17/2017 1:28)
--- NOTE | 2017-02-16 23:12 | ED ORDER SUMMARY ---
..... Patient: JUANIS HENSON OrderSheet [facility] VisitID: [id number] [place] [address] 41y, M Registration Date/Time: 02/16/2017 ORDER SHEET Weight: 120.2 kg (stated) Allergies: Toradol GENERAL ORDERS: EKG - ER Stat (18:49 02/16/2017 Wallace Motta) (18:49 KWilliams R.N.) Chest 1V Urgent (19:02/16/2017 Wallace Motta) (Ack 19:13 LORENEeijimmy ER Tech1) (19:25 KWilliams R.N.) Chief Maintenance Supervisor (Continuous) (CP + SOB) (:02/16/2017 Wallace Motta) (19:25 KWilliams R.N.) CBC w Diff Urgent (19:02/16/2017 Wallace Motta) (Ack 19:13 LORENEeijimmy ER Tech1) (19:25 KWilliams R.N.) CMP Urgent (19:01 02/16/2017 Wallace Motta) (Ack 19:13 LORENEeijimmy ER Tech1) (19:25 KWilliams R.N.) PT with INR Urgent (19:02/16/2017 Wallace Motta) (Ack 19:13 LORENEeijimmy ER Tech1) (19:25 KWilliams R.N.) BNP Urgent (19:02/16/2017 Wallace Motta) (Ack 19:13 Son ER Tech1) (19:25 KWilliams R.N.) D-Dimer Urgent (19:02/16/2017 Wallace Motta) (Ack 19:13 LORENEeijimmy ER Tech1) (19:25 KWilliams R.N.) Troponin-I Urgent (19:02/16/2017 Wallace Motta) (Ack 19:13 LORENEeijimmy ER Tech1) (19:25 KWilliams R.N.) Pulse oximeter (19:02/16/2017 Wallace Motta) (19:25 KWilliams R.N.) Oxygen (2 L/min) (NC) (19:01 02/16/2017 Wallace Motta) (19:35 KWilliams R.N.) Troponin-I (draw 2 hours after first draw) Urgent (20:17 02/16/2017 Wallace Motta) (Ack 20:34 LMuller) (20:58 LMuller) POC Glucose (1 hour after insulin) (20:17 02/16/2017 Wallace Motta) (Ack 20:34 LMuller) (21:28 KWilliams R.N.) TSH Urgent (23:11 02/16/2017 Cain LUCIO) (23:19 LMuller) MEDICATION ORDERS: Aspirin PO 325 mg (Do not crush or chew, NOW) (18:52 02/16/2017 KWilliams R.N. verbal order read back to Wallace Motta) (18:53 KWilliams R.N.) NitroGLYCERIN SL 0.4 mg (once now) (19:02 02/16/2017 Wallace Motta) (19:32 KWilliams R.N.) NitroGLYCERIN Paste Topical 0.5 in. (NOW, to CW) (22:55 02/16/2017 Cain LUCIO) (23:00 KWilliams R.N.) Tylenol PO 650 mg (NOW) (23:08 02/16/2017 KWilliams R.N. verbal order read back to Cain LUCIO) (23:09 KWilliams R.N.) Insulin Lispro Subcut 10 units (NOW) (00:16 02/17/2017 RCollier R.N. verbal order read back to Floyd LUCIO) (Ack 0:16 RCollier R.N.) (0:29 RCollier R.N.) IV FLUIDS: Morphine IV 4 mg (HIGH ALERT MEDICATION, NOW) (19:01 02/16/2017 Wallace Motta) (19:32 KWilliams R.N.) IV Saline Lock (19:01 02/16/2017 aWllace Motta) (19:31 KWilliams R.N.) Morphine IV 4 mg (HIGH ALERT MEDICATION, NOW) (20:15 02/16/2017 Wallace Motta) (Ack 20:19 DDean R.N.) (20:31 DDean R.N.) IV NS : initial bolus 1000 mL (1000 mL/hr), then none - for X1 (NOW) (20:15 02/16/2017 Wallace Motta) (Ack 20:19 DDean R.N.) (20:30 DDean R.N.) Insulin Reg IV 10 units (HIGH ALERT MEDICATION, NOW) (20:15 02/16/2017 Wallace Motta) (Ack 20:19 DDean R.N.) (20:30 DDean R.N.) Morphine IV 8 mg (HIGH ALERT MEDICATION, NOW) (21:10 02/16/2017 Wallace Motta) (Cancelled: Duplicate Order21:11 Wallace Motta) Morphine IV 4 mg (HIGH ALERT MEDICATION, NOW) (21:11 02/16/2017 Wallace Motta) (21:24 KWilliams R.N.) Dilaudid IV 1 mg (NOW) (01:11 02/17/2017 Baylee R.N. written order Floyd LUCIO) (Ack 1:11 RCollier R.N.) (1:18 RCollier R.N.) ORDER SHEET NOTES: [Electronically signed by Carolann Baker R.N. (01:32 02/17/2017)] [Electronically signed by Edgardo Nuñez MD (01:58 02/17/2017)] [Electronically locked/signed by Carolann Baker R.N. (01:32 02/17/2017)]
--- NOTE | 2017-02-16 23:12 | ED ORDER SUMMARY ---
..... Patient: JUANIS HENSON OrderSheet [facility] VisitID: [id number] [place] [address] 41y, M Registration Date/Time: 02/16/2017 ORDER SHEET Weight: 120.2 kg (stated) Allergies: Toradol GENERAL ORDERS: EKG - ER Stat (18:49 02/16/2017 Wallace Motta) (18:49 KWilliams R.N.) Chest 1V Urgent (19:02/16/2017 Wallace Motta) (Ack 19:13 LORENEeijimmy ER Tech1) (19:25 KWilliams R.N.) Banquet Server (Continuous) (CP + SOB) (:02/16/2017 Wallace Motta) (19:25 KWilliams R.N.) CBC w Diff Urgent (19:02/16/2017 Wallace Motta) (Ack 19:13 LORENEeijimmy ER Tech1) (19:25 KWilliams R.N.) CMP Urgent (19:01 02/16/2017 Wallace Motta) (Ack 19:13 LORENEeijimmy ER Tech1) (19:25 KWilliams R.N.) PT with INR Urgent (19:02/16/2017 Wallace Motta) (Ack 19:13 LORENEeijimmy ER Tech1) (19:25 KWilliams R.N.) BNP Urgent (19:02/16/2017 Wallace Motta) (Ack 19:13 Son ER Tech1) (19:25 KWilliams R.N.) D-Dimer Urgent (19:02/16/2017 Wallace Motta) (Ack 19:13 LORENEeijimmy ER Tech1) (19:25 KWilliams R.N.) Troponin-I Urgent (19:02/16/2017 Wallace Motta) (Ack 19:13 LORENEeijimmy ER Tech1) (19:25 KWilliams R.N.) Pulse oximeter (19:02/16/2017 Wallace Motta) (19:25 KWilliams R.N.) Oxygen (2 L/min) (NC) (19:01 02/16/2017 Wallace Motta) (19:35 KWilliams R.N.) Troponin-I (draw 2 hours after first draw) Urgent (20:17 02/16/2017 Wallace Motta) (Ack 20:34 LMuller) (20:58 LMuller) POC Glucose (1 hour after insulin) (20:17 02/16/2017 Wallace Motta) (Ack 20:34 LMuller) (21:28 KWilliams R.N.) TSH Urgent (23:11 02/16/2017 Cain LUCIO) (23:19 LMuller) MEDICATION ORDERS: Aspirin PO 325 mg (Do not crush or chew, NOW) (18:52 02/16/2017 KWilliams R.N. verbal order read back to Wallace Motta) (18:53 KWilliams R.N.) NitroGLYCERIN SL 0.4 mg (once now) (19:02 02/16/2017 Wallace Motta) (19:32 KWilliams R.N.) NitroGLYCERIN Paste Topical 0.5 in. (NOW, to CW) (22:55 02/16/2017 Cain LUCIO) (23:00 KWilliams R.N.) Tylenol PO 650 mg (NOW) (23:08 02/16/2017 KWilliams R.N. verbal order read back to Cain LUCIO) (23:09 KWilliams R.N.) Insulin Lispro Subcut 10 units (NOW) (00:16 02/17/2017 RCollier R.N. verbal order read back to Floyd LUCIO) (Ack 0:16 RCollier R.N.) (0:29 RCollier R.N.) IV FLUIDS: Morphine IV 4 mg (HIGH ALERT MEDICATION, NOW) (19:01 02/16/2017 Wallace Motta) (19:32 KWilliams R.N.) IV Saline Lock (19:01 02/16/2017 Wallace Motta) (19:31 KWilliams R.N.) Morphine IV 4 mg (HIGH ALERT MEDICATION, NOW) (20:15 02/16/2017 Wallace Motta) (Ack 20:19 DDean R.N.) (20:31 DDean R.N.) IV NS : initial bolus 1000 mL (1000 mL/hr), then none - for X1 (NOW) (20:15 02/16/2017 Wallace Motta) (Ack 20:19 DDean R.N.) (20:30 DDean R.N.) Insulin Reg IV 10 units (HIGH ALERT MEDICATION, NOW) (20:15 02/16/2017 Wallace Motta) (Ack 20:19 DDean R.N.) (20:30 DDean R.N.) Morphine IV 8 mg (HIGH ALERT MEDICATION, NOW) (21:10 02/16/2017 Wallace Motta) (Cancelled: Duplicate Order21:11 Wallace Motta) Morphine IV 4 mg (HIGH ALERT MEDICATION, NOW) (21:11 02/16/2017 Wallace Motta) (21:24 KWilliams R.N.) Dilaudid IV 1 mg (NOW) (01:11 02/17/2017 Baylee R.N. written order Floyd LUCIO) (Ack 1:11 RCollier R.N.) (1:18 RCollier R.N.) ORDER SHEET NOTES: [Electronically signed by Carolann Baker R.N. (01:32 02/17/2017)] [Electronically signed by Edgardo Nuñez MD (01:58 02/17/2017)] [Electronically locked/signed by Carolann Baker R.N. (01:32 02/17/2017)]
--- NOTE | 2017-02-16 23:12 | ED NURSING NOTES ---
Clinical Report - Nurses [facility] [address] [place] [address] 02/16/2017 18:36 Patient: JUANIS HENSON TRIAGE Triage time 18:44. Acuity: LEVEL 2. Chief Complaint: CHEST PAIN. Alert. No acute distress. --18:48 Chas Shankar R.N. 18:44 02/16/17. BP: 163/89. HR: 103. RR: 24. O2 saturation: 97% on room air. Pain level now 06/11. --18:48 Chas Shankar R.N. 18:52 02/16/17. Temp: 98.4 F. --18:52 Chas Shankar R.N. Weight: 120.2 kg stated. Height/Length: 70 inches Per Patient. BMI: 38. --18:45 Chas Shankar R.N. Medications Abilify Oral (Solution 1 mg/mL) 400 mg injection. ASA Oral 81, daily. Dilaudid 4mg q 6 hrs prn . Keflex Oral. Levamir 50 uniits, 2x a day. Lisinopril Oral 20 mg, 2x a day. Metoprolol Tartrate Oral 25 mg. Nitroglycerin Sublingual 0.4 mg, as needed. Synthroid Oral 75 mcg, daily. --18:47 Chas Shankar R.N. NovoLOG FlexPen Subcutaneous 40-50, 4x daily. --18:47 Cahs Shankar R.N. Allergies Toradol. Definite Moderate(nausea, vomiting) --18:47 Chas Shankar R.N. History Arrived by private vehicle. Historian: patient. Primary physician (katy). ( CP x 3 hours. nitro sublingual x3 at home which was ineffective. Pain does not radiate. Described as constant.). Onset. (3 hours ago). 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 SOCIAL HX: Heavy tobacco smoker (cigarette)- 1 pack per day. No alcohol use or drug use. FALL RISK ASSESSMENT: Fall risk assessment completed. No fall risk identified. NUTRITIONAL RISK ASSESSMENT: The nutritional risk assessment revealed no deficiencies. FUNCTIONAL ASSESSMENT: Functional assessment: no impairments noted. LEARNING NEEDS ASSESSMENT: The learning needs assessment revealed no barriers. SKIN INTEGRITY ASSESSMENT: Skin integrity risk assessment completed. No skin integrity risk identified. --18:48 Chas Shankar R.N. PROBLEMS: Hyperglycemia. Cellulitis. Peptic Ulcer Disease. Coronary Artery Disease. Chest Pain. Substance Abuse. Schizophrenia. Atypical Chest Pain. Abscess. Hypertension. Thyroid Disease. Diabetes Mellitus. --18:48 Chas Shankar R.N. ADDITIONAL SURGERIES: Back Surgery. Coronary stents. --18:48 Chas Shankar R.N. Interventions ID band on patient. To treatment room. --18:48 Chas Shankar R.N. PHYSICAL ASSESSMENT Ambulatory to room. GENERAL / NEURO / PSYCH: Alert. Oriented X 4. Appears anxious. RESPIRATORY: Respirations not labored. CVS: Capillary refill less than 2 seconds. GI / : Abdomen soft. EXTREMITIES: No lower extremity edema. SKIN: ( bandaged I&D site to abdomen, seen here for it previously). --18:49 Chas Shankar R.N. SKIN: Skin is diaphoretic. --18:55 Chas Shankar R.N. NURSING PROGRESS NOTES 18:49 02/16/17. The plan of care for this patient has been created. Patient gowned. Head of bed elevated. Call light placed in reach. Bed placed in lowest position. Brakes of bed on. Patient ready for evaluation- chart flagged. --18:49 Chas Shankar R.N. EKG time: (1851). EKG was performed by a tech and shown to the ED physician. --18:50 Chas Shankar R.N. Finger stick glucose: 403; performed by nurse; result shown to the ED physician. --18:50 Chas Shankar R.N. 18:50 02/16/2017 Aspirin PO Tablets 325 mg given. Allergies verified and confirmed 5 rights. --18:53 Chas Shankar R.N. 18:54 02/16/17. HR: 107. --18:55 Chas Shankar R.N. Cardiac rhythm: sinus tachycardia. --18:55 Chas Shankar R.N. 19:21 02/16/2017 Site #1 started via IV in the right forearm with an 20g angiocath, with aseptic technique and good blood return; one attempt. Blood drawn: rainbow set. Labeled in the presence of the patient and sent to the lab. Saline lock flushed with 10 mL saline. --19:21 Nahmoy Queen R.N. Cardiac rhythm: normal sinus rhythm. The patient reports no complaints. --19:25 Chas Shankar R.N. 19:24 02/16/17. BP: 163/89. HR: 96. RR: 11. O2 saturation: 96% on room air. Pain level now 8/10. --19:25 Chas Shankar R.N. 19:26 02/16/2017 Nitroglycerin SL Tablets 0.4 mg given. Allergies verified and confirmed 5 rights. --19:32 Chas Shankar R.N. 19:27 02/16/2017 Morphine IVP 4 mg given over 2 minute(s) via site #1. Allergies verified, confirmed 5 rights and sedative warning given to the patient. IV patency established. IV site checked: no pain, redness, or swelling. IV flushed thoroughly pre- and post-medication administration. IVP given by RN. --19:32 Chas Shankar R.N. 19:20. Oxygen administered by nasal cannula at 2 liters. --19:35 Chas Shankar R.N. 19:35 02/16/17. BP: 190/66. HR: 99. RR: 24. O2 saturation: 95% on nasal cannula at 2 liters/minute. --19:36 Chas Shankar R.N. Cardiac rhythm: normal sinus rhythm. --19:36 Chas Shankar R.N. 19:50 02/16/17. ( Lab called with critical lab value of Glucose 550. Primary nurse and ERMD notified). --19:50 Kiley Potter R.N. 20:20 02/16/2017 Started bag #1 1000 mL IV Fluids IV NS (Saline); at 1000 mL/hr over 1 hour(s) via site #1 via IV pump. IV patency established. IV site checked: no pain, redness, or swelling. IV flushed thoroughly pre- and post-medication administration. --20:30 Kiley Potter R.N. 20:25 02/16/2017 Insulin REG IVP 10 unit given over 1 minute(s) via site #1. IV patency established. IV site checked: no pain, redness, or swelling. IV flushed thoroughly pre- and post-medication administration. IVP given by RN. --20:30 Kiley Potter R.N. 20:25 02/16/2017 Morphine IVP 4 mg given over 1 minute(s) via site #1. Sedative warning given to the patient. IV patency established. IV site checked: no pain, redness, or swelling. IV flushed thoroughly pre- and post-medication administration. IVP given by RN. --20:31 Kiley Potter R.N. 20:20 02/16/17. BP: 154/78. HR: 92. RR: 22. O2 saturation: 96% on nasal cannula at 2 liters/minute. Temp: deferred. Pain level now: 05/11. --20:33 Kiley Potter R.N. 20:36 02/16/17. ( pt given pink sponges for mouth care. resting quietly in darkened room. states he is better after Morpine given). --20:36 Kiley Potter R.N. 20:51 02/16/17. BP: 104/74. HR: 87. O2 saturation: 96%. --20:51 Chas Shankar R.N. The patient reports no complaints and he is calm and resting quietly. --20:51 Chas Shankar R.N. 20:59 02/16/17. Blood samples drawn. (repeat triponin done by lab). --20:59 Kiley Potter R.N. 21:02 02/16/17. --21:02 Chas Shankar R.N. 21:01 02/16/17. BP: 104/74. HR: 93. RR: 20. O2 saturation: 99% on nasal cannula at 2 liters/minute. Pain level now 7/10. --21:02 Chas Shankar R.N. 21:12 02/16/2017 Morphine IVP 4 mg given over 2 minute(s) via site #1. Allergies verified, confirmed 5 rights and sedative warning given to the patient. IV patency established. IV site checked: no pain, redness, or swelling. IV flushed thoroughly pre- and post-medication administration. IVP given by RN. --21:24 Chas Shankar R.N. Finger stick glucose: @2125: 317 mg/dL; ordered; performed by tech; result shown to the ED physician. --21:26 Dena Blackwell 21:44 02/16/17. BP: 133/79. HR: 88. O2 saturation: 98%. --21:47 Chas Shankar R.N. 23:00 02/16/2017 NITROGLYCERIN PASTE Topical Paste 0.5 inch. Applied to the left chest. Allergies verified and confirmed 5 rights. --23:00 Chas Shankar R.N. 23:00 02/16/17. BP: 141/76. HR: 83. RR: 19. O2 saturation: 98% on nasal cannula at 2 liters/minute. --23:01 Chas Shankar R.N. The patient is calm and resting quietly. --23:01 Chas Shankar R.N. 23:07 02/16/2017 Tylenol (Acetaminophen) PO Tablets 650 mg given. Allergies verified and confirmed 5 rights. --23:09 Chas Shankar R.N. 23:09 02/16/17. BP: 148/95. HR: 94. RR: 20. O2 saturation: 100% on nasal cannula at 2 liters/minute. --23:10 Chas Shankar R.N. The patient reports no complaints and he is calm and resting quietly. ( updated pt on plan of care). --23:10 Chas Shankar R.N. 23:18 02/16/2017 IV Fluids IV NS Discontinued: bag #1 completed. Total amount infused: 1000 mL. IV patency established. IV site checked: no pain, redness, or swelling. IV flushed thoroughly. --23:18 Carolann Baker R.N. 23:02/16/17. Care transferred and report given (Carolann Frey, EDRN). --23:23 Chas Shankar R.N. 00:13. Finger stick glucose: 319 (shown to Dr. Patel. Orders recieved); performed by nurse. --00:17 Carolann Baker R.N. 00:17 02/17/17. BP: 142/81. HR: 84. RR: 15. O2 saturation: 99% on room air. --00:17 Carolann Baker R.N. 00:26 02/17/2017 INSULIN LISPRO Subcutaneous 10 unit given. Given in the right upper arm. Allergies verified and confirmed 5 rights. --00:29 Carolann Baker R.N. 00:30 02/17/17. BP: 157/80. HR: 88. RR: 15. O2 saturation: 100% on room air. --00:31 Carolann Baker R.N. ( pt given diet sprite and cup of ice water, per verbal ok from admitting Dr (Dr. Patel)). --00:31 Carolann Baker R.N. 01:02/17/2017 Dilaudid (HYDROmorphone HCl PF) IVP 2 mg given over 1 minute(s) via site #1. Allergies verified, confirmed 5 rights and sedative warning given to the patient. IV patency established. IV site checked: no pain, redness, or swelling. IV flushed thoroughly pre- and post-medication administration. IVP given by RN. --01:18 Carolann Baker R.N. DISPOSITION / DISCHARGE 01:02/17/17. BP: 139/78. HR: 81. RR: 15. O2 saturation: 95% on nasal cannula at 2 liters/minute. Chang-Aquino pain scale: 4/10. --01:19 Carolann Baker R.N. Report was given to a nurse via a phone call. Report included patient's care, treatment, medications, reviewed medication reconcilliation, and condition (including any recent changes or anticipated changes). All questions were answered. Report was acknowledged. --01:19 Carolann Baker R.N. Patient's personal items include: wallet and cell phone, clothing; items were placed in belongings bag and transported with the patient. Collection of belongings was witnessed by 1 nurse. --01:20 Carolann Baker R.N. 01:20 02/17/2017 Site #[address] upon admission; patent and no pain; flushes easily. --01:29 Carolann Baker R.N. Locked/Released at 02/17/2017 1:32 by Carolann Baker R.N.
--- NOTE | 2017-02-16 23:25 | Progress Note ---
Subjective General Admission History and Physical Examination Patient Name: Nura Townsend Admission Date: February 16, 2017 Primary Care Provider: Bolivar Causey M.D. Attending Physician: Bolivar Patel M.D. Admitting Physician: Bolivar Patel M.D. Code Status: FULL CODE Room: 306 SUBJECTIVE Historian: Patient Reliability: Fair Chief Complaint: Chest pain History of Present Illness: The patient is a 41-year-old white male with a significant past medical history of coronary artery disease, type 2 diabetes mellitus, hypothyroidism, chronic back pain, hypertension, obesity, nicotine dependence-smoking, who presented to [facility] emergency department on the day of admission secondary to complaints of chest pain. [facility] ER evaluation was consistent with chest pain rule out ACS, uncontrolled diabetes mellitus. Secondary to the above, the patient was admitted by Bolivar Patel M.D. for further evaluation and treatment. The history of present illness began on the afternoon of the day of admission when the patient developed substernal chest pressure. This was associated with mild shortness of breath but no palpitations, diaphoresis, nausea or vomiting. This did not seem to respond to nitroglycerin. Secondary to the above the patient presented to [facility] emergency department. He experienced no significant relief with nitroglycerin but did experience some improvement with the use of morphine. There were no associated acute ST-T wave changes. Troponin was negative. Secondary to the patient's previous history of coronary disease/ myocardial infarction was felt the patient should be admitted for further observation, control blood sugars, serial troponin, and coronary risk stratification if above negative for unstable angina/myocardial infarction. PAST MEDICAL HISTORY Illnesses: 1. Coronary artery disease status post myocardial infarction 2. Type 2 diabetes mellitus 3. Obesity 4. Hypothyroidism 5. Hypertension 6. Chronic back pain-status post back surgery 4 7. Prescription opiate dependence Allergies: 1. Toradol Medications: 1. Abilify 400 mg IM monthly 2. Dilaudid 4 mg by mouth every 6 hours when necessary pain 3. Levemir 50 units subcutaneous twice a day 4. Lisinopril 20 mg by mouth twice a day 5. Lopressor 25 mg by mouth daily 6. Nitroglycerin 0.4 mg sublingual when necessary chest pain 7. Synthroid 0.075 mg by mouth daily 8. NovoLog insulin 40-50 units subcutaneous 4 times a day Surgery: 1. Back surgery 4 L4-L5 2. Cardiac catheterization 2013 Injuries: 1. No significant Hospitalizations: 1. For above surgery and medical problems FAMILY HISTORY Parents: 1. Father, Trey, , 61, diabetes mellitus, coronary disease, 2. Mother, history unknown Siblings: 1. Unknown Children: 1. None Other significant family history: None SOCIAL HISTORY 1. Marital Status: Single 2. Synagogue: [employer] 3. Education: High school, 2 years college 4. Employment History: Disabled 2014, back injury. 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 Occupational health exposures: None HABITS 1. Tobacco: 23 pack years, continues to smoke 1 pack cigarettes per day 2. Drugs: None. History of meth abuse 3. Alcohol: None 4. Caffeine: 2 cups coffee per day HEALTH SUPERVISION Item/Test 1. No recent health supervision IMMUNIZATIONS: 1. Pneumococcal: No previous 2. Influenza: 2016 3. Tetanus: Obtained within past 10 years ADVANCED DIRECTIVES: 1. Living well: No 2. POLST: No 3. Code Status: FULL CODE 4. Durable Power Twister Tender Health care: No 5. Donor card: Yes REVIEW OF SYSTEMS Remarkable for those things stated in the history of present illness and past medical history. Seventeen point review of system completed with the following notable findings: General: Pain Eyes: Blurred vision, visual loss Cardiovascular: Chest tightness, ankle swelling, hypertension, shortness of breath when lying flat Genitourinary: Frequent urination, nocturia Gastrointestinal: Diarrhea, blood in stool Musculoskeletal: Joint pain, back pain Endocrine: Diabetes mellitus, thyroid problems, excessive thirst/urination Psychological: Depression, insomnia, anxiety, Physical Exam Vital Signs / I&Os Blood pressure: 163/89 mmHg Heart rate: 103/minute Respiratory rate: 24/minute Temperature: 98.4 Fahrenheit Pulse oximetry: 97% room air General Appearance Alert, Oriented X3, Cooperative, No acute distress HEENT Atraumatic, PERRLA, EOMI, Moist mucous membranes Lungs Clear to auscultation, Normal air movement Neck Supple, No JVD, 2+ carotid pulse wo bruit Cardiovascular Regular rate and rhythm, Normal S1 and S2 Abdomen Normal bowel sounds, Soft, No tenderness Extremities No cyanosis, No clubbing Neurological Cranial nerves intact, No lateralizing signs Psych/Mental Status Mental status normal, Mood normal LAB Results Laboratory Tests 02/16 02/16 02/16 02/16 2100 [id number] Chemistry Plasma Sodium (136 - 145 mmol/L) 135 Plasma Potassium (3.5 - 5.1 mmol/L) 4.4 Plasma Chloride (98 - 107 mmol/L) 99 CO2 (Enzymatic) (21 - 32 mmol/L) 23 BUN (7 - 18 mg/dL) 20 Creatinine (0.6 - 1.3 mg/dL) 1.3 Est GFR ( Amer) (mL/min) >60 Est GFR (Non-Af Amer) (mL/min) >60 Glucose (70 - 110 mg/dL) 550 Plasma Calcium (8.5 - 10.1 mg/dL) 9.0 Total Bilirubin (0.0 - 1.0 mg/dL) 0.3 AST (15 - 37 U/L) 18 ALT (12 - 78 U/L) 49 Alkaline Phosphatase (46 - 116 U/L) 93 Troponin (0.00 - 1.5 ng/mL) <0.05 <0.05 B-Natriuretic Peptide (5 - 100 pg/ml) 7.6 Total Protein (6.4 - 8.2 g/dL) 7.9 Albumin (3.3 - 5.0 g/dL) 3.2 TSH 3rd Generation Pending Coagulation INR (0.8 - 1.2) 0.9 D-Dimer, Quantitative (0.27 - 0.52 ug/mLFEU) 0.47 Hematology WBC (4.5 - 11.5 K/uL) 8.5 RBC (4.50 - 5.90 M/uL) 5.73 Hgb (13.5 - 17.5 gm/dL) 15.2 Hct (41.0 - 53.0 %) 45.8 MCV (80 - 100 fL) 80 MCH (26 - 34 pg) 27 RDW (11.6 - 14.8 %) 15.0 Neut % (Auto) (50 - 75 %) 59.1 Lymph % (Auto) (25 - 40 %) 31.3 [place] % (Auto) (3 - 14 %) 7.7 Eos % (Auto) (0 - 4 %) 0.8 Baso % (Auto) (0 - 2 %) 1.1 Plt Count, EDTA (150 - 400 K/uL) 225 PUBS MCHC (31 - 37 g/dL) 33 Imaging Chest X-Ray IMPRESSION: 1. Negative chest. Dictated by: KINGS LUI MD D: MARCIAL;02/16/172053 Assessment and Plan Problem List 1. Chest pain Plan -The patient presents with chest pain rule out ACS -Initial troponin negative, EKG no acute ST-T wave changes -Serial troponin and EKG -Aspirin, nitrates -Lovenox -Exercise stress test in a.m. if above negative for myocardial infarction -Check lipid profile 2. Poorly controlled diabetes mellitus Plan -Patient presents with poorly controlled diabetes mellitus -Check hemoglobin A1c -Lantus/Humalog sliding scale -Monitor -Diabetic education -Schedule follow up with local PCP. 3. Hypothyroidism Status Chronic Onset Date Unknown Plan -Patient with history of hypothyroidism -Check TSH -Synthroid 0.075 mg by mouth daily -Monitor 4. Hypertension Status Chronic Onset Date Unknown Plan -Patient with history of hypertension -Blood pressure well controlled -Monitor -Low-salt diet -Continue outpatient medical regimen 5. Nicotine dependence Plan -Patient with history of nicotine dependence-smoking -Smoking cessation education -NicoDerm patch when necessary -Encourage smoking abstinence post discharge 6. Chronic back pain Status Chronic Onset Date Unknown Plan -Patient with history of chronic back pain -Status post multiple back surgeries -Attempt to wean narcotic analgesics at discharge Current status: Fair, unstable Anticipated discharge date: Anticipated discharge in 24 hours Anticipated discharge placement: Home Patient care time: Time spent in chart review, patient interview, physical exam, CPOE, and care documentation: 70 minutes Visit to patient today: 1 Complexity of care: High Initial patient evaluation: Emergency department DVT prophylaxis: Lovenox GI prophylaxis: Protonix E&M Codes Admission: Obsv-Comp/High/[id number]
--- NOTE | 2017-02-16 23:25 | Progress Note ---
Subjective General Admission History and Physical Examination Patient Name: Nura Townsend Admission Date: February 16, 2017 Primary Care Provider: Bolivar Causey M.D. Attending Physician: Bolivar Patel M.D. Admitting Physician: Bolivar Patel M.D. Code Status: FULL CODE Room: 306 SUBJECTIVE Historian: Patient Reliability: Fair Chief Complaint: Chest pain History of Present Illness: The patient is a 41-year-old white male with a significant past medical history of coronary artery disease, type 2 diabetes mellitus, hypothyroidism, chronic back pain, hypertension, obesity, nicotine dependence-smoking, who presented to [facility] emergency department on the day of admission secondary to complaints of chest pain. [facility] ER evaluation was consistent with chest pain rule out ACS, uncontrolled diabetes mellitus. Secondary to the above, the patient was admitted by Bolivar Patel M.D. for further evaluation and treatment. The history of present illness began on the afternoon of the day of admission when the patient developed substernal chest pressure. This was associated with mild shortness of breath but no palpitations, diaphoresis, nausea or vomiting. This did not seem to respond to nitroglycerin. Secondary to the above the patient presented to [facility] emergency department. He experienced no significant relief with nitroglycerin but did experience some improvement with the use of morphine. There were no associated acute ST-T wave changes. Troponin was negative. Secondary to the patient's previous history of coronary disease/ myocardial infarction was felt the patient should be admitted for further observation, control blood sugars, serial troponin, and coronary risk stratification if above negative for unstable angina/myocardial infarction. PAST MEDICAL HISTORY Illnesses: 1. Coronary artery disease status post myocardial infarction 2. Type 2 diabetes mellitus 3. Obesity 4. Hypothyroidism 5. Hypertension 6. Chronic back pain-status post back surgery 4 7. Prescription opiate dependence Allergies: 1. Toradol Medications: 1. Abilify 400 mg IM monthly 2. Dilaudid 4 mg by mouth every 6 hours when necessary pain 3. Levemir 50 units subcutaneous twice a day 4. Lisinopril 20 mg by mouth twice a day 5. Lopressor 25 mg by mouth daily 6. Nitroglycerin 0.4 mg sublingual when necessary chest pain 7. Synthroid 0.075 mg by mouth daily 8. NovoLog insulin 40-50 units subcutaneous 4 times a day Surgery: 1. Back surgery 4 L4-L5 2. Cardiac catheterization 2013 Injuries: 1. No significant Hospitalizations: 1. For above surgery and medical problems FAMILY HISTORY Parents: 1. Father, Trey, , 61, diabetes mellitus, coronary disease, 2. Mother, history unknown Siblings: 1. Unknown Children: 1. None Other significant family history: None SOCIAL HISTORY 1. Marital Status: Single 2. Restorationism: Sabianism 3. Education: High school, 2 years college 4. Employment History: Disabled 2014, back injury. 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 Occupational health exposures: None HABITS 1. Tobacco: 23 pack years, continues to smoke 1 pack cigarettes per day 2. Drugs: None. History of meth abuse 3. Alcohol: None 4. Caffeine: 2 cups coffee per day HEALTH SUPERVISION Item/Test 1. No recent health supervision IMMUNIZATIONS: 1. Pneumococcal: No previous 2. Influenza: 2016 3. Tetanus: Obtained within past 10 years ADVANCED DIRECTIVES: 1. Living well: No 2. POLST: No 3. Code Status: FULL CODE 4. Durable Power [employer] Wall [employer]ator Health care: No 5. Donor card: Yes REVIEW OF SYSTEMS Remarkable for those things stated in the history of present illness and past medical history. Seventeen point review of system completed with the following notable findings: General: Pain Eyes: Blurred vision, visual loss Cardiovascular: Chest tightness, ankle swelling, hypertension, shortness of breath when lying flat Genitourinary: Frequent urination, nocturia Gastrointestinal: Diarrhea, blood in stool Musculoskeletal: Joint pain, back pain Endocrine: Diabetes mellitus, thyroid problems, excessive thirst/urination Psychological: Depression, insomnia, anxiety, Physical Exam Vital Signs / I&Os Blood pressure: 163/89 mmHg Heart rate: 103/minute Respiratory rate: 24/minute Temperature: 98.4 Fahrenheit Pulse oximetry: 97% room air General Appearance Alert, Oriented X3, Cooperative, No acute distress HEENT Atraumatic, PERRLA, EOMI, Moist mucous membranes Lungs Clear to auscultation, Normal air movement Neck Supple, No JVD, 2+ carotid pulse wo bruit Cardiovascular Regular rate and rhythm, Normal S1 and S2 Abdomen Normal bowel sounds, Soft, No tenderness Extremities No cyanosis, No clubbing Neurological Cranial nerves intact, No lateralizing signs Psych/Mental Status Mental status normal, Mood normal LAB Results Laboratory Tests 02/16 02/16 02/16 02/16 2100 [id number] Chemistry Plasma Sodium (136 - 145 mmol/L) 135 Plasma Potassium (3.5 - 5.1 mmol/L) 4.4 Plasma Chloride (98 - 107 mmol/L) 99 CO2 (Enzymatic) (21 - 32 mmol/L) 23 BUN (7 - 18 mg/dL) 20 Creatinine (0.6 - 1.3 mg/dL) 1.3 Est GFR ( Amer) (mL/min) >60 Est GFR (Non-Af Amer) (mL/min) >60 Glucose (70 - 110 mg/dL) 550 Plasma Calcium (8.5 - 10.1 mg/dL) 9.0 Total Bilirubin (0.0 - 1.0 mg/dL) 0.3 AST (15 - 37 U/L) 18 ALT (12 - 78 U/L) 49 Alkaline Phosphatase (46 - 116 U/L) 93 Troponin (0.00 - 1.5 ng/mL) <0.05 <0.05 B-Natriuretic Peptide (5 - 100 pg/ml) 7.6 Total Protein (6.4 - 8.2 g/dL) 7.9 Albumin (3.3 - 5.0 g/dL) 3.2 TSH 3rd Generation Pending Coagulation INR (0.8 - 1.2) 0.9 D-Dimer, Quantitative (0.27 - 0.52 ug/mLFEU) 0.47 Hematology WBC (4.5 - 11.5 K/uL) 8.5 RBC (4.50 - 5.90 M/uL) 5.73 Hgb (13.5 - 17.5 gm/dL) 15.2 Hct (41.0 - 53.0 %) 45.8 MCV (80 - 100 fL) 80 MCH (26 - 34 pg) 27 RDW (11.6 - 14.8 %) 15.0 Neut % (Auto) (50 - 75 %) 59.1 Lymph % (Auto) (25 - 40 %) 31.3 Bonner % (Auto) (3 - 14 %) 7.7 Eos % (Auto) (0 - 4 %) 0.8 Baso % (Auto) (0 - 2 %) 1.1 Plt Count, EDTA (150 - 400 K/uL) 225 PUBS MCHC (31 - 37 g/dL) 33 Imaging Chest X-Ray IMPRESSION: 1. Negative chest. Dictated by: KINGS LUI MD D: MARCIAL;02/16/172053 Assessment and Plan Problem List 1. Chest pain Plan -The patient presents with chest pain rule out ACS -Initial troponin negative, EKG no acute ST-T wave changes -Serial troponin and EKG -Aspirin, nitrates -Lovenox -Exercise stress test in a.m. if above negative for myocardial infarction -Check lipid profile 2. Poorly controlled diabetes mellitus Plan -Patient presents with poorly controlled diabetes mellitus -Check hemoglobin A1c -Lantus/Humalog sliding scale -Monitor -Diabetic education -Schedule follow up with local PCP. 3. Hypothyroidism Status Chronic Onset Date Unknown Plan -Patient with history of hypothyroidism -Check TSH -Synthroid 0.075 mg by mouth daily -Monitor 4. Hypertension Status Chronic Onset Date Unknown Plan -Patient with history of hypertension -Blood pressure well controlled -Monitor -Low-salt diet -Continue outpatient medical regimen 5. Nicotine dependence Plan -Patient with history of nicotine dependence-smoking -Smoking cessation education -NicoDerm patch when necessary -Encourage smoking abstinence post discharge 6. Chronic back pain Status Chronic Onset Date Unknown Plan -Patient with history of chronic back pain -Status post multiple back surgeries -Attempt to wean narcotic analgesics at discharge Current status: Fair, unstable Anticipated discharge date: Anticipated discharge in 24 hours Anticipated discharge placement: Home Patient care time: Time spent in chart review, patient interview, physical exam, CPOE, and care documentation: 70 minutes Visit to patient today: 1 Complexity of care: High Initial patient evaluation: Emergency department DVT prophylaxis: Lovenox GI prophylaxis: Protonix E&M Codes Admission: Obsv-Comp/High/[id number]
[2017-02-17] VITALS (14 sets, daily range): BP systolic 106–137; BP diastolic 47–85
[2017-02-17] MEDS ORDERED: ABILIFY (01:47)
[2017-02-17] MEDS ORDERED: DILAUDID4 MG PO ×2 (01:48→01:57)
[2017-02-17] MEDS ORDERED: ASPIRIN ADULT L81 M2 PO (01:48)
[2017-02-17] MEDS ORDERED: KEFLEX750 MG PO (01:49)
[2017-02-17] MEDS ORDERED: LEVEMIR SC (01:50)
[2017-02-17] MEDS ORDERED: LISINOPRIL10 MG PO (01:51)
[2017-02-17] MEDS ORDERED: NITROSTAT0.4 MG SL (01:53)
[2017-02-17] MEDS ORDERED: METOPROLOL TART25 MG PO (01:53)
[2017-02-17] MEDS ORDERED: SYNTHROID75 MCG PO (01:54)
[2017-02-17] MEDS ORDERED: NOVOLOG PE100 UNITS/ (01:55)
--- NOTE | 2017-02-17 01:58 | ED DISCHARGE INSTRUCTIONS ---
Patient: JUANIS HENSON General Instructions [facility] VisitID: [id number] [address] [place] [address] 41y, M Registration Date/Time: 02/16/2017 Chest pain. Poorly controlled diabetes. (Electronically signed by Edgardo Nuñez MD 02/17/2017 1:58)
--- NOTE | 2017-02-17 01:58 | ED DISCHARGE INSTRUCTIONS ---
Patient: JUANIS HENSON General Instructions [facility] VisitID: [id number] [address] [place] [address] 41y, M Registration Date/Time: 02/16/2017 Chest pain. Poorly controlled diabetes. (Electronically signed by Edgardo Nuñez MD 02/17/2017 1:58)
--- NOTE | 2017-02-17 01:58 | ED MED RECONCILIATION SUMMARY ---
Patient: JUANIS HENSON Medication Reconciliation Report [facility] VisitID: [id number] [address] [place] [address] 41y, M Registration Date/Time: 02/16/2017 Weight: 120.2 kg Height/Length: 70 in. BMI: 38.0 ALLERGIES: Toradol The patient's Home Medications are listed below: THE FOLLOWING MEDICATIONS NEED TO BE RECONCILED: Abilify Oral (1 mg/mL) 400 mg injection ASA Oral 81, daily Dilaudid 4mg q 6 hrs prn Keflex Oral Levamir 50 uniits, 2x a day Lisinopril Oral 20 mg, 2x a day Metoprolol Tartrate Oral 25 mg Nitroglycerin Sublingual 0.4 mg NovoLOG FlexPen Subcutaneous 40-50, 4x daily Synthroid Oral 75 mcg, daily The source(s) of the original Home Medication information: Not obtained. The following Medications were given to the patient in the Emergency Department: Aspirin [PO] PO 325 mg, administered: 02/16/2017 6:50:00 PM Nitroglycerin [SL] SL 0.4 mg, administered: 02/16/2017 7:26:00 PM Morphine [IVP] IVP 4 mg, administered: 02/16/2017 7:27:00 PM Insulin REG [IVP] IVP 10 unit, administered: 02/16/2017 8:25:00 PM IV NS IV Fluids bolus 0, then 1000 mL/hr, administered: 02/16/2017 8:20:00 PM Morphine [IVP] IVP 4 mg, administered: 02/16/2017 8:25:00 PM Morphine [IVP] IVP 4 mg, administered: 02/16/2017 9:12:00 PM NITROGLYCERIN PASTE [TOPICAL] Topical 0.5 in., administered: 02/16/2017 11:00:00 PM Tylenol [PO] PO 650 mg, administered: 02/16/2017 11:07:00 PM INSULIN LISPRO [SUBCUT] Subcutaneous 10 unit, administered: 02/17/2017 12:26:00 AM Dilaudid [IVP] IVP 2 mg, administered: 02/17/2017 1:18:00 AM The following Medications were prescribed to the patient: None.
--- NOTE | 2017-02-17 01:58 | ED MAR SUMMARY ---
..... Medication Administration Record [facility] [address] [place] [address] Patient: JUANIS HENSON Visit ID: [id number] 41y, M Weight: 120.2 kg Height/Length: 70 in BMI: 38 ALLERGIES: Toradol Given 18:50 02/16/2017 Chas Shankar R.N. Medication Administered: ASPIRIN [PO], Dose: 325 mg Tablets PO. Medication Ordered: Aspirin PO 325 mg (Do not crush or chew, NOW). Given 19:26 02/16/2017 Chas Shankar R.N. Medication Administered: NITROGLYCERIN [SL], Dose: 0.4 mg Tablets SL. Medication Ordered: NitroGLYCERIN SL 0.4 mg (once now). Given 19:27 02/16/2017 Chas Shankar R.N. Medication Administered: MORPHINE [IVP], Dose: 4 mg IVP over 2 minute(s), Site: #1 right forearm. Medication Ordered: Morphine IV 4 mg (HIGH ALERT MEDICATION, NOW). Start 20:20 02/16/2017 Kiley Potter R.N., Stop 23:18 02/16/2017 Carolann Baker R.N. Medication Administered: IV NS (SALINE), Dose: IV Fluids over 1 hour(s), Rate: 1000 mL/hr, Dispensed: 1000 mL bag, Site: #1 right forearm. Medication Ordered: IV NS : initial bolus 1000 mL (1000 mL/hr), then none - for X1 (NOW). Given 20:02/16/2017 Kiley Potter R.N. Medication Administered: INSULIN REG [IVP], Dose: 10 unit IVP over 1 minute(s), Site: #1 right forearm. Medication Ordered: Insulin Reg IV 10 units (HIGH ALERT MEDICATION, NOW). Given 20:02/16/2017 Kiley Potter R.N. Medication Administered: MORPHINE [IVP], Dose: 4 mg IVP over 1 minute(s), Site: #1 right forearm. Medication Ordered: Morphine IV 4 mg (HIGH ALERT MEDICATION, NOW). Given 21:12 02/16/2017 Chas Shankar R.N. Medication Administered: MORPHINE [IVP], Dose: 4 mg IVP over 2 minute(s), Site: #1 right forearm. Medication Ordered: Morphine IV 4 mg (HIGH ALERT MEDICATION, NOW). Given 23:00 02/16/2017 Chas Shankar R.N. Medication Administered: NITROGLYCERIN PASTE [TOPICAL], Dose: 0.5 in. Paste Topical. Medication Ordered: NitroGLYCERIN Paste Topical 0.5 in. (NOW, to ). Given 23:07 02/16/2017 Chas Shankar R.N. Medication Administered: TYLENOL [PO] (ACETAMINOPHEN), Dose: 650 mg Tablets PO. Medication Ordered: Tylenol PO 650 mg (NOW). Given 00:26 02/17/2017 Carolann Baker R.N. Medication Administered: INSULIN LISPRO [SUBCUT], Dose: 10 unit Subcutaneous. Medication Ordered: Insulin Lispro Subcut 10 units (NOW). Given 01:18 02/17/2017 Carolann Baker R.N. Medication Administered: DILAUDID [IVP] (HYDROMORPHONE HCL PF), Dose: 2 mg IVP over 1 minute(s), Site: #1 right forearm. Medication Ordered: Dilaudid IV 1 mg (NOW).
--- NOTE | 2017-02-17 01:58 | ED MED RECONCILIATION SUMMARY ---
Patient: JUANIS HENSON Medication Reconciliation Report [facility] VisitID: [id number] [address] [place] [address] 41y, M Registration Date/Time: 02/16/2017 Weight: 120.2 kg Height/Length: 70 in. BMI: 38.0 ALLERGIES: Toradol The patient's Home Medications are listed below: THE FOLLOWING MEDICATIONS NEED TO BE RECONCILED: Abilify Oral (1 mg/mL) 400 mg injection ASA Oral 81, daily Dilaudid 4mg q 6 hrs prn Keflex Oral Levamir 50 uniits, 2x a day Lisinopril Oral 20 mg, 2x a day Metoprolol Tartrate Oral 25 mg Nitroglycerin Sublingual 0.4 mg NovoLOG FlexPen Subcutaneous 40-50, 4x daily Synthroid Oral 75 mcg, daily The source(s) of the original Home Medication information: Not obtained. The following Medications were given to the patient in the Emergency Department: Aspirin [PO] PO 325 mg, administered: 02/16/2017 6:50:00 PM Nitroglycerin [SL] SL 0.4 mg, administered: 02/16/2017 7:26:00 PM Morphine [IVP] IVP 4 mg, administered: 02/16/2017 7:27:00 PM Insulin REG [IVP] IVP 10 unit, administered: 02/16/2017 8:25:00 PM IV NS IV Fluids bolus 0, then 1000 mL/hr, administered: 02/16/2017 8:20:00 PM Morphine [IVP] IVP 4 mg, administered: 02/16/2017 8:25:00 PM Morphine [IVP] IVP 4 mg, administered: 02/16/2017 9:12:00 PM NITROGLYCERIN PASTE [TOPICAL] Topical 0.5 in., administered: 02/16/2017 11:00:00 PM Tylenol [PO] PO 650 mg, administered: 02/16/2017 11:07:00 PM INSULIN LISPRO [SUBCUT] Subcutaneous 10 unit, administered: 02/17/2017 12:26:00 AM Dilaudid [IVP] IVP 2 mg, administered: 02/17/2017 1:18:00 AM The following Medications were prescribed to the patient: None.
--- NOTE | 2017-02-17 01:58 | ED MAR SUMMARY ---
..... Medication Administration Record [facility] [address] [place] [address] Patient: JUANIS HENSON Visit ID: [id number] 41y, M Weight: 120.2 kg Height/Length: 70 in BMI: 38 ALLERGIES: Toradol Given 18:50 02/16/2017 Chas Shankar R.N. Medication Administered: ASPIRIN [PO], Dose: 325 mg Tablets PO. Medication Ordered: Aspirin PO 325 mg (Do not crush or chew, NOW). Given 19:26 02/16/2017 Chas Shankar R.N. Medication Administered: NITROGLYCERIN [SL], Dose: 0.4 mg Tablets SL. Medication Ordered: NitroGLYCERIN SL 0.4 mg (once now). Given 19:27 02/16/2017 Chas Shankar R.N. Medication Administered: MORPHINE [IVP], Dose: 4 mg IVP over 2 minute(s), Site: #1 right forearm. Medication Ordered: Morphine IV 4 mg (HIGH ALERT MEDICATION, NOW). Start 20:20 02/16/2017 Kiley Potter R.N., Stop 23:18 02/16/2017 Carolann Baker R.N. Medication Administered: IV NS (SALINE), Dose: IV Fluids over 1 hour(s), Rate: 1000 mL/hr, Dispensed: 1000 mL bag, Site: #1 right forearm. Medication Ordered: IV NS : initial bolus 1000 mL (1000 mL/hr), then none - for X1 (NOW). Given 20:02/16/2017 Kiley Potter R.N. Medication Administered: INSULIN REG [IVP], Dose: 10 unit IVP over 1 minute(s), Site: #1 right forearm. Medication Ordered: Insulin Reg IV 10 units (HIGH ALERT MEDICATION, NOW). Given 20:02/16/2017 Kiley Potter R.N. Medication Administered: MORPHINE [IVP], Dose: 4 mg IVP over 1 minute(s), Site: #1 right forearm. Medication Ordered: Morphine IV 4 mg (HIGH ALERT MEDICATION, NOW). Given 21:12 02/16/2017 Chas Shankar R.N. Medication Administered: MORPHINE [IVP], Dose: 4 mg IVP over 2 minute(s), Site: #1 right forearm. Medication Ordered: Morphine IV 4 mg (HIGH ALERT MEDICATION, NOW). Given 23:00 02/16/2017 Chas Shankar R.N. Medication Administered: NITROGLYCERIN PASTE [TOPICAL], Dose: 0.5 in. Paste Topical. Medication Ordered: NitroGLYCERIN Paste Topical 0.5 in. (NOW, to ). Given 23:07 02/16/2017 Chas Shankar R.N. Medication Administered: TYLENOL [PO] (ACETAMINOPHEN), Dose: 650 mg Tablets PO. Medication Ordered: Tylenol PO 650 mg (NOW). Given 00:26 02/17/2017 Carolann Baker R.N. Medication Administered: INSULIN LISPRO [SUBCUT], Dose: 10 unit Subcutaneous. Medication Ordered: Insulin Lispro Subcut 10 units (NOW). Given 01:18 02/17/2017 Carolann Baker R.N. Medication Administered: DILAUDID [IVP] (HYDROMORPHONE HCL PF), Dose: 2 mg IVP over 1 minute(s), Site: #1 right forearm. Medication Ordered: Dilaudid IV 1 mg (NOW).
--- NOTE | 2017-02-17 02:33 | NUR ---
NEW ADMIT FROM ED AT 0125. PT BROUGHT UP VIA STRETCHER BY SHIFT SUP. PT ALERT AND ORIENTED COOPERATIVE WITH CARE. NO DISTRESS NOTED. PT ABLE TO STAND AND WALK TO BED. PT PLACED ON TELE, IV FLUIDS STARTED. ABD WOUND DRESSING CLEANED AND REPLACED, PICTURES TAKEN AND PLACED IN CHART. HS SNACK GIVEN TO PT. PT EDUCATED MUSIC ARTIST LIGHT, BED CONTROLS, PLAN OF CARE, PAIN MANAGMENT, AND DIET. BED IN LOWEST POSITION, CALL LIGHT IN REACH WCTM.
--- NOTE | 2017-02-17 02:34 | NUR ---
CALLED AND INFORMED OF PATIENT BLOOD SUGAR OF 359. STATED TO RECHECK AT 0400. [facility].
--- NOTE | 2017-02-17 15:16 | NUR ---
NUTRITION ASSESSMENT: S: Pt admitted with dx/o poorly controlled diabetes, chest pain. This RD spoke with pt last week in ER, gave pt a glucometer with some strips advised pt to fill rx for strips. Pt was unable to afford the strips and again unable to check blood sugars and now he is admitted to the hospital. Pt explains that he has Type I diabetes, cannot afford insulin does not have a local MD d/t he has dx/o schizophrenia and chronic pain issues d/t back fusions. Spoke with social media developer and discharge planning regarding pt dilema and it is currenly being looked into. Meanwhile pt was given info on diabetes and nutrition as well as diabetes self management. O: Diet Rx: Consistent Carb diet NKFA Wts: 120.5 kg Ht: 70" BMI: 38 IBW: 70-81 kg %IBW: 150% ABW: ~92 kg Est Kcals: ~3440-8129 kcal per day Est Pro: ~92-110 g Est Fluids: ~2760 mls per day Meds Incl: oxycodone, aspirin, colace, lovenox, insulin, levothyroxine, lisinopril, nitro, protonix , IVFs, see eMar for complete list. Labs Incl: (02/16) glucose 550, BUN 20, Na+ 135, K+ 4.4, Ca+ 9.0, total pro 7.9, albumin 3.2, HCT 45.8, HGB 15.7, MCV 80, MCH 27 (02/17) A1c 11.4 (est average 280), Skin: abcess abdomen Accuchecks: 359,306,327,327 respectively A: Pt appetite appears to be intact, 100% of meals per documentation. Current diet appears appropriate and tolerated. Rev'd meds and labs. A1c noted. Pts PCP is in [place] d/t "no doctors will take me in this area". Will continue to work with multidiciplinary team on pt care plan. P: Continue current diet Pt give info on diet today RD to follow up prn/protocol.
--- NOTE | 2017-02-17 16:41 | Provider's Discharge Care Plan ---
Problem, Goal, Plan Problem List 1. Chest pain Instructions: - come back to nuclear medicine department tomorrow - follow up with your pmd afterwards and we will have the test results - return to the hospital if the chest pain becomes much owrse 2. Chronic back pain Instructions: Take meds as directed 3. Hypothyroidism Instructions: Take meds as directed
--- NOTE | 2017-02-17 16:51 | Discharge Summary ---
Discharge Summary Report Admit Date 02/16/17 Discharge Date 02/17/17 Admission Diagnosis chest pain Discharge Diagnosis chest pain Brief History please refer to admission H&P Hospital Course Patient was admitted for chest pain and monitored on telemetry overnight. Patient had his troponins trended which did not reveal any elevation. Patients ekg overnight additionally did not show anything that would be concerning for ischemia. Patient had a cardiolite stress test the next day which did not reveal any acute pathology. Patient will be discharged home, he will do the second part of the stress test tomorrow. Patient will follow up with his pmd immediately afterward. Patient at this point is stable for discharge. General Appearance Alert, Oriented X3, No acute distress Lungs Normal air movement Cardiovascular Normal S1, Normal S2, No murmurs, Gallops Abdomen Soft, No tenderness Skin No Rashes, No Breakdown, No Significant Lesions Neurological Normal speech, Normal tone, Sensation intact, Cranial nerves 3-12 NL Discharge Instructions/Meds - perform second part of stress test - take pain medications as directed - follow up with your primary care doctor
--- NOTE | 2017-02-17 17:57 | NUR ---
A/OX3, UNDERWENT PERSANTINE STRESS TEST TOLERATRED IT WELL. REQUIRED INSULIN WITH EVERY BS CHECK. VOIDED WELL. TELE SHOWED NSR. EATING WELL, AMBULATES WITHOUT PROBLEM. D/C INSTRUCTIONS GONE OVER AND ESCORTED OUT.
--- NOTE | 2017-02-23 12:42 | DIAGNOSTIC IMAGING REPORT ---
REFERRING PHYSICIAN/PROVIDER: Bolivar Patel MD ATTENDING PHYSICIAN/PROVIDER: Bolivar Patel MD CONSULTING PUMP OPERATOR: Berhane Landeros Jr MD PROCEDURE PERFORMED: Nuclear stress test INDICATION: cad RADIOPHARMACEUTICAL: The patient received 26.0 mCi of technetium 99 sestamibi during stress. The patient did not perform resting images. This is a 1-day stress protocol. CARDIAC STRESS: The patient was stressed according to the [employer] protocol. There is heart rate was 83 beats per minute and the heart rate at peak stress was 102 beats per minute. The baseline blood pressure was not 113/76 mmHg and at peak pharmacological stress the blood pressure was 120/65 mmHg. The patient denied any chest pain and there are no significant arrhythmias noted. There are no evidence of acute ST-T changes. Overall impression this was a nondiagnostic stress test. RAW DATA: There is appropriate radiotracer uptake of the LV myocardium. Motion correction software was applied. QUANTITATIVE GATED SPECT: LV wall motion is grossly normal. EF was calculated at 48% which is within normal limits. MYOCARDIAL PERFUSION STUDY: There is a small perfusion defect noted along the inferior wall. However on prone stress imaging the perfusion defect nearly resolves. The patient did not complete resting images hence cannot exclude infarct or ischemia based on the size of the perfusion defect noted on prone stress imaging this is at worse mildly abnormal. However I suspect that the perfusion defect noted in the basal inferolateral wall is probably artifact. IMPRESSION: 1. Equivocal since the patient did not complete the resting images. However this is at worse mildly abnormal with questionable evidence for prior infarct or ischemia along the basal inferolateral wall. However I suspect this could be secondary to diaphragmatic attenuation artifact. EF is low normal calculated at 48%. Clinical correlation is recommended.
--- NOTE | 2017-02-23 12:42 | DIAGNOSTIC IMAGING REPORT ---
REFERRING PHYSICIAN/PROVIDER: Bolivar Patel MD ATTENDING PHYSICIAN/PROVIDER: Bolivar Patel MD CONSULTING DISTRICT OPERATIONS MANAGER: Berhane Landeros Jr MD PROCEDURE PERFORMED: Nuclear stress test INDICATION: cad RADIOPHARMACEUTICAL: The patient received 26.0 mCi of technetium 99 sestamibi during stress. The patient did not perform resting images. This is a 1-day stress protocol. CARDIAC STRESS: The patient was stressed according to the [employer] protocol. There is heart rate was 83 beats per minute and the heart rate at peak stress was 102 beats per minute. The baseline blood pressure was not 113/76 mmHg and at peak pharmacological stress the blood pressure was 120/65 mmHg. The patient denied any chest pain and there are no significant arrhythmias noted. There are no evidence of acute ST-T changes. Overall impression this was a nondiagnostic stress test. RAW DATA: There is appropriate radiotracer uptake of the LV myocardium. Motion correction software was applied. QUANTITATIVE GATED SPECT: LV wall motion is grossly normal. EF was calculated at 48% which is within normal limits. MYOCARDIAL PERFUSION STUDY: There is a small perfusion defect noted along the inferior wall. However on prone stress imaging the perfusion defect nearly resolves. The patient did not complete resting images hence cannot exclude infarct or ischemia based on the size of the perfusion defect noted on prone stress imaging this is at worse mildly abnormal. However I suspect that the perfusion defect noted in the basal inferolateral wall is probably artifact. IMPRESSION: 1. Equivocal since the patient did not complete the resting images. However this is at worse mildly abnormal with questionable evidence for prior infarct or ischemia along the basal inferolateral wall. However I suspect this could be secondary to diaphragmatic attenuation artifact. EF is low normal calculated at 48%. Clinical correlation is recommended.
== END 2017-02-17 17:00 | disposition home or self-care (01) ==
LOC: ED SRH 18:36 → TRANS SRH 23:19 → CC SRH 23:19
PROVIDERS: ADMIT Emergency Medicine
PROC: 4A02XM4 Measurement of Cardiac Total Activity, External Approach (ICD-10-PCS; principal; 2017-02-17)
PROC: 3E073KZ Introduction of Other Diagnostic Substance into Coronary Artery, Percutaneous Approach (ICD-10-PCS; 2017-02-17)
DX: R07.9 Chest pain, unspecified (principal); E11.65 Type 2 diabetes mellitus with hyperglycemia; Z79.4 Long term (current) use of insulin; I25.10 Atherosclerotic heart disease of native coronary artery without angina pectoris; I25.2 Old myocardial infarction; I10 Essential (primary) hypertension; E03.9 Hypothyroidism, unspecified; F17.210 Nicotine dependence, cigarettes, uncomplicated
CPT/HCPCS: 29251; 29259; 29264; 84204; 85241; 90074; 90098; 90100; 90616; 91286; 91320; 91556; 92132; 92760; 92761; 92762; 92763; 92764; 92765; 92766; 92767; 93140; 94060; 95059

== ENCOUNTER 2017-03-06 20:40 | Emergency (ER) | payer OTHER ==
[~2017-03-06 20:40] MED LIST: ABILIFY; ASPIRIN ADULT L81 M2 PO; DILAUDID4 MG PO; KEFLEX750 MG PO; LEVEMIR SC; LISINOPRIL10 MG PO; METOPROLOL TART25 MG PO; NITROSTAT0.4 MG SL; NOVOLOG PE100 UNITS/; SYNTHROID75 MCG PO
--- NOTE | 2017-03-06 22:51 | DIAGNOSTIC IMAGING REPORT ---
PROCEDURE: XR CHEST 2 VIEW INDICATION: CHEST PAIN TECHNIQUE: Two views. COMPARISON: 02/16/2017 FINDINGS: The cardiomediastinal contour is stable, within normal limits. The central vasculature is not congested. The lungs are clear without focal consolidation, pleural effusion or pneumothorax. The visualized osseous structures are intact. IMPRESSION: 1. No evidence of acute cardiopulmonary disease. 2. Stable exam compared to prior study.
--- NOTE | 2017-03-07 03:23 | ED ORDER SUMMARY ---
..... Patient: JUANIS HENSON OrderSheet [facility] VisitID: [id number] [place] [address] 41y, M Registration Date/Time: 03/06/2017 ORDER SHEET Weight: 120.2 kg (stated) Allergies: Toradol GENERAL ORDERS: CBC w Diff Urgent (21:05 03/06/2017 KKnebel R.N. per protocol) (21:06 KKnebel R.N.) CMP Urgent (21:03/06/2017 KKnebel R.N. per protocol) (21:06 KKnebel R.N.) UA-Culture if indicated Urgent (21:03/06/2017 KKnebel R.N. per protocol) (21:08 KKnebel R.N.) BNP Urgent (21:30 03/06/2017 Kartik LUCIO) (21:34 AMcQuoid ER Tech1) CPK Urgent (21:30 03/06/2017 Kartik LUCIO) (21:34 AMcQuoid ER Tech1) Troponin-I Urgent (21:30 03/06/2017 Kartik LUCIO) (21:34 AMcQuoid ER Tech1) Urine Drug Screen Urgent (21:30 03/06/2017 Kartik ULCIO) (Ack 21:34 AMcQuoid ER Tech1) (23:47 Jun R.N.) Chest 2V Urgent (21:40 03/06/2017 Kartik LUCIO) (Ack 21:43 AMcQuoid ER Tech1) (22:17 IANnebel R.N.) Puppet Master (Continuous) (21:40 03/06/2017 Kartik LUCIO) (Ack 21:43 AMcQuoid ER Tech1) (22:42 KKnebel R.N.) EKG - ER Stat (21:40 03/06/2017 Kartik LUCIO) (Ack 21:43 AMcQuoid ER Tech1) (21:50 AMcQuoid ER Tech1) Pulse oximeter (21:40 03/06/2017 Kartik LUCIO) (Ack 21:43 AMcQuoid ER Tech1) (22:17 KKnebel R.N.) TSH Urgent (22:45 03/06/2017 Kartik LUCIO) (22:56 AMcQuoid ER Tech1) Ethyl Alcohol Urgent (23:02 03/06/2017 Kartik LUCIO) (23:04 AMcQuoid ER Tech1) - (ACU check now and q 1 hour.) (00:40 03/07/2017 Kartik LUCIO) (Ack 0:42 AMcQuoid ER Tech1) (3:42 Jun R.N.) MEDICATION ORDERS: Oxycodone-APAP PO 10/650 mg (NOW) (02:43 03/07/2017 Kartik LUCIO) (Ack 3:00 CBsera R.N.) (3:04 Jun R.N.) - (abilify 15 mg po.) (03:19 03/07/2017 Kartik LUCIO) (Ack 3:26 Jun R.N.) (3:42 Jun R.N.) IV FLUIDS: IV NS with Normal Saline 1 Liter: initial bolus 1000 mL (1000 mL/hr), then 1000 mL/hr for X1 (NOW) (21:04 03/06/2017 Nohemi R.N. per protocol) (21:06 Nohemi R.N.) IV Saline Lock (21:05 03/06/2017 Nohemi R.N. per protocol) (21:07 Nohemi R.N.) Ativan IV 0.5 mg (NOW) (21:30 03/06/2017 Kartik LUCIO) (Ack 21:34 HSoule) (21:39 HSoule) Insulin Reg IV 7 units (NOW) (21:59 03/06/2017 Kartik LUCIO) (22:17 Nohemi R.N.) Dilaudid IV 0.5 mg (NOW) (22:18 03/06/2017 Kartik LUCIO) (22:42 Nohemi R.N.) Insulin Reg IV 4 units (NOW) (01:06 03/07/2017 Kartik LUCIO) (Ack 1:08 Jun R.N.) (1:55 Jun R.N.) ORDER SHEET NOTES: [Electronically signed by Marcy Weller R.N. (03:57 03/07/2017)] [Electronically signed by Augustine Resendez MD (23:38 03/07/2017)] [Electronically locked/signed by Marcy Weller R.N. (03:57 03/07/2017)]
--- NOTE | 2017-03-07 03:23 | ED ORDER SUMMARY ---
..... Patient: JUANIS HENSON OrderSheet [facility] VisitID: [id number] [place] [address] 41y, M Registration Date/Time: 03/06/2017 ORDER SHEET Weight: 120.2 kg (stated) Allergies: Toradol GENERAL ORDERS: CBC w Diff Urgent (21:05 03/06/2017 KKnebel R.N. per protocol) (21:06 KKnebel R.N.) CMP Urgent (21:03/06/2017 KKnebel R.N. per protocol) (21:06 KKnebel R.N.) UA-Culture if indicated Urgent (21:03/06/2017 KKnebel R.N. per protocol) (21:08 KKnebel R.N.) BNP Urgent (21:30 03/06/2017 Kartik LUCIO) (21:34 AMcQuoid ER Tech1) CPK Urgent (21:30 03/06/2017 Kartik LUCIO) (21:34 AMcQuoid ER Tech1) Troponin-I Urgent (21:30 03/06/2017 Kartik LUCIO) (21:34 AMcQuoid ER Tech1) Urine Drug Screen Urgent (21:30 03/06/2017 Kartik LUCIO) (Ack 21:34 AMcQuoid ER Tech1) (23:47 Jun R.N.) Chest 2V Urgent (21:40 03/06/2017 Kartik LUCIO) (Ack 21:43 AMcQuoid ER Tech1) (22:17 IANnebel R.N.) Sr. Payroll Processor (Continuous) (21:40 03/06/2017 Kartik LUCIO) (Ack 21:43 AMcQuoid ER Tech1) (22:42 KKnebel R.N.) EKG - ER Stat (21:40 03/06/2017 Kartik LUCIO) (Ack 21:43 AMcQuoid ER Tech1) (21:50 AMcQuoid ER Tech1) Pulse oximeter (21:40 03/06/2017 Kartik LUCIO) (Ack 21:43 AMcQuoid ER Tech1) (22:17 KKnebel R.N.) TSH Urgent (22:45 03/06/2017 Kartik LUCIO) (22:56 AMcQuoid ER Tech1) Ethyl Alcohol Urgent (23:02 03/06/2017 Kartik LUCIO) (23:04 AMcQuoid ER Tech1) - (ACU check now and q 1 hour.) (00:40 03/07/2017 Kartik LUCIO) (Ack 0:42 AMcQuoid ER Tech1) (3:42 Jun R.N.) MEDICATION ORDERS: Oxycodone-APAP PO 10/650 mg (NOW) (02:43 03/07/2017 Kartik LUCIO) (Ack 3:00 CBsera R.N.) (3:04 Jun R.N.) - (abilify 15 mg po.) (03:19 03/07/2017 Kartik LUCIO) (Ack 3:26 Jun R.N.) (3:42 Jun R.N.) IV FLUIDS: IV NS with Normal Saline 1 Liter: initial bolus 1000 mL (1000 mL/hr), then 1000 mL/hr for X1 (NOW) (21:04 03/06/2017 Nohemi R.N. per protocol) (21:06 Nohemi R.N.) IV Saline Lock (21:05 03/06/2017 Nohemi R.N. per protocol) (21:07 Nohemi R.N.) Ativan IV 0.5 mg (NOW) (21:30 03/06/2017 Kartik LUCIO) (Ack 21:34 HSoule) (21:39 HSoule) Insulin Reg IV 7 units (NOW) (21:59 03/06/2017 Kartik LUCIO) (22:17 Nohemi R.N.) Dilaudid IV 0.5 mg (NOW) (22:18 03/06/2017 Kartik LUCIO) (22:42 Nohemi R.N.) Insulin Reg IV 4 units (NOW) (01:06 03/07/2017 Kartik LUCIO) (Ack 1:08 Jun R.N.) (1:55 Jun R.N.) ORDER SHEET NOTES: [Electronically signed by Marcy Weller R.N. (03:57 03/07/2017)] [Electronically signed by Augustine Resendez MD (23:38 03/07/2017)] [Electronically locked/signed by Marcy Weller R.N. (03:57 03/07/2017)]
--- NOTE | 2017-03-07 03:23 | ED CLINICAL REPORT ---
Clinical Report - Physicians/Mid Levels [facility] [address] [place] [address] 03/06/2017 20:41 [id number] Time Seen: 21:04 Mar 06 2017. Historian- patient. CPT: ER phys charges level 4 (#[id number]). HISTORY OF PRESENT ILLNESS Chief Complaint: ANXIOUS and DEPRESSED and (feeling hopeless and fears for his safety although denies suicidal ideation. Is hearing voices but none of them negative content.). This started today. (Has had 4 deaths in the family in the last 4 months. Moved from [place] 3 months ago and is living in a trailer that will be towed if he cannot get it running and move it. He has not had money for meds for 3 months. Has a Doctor in [place].). Has been depressed but eating or sleeping. He has had anxiety. No delusions, suicidal thoughts, self-injury inflicted or hallucinations. The symptoms are described as moderate. No injury is present. REVIEW OF SYSTEMS No headache, dizziness, weakness, abdominal pain or vomiting. No diarrhea, black stools, fever, sore throat or cough. No difficulty breathing, skin rash or enlarged lymph nodes. He has had mild, sharp central chest pain (on and off, fleeting for the last several days.). Says he has had multiple episodes of CP since getting his stent but the turf farm worker has evaluated this and says it is not the heart and most likely his anxiety. Pt was admitted here at [facility] last month and a cardiolyte ETT did not show any signs of ischemia. PAST HISTORY ( Cardiovascular Risk Factors. Hyperglycemia. Cellulitis. Peptic Ulcer Disease. Coronary Artery Disease. Chest Pain. Substance Abuse. Schizophrenia. Atypical Chest Pain. Abscess. Hypertension. Thyroid Disease. Diabetes Mellitus. ADDITIONAL SURGERIES: Back Surgery. Coronary stents. Stent.). Medications: KlonoPIN Oral. Flexeril. ASA Oral 81, daily. Dilaudid 4mg q 6 hrs prn . Levamir 50 uniits, 2x a day. Lisinopril Oral 20 mg, 2x a day. Metoprolol Tartrate Oral 25 mg. Nitroglycerin Sublingual 0.4 mg, as needed. NovoLOG FlexPen Subcutaneous 40-50, 4x daily. Synthroid Oral 75 mcg, daily. Insulin Regular Human Injection. Allergies: Toradol. SOCIAL HISTORY Heavy tobacco smoker (cigarette)- 1 pack per day. No alcohol use or drug use. ADDITIONAL NOTES The nursing notes have been reviewed. PHYSICAL EXAM Vital Signs: 03/06/2017 20:46 BP: 162/84. HR: 94. RR: 16. O2 saturation: 97%. Pain level now: 6/10. Appearance: Alert. No acute distress. Appearance is normal. ( tearful). Eyes: Pupils equal, round and reactive to light. Neck: Normal inspection. Neck supple. CVS: Normal heart rate and rhythm. Heart sounds normal. Respiratory: Breath sounds normal. Chest nontender. Abdomen: Soft and nontender. Back: No tenderness. Skin: Skin warm. Normal skin color. Extremities: Extremities exhibit normal ROM. No lower extremity edema. Psych / Neuro: Oriented X 3. Mood and affect normal. Speech normal. Cognition normal. Thought process and content normal. Insight and judgement normal. Cranial nerves normal (as tested). No cerebellar findings. No motor deficit. No sensory deficit. Reflexes normal. LABS, X-RAYS, AND EKG EKG: No acute process. Normal sinus rhythm. Normal P waves. Normal USAMA. Normal QRS complex. Normal axis. Normal ST and T waves. Prior EKG unavailable. The study has been interpreted contemporaneously. The study has been independently viewed by me. The EKG appears to be a good tracing. Chest X-ray: No acute disease. Views: PA and lateral. Technique: good. The X-rays were independently viewed by me and interpreted contemporaneously by me. Laboratory Tests: UA-Culture if indicated: (NIKOLAS: 03/06/2017 22:55) ( MsgRcvd 03/06/2017 23:18) Final results Test Result Flag Units (Reference) URINE COLOR YELLOW URINE APPEARANCE CLEAR URINE GLUCOSE 3+ (NEGATIVE) URINE BILIRUBIN NEGATIVE (NEGATIVE) URINE KETONE NEGATIVE (NEGATIVE) URINE SPECIFIC GRAVITY 1.015 (1.010-1.030) URINE PH 5.5 (5.0-8.0) URINE PROTEIN NEGATIVE (NEGATIVE) URINE UROBILINOGEN 0.2 EU/dL (0.2-1.0) URINE NITRITE NEGATIVE (NEGATIVE) URINE BLOOD NEGATIVE (NEGATIVE) URINE LEUK ESTERASE NEGATIVE (NEGATIVE) URINE RBC NONE SEEN rbc/hpf (0-1) URINE WBC NONE SEEN wbc/hpf (0-1) URINE EPITHELIAL CELLS NONE SEEN EPI/hpf (0-5) URINE BACTERIA NONE SEEN (NONE SEEN) URINE COMMENT CULT NOT INDICATED URINE CULTURES ARE SET-UP BASED ON THE FOLLOWING CRITERIA:POSITIVE NITRITEPOSITIVE LEUKOCYTE ESTERASEGREATER THAN 10 WHITE BLOOD CELLSMODERATE (2+) OR GREATER BACTERIA CBC w Diff: (NIKOLAS: 03/06/2017 20:55) ( [facility] 03/06[facility] 21:12) Final results Test Result Flag Units (Reference) WHITE BLOOD COUNT 6.4 K/uL (4.5-11.5) RED BLOOD COUNT 5.52 M/uL (4.50-5.90) HEMOGLOBIN 14.9 gm/dL (13.5-17.5) HEMATOCRIT 43.9 % (41.0-53.0) MEAN CELL VOLUME 79 L fL (80-100) MEAN CORPUSCULAR HGB 27 pg (26-34) MEAN CORPUSCULAR HGB CONC 34 g/dL (31-37) RED CELL DISTRIBUTION WIDTH 14.9 H % (11.6-14.8) PLATELET COUNT 252 K/uL (150-400) NEUTROPHIL % 64.6 % (50-75) LYMPH % 26.0 % (25-40) MONO % 6.7 % (3-14) EOSINOPHIL % 1.6 % (0-4) BASOPHIL % 1.1 % (0-2) Ethyl Alcohol: (NIKOLAS: 03/06/2017 21:00) ( MagRcvd 03/06/2017 23:17) Final results Test Result Flag Units (Reference) ETHYL ALCOHOL <3 L mg/dL (3-10) TSH: (NIKOLAS: 03/06/2017 21:50) ( MsgRcvd 03/06/2017 23:16) Final results Test Result Flag Units (Reference) THYROID STIMULATING HORMONE 0.709 uIU/mL (0.34-3.74) Urine Drug Screen: (NIKOLAS: 03/06/2017 22:55) ( [facility] 03/06/2017 23:13) Final results Test Result Flag Units (Reference) AMPHETAMINE/METHAMPHETAMINE NEGATIVE (NEGATIVE) BARBITURATE NEGATIVE (NEGATIVE) BENZODIAZEPINE NEGATIVE (NEGATIVE) CANNABINOID NEGATIVE (NEGATIVE) COCAINE NEGATIVE (NEGATIVE) ECSTASY NEGATIVE (NEGATIVE) METHADONE NEGATIVE (NEGATIVE) OPIATE NEGATIVE (NEGATIVE) The urine drug screen is a qualitative screening test fordrug overdose and abuse. All screen results should beconsidered as presumptive.Drugs screened for are as follows:BenzodiazepinesCocaineAmphetamines/MetamphetaminesTHC (Tetrahydrocannabinol)OpiatesBarbituratesEcstasyMethadonePositive results are unconfirmed. For confirmation, notifythe lab for the specimen to be sent to the reference lab.All confirmations must be performed by a differentmethodology.The ingestion of natural herbal and plant productscontaining Ephedra/Ephedra metabolites can produce in urineone or more substances capable of cross reacting withamphetamine/methamphetamine immunoassays. These testsprovide a preliminary result only. A more specificalternative chemical method must be used to obtain aconfirmed analytical result. BNP: (NIKOLAS: 03/06/2017 21:00) ( [facility] 03/06/2017 22:07) Final results Test Result Flag Units (Reference) B-TYPE NATRIURETIC PEPTIDE 28 pg/ml (5-100) CPK: (NIKOLAS: 03/06/2017 21:41) ( [facility] 03/06/2017 22:07) Final results Test Result Flag Units (Reference) CPK 97 U/L (24-260) TROPONIN I 0.06 ng/mL (0.00-1.5) TROPONIN REFERENCE RANGE:<0.1 NEGATIVE0.1-1.5 INDETERMINANT>1.5 POSITIVE CMP: (NIKOLAS: 03/06/2017 20:55) ( [facility] 03/06/2017 21:39) Final results Test Result Flag Units (Reference) GLUCOSE 435 H mg/dL (70-110) BUN 10 mg/dL (7-18) CREATININE 1.0 mg/dL (0.6-1.3) Estimated GFR >60 mL/min Estimated GFR- >60 mL/min Note: Persistent reduction over 3 months in eGFR<60 mL/min/1.73 m2 defines CKD. Patients with eGFR values>=60 mL/min/1.73 m2 may also have CKD if evidence ofpersistent proteinuria. Additional information may be foundat www.kidney.org. SODIUM 139 mmol/L (136-145) POTASSIUM 4.6 mmol/L (3.5-5.1) CHLORIDE 104 mmol/L (98-107) CARBON DIOXIDE 22 mmol/L (21-32) CALCIUM 8.2 L mg/dL (8.5-10.1) TOTAL PROTEIN 7.6 g/dL (6.4-8.2) ALBUMIN 3.1 L g/dL (3.3-5.0) BILIRUBIN, TOTAL 0.5 mg/dL (0.0-1.0) ALKALINE PHOSPHATASE 88 U/L (46-116) AST (SGOT) 43 H U/L (15-37) ALT (SGPT) 55 U/L (12-78) . PROGRESS AND PROCEDURES Course of Care: IV NS Dilaudid 0.5 mg IV Ativan 0.5 mg IV Regular Insulin 7units IV Regular insulin 4 units IV Percocet 2 po for chronic low back pain. Abilify 15 mg po for Pt wants to speak to PAT team. [facility]. [facility] is willing to call on Thursday for follow up and a appointment. Pt is satisfied with this. Will also give contact for Guevara Parry so patient can get insulin. Patient/family counseled. Disposition: Discharged. Condition: stable. CLINICAL IMPRESSION Anxiety reaction. 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 No suicidal ideation or suicidal attempt. Poorly controlled type 2 diabetes with hyperglycemia. No coma. Out of medications Chronic low back pain Schizophrenia. INSTRUCTIONS (Call hospital on Thursday and ask to talk to Guevara Parry for information on getting insurance and diabetes medications. [phone]. [facility] will call Thursday to get you in on Thursday. Ask for Psychiatrist to get abilify injection.). Warnings: Further evaluation is necessary. SEDATIVE MEDICATION: You were given sedative medication during your visit. Do not drive or operate dangerous machinery. Understanding of the discharge instructions verbalized by patient. Follow-up with: [facility], , , [address], , [place], [id number] Follow up in five days. Call for the next available appointment. (Electronically signed by Augustine Resendez MD 03/07/2017 23:38)
--- NOTE | 2017-03-07 03:23 | ED CLINICAL REPORT ---
Clinical Report - Physicians/Mid Levels [facility] [address] [place] [address] 03/06/2017 20:41 [id number] Time Seen: 21:04 Mar 06 2017. Historian- patient. CPT: ER phys charges level 4 (#[id number]). HISTORY OF PRESENT ILLNESS Chief Complaint: ANXIOUS and DEPRESSED and (feeling hopeless and fears for his safety although denies suicidal ideation. Is hearing voices but none of them negative content.). This started today. (Has had 4 deaths in the family in the last 4 months. Moved from [place] 3 months ago and is living in a trailer that will be towed if he cannot get it running and move it. He has not had money for meds for 3 months. Has a Doctor in [place].). Has been depressed but eating or sleeping. He has had anxiety. No delusions, suicidal thoughts, self-injury inflicted or hallucinations. The symptoms are described as moderate. No injury is present. REVIEW OF SYSTEMS No headache, dizziness, weakness, abdominal pain or vomiting. No diarrhea, black stools, fever, sore throat or cough. No difficulty breathing, skin rash or enlarged lymph nodes. He has had mild, sharp central chest pain (on and off, fleeting for the last several days.). Says he has had multiple episodes of CP since getting his stent but the epic analyst has evaluated this and says it is not the heart and most likely his anxiety. Pt was admitted here at [facility] last month and a cardiolyte ETT did not show any signs of ischemia. PAST HISTORY ( Cardiovascular Risk Factors. Hyperglycemia. Cellulitis. Peptic Ulcer Disease. Coronary Artery Disease. Chest Pain. Substance Abuse. Schizophrenia. Atypical Chest Pain. Abscess. Hypertension. Thyroid Disease. Diabetes Mellitus. ADDITIONAL SURGERIES: Back Surgery. Coronary stents. Stent.). Medications: KlonoPIN Oral. Flexeril. ASA Oral 81, daily. Dilaudid 4mg q 6 hrs prn . Levamir 50 uniits, 2x a day. Lisinopril Oral 20 mg, 2x a day. Metoprolol Tartrate Oral 25 mg. Nitroglycerin Sublingual 0.4 mg, as needed. NovoLOG FlexPen Subcutaneous 40-50, 4x daily. Synthroid Oral 75 mcg, daily. Insulin Regular Human Injection. Allergies: Toradol. SOCIAL HISTORY Heavy tobacco smoker (cigarette)- 1 pack per day. No alcohol use or drug use. ADDITIONAL NOTES The nursing notes have been reviewed. PHYSICAL EXAM Vital Signs: 03/06/2017 20:46 BP: 162/84. HR: 94. RR: 16. O2 saturation: 97%. Pain level now: 6/10. Appearance: Alert. No acute distress. Appearance is normal. ( tearful). Eyes: Pupils equal, round and reactive to light. Neck: Normal inspection. Neck supple. CVS: Normal heart rate and rhythm. Heart sounds normal. Respiratory: Breath sounds normal. Chest nontender. Abdomen: Soft and nontender. Back: No tenderness. Skin: Skin warm. Normal skin color. Extremities: Extremities exhibit normal ROM. No lower extremity edema. Psych / Neuro: Oriented X 3. Mood and affect normal. Speech normal. Cognition normal. Thought process and content normal. Insight and judgement normal. Cranial nerves normal (as tested). No cerebellar findings. No motor deficit. No sensory deficit. Reflexes normal. LABS, X-RAYS, AND EKG EKG: No acute process. Normal sinus rhythm. Normal P waves. Normal USAMA. Normal QRS complex. Normal axis. Normal ST and T waves. Prior EKG unavailable. The study has been interpreted contemporaneously. The study has been independently viewed by me. The EKG appears to be a good tracing. Chest X-ray: No acute disease. Views: PA and lateral. Technique: good. The X-rays were independently viewed by me and interpreted contemporaneously by me. Laboratory Tests: UA-Culture if indicated: (NIKOLAS: 03/06/2017 22:55) ( MsgRcvd 03/06/2017 23:18) Final results Test Result Flag Units (Reference) URINE COLOR YELLOW URINE APPEARANCE CLEAR URINE GLUCOSE 3+ (NEGATIVE) URINE BILIRUBIN NEGATIVE (NEGATIVE) URINE KETONE NEGATIVE (NEGATIVE) URINE SPECIFIC GRAVITY 1.015 (1.010-1.030) URINE PH 5.5 (5.0-8.0) URINE PROTEIN NEGATIVE (NEGATIVE) URINE UROBILINOGEN 0.2 EU/dL (0.2-1.0) URINE NITRITE NEGATIVE (NEGATIVE) URINE BLOOD NEGATIVE (NEGATIVE) URINE LEUK ESTERASE NEGATIVE (NEGATIVE) URINE RBC NONE SEEN rbc/hpf (0-1) URINE WBC NONE SEEN wbc/hpf (0-1) URINE EPITHELIAL CELLS NONE SEEN EPI/hpf (0-5) URINE BACTERIA NONE SEEN (NONE SEEN) URINE COMMENT CULT NOT INDICATED URINE CULTURES ARE SET-UP BASED ON THE FOLLOWING CRITERIA:POSITIVE NITRITEPOSITIVE LEUKOCYTE ESTERASEGREATER THAN 10 WHITE BLOOD CELLSMODERATE (2+) OR GREATER BACTERIA CBC w Diff: (NIKOLAS: 03/06/2017 20:55) ( [facility] 03/06/2017 21:12) Final results Test Result Flag Units (Reference) WHITE BLOOD COUNT 6.4 K/uL (4.5-11.5) RED BLOOD COUNT 5.52 M/uL (4.50-5.90) HEMOGLOBIN 14.9 gm/dL (13.5-17.5) HEMATOCRIT 43.9 % (41.0-53.0) MEAN CELL VOLUME 79 L fL (80-100) MEAN CORPUSCULAR HGB 27 pg (26-34) MEAN CORPUSCULAR HGB CONC 34 g/dL (31-37) RED CELL DISTRIBUTION WIDTH 14.9 H % (11.6-14.8) PLATELET COUNT 252 K/uL (150-400) NEUTROPHIL % 64.6 % (50-75) LYMPH % 26.0 % (25-40) MONO % 6.7 % (3-14) EOSINOPHIL % 1.6 % (0-4) BASOPHIL % 1.1 % (0-2) Ethyl Alcohol: (NIKOLAS: 03/06/2017 21:00) ( AkgRcvd 03/06/2017 23:17) Final results Test Result Flag Units (Reference) ETHYL ALCOHOL <3 L mg/dL (3-10) TSH: (NIKOLAS: 03/06/2017 21:50) ( MsgRcvd 03/06/2017 23:16) Final results Test Result Flag Units (Reference) THYROID STIMULATING HORMONE 0.709 uIU/mL (0.34-3.74) Urine Drug Screen: (NIKOLAS: 03/06/2017 22:55) ( [facility] 03/06/2017 23:13) Final results Test Result Flag Units (Reference) AMPHETAMINE/METHAMPHETAMINE NEGATIVE (NEGATIVE) BARBITURATE NEGATIVE (NEGATIVE) BENZODIAZEPINE NEGATIVE (NEGATIVE) CANNABINOID NEGATIVE (NEGATIVE) COCAINE NEGATIVE (NEGATIVE) ECSTASY NEGATIVE (NEGATIVE) METHADONE NEGATIVE (NEGATIVE) OPIATE NEGATIVE (NEGATIVE) The urine drug screen is a qualitative screening test fordrug overdose and abuse. All screen results should beconsidered as presumptive.Drugs screened for are as follows:BenzodiazepinesCocaineAmphetamines/MetamphetaminesTHC (Tetrahydrocannabinol)OpiatesBarbituratesEcstasyMethadonePositive results are unconfirmed. For confirmation, notifythe lab for the specimen to be sent to the reference lab.All confirmations must be performed by a differentmethodology.The ingestion of natural herbal and plant productscontaining Ephedra/Ephedra metabolites can produce in urineone or more substances capable of cross reacting withamphetamine/methamphetamine immunoassays. These testsprovide a preliminary result only. A more specificalternative chemical method must be used to obtain aconfirmed analytical result. BNP: (NIKOLAS: 03/06/2017 21:00) ( [facility] 03/06/2017 22:07) Final results Test Result Flag Units (Reference) B-TYPE NATRIURETIC PEPTIDE 28 pg/ml (5-100) CPK: (NIKOLAS: 03/06/2017 21:41) ( [facility] 03/06/2017 22:07) Final results Test Result Flag Units (Reference) CPK 97 U/L (24-260) TROPONIN I 0.06 ng/mL (0.00-1.5) TROPONIN REFERENCE RANGE:<0.1 NEGATIVE0.1-1.5 INDETERMINANT>1.5 POSITIVE CMP: (NIKOLAS: 03/06/2017 20:55) ( [facility] 03/06/2017 21:39) Final results Test Result Flag Units (Reference) GLUCOSE 435 H mg/dL (70-110) BUN 10 mg/dL (7-18) CREATININE 1.0 mg/dL (0.6-1.3) Estimated GFR >60 mL/min Estimated GFR- >60 mL/min Note: Persistent reduction over 3 months in eGFR<60 mL/min/1.73 m2 defines CKD. Patients with eGFR values>=60 mL/min/1.73 m2 may also have CKD if evidence ofpersistent proteinuria. Additional information may be foundat www.kidney.org. SODIUM 139 mmol/L (136-145) POTASSIUM 4.6 mmol/L (3.5-5.1) CHLORIDE 104 mmol/L (98-107) CARBON DIOXIDE 22 mmol/L (21-32) CALCIUM 8.2 L mg/dL (8.5-10.1) TOTAL PROTEIN 7.6 g/dL (6.4-8.2) ALBUMIN 3.1 L g/dL (3.3-5.0) BILIRUBIN, TOTAL 0.5 mg/dL (0.0-1.0) ALKALINE PHOSPHATASE 88 U/L (46-116) AST (SGOT) 43 H U/L (15-37) ALT (SGPT) 55 U/L (12-78) . PROGRESS AND PROCEDURES Course of Care: IV NS Dilaudid 0.5 mg IV Ativan 0.5 mg IV Regular Insulin 7units IV Regular insulin 4 units IV Percocet 2 po for chronic low back pain. Abilify 15 mg po for Pt wants to speak to PAT team. PAT team is not available [facility]. [facility] is willing to call on Thursday for follow up and a appointment. Pt is satisfied with this. Will also give contact for Guevara Parry so patient can get insulin. Patient/family counseled. Disposition: Discharged. Condition: stable. CLINICAL IMPRESSION Anxiety reaction. 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 No suicidal ideation or suicidal attempt. Poorly controlled type 2 diabetes with hyperglycemia. No coma. Out of medications Chronic low back pain Schizophrenia. INSTRUCTIONS (Call hospital on Thursday and ask to talk to Guevara Parry for information on getting insurance and diabetes medications. [phone]. [facility] will call Thursday to get you in on Thursday. Ask for Psychiatrist to get abilify injection.). Warnings: Further evaluation is necessary. SEDATIVE MEDICATION: You were given sedative medication during your visit. Do not drive or operate dangerous machinery. Understanding of the discharge instructions verbalized by patient. Follow-up with: [facility], , , [address], , [place], [address] Follow up in five days. Call for the next available appointment. (Electronically signed by Augustine Resendez MD 03/07/2017 23:38)
--- NOTE | 2017-03-07 03:23 | ED NURSING NOTES ---
Clinical Report - Nurses [facility] [address] [place] [place] [address] 03/06/2017 20:41 [id number] TRI[facility] Triage time 20:46 Mar 06 2017. Acuity: LEVEL 3. Chief Complaint: DEPRESSION and ANXIETY. Alert. No acute distress. MAGI COMA SCORE: Roach Coma Scale: 15- eyes open spontaneously (4); best verbal response- oriented x 4 (5); best motor response- obeys commands (6). --20:53 Ashley Gannon R.N. 20:46 03/06/17. BP: 162/84. HR: 94. RR: 16. O2 saturation: 97%. Pain level now: 04/11. --20:53 Ashley Gannon R.N. Weight: 120.2 kg stated. Height/Length: 70 inches Per Patient. BMI: 38. --20:51 Ashley Gannon R.N. Medications Insulin Regular Human Injection. --20:48 Ashley Gannon R.N. ASA Oral 81, daily. Dilaudid 4mg q 6 hrs prn . Levamir 50 uniits, 2x a day. Lisinopril Oral 20 mg, 2x a day. Metoprolol Tartrate Oral 25 mg. Nitroglycerin Sublingual 0.4 mg, as needed. NovoLOG FlexPen Subcutaneous 40-50, 4x daily. Synthroid Oral 75 mcg, daily. --20:48 Ashley Gannon R.N. Flexeril. --20:49 Ashley Gannon R.N. KlonoPIN Oral. --20:49 Ashley Gannon R.N. Allergies Toradol. --20:50 Ashley Gannon R.N. History Arrived by private vehicle. Historian: patient. Onset. (about 1 weeks ago). He has had sleeping difficulties. Treatment COMPTOMETRIST: None. PAST MEDICAL HX: Immunizations: up-to-date. SOCIAL HX: Current every day heavy tobacco smoker (cigarette)- 1 pack per day. No alcohol use or drug use. No infectious disease exposure. SELF HARM ASSESSMENT: A self harm assessment was performed. The patient answered "no" to the question "Do you have thoughts of harming or killing yourself?". FALL RISK ASSESSMENT: Fall risk assessment completed. No fall risk identified. NUTRITIONAL RISK ASSESSMENT: The nutritional risk assessment revealed no deficiencies. FUNCTIONAL ASSESSMENT: Functional assessment: no impairments noted. LEARNING NEEDS ASSESSMENT: The learning needs assessment revealed no barriers. ABUSE ASSESSMENT: Abuse assessment: The patient was asked "Do you feel safe in your home?". SKIN INTEGRITY ASSESSMENT: Skin integrity risk assessment completed. No skin integrity risk identified. --20:53 Ashley Gannon R.N. PROBLEMS: Cardiovascular Risk Factors. Hyperglycemia. Cellulitis. Peptic Ulcer Disease. Coronary Artery Disease. Chest Pain. Substance Abuse. Schizophrenia. Atypical Chest Pain. Abscess. Hypertension. Thyroid Disease. Diabetes Mellitus. --20:50 Ashley Gannon R.N. ADDITIONAL SURGERIES: Back Surgery. Coronary stents. Stent. --20:50 Ashley Gannon R.N. Interventions ID band on patient. --20:53 Ashley Gannon R.N. PHYSICAL ASSESSMENT GENERAL / NEURO / PSYCH: Alert. Oriented X 4. Appears anxious. Speech within normal limits. Patient's mood/affect appears tearful. Patient appears calm and cooperative. Patient appears well-nourished. RESPIRATORY: Respirations not labored. CVS: Normal heart rate and rhythm. Capillary refill less than 2 seconds. GI / : Abdomen soft and nontender. SKIN: Skin is warm and dry. --20:53 Ashley Gannon R.N. NURSING PROGRESS NOTES Patient gowned. Head of bed elevated. Patient identifiers checked. Call light placed in reach. Side rails up. Bed placed in lowest position. Brakes of bed on. --20:54 Ashley Gannon R.N. 21:04 03/06/2017 Site #1 started via IV in the right antecubital space with an 20g angiocath, with aseptic technique and good blood return; one attempt. Blood drawn: rainbow set. Labeled in the presence of the patient and sent to the lab. Saline lock flushed with 10 mL saline. --21:04 Ashley Gannon R.N. 21:05 03/06/2017 Started bag #1 1000 mL IV Fluids IV NS (Saline); at 1000 mL/hr over 1 hour(s) via site #1 via IV pump. Allergies verified and confirmed 5 rights. IV patency established. IV site checked: no pain, redness, or swelling. IV flushed thoroughly pre- and post-medication administration. --21:06 Ashley Gannon R.N. Finger stick glucose: 369 mg/dL; performed by nurse; result shown to the ED physician. --21:07 Ashley Gannon R.N. 21:39 03/06/2017 Ativan (LORazepam) IVP 0.5 mg given over 1 minute(s) via site #1. Allergies verified, confirmed 5 rights and sedative warning given to the patient. IV patency established. IV site checked: no pain, redness, or swelling. IV flushed thoroughly pre- and post-medication administration. IVP given by RN. --21:39 Nicky Patel ( Patient made aware of need for urine. Patient given warm blankets and has no complaints at this time.). --21:39 Nicky Patel 21:51. EKG was performed by a tech. --21:51 Marjorie, Debbie, ER Tech1 22:12 03/06/2017 Insulin REG IVP 7 unit given over 2 minute(s) via site #1. Allergies verified and confirmed 5 rights. IV patency established. IV site checked: no pain, redness, or swelling. IV flushed thoroughly pre- and post-medication administration. --22:17 Ashley Gannon R.N. Patient transported to radiology by wheelchair with tech. (22:Mar 06 2017). --22:19 Ashley Gannon R.N. Patient returned from radiology by wheelchair with tech. (22:Mar 06 2017). --22:27 Ashley Gannon R.N. 22:37 03/06/2017 Dilaudid (HYDROmorphone HCl PF) IVP 0.5 mg given over 1 minute(s) via site #1. Allergies verified, confirmed 5 rights and sedative warning given to the patient. IV patency established. IV site checked: no pain, redness, or swelling. IV flushed thoroughly pre- and post-medication administration. --22:42 Ashley Gannon R.N. 22:40 03/06/17. BP: 133/74. HR: 84. RR: 25. O2 saturation: 96%. Pain level now: 04/11. --22:42 Ashley Gannon R.N. Finger stick glucose: 330 mg/dL. --22:42 Ashley Gannon R.N. 00:00 03/07/17. BP: 112/64 taken on the left arm, while lying. HR: 64. RR: 18. O2 saturation: 93% on room air. Temp: deferred. Pain level now: 010. --00:31 Marcy Weller R.N. The patient reports no complaints and he is resting quietly. GENERAL / NEURO / PSYCH: Alert. Oriented X 4. Patient appears calm and cooperative. Affect appears normal. RESPIRATORY: No respiratory distress. SKIN: Skin is warm and dry. Skin color within normal limits. --00:31 Marcy Weller R.N. 00:45. Finger stick glucose: 301 mg/dL; performed by tech. --00:46 McQuoid, Debbie, ER Tech1 22:07 03/06/2017 IV Fluids IV NS Discontinued: bag #1. Total amount infused: 1000 mL. IV patency established. IV site checked: no pain, redness, or swelling. IV flushed thoroughly. --01:08 aMrcy Weller R.N. 01:10 03/07/2017 Insulin REG IVP 4 unit given over 1 minute(s) via site #1. Allergies verified and confirmed 5 rights. IV patency established. IV site checked: no pain, redness, or swelling. IV flushed thoroughly pre- and post-medication administration. IVP given by RN. --01:55 Marcy Weller R.N. 01:14 03/07/2017 Insulin REG IVP 4 unit given over 1 minute(s) via site #1. Allergies verified and confirmed 5 rights. IV patency established. IV site checked: no pain, redness, or swelling. IV flushed thoroughly pre- and post-medication administration. IVP given by RN. --01:14 Marcy Weller R.N. 03:04 03/07/2017 Oxycodone-APAP (Oxycodone-Acetaminophen) PO 5/325 mg Tablets 2 tab given. Allergies verified, confirmed 5 rights and sedative warning given to the patient. --03:04 Marcy Weller R.N. 03:42 03/07/2017 Abilify PO Tablets 15 mg given. Allergies verified and confirmed 5 rights. --03:42 Marcy Weller R.N. DISPOSITION / DISCHARGE 03:50 03/07/2017 Site #1 removed upon discharge. Catheter intact. Manual pressure and bandage applied. --03:56 Marcy Weller R.N. 03:50 03/07/2017 IV Saline Lock Drip IV Discontinued: bag #1 completed upon discharge. Total amount infused: 1000 mL. IV patency established. IV site checked: no pain, redness, or swelling. IV flushed thoroughly. --03:56 Marcy Weller R.N. Departure time: 0350. Condition at departure: improved. No learning barriers present. Discharge instructions provided and reviewed with the patient. Reviewed referral to a psychiatrist and family practice. Activity restrictions (rest) reviewed. Patient verbalized understanding. Written instructions provided in Indonesian. The patient was discharged home and unaccompanied at time of discharge. He left the Emergency Department ambulatory. --03:56 Marcy Weller R.N. 03:53 03/07/17. BP: 126/63 taken on the left arm, while lying. HR: 68 (regular and normal rate). RR: 18 (regular and unlabored). O2 saturation: 100% on room air. Temp: deferred. Pain level now: 12/12. --03:56 Marcy Weller R.N. Locked/Released at 03/07/2017 3:57 by Marcy Weller R.N.
--- NOTE | 2017-03-07 23:38 | ED DISCHARGE INSTRUCTIONS ---
Patient: JUANIS HENSON General Instructions [facility] VisitID: [id number] [address] [place] [address] 41y, M Registration Date/Time: 03/06/2017 Anxiety reaction. 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 No suicidal ideation or suicidal attempt. Poorly controlled type 2 diabetes with hyperglycemia. No coma. Out of medications Chronic low back pain Schizophrenia. INSTRUCTIONS (Call hospital on Thursday and ask to talk to Guevara Parry for information on getting insurance and diabetes medications. [phone]. [facility] will call Thursday to get you in on Thursday. Ask for Psychiatrist to get abilify injection.). Warnings: Further evaluation is necessary. SEDATIVE MEDICATION: You were given sedative medication during your visit. Do not drive or operate dangerous machinery. Understanding of the discharge instructions verbalized by patient. Follow-up with: [facility], , , [address], , [place], [address] Follow up in five days. Call for the next available appointment. ADDITIONAL INFORMATION Depression Depression is one of the most common mental health problems today. It is not just a state of unhappiness or sadness. It is a true disease. The cause seems to be related to a decrease in chemicals that transmit signals in the brain. Having a family history of depression, alcoholism or suicide increases the risk. Chronic illness, chronic pain, migraine headaches and high emotional stress also increase the risk. Depression can cause many different symptoms, such as: -- Loss of appetite -- Over-eating -- Not being able to sleep -- Sleeping too much -- Tiredness not related to physical exertion -- Restlessness or irritability -- Slowness of movement or speech -- Feeling depressed or withdrawn -- Loss of interest in things you once enjoyed -- Difficulty in concentrating, poor memory, have trouble making decisions -- Thoughts of harming or killing oneself, or thoughts that life is not worth living -- Low self-esteem The best treatment for depression is a combination of medicine and psychotherapy. Antidepressant medicines can reduce suffering and can improve the ability to function during the depressed period. Therapy can offer emotional support and help you understand emotional factors that may be causing the depression. Home Care: 1) Be kind to yourself. Make it a point to do things that you enjoy (gardening, walking in nature, going to a movie, etc.). Reward yourself for small successes. 2) Take care of your physical body. Eat a balanced diet (low in saturated fat and high in fruits and vegetables). Establish an exercise plan at least 3 times a week for 30 minutes. Even mild-moderate exercise (like brisk walking) can make you feel better. 3) Avoid alcohol, which can make depression worse. Follow-Up with your doctor as advised. It is important to keep in contact with a health care provider until your symptoms begin to improve. Get Prompt Medical Attention if any of the following occur: -- Feeling extreme depression, fear, anxiety, or anger toward yourself or others -- Feeling out of control -- Feeling that you may try to harm yourself or another -- Hearing voices that others do not hear -- Seeing things that others do not see -- Cant sleep or eat for 3 days in a row Diabetes with High Blood Sugar You have been treated for high blood sugar (hyperglycemia). This may be becauseof an infection or other illness;eating too many sweets or starches ; not taking enough insulin. Home care High blood sugar may cause symptoms that you can learn to recognize, such as these: If you feel like your blood sugar may be too high, measure it using a blood or urine test. If it is above your usual range, use the "sliding scale"rRegular insulin dose your doctor gave you to correct this. If no "sliding scale" orders were given, contact your doctor for further advice. If your blood sugar is over 300, and you can't reach your doctor, go to the hospital emergency room. Monitor and write down your blood sugars - and insulin dose, if you take insulin - atleast twice a day. Do this before breakfast and before dinner. Do this for the next 3 to 5 days. Follow-up care Follow up with your health care provderduring the next week to review your blood sugar records. You will find out if you need to adjust your dose of insulin or other medicine for blood sugar. When to seek medical care Get prompt medical attention if either of these occur: High blood sugar.Symptoms are frequent urination, feeling dizzy, thirst, headache, nausea or vomiting, abdominal pain, and drowsiness or loss of consciousness. Low blood sugar. Symptoms are fatigue, headache, shakes, excess sweating, hunger, anxiety, reduced vision, drowsiness, weakness, confusion or loss of consciousness, and seizure. You have been given the following additional information: Depression Diabetic Hyperglycemia (Electronically signed by Augustine Resendez MD 03/07/2017 23:38)
--- NOTE | 2017-03-07 23:38 | ED DISCHARGE INSTRUCTIONS ---
Patient: JUANIS HENSON General Instructions [facility] VisitID: [id number] [address] [place] [address] 41y, M Registration Date/Time: 03/06/2017 Anxiety reaction. 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 No suicidal ideation or suicidal attempt. Poorly controlled type 2 diabetes with hyperglycemia. No coma. Out of medications Chronic low back pain Schizophrenia. INSTRUCTIONS (Call hospital on Thursday and ask to talk to Guevara Parry for information on getting insurance and diabetes medications. [phone]. [facility] will call Thursday to get you in on Thursday. Ask for Psychiatrist to get abilify injection.). Warnings: Further evaluation is necessary. SEDATIVE MEDICATION: You were given sedative medication during your visit. Do not drive or operate dangerous machinery. Understanding of the discharge instructions verbalized by patient. Follow-up with: [facility], , , [address], , [place], [id number] Follow up in five days. Call for the next available appointment. ADDITIONAL INFORMATION Depression Depression is one of the most common mental health problems today. It is not just a state of unhappiness or sadness. It is a true disease. The cause seems to be related to a decrease in chemicals that transmit signals in the brain. Having a family history of depression, alcoholism or suicide increases the risk. Chronic illness, chronic pain, migraine headaches and high emotional stress also increase the risk. Depression can cause many different symptoms, such as: -- Loss of appetite -- Over-eating -- Not being able to sleep -- Sleeping too much -- Tiredness not related to physical exertion -- Restlessness or irritability -- Slowness of movement or speech -- Feeling depressed or withdrawn -- Loss of interest in things you once enjoyed -- Difficulty in concentrating, poor memory, have trouble making decisions -- Thoughts of harming or killing oneself, or thoughts that life is not worth living -- Low self-esteem The best treatment for depression is a combination of medicine and psychotherapy. Antidepressant medicines can reduce suffering and can improve the ability to function during the depressed period. Therapy can offer emotional support and help you understand emotional factors that may be causing the depression. Home Care: 1) Be kind to yourself. Make it a point to do things that you enjoy (gardening, walking in nature, going to a movie, etc.). Reward yourself for small successes. 2) Take care of your physical body. Eat a balanced diet (low in saturated fat and high in fruits and vegetables). Establish an exercise plan at least 3 times a week for 30 minutes. Even mild-moderate exercise (like brisk walking) can make you feel better. 3) Avoid alcohol, which can make depression worse. Follow-Up with your doctor as advised. It is important to keep in contact with a health care provider until your symptoms begin to improve. Get Prompt Medical Attention if any of the following occur: -- Feeling extreme depression, fear, anxiety, or anger toward yourself or others -- Feeling out of control -- Feeling that you may try to harm yourself or another -- Hearing voices that others do not hear -- Seeing things that others do not see -- Cant sleep or eat for 3 days in a row Diabetes with High Blood Sugar You have been treated for high blood sugar (hyperglycemia). This may be becauseof an infection or other illness;eating too many sweets or starches ; not taking enough insulin. Home care High blood sugar may cause symptoms that you can learn to recognize, such as these: If you feel like your blood sugar may be too high, measure it using a blood or urine test. If it is above your usual range, use the "sliding scale"rRegular insulin dose your doctor gave you to correct this. If no "sliding scale" orders were given, contact your doctor for further advice. If your blood sugar is over 300, and you can't reach your doctor, go to the hospital emergency room. Monitor and write down your blood sugars - and insulin dose, if you take insulin - atleast twice a day. Do this before breakfast and before dinner. Do this for the next 3 to 5 days. Follow-up care Follow up with your health care provderduring the next week to review your blood sugar records. You will find out if you need to adjust your dose of insulin or other medicine for blood sugar. When to seek medical care Get prompt medical attention if either of these occur: High blood sugar.Symptoms are frequent urination, feeling dizzy, thirst, headache, nausea or vomiting, abdominal pain, and drowsiness or loss of consciousness. Low blood sugar. Symptoms are fatigue, headache, shakes, excess sweating, hunger, anxiety, reduced vision, drowsiness, weakness, confusion or loss of consciousness, and seizure. You have been given the following additional information: Depression Diabetic Hyperglycemia (Electronically signed by Augustine Resendez MD 03/07/2017 23:38)
--- NOTE | 2017-03-07 23:39 | ED MAR SUMMARY ---
..... Medication Administration Record [facility] [address] [place] [address] Patient: JUANIS HENSON Visit ID: [id number] 41y, M Weight: 120.2 kg Height/Length: 70 in BMI: 38 ALLERGIES: Toradol Start 21:05 03/06/2017 Ashley Gannon R.N., Stop 22:07 03/06/2017 Marcy Weller R.N. Medication Administered: IV NS (SALINE), Dose: IV Fluids over 1 hour(s), Rate: 1000 mL/hr, Dispensed: 1000 mL bag, Site: #1 right AC. Medication Ordered: IV NS with Normal Saline 1 Liter: initial bolus 1000 mL (1000 mL/hr), then 1000 mL/hr for X1 (NOW). Given 21:39 03/06/2017 Nicky Patel, Medication Administered: ATIVAN [IVP] (LORAZEPAM), Dose: 0.5 mg IVP over 1 minute(s), Site: #1 right AC. Medication Ordered: Ativan IV 0.5 mg (NOW). Given 22:12 03/06/2017 Ashley Gannon R.N. Medication Administered: INSULIN REG [IVP], Dose: 7 unit IVP over 2 minute(s), Site: #1 right AC. Medication Ordered: Insulin Reg IV 7 units (NOW). Given 22:37 03/06/2017 Ashley Gannon R.N. Medication Administered: DILAUDID [IVP] (HYDROMORPHONE HCL PF), Dose: 0.5 mg IVP over 1 minute(s), Site: #1 right AC. Medication Ordered: Dilaudid IV 0.5 mg (NOW). Given 01:10 03/07/2017 Marcy Weller R.N. Medication Administered: INSULIN REG [IVP], Dose: 4 unit IVP over 1 minute(s), Site: #1 right AC. Medication Ordered: Insulin Reg IV 4 units (NOW). Given 01:14 03/07/2017 Marcy Weller R.N. Medication Administered: INSULIN REG [IVP], Dose: 4 unit IVP over 1 minute(s), Site: #1 right AC. Medication Ordered: Insulin Reg IV 7 units (NOW). Given 03:04 03/07/2017 Marcy Weller R.N. Medication Administered: OXYCODONE-APAP [PO] (OXYCODONE-ACETAMINOPHEN), Dose: 2 tab 5/325 mg Tablets PO. Medication Ordered: Oxycodone-APAP PO 10/650 mg (NOW). Given 03:42 03/07/2017 Marcy Weller R.N. Medication Administered: ABILIFY [PO], Dose: 15 mg Tablets PO. Medication Ordered: - (abilify 15 mg po.).
--- NOTE | 2017-03-07 23:39 | ED MED RECONCILIATION SUMMARY ---
Patient: JUANIS HENSON Medication Reconciliation Report [facility] VisitID: [id number] [address] [place] [address] 41y, M Registration Date/Time: 03/06/2017 Weight: 120.2 kg Height/Length: 70 in. BMI: 38.0 ALLERGIES: Toradol The patient's Home Medications are listed below: THE FOLLOWING MEDICATIONS NEED TO BE RECONCILED: ASA Oral 81, daily Dilaudid 4mg q 6 hrs prn Flexeril Insulin Regular Human Injection KlonoPIN Oral Levamir 50 uniits, 2x a day Lisinopril Oral 20 mg, 2x a day Metoprolol Tartrate Oral 25 mg Nitroglycerin Sublingual 0.4 mg NovoLOG FlexPen Subcutaneous 40-50, 4x daily Synthroid Oral 75 mcg, daily The source(s) of the original Home Medication information: Not obtained. The following Medications were given to the patient in the Emergency Department: IV NS IV Fluids bolus 0, then 1000 mL/hr, administered: 03/06/2017 9:05:00 PM Ativan [IVP] IVP 0.5 mg, administered: 03/06/2017 9:39:00 PM Insulin REG [IVP] IVP 7 unit, administered: 03/06/2017 10:12:00 PM Dilaudid [IVP] IVP 0.5 mg, administered: 03/06/2017 10:37:00 PM Insulin REG [IVP] IVP 4 unit, administered: 03/07/2017 1:14:00 AM Insulin REG [IVP] IVP 4 unit, administered: 03/07/2017 1:10:00 AM Oxycodone-APAP [PO] PO 2 tab, administered: 03/07/2017 3:04:00 AM Abilify [PO] PO 15 mg, administered: 03/07/2017 3:42:00 AM The following Medications were prescribed to the patient: None.
--- NOTE | 2017-03-07 23:39 | ED MED RECONCILIATION SUMMARY ---
Patient: JUANIS HENSON Medication Reconciliation Report VisitID: [id number] [address] [place] [address] 41y, M Registration Date/Time: 03/06/2017 Weight: 120.2 kg Height/Length: 70 in. BMI: 38.0 ALLERGIES: Toradol The patient's Home Medications are listed below: THE FOLLOWING MEDICATIONS NEED TO BE RECONCILED: ASA Oral 81, daily Dilaudid 4mg q 6 hrs prn Flexeril Insulin Regular Human Injection KlonoPIN Oral Levamir 50 uniits, 2x a day Lisinopril Oral 20 mg, 2x a day Metoprolol Tartrate Oral 25 mg Nitroglycerin Sublingual 0.4 mg NovoLOG FlexPen Subcutaneous 40-50, 4x daily Synthroid Oral 75 mcg, daily The source(s) of the original Home Medication information: Not obtained. The following Medications were given to the patient in the Emergency Department: IV NS IV Fluids bolus 0, then 1000 mL/hr, administered: 03/06/2017 9:05:00 PM Ativan [IVP] IVP 0.5 mg, administered: 03/06/2017 9:39:00 PM Insulin REG [IVP] IVP 7 unit, administered: 03/06/2017 10:12:00 PM Dilaudid [IVP] IVP 0.5 mg, administered: 03/06/2017 10:37:00 PM Insulin REG [IVP] IVP 4 unit, administered: 03/07/2017 1:14:00 AM Insulin REG [IVP] IVP 4 unit, administered: 03/07/2017 1:10:00 AM Oxycodone-APAP [PO] PO 2 tab, administered: 03/07/2017 3:04:00 AM Abilify [PO] PO 15 mg, administered: 03/07/2017 3:42:00 AM The following Medications were prescribed to the patient: None.
--- NOTE | 2017-03-07 23:39 | ED MAR SUMMARY ---
..... Medication Administration Record [facility] [address] [place] [address] Patient: JUANIS HENSON Visit ID: [id number] 41y, M Weight: 120.2 kg Height/Length: 70 in BMI: 38 ALLERGIES: Toradol Start 21:05 03/06/2017 Ashley Gannon R.N., Stop 22:07 03/06/2017 Marcy Weller R.N. Medication Administered: IV NS (SALINE), Dose: IV Fluids over 1 hour(s), Rate: 1000 mL/hr, Dispensed: 1000 mL bag, Site: #1 right AC. Medication Ordered: IV NS with Normal Saline 1 Liter: initial bolus 1000 mL (1000 mL/hr), then 1000 mL/hr for X1 (NOW). Given 21:39 03/06/2017 Nicky Patel, Medication Administered: ATIVAN [IVP] (LORAZEPAM), Dose: 0.5 mg IVP over 1 minute(s), Site: #1 right AC. Medication Ordered: Ativan IV 0.5 mg (NOW). Given 22:12 03/06/2017 Ashley Gannon R.N. Medication Administered: INSULIN REG [IVP], Dose: 7 unit IVP over 2 minute(s), Site: #1 right AC. Medication Ordered: Insulin Reg IV 7 units (NOW). Given 22:37 03/06/2017 Ashley Gannon R.N. Medication Administered: DILAUDID [IVP] (HYDROMORPHONE HCL PF), Dose: 0.5 mg IVP over 1 minute(s), Site: #1 right AC. Medication Ordered: Dilaudid IV 0.5 mg (NOW). Given 01:10 03/07/2017 Marcy Weller R.N. Medication Administered: INSULIN REG [IVP], Dose: 4 unit IVP over 1 minute(s), Site: #1 right AC. Medication Ordered: Insulin Reg IV 4 units (NOW). Given 01:14 03/07/2017 Marcy Weller R.N. Medication Administered: INSULIN REG [IVP], Dose: 4 unit IVP over 1 minute(s), Site: #1 right AC. Medication Ordered: Insulin Reg IV 7 units (NOW). Given 03:04 03/07/2017 Marcy Weller R.N. Medication Administered: OXYCODONE-APAP [PO] (OXYCODONE-ACETAMINOPHEN), Dose: 2 tab 5/325 mg Tablets PO. Medication Ordered: Oxycodone-APAP PO 10/650 mg (NOW). Given 03:42 03/07/2017 Marcy Weller R.N. Medication Administered: ABILIFY [PO], Dose: 15 mg Tablets PO. Medication Ordered: - (abilify 15 mg po.).
== END 2017-03-07 03:50 | disposition home or self-care (01) ==
LOC: ED SRH 20:40
DX: F33.9 Major depressive disorder, recurrent, unspecified (principal); F41.1 Generalized anxiety disorder; F20.9 Schizophrenia, unspecified; G89.29 Other chronic pain; M54.5 Low back pain; I10 Essential (primary) hypertension; Z79.4 Long term (current) use of insulin; E11.65 Type 2 diabetes mellitus with hyperglycemia; T38.3X6A Underdosing of insulin and oral hypoglycemic [antidiabetic] drugs, initial encounter; Z91.120 Patient's intentional underdosing of medication regimen due to financial hardship
CPT/HCPCS: 90004; 90100; 90616; 91320; 92010; 92610; 92760; 92761; 92762; 92763; 92764; 92765; 92766; 92767; 93140; 95059

== ENCOUNTER 2017-03-08 13:26 | Emergency (ER) | payer OTHER ==
--- NOTE | 2017-03-08 15:43 | DIAGNOSTIC IMAGING REPORT ---
PROCEDURE: XR CHEST 2 VIEW INDICATION: CHEST PAIN TECHNIQUE: Two views. COMPARISON: 03/06/2017 FINDINGS: The cardiomediastinal contour is stable, within normal limits. The central vasculature is not congested. The lungs are clear without focal consolidation, pleural effusion or pneumothorax. The visualized osseous structures are intact. IMPRESSION: 1. No evidence of acute cardiopulmonary disease. 2. Stable exam compared to prior study.
--- NOTE | 2017-03-08 15:57 | ED ORDER SUMMARY ---
..... Patient: JUANIS HENSON OrderSheet [facility] VisitID: [id number] [address] [place] [address] 41y, M Registration Date/Time: 03/08/2017 ORDER SHEET Weight: 120.2 kg (stated) Allergies: Toradol GENERAL ORDERS: Chest 2V Urgent (14:03 03/08/2017 Wallace Motta) (Ack 14:05 TBergley) (14:23 KPage-Kuchan R.N.) Esthetician Spa (Continuous) (CP) (14:03 03/08/2017 Wallace Motta) (Ack 14:05 TBergley) (14:23 KPage-Kuchan R.N.) CBC w Diff Urgent (14:04 03/08/2017 Wallace Motta) (Ack 14:05 TBergley) (14:23 KPage-Kuduncann R.N.) CMP Urgent (14:04 03/08/2017 Wallace Motta) (Ack 14:05 TBergley) (14:23 KPage-Kuchan R.N.) UA-Culture if indicated Urgent (14:04 03/08/2017 Wallace Motta) (Ack 14:05 TBergley) (14:23 KPage-Kuchan R.N.) PT with INR Urgent (14:04 03/08/2017 Wallace Motta) (Ack 14:05 TBergley) (14:23 KPage-Kuchan R.N.) PTT Urgent (14:04 03/08/2017 Wallace Motta) (Ack 14:05 TBergley) (14:23 KPage-Kuchan R.N.) Troponin-I Urgent (14:04 03/08/2017 Wallace Motta) (Ack 14:05 TBergley) (14:23 KPage-Kuchan R.N.) Urine Drug Screen Urgent (14:04 03/08/2017 Wallace Motta) (Ack 14:05 TBergley) (14:23 KPage-Dennisn R.N.) BNP Urgent (14:04 03/08/2017 Wallace Motta) (Ack 14:05 TBergley) (14:23 Jarek R.N.) Pulse oximeter (14:04 03/08/2017 Wallace Motta) (Ack 14:05 TBergley) (14:23 Jarek R.N.) Urine Drug Screen Urgent (15:26 03/08/2017 Wallace Motta) (Ack 15:29 TBergley) (15:35 TBergley) Ethyl Alcohol Urgent (15:26 03/08/2017 Wallace Motta) (Ack 15:29 TBergley) (15:35 TBergley) MEDICATION ORDERS: IV FLUIDS: IV Saline Lock (14:04 03/08/2017 Wallace Motta) (14:23 Jarek R.N.) Dilaudid IV 1 mg (HIGH ALERT MEDICATION, NOW) (14:25 03/08/2017 Wallace Motta) (14:38 Jarek R.N.) ORDER SHEET NOTES: [Electronically signed by Cordell Reid Dr. (16:11 03/08/2017)] [Electronically signed by Vickey Cali R.N. (19:02 03/08/2017)] [Electronically locked/signed by Vickey Cali R.N. (19:02 03/08/2017)]
--- NOTE | 2017-03-08 15:57 | ED NURSING NOTES ---
Clinical Report - [facility] [address] [place] [address] 03/08/2017 13:27 Patient: JUANIS HENSON TRIAGE Triage time 13:32 Mar 08 2017. Chief Complaint: ANXIETY and HALLUCINATIONS and (pt reports having "an anxiety attack" and hearing voices "it's just noise" , pt with rapid speech, requires redirecting- pt was seen here thursday night for the same,). Alert. No acute distress. SEPSIS SCREEN: Sepsis Screen. Negative (no infection suspected/documented). CHERI COMA SCORE: Cheri Coma Scale: 15- eyes open spontaneously (4); best verbal response- oriented x 4 (5); best motor response- obeys commands (6). --13:39 Vickey Cali R.N. 13:32 03/08/17. BP: 136/80. HR: 94. RR: 20. O2 saturation: 96%. Temp: 98.3 F. Pain level now: 05/11. --13:39 Vickey Cali R.N. Weight: 120.2 kg stated. Height/Length: 70 inches Per Patient. BMI: 38. --13:32 Vickey Cali R.N. Medications ASA Oral 81, daily. Dilaudid 4mg q 6 hrs prn . Flexeril. Insulin Regular Human Injection. KlonoPIN Oral. Levamir 50 uniits, 2x a day. Lisinopril Oral 20 mg, 2x a day. Metoprolol Tartrate Oral 25 mg. Nitroglycerin Sublingual 0.4 mg, as needed. NovoLOG FlexPen Subcutaneous 40-50, 4x daily. Synthroid Oral 75 mcg, daily. --13:35 Vickey Cali R.N. Medication/allergy information source: the patient. --13:39 Vickey Cali R.N. Allergies Toradol. --13:35 Vickey Cali R.N. History Arrived by private vehicle. Historian: patient. This is a recurrent problem. (thursday). He has had anxiety. Admits to having auditory hallucinations (describes as "noise"). 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 PAST MEDICAL HX: Diabetes mellitus. Psychiatric illness. Immunizations: up-to-date. SOCIAL HX: Heavy tobacco smoker- 1 pack per day. No alcohol use or drug use. No infectious disease exposure. ABUSE ASSESSMENT: No report of abuse. SELF HARM ASSESSMENT: A self harm assessment was performed. The patient answered "no" to the question "Have you recently felt down, depressed, or hopeless?", "Have you noticed less interest or pleasure in doing things?", "Do you have thoughts of harming or killing yourself?", "Are you here because you tried to hurt yourself?", "Have you ever tried to hurt yourself before today?", "Have you recently had thoughts about harming or killing others?" and "Do you have any dangerous items in your possession?". (denies). FALL RISK ASSESSMENT: Fall risk assessment completed. No fall risk identified. NUTRITIONAL RISK ASSESSMENT: The nutritional risk assessment revealed no deficiencies. FUNCTIONAL ASSESSMENT: Functional assessment: no impairments noted. LEARNING NEEDS ASSESSMENT: The learning needs assessment revealed no barriers. SKIN INTEGRITY ASSESSMENT: Skin integrity risk assessment completed. No skin integrity risk identified. --13:39 Vickey Cali RYsabel. PROBLEMS: Anxiety Reaction. Depression. Cardiovascular Risk Factors. Hyperglycemia. Cellulitis. Peptic Ulcer Disease. Coronary Artery Disease. Chest Pain. Substance Abuse. Schizophrenia. Atypical Chest Pain. Abscess. Hypertension. Thyroid Disease. Diabetes Mellitus. --13:36 Vickey Cali R.N. Interventions ID and allergy band on patient. --13:39 Vickey Cali RAletheaN. PHYSICAL ASSESSMENT Ambulatory to room. Patient gowned. GENERAL / NEURO / PSYCH: Alert. Oriented X 4 and 4. Awake. Alert. Appears anxious. Patient's speech is abnormal (rapid, requires redirection to current situation). Poor eye contact (minimal). Behavior appears abnormal, including having apparent auditory hallucinations. The patient appears to have altered thought processes, verbalized as flights of ideas. Appears restless. Mood/affect abnormal (anxious and restless). No cerebellar findings. Moves all extremities. No motor deficit. No sensory deficit. Patient appears well-nourished and unkempt. RESPIRATORY: Respirations not labored. Breath sounds within normal limits. GI / : Abdomen soft and nontender. SKIN: Skin is warm and dry. Skin color is within normal limits. 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 --13:41 Vickey Cali R.N. NURSING PROGRESS NOTES Finger stick glucose: 298; performed by nurse. Head of bed elevated. Reassurance given. Patient identifiers checked. Call light placed in reach. Side rails up x 1. Bed placed in lowest position. Brakes of bed on. Patient ready for evaluation- chart flagged. ( pt reports last A1C was 17). --13:43 Vickey Cali R.N. EKG time: (1400). EKG was ordered, performed by a tech and shown to the ED physician. --14:00 Rose Hernandez 14:13 03/08/2017 Site #1 started via IV in the left forearm with an 20g angiocath; one attempt. Blood drawn: rainbow set. Labeled in the presence of the patient and sent to the lab. Saline lock flushed with 10 mL saline. --14:23 Vickey Cali R.N. Patient walked to radiology with tech. (14:24 Mar 08 2017). --14:24 Vickey Cali R.N. Patient identifiers checked. --14:24 Vickey Cali R.N. 14:38 03/08/2017 Dilaudid (HYDROmorphone HCl PF) IVP 1 mg given. via site #1. Allergies verified, confirmed 5 rights and sedative warning given to the patient. IV patency established. IV site checked: no pain, redness, or swelling. IV flushed thoroughly pre- and post-medication administration. IVP given by RN. --14:38 Vickey Cali R.N. Cardiac rhythm: (SR). mental tester, pulse oximeter and NIBP monitor placed on patient; registered massage therapist- Lead II and V5; monitor alarms on. Patient identifiers checked. Call light placed in reach. Side rails up x 1. Bed placed in lowest position. Brakes of bed on. ( pt requested and given dilaudid 1mg ivp for pain 05/11). --14:41 Vickey Cali R.N. 15:52 03/08/17. BP: 137/79. HR: 81. RR: 17. O2 saturation: 96%. Pain level now: 02/09. --15:54 Vickey Cali R.N. Cardiac rhythm: no ectopy noted (SR). mental tester, pulse oximeter and NIBP monitor placed on patient; registered massage therapist- Lead II and V5; monitor alarms on. Reassessment after medication administered ("it's better, but I haven't eaten since yesterday can I have a sandwich"). He has had no adverse reaction. GENERAL / NEURO / PSYCH: Alert. Oriented X 4. SKIN: Skin is warm and dry. Patient identifiers checked. Call light placed in reach. Side rails up x 1. Bed placed in lowest position. Brakes of bed on. --15:54 Vickey Cali R.N. 15:42 03/08/2017 Dilaudid IVP Response: no adverse reaction pain is improving. Symptoms have improved the patient feels better. --16:07 Vickey Cali R.N. 16:03 03/08/2017 Site #1 removed upon discharge. Bandaid applied. --16:08 Vickey Cali R.N. DISPOSITION / DISCHARGE Cardiac rhythm: (SR). Departure time: 1609. Condition at departure: improved. Discharge instructions provided and reviewed with the patient. Reviewed referral to a psychiatrist for followup. Summary of care provided to via paper (referrals highlighted on dc instructions and pt encouraged to keep the appointments.). Follow up contact number pt provided a copy of fridays dispo paperwork as well to ensure that he has the f/u number for Guevara Parry regarding his diabetes medications. Patient verbalized understanding. Written instructions provided in [place]. The patient was discharged by the physician. He was discharged home. He left the Emergency Department ambulatory. ( pt provided food on dispo, sandwich, milk and cheese). --16:12 Vickey Cali R.N. 16:08 03/08/17. BP: 137/79. HR: 77. RR: 18. O2 saturation: 97%. Temp: 98.1 F. Pain level now: 02/09. --16:12 Vickey Cali R.N. Locked/Released at 03/08/2017 19:02 by Vickey Cali R.N.
--- NOTE | 2017-03-08 15:57 | ED NURSING NOTES ---
Clinical Report - Nurses [facility] [address] [place] [address] 03/08/2017 13:27 Patient: JUANIS HENSON TRIAGE Triage time 13:32 Mar 08 2017. Chief Complaint: ANXIETY and HALLUCINATIONS and (pt reports having "an anxiety attack" and hearing voices "it's just noise" , pt with rapid speech, requires redirecting- pt was seen here thursday night for the same,). Alert. No acute distress. SEPSIS SCREEN: Sepsis Screen. Negative (no infection suspected/documented). CHERI COMA SCORE: Cheri Coma Scale: 15- eyes open spontaneously (4); best verbal response- oriented x 4 (5); best motor response- obeys commands (6). --13:39 Vickey Cali R.N. 13:32 03/08/17. BP: 136/80. HR: 94. RR: 20. O2 saturation: 96%. Temp: 98.3 F. Pain level now: 05/11. --13:39 Vickey Cali R.N. Weight: 120.2 kg stated. Height/Length: 70 inches Per Patient. BMI: 38. --13:32 Vickey Cali R.N. Medications ASA Oral 81, daily. Dilaudid 4mg q 6 hrs prn . Flexeril. Insulin Regular Human Injection. KlonoPIN Oral. Levamir 50 uniits, 2x a day. Lisinopril Oral 20 mg, 2x a day. Metoprolol Tartrate Oral 25 mg. Nitroglycerin Sublingual 0.4 mg, as needed. NovoLOG FlexPen Subcutaneous 40-50, 4x daily. Synthroid Oral 75 mcg, daily. --13:35 Vickey Cali R.N. Medication/allergy information source: the patient. --13:39 Vickey Cali R.N. Allergies Toradol. --13:35 Vickey Cali R.N. History Arrived by private vehicle. Historian: patient. This is a recurrent problem. (thursday). He has had anxiety. Admits to having auditory hallucinations (describes as "noise"). 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 PAST MEDICAL HX: Diabetes mellitus. Psychiatric illness. Immunizations: up-to-date. SOCIAL HX: Heavy tobacco smoker- 1 pack per day. No alcohol use or drug use. No infectious disease exposure. ABUSE ASSESSMENT: No report of abuse. SELF HARM ASSESSMENT: A self harm assessment was performed. The patient answered "no" to the question "Have you recently felt down, depressed, or hopeless?", "Have you noticed less interest or pleasure in doing things?", "Do you have thoughts of harming or killing yourself?", "Are you here because you tried to hurt yourself?", "Have you ever tried to hurt yourself before today?", "Have you recently had thoughts about harming or killing others?" and "Do you have any dangerous items in your possession?". (denies). FALL RISK ASSESSMENT: Fall risk assessment completed. No fall risk identified. NUTRITIONAL RISK ASSESSMENT: The nutritional risk assessment revealed no deficiencies. FUNCTIONAL ASSESSMENT: Functional assessment: no impairments noted. LEARNING NEEDS ASSESSMENT: The learning needs assessment revealed no barriers. SKIN INTEGRITY ASSESSMENT: Skin integrity risk assessment completed. No skin integrity risk identified. --13:39 Vickey Cali RYsabel. PROBLEMS: Anxiety Reaction. Depression. Cardiovascular Risk Factors. Hyperglycemia. Cellulitis. Peptic Ulcer Disease. Coronary Artery Disease. Chest Pain. Substance Abuse. Schizophrenia. Atypical Chest Pain. Abscess. Hypertension. Thyroid Disease. Diabetes Mellitus. --13:36 Vickey Cali R.N. Interventions ID and allergy band on patient. --13:39 Vickey Cali RAletheaN. PHYSICAL ASSESSMENT Ambulatory to room. Patient gowned. GENERAL / NEURO / PSYCH: Alert. Oriented X 4 and 4. Awake. Alert. Appears anxious. Patient's speech is abnormal (rapid, requires redirection to current situation). Poor eye contact (minimal). Behavior appears abnormal, including having apparent auditory hallucinations. The patient appears to have altered thought processes, verbalized as flights of ideas. Appears restless. Mood/affect abnormal (anxious and restless). No cerebellar findings. Moves all extremities. No motor deficit. No sensory deficit. Patient appears well-nourished and unkempt. RESPIRATORY: Respirations not labored. Breath sounds within normal limits. GI / : Abdomen soft and nontender. SKIN: Skin is warm and dry. Skin color is within normal limits. 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 --13:41 Vickey Cali R.N. NURSING PROGRESS NOTES Finger stick glucose: 298; performed by nurse. Head of bed elevated. Reassurance given. Patient identifiers checked. Call light placed in reach. Side rails up x 1. Bed placed in lowest position. Brakes of bed on. Patient ready for evaluation- chart flagged. ( pt reports last A1C was 17). --13:43 Vickey Cali R.N. EKG time: (1400). EKG was ordered, performed by a tech and shown to the ED physician. --14:00 Rose Hernandez 14:13 03/08/2017 Site #1 started via IV in the left forearm with an 20g angiocath; one attempt. Blood drawn: rainbow set. Labeled in the presence of the patient and sent to the lab. Saline lock flushed with 10 mL saline. --14:23 Vickey Cali R.N. Patient walked to radiology with tech. (14:24 Mar 08 2017). --14:24 Vickey Cali R.N. Patient identifiers checked. --14:24 Vickey Cali R.N. 14:38 03/08/2017 Dilaudid (HYDROmorphone HCl PF) IVP 1 mg given. via site #1. Allergies verified, confirmed 5 rights and sedative warning given to the patient. IV patency established. IV site checked: no pain, redness, or swelling. IV flushed thoroughly pre- and post-medication administration. IVP given by RN. --14:38 Vickey Cali R.N. Cardiac rhythm: (SR). monitoring and evaluation advisor, pulse oximeter and NIBP monitor placed on patient; pvc monitor- Lead II and V5; monitor alarms on. Patient identifiers checked. Call light placed in reach. Side rails up x 1. Bed placed in lowest position. Brakes of bed on. ( pt requested and given dilaudid 1mg ivp for pain 05/11). --14:41 Vickey Cali R.N. 15:52 03/08/17. BP: 137/79. HR: 81. RR: 17. O2 saturation: 96%. Pain level now: 02/09. --15:54 Vickey Cali R.N. Cardiac rhythm: no ectopy noted (SR). monitoring and evaluation advisor, pulse oximeter and NIBP monitor placed on patient; pvc monitor- Lead II and V5; monitor alarms on. Reassessment after medication administered ("it's better, but I haven't eaten since yesterday can I have a sandwich"). He has had no adverse reaction. GENERAL / NEURO / PSYCH: Alert. Oriented X 4. SKIN: Skin is warm and dry. Patient identifiers checked. Call light placed in reach. Side rails up x 1. Bed placed in lowest position. Brakes of bed on. --15:54 Vickey Cali R.N. 15:42 03/08/2017 Dilaudid IVP Response: no adverse reaction pain is improving. Symptoms have improved the patient feels better. --16:07 Vickey Cali R.N. 16:03 03/08/2017 Site #1 removed upon discharge. Bandaid applied. --16:08 Vickey Cali R.N. DISPOSITION / DISCHARGE Cardiac rhythm: (SR). Departure time: 1609. Condition at departure: improved. Discharge instructions provided and reviewed with the patient. Reviewed referral to a psychiatrist for followup. Summary of care provided to via paper (referrals highlighted on dc instructions and pt encouraged to keep the appointments.). Follow up contact number pt provided a copy of fridays dispo paperwork as well to ensure that he has the f/u number for Guevara Parry regarding his diabetes medications. Patient verbalized understanding. Written instructions provided in Cape Verdean. The patient was discharged by the physician. He was discharged home. He left the Emergency Department ambulatory. ( pt provided food on dispo, sandwich, milk and cheese). --16:12 Vickey Cali R.N. 16:08 03/08/17. BP: 137/79. HR: 77. RR: 18. O2 saturation: 97%. Temp: 98.1 F. Pain level now: 02/09. --16:12 Vickey Cali R.N. Locked/Released at 03/08/2017 19:02 by Vickey Cali R.N.
--- NOTE | 2017-03-08 15:57 | ED CLINICAL REPORT ---
Clinical Report - Physicians/Mid Levels [facility] [address] [place] [address] 03/08/2017 13:27 Patient: JUANIS HENSON Time Seen: 1350. Arrived- By private vehicle. Historian- patient. HISTORY OF PRESENT ILLNESS Chief Complaint: CHEST PAIN. This started today 9 hours ago and is still present (unchanged). It was abrupt in onset and has been constant but is not gone now. Onset during rest. At its maximum, severity described as moderate. When seen in the E.D., severity described as moderate. Modifying factors. Not worsened by anything. Not relieved by anything. It is described as "pain" and it is described as located in the central chest area. No radiation. No nausea, vomiting, difficulty breathing or diaphoresis. (reports having anxiety at the same time.). No additional chest pain. Similar symptoms previously: None. Recent medical care: Not recently seen/assessed. REVIEW OF SYSTEMS No skin rash. All systems otherwise negative, except as recorded above. PAST HISTORY See nurses notes. Medications: ASA Oral 81, daily. Dilaudid 4mg q 6 hrs prn . Flexeril. Insulin Regular Human Injection. KlonoPIN Oral. Levamir 50 uniits, 2x a day. Lisinopril Oral 20 mg, 2x a day. Metoprolol Tartrate Oral 25 mg. Nitroglycerin Sublingual 0.4 mg, as needed. NovoLOG FlexPen Subcutaneous 40-50, 4x daily. Synthroid Oral 75 mcg, daily. Allergies: Toradol. SOCIAL HISTORY Smoker- current status unknown. No alcohol use or drug use. Recent travel- (Moved from [place] 3 months ago). Is a local resident. ADDITIONAL NOTES The nursing notes have been reviewed. PHYSICAL EXAM Vital Signs: 03/08/2017 13:32 BP: 136/80. HR: 94. RR: 20. O2 saturation: 96%. Temp: 98.3 F. Pain level now: 7/10. Blood pressure normal. Oxygen saturation normal. Appearance: Alert. Oriented X3. No acute distress. Eyes: Pupils equal, round and reactive to light. Eyes normal inspection. ENT: Ears normal. Nose normal. Pharynx normal. Neck: Normal inspection. Neck supple. CVS: Normal heart rate and rhythm. Heart sounds normal. Pulses normal. Respiratory: No respiratory distress. Breath sounds normal. Chest nontender. No rales, rhonchi or wheezes. Abdomen: Soft and nontender. Bowel sounds normal. Skin: Skin warm and dry. Normal skin color. No rash. Normal skin turgor. Extremities: Extremities exhibit normal ROM. No lower extremity edema. Neuro: Oriented X 3. No motor deficit. No sensory deficit. (no hi/si. auditory hallucinations. non-command. voices and background noise. unable to tell what voices are saying.). LABS, X-RAYS, AND EKG EKG: No acute process. No acute ischemia. Normal EKG. Normal sinus rhythm. Rate: 88. Normal P waves. Normal USAMA. Normal QRS complex. Normal axis. Normal ST and T waves, QT and QTc. The study has been interpreted contemporaneously. The study has been independently viewed by me. The EKG appears to be a good tracing. Chest X-ray: (PROCEDURE: XR CHEST 2 VIEW INDICATION: CHEST PAIN TECHNIQUE: Two views. COMPARISON: 03/06/2017 FINDINGS: The cardiomediastinal contour is stable, within normal limits. The central vasculature is not congested. The lungs are clear without focal consolidation, pleural effusion or pneumothorax. The visualized osseous structures are intact. IMPRESSION: 1. No evidence of acute cardiopulmonary disease. 2. Stable exam compared to prior study.). Views: PA and lateral. The X-rays were independently viewed by me and interpreted by the radiologist. The X-rays were discussed with the radiologist (via pacs). Laboratory Tests: UA-Culture if indicated: (NIKOLAS: 03/08/2017 14:31) ( MsgRcvd 03/08/2017 14:54) Final results Test Result Flag Units (Reference) URINE COLOR YELLOW URINE APPEARANCE CLEAR URINE GLUCOSE 3+ (NEGATIVE) URINE BILIRUBIN NEGATIVE (NEGATIVE) URINE KETONE NEGATIVE (NEGATIVE) URINE SPECIFIC GRAVITY 1.020 (1.010-1.030) URINE PH 5.5 (5.0-8.0) URINE PROTEIN NEGATIVE (NEGATIVE) URINE UROBILINOGEN 0.2 EU/dL (0.2-1.0) URINE NITRITE NEGATIVE (NEGATIVE) URINE BLOOD NEGATIVE (NEGATIVE) URINE LEUK ESTERASE NEGATIVE (NEGATIVE) URINE RBC NONE SEEN rbc/hpf (0-1) URINE WBC 0-1 wbc/hpf (0-1) URINE EPITHELIAL CELLS 0-1 EPI/hpf (0-5) URINE BACTERIA NONE SEEN (NONE SEEN) URINE COMMENT CULT NOT INDICATED URINE CULTURES ARE SET-UP BASED ON THE FOLLOWING CRITERIA:POSITIVE NITRITEPOSITIVE LEUKOCYTE ESTERASEGREATER THAN 10 WHITE BLOOD CELLSMODERATE (2+) OR GREATER BACTERIA CBC w Diff: (NIKOLAS: 03/08/2017 14:17) ( [facility] 03/08/2017 14:44) Final results Test Result Flag Units (Reference) WHITE BLOOD COUNT 6.7 K/uL (4.5-11.5) RED BLOOD COUNT 5.60 M/uL (4.50-5.90) HEMOGLOBIN 15.0 gm/dL (13.5-17.5) HEMATOCRIT 44.7 % (41.0-53.0) MEAN CELL VOLUME 80 fL (80-100) MEAN CORPUSCULAR HGB 27 pg (26-34) MEAN CORPUSCULAR HGB CONC 34 g/dL (31-37) RED CELL DISTRIBUTION WIDTH 14.6 % (11.6-14.8) PLATELET COUNT 221 K/uL (150-400) NEUTROPHIL % 71.8 % (50-75) LYMPH % 20.5 L % (25-40) MONO % 6.5 % (3-14) EOSINOPHIL % 0.8 % (0-4) BASOPHIL % 0.4 % (0-2) Urine Drug Screen: (NIKOLAS: 03/08/2017 14:31) ( [facility] [place] 03/08/2017 15:01) Final results Test Result Flag Units (Reference) AMPHETAMINE/METHAMPHETAMINE NEGATIVE (NEGATIVE) BARBITURATE NEGATIVE (NEGATIVE) BENZODIAZEPINE NEGATIVE (NEGATIVE) CANNABINOID NEGATIVE (NEGATIVE) COCAINE NEGATIVE (NEGATIVE) ECSTASY NEGATIVE (NEGATIVE) METHADONE NEGATIVE (NEGATIVE) OPIATE NEGATIVE (NEGATIVE) The urine drug screen is a qualitative screening test fordrug overdose and abuse. All screen results should beconsidered as presumptive.Drugs screened for are as follows:BenzodiazepinesCocaineAmphetamines/MetamphetaminesTHC (Tetrahydrocannabinol)OpiatesBarbituratesEcstasyMethadonePositive results are unconfirmed. For confirmation, notifythe lab for the specimen to be sent to the reference lab.All confirmations must be performed by a differentmethodology.The ingestion of natural herbal and plant productscontaining Ephedra/Ephedra metabolites can produce in urineone or more substances capable of cross reacting withamphetamine/methamphetamine immunoassays. These testsprovide a preliminary result only. A more specificalternative chemical method must be used to obtain aconfirmed analytical result. CMP: (NIKOLAS: 03/08/2017 14:17) ( MsgRcvd 03/08/2017 14:55) Final results Test Result Flag Units (Reference) GLUCOSE 346 H mg/dL (70-110) BUN 10 mg/dL (7-18) CREATININE 1.0 mg/dL (0.6-1.3) Estimated GFR >60 mL/min Estimated GFR- >60 mL/min Note: Persistent reduction over 3 months in eGFR<60 mL/min/1.73 m2 defines CKD. Patients with eGFR values>=60 mL/min/1.73 m2 may also have CKD if evidence ofpersistent proteinuria. Additional information may be foundat www.kidney.org. SODIUM 138 mmol/L (136-145) POTASSIUM 4.0 mmol/L (3.5-5.1) CHLORIDE 101 mmol/L (98-107) CARBON DIOXIDE 24 mmol/L (21-32) CALCIUM 8.5 mg/dL (8.5-10.1) TOTAL PROTEIN 7.7 g/dL (6.4-8.2) ALBUMIN 3.1 L g/dL (3.3-5.0) BILIRUBIN, TOTAL 0.4 mg/dL (0.0-1.0) ALKALINE PHOSPHATASE 83 U/L (46-116) AST (SGOT) 19 U/L (15-37) ALT (SGPT) 45 U/L (12-78) TROPONIN I <0.05 L ng/mL (0.00-1.5) TROPONIN REFERENCE RANGE:<0.1 NEGATIVE0.1-1.5 INDETERMINANT>1.5 POSITIVE . PROGRESS AND PROCEDURES Course of Care: the patient is a pleasant 19-buse[age]elfvonn with complex past medical history presenting for evaluation of auditory hallucinations anxiety and chest pain. Patient is well-known to myself. Patient as been to the emergency department several times for concerns of such as this. Patient will be evaluated for pulmonary embolism, acute myocardial infarction,pneumonia, and pneumothorax. Patient is agreeable to the treatment plan. Pain medication as been ordered. The patient is currently PE RC negative. Do not feel further workup for pulmonary embolism is. Patient's workup was noted for the findings above. No acute findings on patient's laboratory studies. Patient has been having chest pain for greater than 8 hours without any detectable levels noted in his troponin. Chest x-rays clear. EKG does not show any acute abnormalities. I reviewed the patient's medical imaging and note that the patient has a stress test that was performed on February 17, 2017. The exactreading for the stress test was convoluted on my reading. Cardiology consult was placed in regards to the nuclear medicine stress test and recommendations as far as for disposition and follow-up. Was able to speak to Dr. Chery. Patient apparently had a low risk nuclear medicine scan. Patient otherwise also was noted to have a calcium score of [address] coronary artery angiogram on October 2015. Because of the patient's otherwise unremarkablecardiac studies, feel the patient is at low risk for having an acute myocardial event. Patient is also been requesting medications for his medical conditions as well as psychiatric conditions. Patient was evaluated yesterday and giveninstructions to follow up with the facilities planner. Patient was also given instructions for contact information with [facility] for his psychiatric medications. We were able to contact the people at [facility] and patient has an appointment at 11 AM tomorrow. Information for this appointment has been given to the patient. The patient also has a contact information for medical outreach in regards to his other diabetes medications. the patient is to contact the office tomorrowfor further instructions. CLINICAL IMPRESSION Chest pain characterized as "discomfort" .12 lead EKG performed. Moderate hyperglycemia (acute). INSTRUCTIONS Warnings: GENERAL WARNINGS: Return or contact your physician immediately if your condition worsens or changes unexpectedly, if not improving as expected, or if other problems arise. SPECIFICALLY, return if you develop chest, neck, jaw, shoulder, arm, or back pain, difficulty breathing, a fluttering sensation in your chest, lightheadedness, fainting, excessive fatigue, or sudden sweating. Your Current Medications: CONTINUE TAKING THE FOLLOWING MEDICATIONS: ASA Oral : 81 daily. Dilaudid 4mg q 6 hrs prn *. Flexeril*. Insulin Regular Human Injection. KlonoPIN Oral. Levamir* : 50 uniits 2x a day. Lisinopril Oral : 20 mg 2x a day. Metoprolol Tartrate Oral : 25 mg. Nitroglycerin Sublingual : 0.4 mg, prn. NovoLOG FlexPen Subcutaneous : 40-50 4x daily. Synthroid Oral : 75 mcg daily. OTC Medications: Aspirin 81 mg (available over the counter): take 1 orally every 24 hours. Dispense thirty (30). No refills. Follow-up: Return to the emergency department as needed. Follow up with a psychiatrist. Reason for referral: [facility] [phone]. Tomorrow 03/09/2017 Address: [address] [place] [id number]. Summary of care provided to patient via paper. Follow up with your doctor as scheduled. Screening today revealed the patient's blood pressure to be in the normal range. The patient should follow up with a primary care provider for blood pressure management. Understanding of the discharge instructions verbalized by patient. (Electronically signed by Cordell Reid Dr. 03/08/2017 16:11)
--- NOTE | 2017-03-08 15:57 | ED ORDER SUMMARY ---
..... Patient: JUANIS HENSON OrderSheet [facility] VisitID: [id number] [address] [place] [address] 41y, M Registration Date/Time: 03/08/2017 ORDER SHEET Weight: 120.2 kg (stated) Allergies: Toradol GENERAL ORDERS: Chest 2V Urgent (14:03 03/08/2017 Wallace Motta) (Ack 14:05 TBergley) (14:23 KPage-Kuchan R.N.) Traction Power Engineer (Continuous) (CP) (14:03 03/08/2017 Wallace Motta) (Ack 14:05 TBergley) (14:23 KPage-Kuchan R.N.) CBC w Diff Urgent (14:04 03/08/2017 Wallace Motta) (Ack 14:05 TBergley) (14:23 KPage-Kuduncann R.N.) CMP Urgent (14:04 03/08/2017 Wallace Motta) (Ack 14:05 TBergley) (14:23 KPage-Kuchan R.N.) UA-Culture if indicated Urgent (14:04 03/08/2017 Wallace Motta) (Ack 14:05 TBergley) (14:23 KPage-Kuchan R.N.) PT with INR Urgent (14:04 03/08/2017 Wallace Motta) (Ack 14:05 TBergley) (14:23 KPage-Kuchan R.N.) PTT Urgent (14:04 03/08/2017 Wallace Motta) (Ack 14:05 TBergley) (14:23 KPage-Kuchan R.N.) Troponin-I Urgent (14:04 03/08/2017 Wallace Motta) (Ack 14:05 TBergley) (14:23 KPage-Kuchan R.N.) Urine Drug Screen Urgent (14:04 03/08/2017 Wallace Motta) (Ack 14:05 TBergley) (14:23 KPage-Dennisn R.N.) BNP Urgent (14:04 03/08/2017 Wallace Motta) (Ack 14:05 TBergley) (14:23 Jarek R.N.) Pulse oximeter (14:04 03/08/2017 Wallace Motta) (Ack 14:05 TBergley) (14:23 Jarek R.N.) Urine Drug Screen Urgent (15:26 03/08/2017 Wallace Motta) (Ack 15:29 TBergley) (15:35 TBergley) Ethyl Alcohol Urgent (15:26 03/08/2017 Wallace Motta) (Ack 15:29 TBergley) (15:35 TBergley) MEDICATION ORDERS: IV FLUIDS: IV Saline Lock (14:04 03/08/2017 Wallace Motta) (14:23 Jarek R.N.) Dilaudid IV 1 mg (HIGH ALERT MEDICATION, NOW) (14:25 03/08/2017 Wallace Motta) (14:38 Jarek R.N.) ORDER SHEET NOTES: [Electronically signed by Cordell Reid Dr. (16:11 03/08/2017)] [Electronically signed by Vickey Cali R.N. (19:02 03/08/2017)] [Electronically locked/signed by Vickey Cali R.N. (19:02 03/08/2017)]
--- NOTE | 2017-03-08 15:57 | ED CLINICAL REPORT ---
Clinical Report - Physicians/Mid Levels [facility] [address] [place] [address] 03/08/2017 13:27 Patient: JUANIS HENSON Time Seen: 1350. Arrived- By private vehicle. Historian- patient. HISTORY OF PRESENT ILLNESS Chief Complaint: CHEST PAIN. This started today 9 hours ago and is still present (unchanged). It was abrupt in onset and has been constant but is not gone now. Onset during rest. At its maximum, severity described as moderate. When seen in the E.D., severity described as moderate. Modifying factors. Not worsened by anything. Not relieved by anything. It is described as "pain" and it is described as located in the central chest area. No radiation. No nausea, vomiting, difficulty breathing or diaphoresis. (reports having anxiety at the same time.). No additional chest pain. Similar symptoms previously: None. Recent medical care: Not recently seen/assessed. REVIEW OF SYSTEMS No skin rash. All systems otherwise negative, except as recorded above. PAST HISTORY See nurses notes. Medications: ASA Oral 81, daily. Dilaudid 4mg q 6 hrs prn . Flexeril. Insulin Regular Human Injection. KlonoPIN Oral. Levamir 50 uniits, 2x a day. Lisinopril Oral 20 mg, 2x a day. Metoprolol Tartrate Oral 25 mg. Nitroglycerin Sublingual 0.4 mg, as needed. NovoLOG FlexPen Subcutaneous 40-50, 4x daily. Synthroid Oral 75 mcg, daily. Allergies: Toradol. SOCIAL HISTORY Smoker- current status unknown. No alcohol use or drug use. Recent travel- (Moved from [place] 3 months ago). Is a local resident. ADDITIONAL NOTES The nursing notes have been reviewed. PHYSICAL EXAM Vital Signs: 03/08/2017 13:32 BP: 136/80. HR: 94. RR: 20. O2 saturation: 96%. Temp: 98.3 F. Pain level now: 7/10. Blood pressure normal. Oxygen saturation normal. Appearance: Alert. Oriented X3. No acute distress. Eyes: Pupils equal, round and reactive to light. Eyes normal inspection. ENT: Ears normal. Nose normal. Pharynx normal. Neck: Normal inspection. Neck supple. CVS: Normal heart rate and rhythm. Heart sounds normal. Pulses normal. Respiratory: No respiratory distress. Breath sounds normal. Chest nontender. No rales, rhonchi or wheezes. Abdomen: Soft and nontender. Bowel sounds normal. Skin: Skin warm and dry. Normal skin color. No rash. Normal skin turgor. Extremities: Extremities exhibit normal ROM. No lower extremity edema. Neuro: Oriented X 3. No motor deficit. No sensory deficit. (no hi/si. auditory hallucinations. non-command. voices and background noise. unable to tell what voices are saying.). LABS, X-RAYS, AND EKG EKG: No acute process. No acute ischemia. Normal EKG. Normal sinus rhythm. Rate: 88. Normal P waves. Normal USAMA. Normal QRS complex. Normal axis. Normal ST and T waves, QT and QTc. The study has been interpreted contemporaneously. The study has been independently viewed by me. The EKG appears to be a good tracing. Chest X-ray: (PROCEDURE: XR CHEST 2 VIEW INDICATION: CHEST PAIN TECHNIQUE: Two views. COMPARISON: 03/06/2017 FINDINGS: The cardiomediastinal contour is stable, within normal limits. The central vasculature is not congested. The lungs are clear without focal consolidation, pleural effusion or pneumothorax. The visualized osseous structures are intact. IMPRESSION: 1. No evidence of acute cardiopulmonary disease. 2. Stable exam compared to prior study.). Views: PA and lateral. The X-rays were independently viewed by me and interpreted by the radiologist. The X-rays were discussed with the radiologist (via pacs). Laboratory Tests: UA-Culture if indicated: (NIKOLAS: 03/08/2017 14:31) ( MsgRcvd 03/08/2017 14:54) Final results Test Result Flag Units (Reference) URINE COLOR YELLOW URINE APPEARANCE CLEAR URINE GLUCOSE 3+ (NEGATIVE) URINE BILIRUBIN NEGATIVE (NEGATIVE) URINE KETONE NEGATIVE (NEGATIVE) URINE SPECIFIC GRAVITY 1.020 (1.010-1.030) URINE PH 5.5 (5.0-8.0) URINE PROTEIN NEGATIVE (NEGATIVE) URINE UROBILINOGEN 0.2 EU/dL (0.2-1.0) URINE NITRITE NEGATIVE (NEGATIVE) URINE BLOOD NEGATIVE (NEGATIVE) URINE LEUK ESTERASE NEGATIVE (NEGATIVE) URINE RBC NONE SEEN rbc/hpf (0-1) URINE WBC 0-1 wbc/hpf (0-1) URINE EPITHELIAL CELLS 0-1 EPI/hpf (0-5) URINE BACTERIA NONE SEEN (NONE SEEN) URINE COMMENT CULT NOT INDICATED URINE CULTURES ARE SET-UP BASED ON THE FOLLOWING CRITERIA:POSITIVE NITRITEPOSITIVE LEUKOCYTE ESTERASEGREATER THAN 10 WHITE BLOOD CELLSMODERATE (2+) OR GREATER BACTERIA CBC w Diff: (NIKOLAS: 03/08/2017 14:17) ( [facility] 03/08/2017 14:44) Final results Test Result Flag Units (Reference) WHITE BLOOD COUNT 6.7 K/uL (4.5-11.5) RED BLOOD COUNT 5.60 M/uL (4.50-5.90) HEMOGLOBIN 15.0 gm/dL (13.5-17.5) HEMATOCRIT 44.7 % (41.0-53.0) MEAN CELL VOLUME 80 fL (80-100) MEAN CORPUSCULAR HGB 27 pg (26-34) MEAN CORPUSCULAR HGB CONC 34 g/dL (31-37) RED CELL DISTRIBUTION WIDTH 14.6 % (11.6-14.8) PLATELET COUNT 221 K/uL (150-400) NEUTROPHIL % 71.8 % (50-75) LYMPH % 20.5 L % (25-40) MONO % 6.5 % (3-14) EOSINOPHIL % 0.8 % (0-4) BASOPHIL % 0.4 % (0-2) Urine Drug Screen: (NIKOLAS: 03/08/2017 14:31) ( [facility] 03/08[facility] 15:01) Final results Test Result Flag Units (Reference) AMPHETAMINE/METHAMPHETAMINE NEGATIVE (NEGATIVE) BARBITURATE NEGATIVE (NEGATIVE) BENZODIAZEPINE NEGATIVE (NEGATIVE) CANNABINOID NEGATIVE (NEGATIVE) COCAINE NEGATIVE (NEGATIVE) ECSTASY NEGATIVE (NEGATIVE) METHADONE NEGATIVE (NEGATIVE) OPIATE NEGATIVE (NEGATIVE) The urine drug screen is a qualitative screening test fordrug overdose and abuse. All screen results should beconsidered as presumptive.Drugs screened for are as follows:BenzodiazepinesCocaineAmphetamines/MetamphetaminesTHC (Tetrahydrocannabinol)OpiatesBarbituratesEcstasyMethadonePositive results are unconfirmed. For confirmation, notifythe lab for the specimen to be sent to the reference lab.All confirmations must be performed by a differentmethodology.The ingestion of natural herbal and plant productscontaining Ephedra/Ephedra metabolites can produce in urineone or more substances capable of cross reacting withamphetamine/methamphetamine immunoassays. These testsprovide a preliminary result only. A more specificalternative chemical method must be used to obtain aconfirmed analytical result. CMP: (NIKOLAS: 03/08/2017 14:17) ( MsgRcvd 03/08/2017 14:55) Final results Test Result Flag Units (Reference) GLUCOSE 346 H mg/dL (70-110) BUN 10 mg/dL (7-18) CREATININE 1.0 mg/dL (0.6-1.3) Estimated GFR >60 mL/min Estimated GFR- >60 mL/min Note: Persistent reduction over 3 months in eGFR<60 mL/min/1.73 m2 defines CKD. Patients with eGFR values>=60 mL/min/1.73 m2 may also have CKD if evidence ofpersistent proteinuria. Additional information may be foundat www.kidney.org. SODIUM 138 mmol/L (136-145) POTASSIUM 4.0 mmol/L (3.5-5.1) CHLORIDE 101 mmol/L (98-107) CARBON DIOXIDE 24 mmol/L (21-32) CALCIUM 8.5 mg/dL (8.5-10.1) TOTAL PROTEIN 7.7 g/dL (6.4-8.2) ALBUMIN 3.1 L g/dL (3.3-5.0) BILIRUBIN, TOTAL 0.4 mg/dL (0.0-1.0) ALKALINE PHOSPHATASE 83 U/L (46-116) AST (SGOT) 19 U/L (15-37) ALT (SGPT) 45 U/L (12-78) TROPONIN I <0.05 L ng/mL (0.00-1.5) TROPONIN REFERENCE RANGE:<0.1 NEGATIVE0.1-1.5 INDETERMINANT>1.5 POSITIVE . PROGRESS AND PROCEDURES Course of Care: the patient is a pleasant [id number] with complex past medical history presenting for evaluation of auditory hallucinations anxiety and chest pain. Patient is well-known to myself. Patient as been to the emergency department several times for concerns of such as this. Patient will be evaluated for pulmonary embolism, acute myocardial infarction,pneumonia, and pneumothorax. Patient is agreeable to the treatment plan. Pain medication as been ordered. The patient is currently PE RC negative. Do not feel further workup for pulmonary embolism is. Patient's workup was noted for the findings above. No acute findings on patient's laboratory studies. Patient has been having chest pain for greater than 8 hours without any detectable levels noted in his troponin. Chest x-rays clear. EKG does not show any acute abnormalities. I reviewed the patient's medical imaging and note that the patient has a stress test that was performed on February 17, 2017. The exactreading for the stress test was convoluted on my reading. Cardiology consult was placed in regards to the nuclear medicine stress test and recommendations as far as for disposition and follow-up. Was able to speak to Dr. Chery. Patient apparently had a low risk nuclear medicine scan. Patient otherwise also was noted to have a calcium score of [address] coronary artery angiogram on October 2015. Because of the patient's otherwise unremarkablecardiac studies, feel the patient is at low risk for having an acute myocardial event. Patient is also been requesting medications for his medical conditions as well as psychiatric conditions. Patient was evaluated yesterday and giveninstructions to follow up with the management planner. Patient was also given instructions for contact information with [facility] for his psychiatric medications. We were able to contact the people at [facility] and patient has an appointment at 11 AM tomorrow. Information for this appointment has been given to the patient. The patient also has a contact information for medical outreach in regards to his other diabetes medications. the patient is to contact the office tomorrowfor further instructions. CLINICAL IMPRESSION Chest pain characterized as "discomfort" .12 lead EKG performed. Moderate hyperglycemia (acute). INSTRUCTIONS Warnings: GENERAL WARNINGS: Return or contact your physician immediately if your condition worsens or changes unexpectedly, if not improving as expected, or if other problems arise. SPECIFICALLY, return if you develop chest, neck, jaw, shoulder, arm, or back pain, difficulty breathing, a fluttering sensation in your chest, lightheadedness, fainting, excessive fatigue, or sudden sweating. Your Current Medications: CONTINUE TAKING THE FOLLOWING MEDICATIONS: ASA Oral : 81 daily. Dilaudid 4mg q 6 hrs prn *. Flexeril*. Insulin Regular Human Injection. KlonoPIN Oral. Levamir* : 50 uniits 2x a day. Lisinopril Oral : 20 mg 2x a day. Metoprolol Tartrate Oral : 25 mg. Nitroglycerin Sublingual : 0.4 mg, prn. NovoLOG FlexPen Subcutaneous : 40-50 4x daily. Synthroid Oral : 75 mcg daily. OTC Medications: Aspirin 81 mg (available over the counter): take 1 orally every 24 hours. Dispense thirty (30). No refills. Follow-up: Return to the emergency department as needed. Follow up with a psychiatrist. Reason for referral: [facility] [phone]. Tomorrow 03/09/2017 Address: [address] [place] [id number]. Summary of care provided to patient via paper. Follow up with your doctor as scheduled. Screening today revealed the patient's blood pressure to be in the normal range. The patient should follow up with a primary care provider for blood pressure management. Understanding of the discharge instructions verbalized by patient. (Electronically signed by Crodell Reid Dr. 03/08/2017 16:11)
--- NOTE | 2017-03-08 19:03 | ED MAR SUMMARY ---
..... Medication Administration Record [facility] [address] [place] [address] Patient: JUANIS HENSON Visit ID: [id number] 41y, M Weight: 120.2 kg Height/Length: 70 in BMI: 38 ALLERGIES: Toradol Given 14:38 03/08/2017 Vickey Cali R.N. Medication Administered: DILAUDID [IVP] (HYDROMORPHONE HCL PF), Dose: 1 mg IVP, Site: #1 left forearm. Medication Ordered: Dilaudid IV 1 mg (HIGH ALERT MEDICATION, NOW).
--- NOTE | 2017-03-08 19:03 | ED MED RECONCILIATION SUMMARY ---
Patient: JUANIS HENSON Medication Reconciliation Report [facility] VisitID: [id number] [address] [place] [address] 41y, M Registration Date/Time: 03/08/2017 Weight: 120.2 kg Height/Length: 70 in. BMI: 38.0 ALLERGIES: Toradol The patient's Home Medications are listed below: CONTINUE TAKING THE FOLLOWING MEDICATIONS: ASA Oral 81, daily Dilaudid 4mg q 6 hrs prn Flexeril Insulin Regular Human Injection KlonoPIN Oral Levamir 50 uniits, 2x a day Lisinopril Oral 20 mg, 2x a day Metoprolol Tartrate Oral 25 mg Nitroglycerin Sublingual 0.4 mg NovoLOG FlexPen Subcutaneous 40-50, 4x daily Synthroid Oral 75 mcg, daily The source(s) of the original Home Medication information: patient The following Medications were given to the patient in the Emergency Department: Dilaudid [IVP] IVP 1 mg, administered: 03/08/2017 2:38:00 PM The following Medications were prescribed to the patient: Aspirin 81 mg (available over the counter): take 1 orally every 24 hours. Dispense thirty (30). No refills. -- Cordell Reid Dr.
--- NOTE | 2017-03-08 19:03 | ED DISCHARGE INSTRUCTIONS ---
Patient: JUANIS HENSON General Instructions [facility] VisitID: [id number] [place] [address] 41y, M Registration Date/Time: 03/08/2017 Chest pain characterized as "discomfort" .12 lead EKG performed. Moderate hyperglycemia (acute). INSTRUCTIONS Warnings: GENERAL WARNINGS: Return or contact your physician immediately if your condition worsens or changes unexpectedly, if not improving as expected, or if other problems arise. SPECIFICALLY, return if you develop chest, neck, jaw, shoulder, arm, or back pain, difficulty breathing, a fluttering sensation in your chest, lightheadedness, fainting, excessive fatigue, or sudden sweating. Your Current Medications: CONTINUE TAKING THE FOLLOWING MEDICATIONS: ASA Oral : 81 daily. Dilaudid 4mg q 6 hrs prn *. Flexeril*. Insulin Regular Human Injection. KlonoPIN Oral. Levamir* : 50 uniits 2x a day. Lisinopril Oral : 20 mg 2x a day. Metoprolol Tartrate Oral : 25 mg. Nitroglycerin Sublingual : 0.4 mg, prn. NovoLOG FlexPen Subcutaneous : 40-50 4x daily. Synthroid Oral : 75 mcg daily. OTC Medications: Aspirin 81 mg (available over the counter): take 1 orally every 24 hours. Dispense thirty (30). No refills. Follow-up: Return to the emergency department as needed. Follow up with a psychiatrist. Reason for referral: [facility] [phone]. Tomorrow 03/09/2017 Address: [address] [place] [id number]. Summary of care provided to patient via paper. Follow up with your doctor as scheduled. Screening today revealed the patient's blood pressure to be in the normal range. The patient should follow up with a primary care provider for blood pressure management. Understanding of the discharge instructions verbalized by patient. ADDITIONAL INFORMATION Chest Pain, Uncertain Cause Chest pain can happen for a number of reasons. Sometimes the cause can not be determined. If yourcondition does not seem serious, and your pain does not appear to be coming from your heart, your doctor may recommend watching it closely. Sometimes the signs of a serious problem take more time to appear. Therefore, watch for the warning signs listed below. Home care After your visit, follow these recommendations: Rest today and avoid strenuous activity. Take any prescribed medicine as directed. Follow-up care Follow up with your doctor or this facility as instructed or if you do not start to feel better within 24 hours. Call 911 Get immediate medical attention if any of the following occur: A change in the type of pain: if it feels different, becomes more severe, lasts longer, or begins to spread into your shoulder, arm, neck, jaw or back Shortness of breath or increased pain with breathing Weakness, dizziness, or fainting Rapid heart beat Get prompt medical attention Call your doctor right away if any of the following occur: Cough with dark colored sputum (phlegm) or blood Fever of 100.4F(38C) or higher, or as directed by your health care provider Swelling, pain or redness in one leg Diabetes with High Blood Sugar You have been treated for high blood sugar (hyperglycemia). This may be becauseof an infection or other illness;eating too many sweets or starches ; not taking enough insulin. Home care High blood sugar may cause symptoms that you can learn to recognize, such as these: If you feel like your blood sugar may be too high, measure it using a blood or urine test. If it is above your usual range, use the "sliding scale"rRegular insulin dose your doctor gave you to correct this. If no "sliding scale" orders were given, contact your doctor for further advice. If your blood sugar is over 300, and you can't reach your doctor, go to the hospital emergency room. Monitor and write down your blood sugars - and insulin dose, if you take insulin - atleast twice a day. Do this before breakfast and before dinner. Do this for the next 3 to 5 days. Follow-up care [facility] up with [facility] the next week to review your blood sugar records. You will find out if you need to adjust your dose of insulin or other medicine for blood sugar. When to seek medical care Get prompt medical attention if either of these occur: High blood sugar.Symptoms are frequent urination, feeling dizzy, thirst, headache, nausea or vomiting, abdominal pain, and drowsiness or loss of consciousness. Low blood sugar. Symptoms are fatigue, headache, shakes, excess sweating, hunger, anxiety, reduced vision, drowsiness, weakness, confusion or loss of consciousness, and seizure. Aspirin Oral tablet What is this medicine? ASPIRIN ( pir in) is a pain reliever. It is used to treat mild pain and fever. This medicine is also used as directed by a doctor to prevent and to treat heart attacks, to prevent strokes, and to treat arthritis or inflammation. How should I use this medicine? Take this medicine by mouth with a glass of water. Follow the directions on the package or prescription label. You can take this medicine with or without food. If it upsets your stomach, take it with food. Do not take your medicine more often than directed. Talk to your children's program coordinator regarding the use of this medicine in children. While this drug may be prescribed for children as young as 12 years of age for selected conditions, precautions do apply. Children and teenagers should not use this medicine to treat chicken pox or flu symptoms unless directed by a doctor. Patients over 65 years old may have a stronger reaction and need a smaller dose. What side effects may I notice from receiving this medicine? Side effects that you should report to your doctor or health reproductive healthcare assistant as soon as possible: allergic reactions like skin rash, itching or hives, swelling of the face, lips, or tongue breathing problems changes in hearing, ringing in the ears confusion general ill feeling or flu-like symptoms pain on swallowing redness, blistering, peeling or loosening of the skin, including inside the mouth or nose signs and symptoms of bleeding such as bloody or black, tarry stools; red or dark-brown urine; spitting up blood or brown material that looks like coffee grounds; red spots on the skin; unusual bruising or bleeding from the eye, gums, or nose trouble passing urine or change in the amount of urine unusually weak or tired yellowing of the eyes or skin Side effects that usually do not require medical attention (report to your doctor or health reproductive healthcare assistant if they continue or are bothersome): diarrhea or constipation nausea, vomiting stomach gas, heartburn What may interact with this medicine? Do not take this medicine with any of the following medications: cidofovir ketorolac probenecid This medicine may also interact with the following medications: alcohol alendronate bismuth subsalicylate flavocoxid herbal supplements like feverfew, garlic, farrah, ginkgo biloba, horse chestnut medicines for diabetes or glaucoma like acetazolamide, methazolamide medicines for gout medicines that treat or prevent blood clots like enoxaparin, heparin, ticlopidine, warfarin other aspirin and aspirin-like medicines NSAIDs, medicines for pain and inflammation, like ibuprofen or naproxen pemetrexed sulfinpyrazone varicella live vaccine What if I miss a dose? If you are taking this medicine on a regular schedule and miss a dose, take it as soon as you can. If it is almost time for your next dose, take only that dose. Do not take double or extra doses. Where should I keep my medicine? Keep out of the reach of children. Store at room temperature between 15 and 30 degrees C (59 and 86 degrees F). Protect from heat and moisture. Do not use this medicine if it has a strong vinegar smell. Throw away any unused medicine after the expiration date. What should I tell my health care provider before I take this medicine? They need to know if you have any of these conditions: anemia asthma bleeding problems child with chickenpox, the flu, or other viral infection diabetes gout if you frequently drink alcohol containing drinks kidney disease liver disease low level of vitamin K lupus smoke tobacco stomach ulcers or other problems an unusual or allergic reaction to aspirin, tartrazine dye, other medicines, dyes, or preservatives or trying to get breast-feeding What should I watch for while using this medicine? If you are treating yourself for pain, tell your doctor or health reproductive healthcare assistant if the pain lasts more than 10 days, if it gets worse, or if there is a new or different kind of pain. Tell your doctor if you see redness or swelling. Also, check with your doctor if you have a fever that lasts for more than 3 days. Only take this medicine to prevent heart attacks or blood clotting if prescribed by your doctor or health reproductive healthcare assistant. Do not take aspirin or aspirin-like medicines with this medicine. Too much aspirin can be dangerous. Always read the labels carefully. This medicine can irritate your stomach or cause bleeding problems. Do not smoke cigarettes or drink alcohol while taking this medicine. Do not lie down for 30 minutes after taking this medicine to prevent irritation to your throat. If you are scheduled for any medical or dental procedure, tell your healthcare provider that you are taking this medicine. You may need to stop taking this medicine before the procedure. You have been given the following additional information: Chest Pain, Uncertain Cause Diabetic Hyperglycemia Aspirin Oral tablet (Electronically signed by Cordell Reid Dr. 03/08/2017 16:11)
--- NOTE | 2017-03-08 19:03 | ED MAR SUMMARY ---
..... Medication Administration Record Located Within [facility] [address] [place] [address] Patient: JUANIS HENSON Visit ID: [id number] 41y, M Weight: 120.2 kg Height/Length: 70 in BMI: 38 ALLERGIES: Toradol Given 14:38 03/08/2017 Vickey Cali R.N. Medication Administered: DILAUDID [IVP] (HYDROMORPHONE HCL PF), Dose: 1 mg IVP, Site: #1 left forearm. Medication Ordered: Dilaudid IV 1 mg (HIGH ALERT MEDICATION, NOW).
--- NOTE | 2017-03-08 19:03 | ED MED RECONCILIATION SUMMARY ---
Patient: JUANIS HENSON Medication Reconciliation Report [facility] VisitID: [id number] [address] [place] [address] 41y, M Registration Date/Time: 03/08/2017 Weight: 120.2 kg Height/Length: 70 in. BMI: 38.0 ALLERGIES: Toradol The patient's Home Medications are listed below: CONTINUE TAKING THE FOLLOWING MEDICATIONS: ASA Oral 81, daily Dilaudid 4mg q 6 hrs prn Flexeril Insulin Regular Human Injection KlonoPIN Oral Levamir 50 uniits, 2x a day Lisinopril Oral 20 mg, 2x a day Metoprolol Tartrate Oral 25 mg Nitroglycerin Sublingual 0.4 mg NovoLOG FlexPen Subcutaneous 40-50, 4x daily Synthroid Oral 75 mcg, daily The source(s) of the original Home Medication information: patient The following Medications were given to the patient in the Emergency Department: Dilaudid [IVP] IVP 1 mg, administered: 03/08/2017 2:38:00 PM The following Medications were prescribed to the patient: Aspirin 81 mg (available over the counter): take 1 orally every 24 hours. Dispense thirty (30). No refills. -- Cordell Reid Dr.
--- NOTE | 2017-03-08 19:03 | ED DISCHARGE INSTRUCTIONS ---
Patient: JUANIS HENSON General Instructions [facility] VisitID: [id number] [place] [address] 41y, M Registration Date/Time: 03/08/2017 Chest pain characterized as "discomfort" .12 lead EKG performed. Moderate hyperglycemia (acute). INSTRUCTIONS Warnings: GENERAL WARNINGS: Return or contact your physician immediately if your condition worsens or changes unexpectedly, if not improving as expected, or if other problems arise. SPECIFICALLY, return if you develop chest, neck, jaw, shoulder, arm, or back pain, difficulty breathing, a fluttering sensation in your chest, lightheadedness, fainting, excessive fatigue, or sudden sweating. Your Current Medications: CONTINUE TAKING THE FOLLOWING MEDICATIONS: ASA Oral : 81 daily. Dilaudid 4mg q 6 hrs prn *. Flexeril*. Insulin Regular Human Injection. KlonoPIN Oral. Levamir* : 50 uniits 2x a day. Lisinopril Oral : 20 mg 2x a day. Metoprolol Tartrate Oral : 25 mg. Nitroglycerin Sublingual : 0.4 mg, prn. NovoLOG FlexPen Subcutaneous : 40-50 4x daily. Synthroid Oral : 75 mcg daily. OTC Medications: Aspirin 81 mg (available over the counter): take 1 orally every 24 hours. Dispense thirty (30). No refills. Follow-up: Return to the emergency department as needed. Follow up with a psychiatrist. Reason for referral: [facility] [phone]. Tomorrow 03/09/2017 Address: [address] [place] [id number]. Summary of care provided to patient via paper. Follow up with your doctor as scheduled. Screening today revealed the patient's blood pressure to be in the normal range. The patient should follow up with a primary care provider for blood pressure management. Understanding of the discharge instructions verbalized by patient. ADDITIONAL INFORMATION Chest Pain, Uncertain Cause Chest pain can happen for a number of reasons. Sometimes the cause can not be determined. If yourcondition does not seem serious, and your pain does not appear to be coming from your heart, your doctor may recommend watching it closely. Sometimes the signs of a serious problem take more time to appear. Therefore, watch for the warning signs listed below. Home care After your visit, follow these recommendations: Rest today and avoid strenuous activity. Take any prescribed medicine as directed. Follow-up care Follow up with your doctor or this facility as instructed or if you do not start to feel better within 24 hours. Call 911 Get immediate medical attention if any of the following occur: A change in the type of pain: if it feels different, becomes more severe, lasts longer, or begins to spread into your shoulder, arm, neck, jaw or back Shortness of breath or increased pain with breathing Weakness, dizziness, or fainting Rapid heart beat Get prompt medical attention Call your doctor right away if any of the following occur: Cough with dark colored sputum (phlegm) or blood Fever of 100.4F(38C) or higher, or as directed by your health care provider Swelling, pain or redness in one leg Diabetes with High Blood Sugar You have been treated for high blood sugar (hyperglycemia). This may be becauseof an infection or other illness;eating too many sweets or starches ; not taking enough insulin. Home care High blood sugar may cause symptoms that you can learn to recognize, such as these: If you feel like your blood sugar may be too high, measure it using a blood or urine test. If it is above your usual range, use the "sliding scale"rRegular insulin dose your doctor gave you to correct this. If no "sliding scale" orders were given, contact your doctor for further advice. If your blood sugar is over 300, and you can't reach your doctor, go to the hospital emergency room. Monitor and write down your blood sugars - and insulin dose, if you take insulin - atleast twice a day. Do this before breakfast and before dinner. Do this for the next 3 to 5 days. Follow-up care Follow up with your health care [facility] the next week to review your blood sugar records. You will find out if you need to adjust your dose of insulin or other medicine for blood sugar. When to seek medical care Get prompt medical attention if either of these occur: High blood sugar.Symptoms are frequent urination, feeling dizzy, thirst, headache, nausea or vomiting, abdominal pain, and drowsiness or loss of consciousness. Low blood sugar. Symptoms are fatigue, headache, shakes, excess sweating, hunger, anxiety, reduced vision, drowsiness, weakness, confusion or loss of consciousness, and seizure. Aspirin Oral tablet What is this medicine? ASPIRIN ( pir in) is a pain reliever. It is used to treat mild pain and fever. This medicine is also used as directed by a doctor to prevent and to treat heart attacks, to prevent strokes, and to treat arthritis or inflammation. How should I use this medicine? Take this medicine by mouth with a glass of water. Follow the directions on the package or prescription label. You can take this medicine with or without food. If it upsets your stomach, take it with food. Do not take your medicine more often than directed. Talk to your dairy cattle farmer regarding the use of this medicine in children. While this drug may be prescribed for children as young as 12 years of age for selected conditions, precautions do apply. Children and teenagers should not use this medicine to treat chicken pox or flu symptoms unless directed by a doctor. Patients over 65 years old may have a stronger reaction and need a smaller dose. What side effects may I notice from receiving this medicine? Side effects that you should report to your doctor or health caretaker resort as soon as possible: allergic reactions like skin rash, itching or hives, swelling of the face, lips, or tongue breathing problems changes in hearing, ringing in the ears confusion general ill feeling or flu-like symptoms pain on swallowing redness, blistering, peeling or loosening of the skin, including inside the mouth or nose signs and symptoms of bleeding such as bloody or black, tarry stools; red or dark-brown urine; spitting up blood or brown material that looks like coffee grounds; red spots on the skin; unusual bruising or bleeding from the eye, gums, or nose trouble passing urine or change in the amount of urine unusually weak or tired yellowing of the eyes or skin Side effects that usually do not require medical attention (report to your doctor or health caretaker resort if they continue or are bothersome): diarrhea or constipation nausea, vomiting stomach gas, heartburn What may interact with this medicine? Do not take this medicine with any of the following medications: cidofovir ketorolac probenecid This medicine may also interact with the following medications: alcohol alendronate bismuth subsalicylate flavocoxid herbal supplements like feverfew, garlic, farrah, ginkgo biloba, horse chestnut medicines for diabetes or glaucoma like acetazolamide, methazolamide medicines for gout medicines that treat or prevent blood clots like enoxaparin, heparin, ticlopidine, warfarin other aspirin and aspirin-like medicines NSAIDs, medicines for pain and inflammation, like ibuprofen or naproxen pemetrexed sulfinpyrazone varicella live vaccine What if I miss a dose? If you are taking this medicine on a regular schedule and miss a dose, take it as soon as you can. If it is almost time for your next dose, take only that dose. Do not take double or extra doses. Where should I keep my medicine? Keep out of the reach of children. Store at room temperature between 15 and 30 degrees C (59 and 86 degrees F). Protect from heat and moisture. Do not use this medicine if it has a strong vinegar smell. Throw away any unused medicine after the expiration date. What should I tell my health care provider before I take this medicine? They need to know if you have any of these conditions: anemia asthma bleeding problems child with chickenpox, the flu, or other viral infection diabetes gout if you frequently drink alcohol containing drinks kidney disease liver disease low level of vitamin K lupus smoke tobacco stomach ulcers or other problems an unusual or allergic reaction to aspirin, tartrazine dye, other medicines, dyes, or preservatives or trying to get breast-feeding What should I watch for while using this medicine? If you are treating yourself for pain, tell your doctor or health caretaker resort if the pain lasts more than 10 days, if it gets worse, or if there is a new or different kind of pain. Tell your doctor if you see redness or swelling. Also, check with your doctor if you have a fever that lasts for more than 3 days. Only take this medicine to prevent heart attacks or blood clotting if prescribed by your doctor or health caretaker resort. Do not take aspirin or aspirin-like medicines with this medicine. Too much aspirin can be dangerous. Always read the labels carefully. This medicine can irritate your stomach or cause bleeding problems. Do not smoke cigarettes or drink alcohol while taking this medicine. Do not lie down for 30 minutes after taking this medicine to prevent irritation to your throat. If you are scheduled for any medical or dental procedure, tell your healthcare provider that you are taking this medicine. You may need to stop taking this medicine before the procedure. You have been given the following additional information: Chest Pain, Uncertain Cause Diabetic Hyperglycemia Aspirin Oral tablet (Electronically signed by Cordell Reid Dr. 03/08/2017 16:11)
== END 2017-03-08 16:09 | disposition home or self-care (01) ==
LOC: ED SRH 13:26
DX: R07.89 Other chest pain (principal); E11.65 Type 2 diabetes mellitus with hyperglycemia; I10 Essential (primary) hypertension; I25.10 Atherosclerotic heart disease of native coronary artery without angina pectoris; E07.9 Disorder of thyroid, unspecified; Z79.82 Long term (current) use of aspirin; Z79.4 Long term (current) use of insulin; Z79.899 Other long term (current) drug therapy; Z88.8 Allergy status to other drugs, medicaments and biological substances
CPT/HCPCS: 90004; 90100; 90616; 91320; 92010; 92760; 92761; 92762; 92763; 92764; 92765; 92766; 92767; 94001; 94060; 95059

== ENCOUNTER 2017-03-10 13:55 | Emergency (ER) | payer OTHER ==
--- NOTE | 2017-03-10 16:15 | ED NURSING NOTES ---
Clinical Report - Nurses [facility] [address] [place] [address] 03/10/2017 13:56 Patient: JUANIS HENSON TRIAGE Triage time 14:33. Acuity: LEVEL 4. Chief Complaint: ANXIETY. 14:33 03/10/17. 14:33 03/10/17. Alert. ( Pt states he followed up yesterday with [facility] they called 911 due to chest pain, pt states that after he was cleared by [facility], he states [facility] would not accept him due to "medical problems".). SEPSIS SCREEN: Sepsis Screen. Negative (no infection suspected/documented). MAGI COMA SCORE: [place] Coma Scale: 15- eyes open spontaneously (4); best verbal response- oriented x 4 (5); best motor response- obeys commands (6). --14:42 Javier Centeno R.N. 14:33 03/10/17. BP: 141/99. HR: 93. RR: 18. O2 saturation: 100% on room air. Temp: 98.3 F (oral). Pain level now: 05/11. --14:42 Javier Centeno R.N. Weight: 120.2 kg stated. Height/Length: 70 inches Per Patient. BMI: 38. --14:37 Javier Centeno R.N. Medications ASA Oral 81, daily. Dilaudid 4mg q 6 hrs prn . Flexeril. Insulin Regular Human Injection. KlonoPIN Oral. --14:39 Javier Centeno R.N. Levamir 50 uniits, 2x a day. Lisinopril Oral 20 mg, 2x a day. Metoprolol Tartrate Oral 25 mg. Nitroglycerin Sublingual 0.4 mg, as needed. NovoLOG FlexPen Subcutaneous 40-50, 4x daily. Synthroid Oral 75 mcg, daily. --14:39 Javier Centeno R.N. Allergies Toradol. --14:39 Javier Centeno R.N. History Arrived by private vehicle. Historian: patient. Unaccompanied. [facility] 14:33 03/10/17. ( 2 days ago). 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 PAST MEDICAL HX: Immunizations: status is unknown. SOCIAL HX: Current every day light tobacco smoker- less than 1/2 a pack per day. No alcohol use or drug use. No infectious disease exposure. ABUSE ASSESSMENT: No report of abuse. SELF HARM ASSESSMENT: A self harm assessment was performed. The patient answered "yes" to the question "Have you recently felt down, depressed, or hopeless?", "Have you noticed less interest or pleasure in doing things?" and "Do you have thoughts of harming or killing yourself?" and "no" to the question "Are you here because you tried to hurt yourself?", "Have you ever tried to hurt yourself before today?", "Have you recently had thoughts about harming or killing others?" and "Do you have any dangerous items in your possession?". The patient reports their behavior as anxious. A further in-depth assessment is planned. He has been placed under supervision. He was placed in direct sight of the nurses station. FALL RISK ASSESSMENT: Fall risk assessment completed. No fall risk identified. NUTRITIONAL RISK ASSESSMENT: The nutritional risk assessment revealed no deficiencies. FUNCTIONAL ASSESSMENT: Functional assessment: no impairments noted. LEARNING NEEDS ASSESSMENT: The learning needs assessment revealed no barriers. SKIN INTEGRITY ASSESSMENT: Skin integrity risk assessment completed. No skin integrity risk identified. --14:42 Javier Centeno R.N. PROBLEMS: Mental Illness. Anxiety Reaction. Depression. Cardiovascular Risk Factors. Hyperglycemia. Cellulitis. Peptic Ulcer Disease. Coronary Artery Disease. Chest Pain. Substance Abuse. Schizophrenia. Atypical Chest Pain. Abscess. Thyroid Disease. Hypertension. Diabetes Mellitus. --14:40 Javier Centeno R.N. ADDITIONAL SURGERIES: Back Surgery. Coronary stents. Stent. --14:40 Javier Centeno R.N. Assessment 14:33 03/10/17. --14:42 Javier Centeno R.N. Interventions 14:33 03/10/17. 14:33 03/10/17. ID and allergy band on patient. To treatment room. --14:42 Javier Centeno R.N. PHYSICAL ASSESSMENT 14:40 05/09/17. Ambulatory to room. GENERAL / NEURO / PSYCH: Alert. Oriented X 4. Appears anxious. Good eye contact. RESPIRATORY: Respirations not labored. CVS: Capillary refill less than 2 seconds. SKIN: Skin is warm and dry. --14:40 Javier Centeno R.N. NURSING PROGRESS NOTES 14:40 03/10/17. Call light placed in reach. Side rails up x 2. Bed placed in lowest position. Brakes of bed on. Patient ready for evaluation- chart flagged. --14:40 Javier Centeno R.N. The initial plan of care for this patient has been created This plan of care was discussed with the patient. Patient gowned. Reassurance given. Suicide precautions initiated. Two patient identifiers checked. Call light placed in reach. Side rails up x 1. Bed placed in lowest position. Brakes of bed on. --14:55 Nena Patino R.N. DISPOSITION / DISCHARGE 16:19 03/10/17. The goals identified in the patient's plan of care were met. ( Pt states he will return at 2200 as Mental Health Provider will be here around 0001. Pt did not want to stay. Pt also says that he is not suicidal, and he is anxious, and wants to see a mental health provider to help with his anxiety). No learning barriers present. Discharge instructions provided and reviewed with the patient. Reviewed warnings. Reviewed medication(s). Treatments reviewed. Patient verbalized understanding. Written instructions provided in [place]. The patient was discharged by the nurse practitioner. He was discharged home and accompanied by family. He left the Emergency Department ambulatory and via private vehicle. Patient driving. FALL RISK ASSESSMENT: Fall risk assessment completed. No fall risk identified. --16:19 Javier Centeno R.N. 16:17 03/10/17. BP: 133/89. HR: 80. RR: 15. O2 saturation: 99% on room air. Temp: 98.2 F (oral). --16:19 Javier Centeno R.N. 16:19 03/10/17. Departure time: 16:19. --16:19 Javier Centeno R.N. Locked/Released at 03/10/2017 16:20 by Javier Centeno R.N.
--- NOTE | 2017-03-10 16:15 | ED CLINICAL REPORT ---
Clinical Report - Physicians/Mid Levels [facility] [address] [place] [address] 03/10/2017 13:56 Patient: JUANIS HENSON Time Seen: 14:21; initial patient contact, initial documentation, patient care assumed. Arrived- By private vehicle. Not in custody. Historian- patient. HISTORY OF PRESENT ILLNESS Chief Complaint: ANXIOUS, DEPRESSED and MEDICAL CLEARANCE and AGITATED and HALLUCINATIONS. This started several weeks. The patient has experienced situational problems but not exhibited a behavior change and was not found wandering. (pt telling me is still having same problems, trying to get over the deaths recently, can't afford his meds, no money for copay, can't get any of his meds filled, had to move his rv/trailer and pay for tow). He is non-compliant with medication. No recent drug use or alcohol consumption. Has been depressed but eating or sleeping. He has had anxiety. No anger, unusual behavior, paranoia, delusions or suicidal thoughts. No self-injury inflicted. He has had moderate auditory hallucinations. The symptoms are described as severe. No injury is present. pt states his anxiety is getting worse, which makes his cp worse, and makes the hallucinations worse, states he can't find dr here, no one will take his insurance, pt denies being suicidal, but states he needs and wants psych help and wants to be admitted or talk to someone. Similar symptoms previously: Recent medical care: ( txed here 03/08 for same thing, and 03/06, was supposed to f/u with Hosea Parry for help with insurance and getting meds and was supposed to see [facility] yesterday, says he went to [facility] yesterday, but they wouldn't see him because of his dm and chest pain, so he went [facility] and [facility] cleared him but [facility] would not take him still, so now he is here today). REVIEW OF SYSTEMS The patient has had chest pain. All systems otherwise negative, except as recorded above. PAST HISTORY See nurses notes. ( PAST HISTORY ( Cardiovascular Risk Factors. Hyperglycemia. Cellulitis. Peptic Ulcer Disease. Coronary Artery Disease. Chest Pain. Substance Abuse. Schizophrenia. Atypical Chest Pain. Abscess. Hypertension. Thyroid Disease. Diabetes Mellitus. ADDITIONAL SURGERIES: Back Surgery. Coronary stents. Stent.).). SOCIAL HISTORY Heavy tobacco smoker. No alcohol use or drug use. No social support. Has place to stay. FAMILY HISTORY Negative. ADDITIONAL NOTES The nursing notes have been reviewed with agreement regarding the chief complaint, HPI, ROS, PMH and patient medications and allergies. PHYSICAL EXAM Vital Signs: 03/10/2017 14:33 BP: 141/99. HR: 93. RR: 18. O2 saturation: 100%. Temp: 98.3 F. Pain level now: 05/11. Have been reviewed as abnormal and appear to be correct. Hypertensive. Heart rate normal. Respiratory rate normal. Temperature normal. Oxygen saturation normal. Appearance: Alert. No acute distress. Appearance is normal. Anxious. Eyes: Pupils equal, round and reactive to light. Neck: Normal inspection. Neck supple. CVS: Normal heart rate and rhythm. Heart sounds normal. Respiratory: Breath sounds normal. Chest nontender. Abdomen: Mildly obese. Skin: Skin warm and dry. Normal skin color. Normal skin turgor. Extremities: Extremities exhibit normal ROM. No lower extremity edema. Psych / Neuro: Oriented X 3. Abnormal mood and affect. Speech normal. Cognition normal. Thought process and content normal. Insight and judgement normal. Cranial nerves normal (as tested). No cerebellar findings. No motor deficit. No sensory deficit. PROGRESS AND PROCEDURES Course of Care: 15:00 03/10/17. spoke to Hosea Parry, regarding Thursday's visit, and if pt f/u with her or she was aware of pt, Ms Parry did not meet with pt or speak to him, but did look up his plan, and according to his insurance he has full coverage, and should have issues getting meds, or visits in to dr Harp. had corporate general manager call [facility], no [facility] person available, pat available at midnight if pt wants to be medically cleared pt informed of delay and asked if he wanted to stay, pt now telling me he can't wait that long unless he gets something for anxiety and something for pain for his back, that he can not lay here this long, last time I saw pt, pt got very irate and upset because I ordered toradol, so I asked academic specialist to come to room spoke to pt with academic specialist Javier, offered pt the choice of waiting for pat, without meds, or now be treated for anxiety and back pain, pt aware that I had to check more records first before I would order controlled substance, because I thought I gave toradol last time because pt was over the narc policy here or jing visits verified and pt has maxed out on narcs/controlled substances 15:57 03/10/17. records also reviewed for lab results, mainly glucose in order to determine medical clearance for pat 03/08 Glucose 346 5 Glucose 435 02/16 Glucose 550 02/08 Glucose 624 01/30 Glucose 497 1610. pt aware of controlled/narc policy and given copy, again offered to medically clear him, pt declined stating he would leave and come back around 10 or later, so he wouldn't have to wait so long here for pat arrival 17:15 03/10/17. found narcotic policy in [facility], pt threw it away. 03/10/2017 16:17 BP: 133/89. HR: 80. RR: 15. O2 saturation: 99%. Temp: 98.2 F. Vital Signs: have been reviewed as normal and appear to be correct. Critical care performed (30 minutes). Time includes: direct patient care, patient reassessment, review of patient's medical records and documentation of patient care. Patient counseled in person regarding the patient's stable condition and diagnosis. Differential Diagnosis: Other possible considerations: substance abuse, noncompliance, uncontrolled dm, bipolar, schizophrenia, si. Above considerations are based on history, physical exam and reassessment. Differential diagnosis was discussed with patient. Disposition: Discharged home in good and improved condition (16:15). Condition: good and stable. CLINICAL IMPRESSION Anxiety reaction. No hyperventilation. INSTRUCTIONS Warnings: GENERAL WARNINGS: Return or contact your physician immediately if your condition worsens or changes unexpectedly, if not improving as expected, or if other problems arise. Specifically return if problem worsens. Follow-up: Follow up with your doctor in about two days. Call for an appointment. Summary of care provided to patient. Understanding of the discharge instructions verbalized by patient. (Electronically signed by Pennie Wharton A.R.N.P. 03/10/2017 18:02)
--- NOTE | 2017-03-10 16:15 | ED NURSING NOTES ---
Clinical Report - Nurses [facility] [address] [place] [address] 03/10/2017 13:56 Patient: JUANIS HENSON TRIAGE Triage time 14:33. Acuity: LEVEL 4. Chief Complaint: ANXIETY. 14:33 03/10/17. 14:33 03/10/17. Alert. ( Pt states he followed up yesterday with [facility] they called 911 due to chest pain, pt states that after he was cleared by [facility], he states [facility] would not accept him due to "medical problems".). SEPSIS SCREEN: Sepsis Screen. Negative (no infection suspected/documented). MAGI COMA SCORE: [place] Coma Scale: 15- eyes open spontaneously (4); best verbal response- oriented x 4 (5); best motor response- obeys commands (6). --14:42 Javier Centeno R.N. 14:33 03/10/17. BP: 141/99. HR: 93. RR: 18. O2 saturation: 100% on room air. Temp: 98.3 F (oral). Pain level now: 05/11. --14:42 Javier Centeno R.N. Weight: 120.2 kg stated. Height/Length: 70 inches Per Patient. BMI: 38. --14:37 Javier Centeno R.N. Medications ASA Oral 81, daily. Dilaudid 4mg q 6 hrs prn . Flexeril. Insulin Regular Human Injection. KlonoPIN Oral. --14:39 Javier Centeno R.N. Levamir 50 uniits, 2x a day. Lisinopril Oral 20 mg, 2x a day. Metoprolol Tartrate Oral 25 mg. Nitroglycerin Sublingual 0.4 mg, as needed. NovoLOG FlexPen Subcutaneous 40-50, 4x daily. Synthroid Oral 75 mcg, daily. --14:39 Javier Centeno R.N. Allergies Toradol. --14:39 Javier Centeno R.N. History Arrived by private vehicle. Historian: patient. Unaccompanied. [facility] 14:33 03/10/17. ( 2 days ago). 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 PAST MEDICAL HX: Immunizations: status is unknown. SOCIAL HX: Current every day light tobacco smoker- less than 1/2 a pack per day. No alcohol use or drug use. No infectious disease exposure. ABUSE ASSESSMENT: No report of abuse. SELF HARM ASSESSMENT: A self harm assessment was performed. The patient answered "yes" to the question "Have you recently felt down, depressed, or hopeless?", "Have you noticed less interest or pleasure in doing things?" and "Do you have thoughts of harming or killing yourself?" and "no" to the question "Are you here because you tried to hurt yourself?", "Have you ever tried to hurt yourself before today?", "Have you recently had thoughts about harming or killing others?" and "Do you have any dangerous items in your possession?". The patient reports their behavior as anxious. A further in-depth assessment is planned. He has been placed under supervision. He was placed in direct sight of the nurses station. FALL RISK ASSESSMENT: Fall risk assessment completed. No fall risk identified. NUTRITIONAL RISK ASSESSMENT: The nutritional risk assessment revealed no deficiencies. FUNCTIONAL ASSESSMENT: Functional assessment: no impairments noted. LEARNING NEEDS ASSESSMENT: The learning needs assessment revealed no barriers. SKIN INTEGRITY ASSESSMENT: Skin integrity risk assessment completed. No skin integrity risk identified. --14:42 Javier Centeno R.N. PROBLEMS: Mental Illness. Anxiety Reaction. Depression. Cardiovascular Risk Factors. Hyperglycemia. Cellulitis. Peptic Ulcer Disease. Coronary Artery Disease. Chest Pain. Substance Abuse. Schizophrenia. Atypical Chest Pain. Abscess. Thyroid Disease. Hypertension. Diabetes Mellitus. --14:40 Javier Centeno R.N. ADDITIONAL SURGERIES: Back Surgery. Coronary stents. Stent. --14:40 Javier Centeno R.N. Assessment 14:33 03/10/17. --14:42 Javier Centeno R.N. Interventions 14:33 03/10/17. 14:33 03/10/17. ID and allergy band on patient. To treatment room. --14:42 Javier Centeno R.N. PHYSICAL ASSESSMENT 14:40 05/09/17. Ambulatory to room. GENERAL / NEURO / PSYCH: Alert. Oriented X 4. Appears anxious. Good eye contact. RESPIRATORY: Respirations not labored. CVS: Capillary refill less than 2 seconds. SKIN: Skin is warm and dry. --14:40 Javier Centeno R.N. NURSING PROGRESS NOTES 14:40 03/10/17. Call light placed in reach. Side rails up x 2. Bed placed in lowest position. Brakes of bed on. Patient ready for evaluation- chart flagged. --14:40 Javier Centeno R.N. The initial plan of care for this patient has been created This plan of care was discussed with the patient. Patient gowned. Reassurance given. Suicide precautions initiated. Two patient identifiers checked. Call light placed in reach. Side rails up x 1. Bed placed in lowest position. Brakes of bed on. --14:55 Nena Patino R.N. DISPOSITION / DISCHARGE 16:19 03/10/17. The goals identified in the patient's plan of care were met. ( Pt states he will return at 2200 as Mental Health Provider will be here around 0001. Pt did not want to stay. Pt also says that he is not suicidal, and he is anxious, and wants to see a mental health provider to help with his anxiety). No learning barriers present. Discharge instructions provided and reviewed with the patient. Reviewed warnings. Reviewed medication(s). Treatments reviewed. Patient verbalized understanding. Written instructions provided in Icelandic. The patient was discharged by the nurse practitioner. He was discharged home and accompanied by family. He left the Emergency Department ambulatory and via private vehicle. Patient driving. FALL RISK ASSESSMENT: Fall risk assessment completed. No fall risk identified. --16:19 Javier Centeno R.N. 16:17 03/10/17. BP: 133/89. HR: 80. RR: 15. O2 saturation: 99% on room air. Temp: 98.2 F (oral). --16:19 Javier Centeno R.N. 16:19 03/10/17. Departure time: 16:19. --16:19 Javier Centeno R.N. Locked/Released at 03/10/2017 16:20 by Javier Centeno R.N.
--- NOTE | 2017-03-10 16:15 | ED CLINICAL REPORT ---
Clinical Report - Physicians/Mid Levels [facility] [address] [place] [address] 03/10/2017 13:56 Patient: JUANIS HENSON Time Seen: 14:21; initial patient contact, initial documentation, patient care assumed. Arrived- By private vehicle. Not in custody. Historian- patient. HISTORY OF PRESENT ILLNESS Chief Complaint: ANXIOUS, DEPRESSED and MEDICAL CLEARANCE and AGITATED and HALLUCINATIONS. This started several weeks. The patient has experienced situational problems but not exhibited a behavior change and was not found wandering. (pt telling me is still having same problems, trying to get over the deaths recently, can't afford his meds, no money for copay, can't get any of his meds filled, had to move his rv/trailer and pay for tow). He is non-compliant with medication. No recent drug use or alcohol consumption. Has been depressed but eating or sleeping. He has had anxiety. No anger, unusual behavior, paranoia, delusions or suicidal thoughts. No self-injury inflicted. He has had moderate auditory hallucinations. The symptoms are described as severe. No injury is present. pt states his anxiety is getting worse, which makes his cp worse, and makes the hallucinations worse, states he can't find dr here, no one will take his insurance, pt denies being suicidal, but states he needs and wants psych help and wants to be admitted or talk to someone. Similar symptoms previously: Recent medical care: ( txed here 03/08 for same thing, and 03/06, was supposed to f/u with Hosea Parry for help with insurance and getting meds and was supposed to see [facility] yesterday, says he went to [facility] yesterday, but they wouldn't see him because of his dm and chest pain, so [facility] and [facility] cleared him but [facility] would not take him still, so now he is here today). REVIEW OF SYSTEMS The patient has had chest pain. All systems otherwise negative, except as recorded above. PAST HISTORY See nurses notes. ( PAST HISTORY ( Cardiovascular Risk Factors. Hyperglycemia. Cellulitis. Peptic Ulcer Disease. Coronary Artery Disease. Chest Pain. Substance Abuse. Schizophrenia. Atypical Chest Pain. Abscess. Hypertension. Thyroid Disease. Diabetes Mellitus. ADDITIONAL SURGERIES: Back Surgery. Coronary stents. Stent.).). SOCIAL HISTORY Heavy tobacco smoker. No alcohol use or drug use. No social support. Has place to stay. FAMILY HISTORY Negative. ADDITIONAL NOTES The nursing notes have been reviewed with agreement regarding the chief complaint, HPI, ROS, PMH and patient medications and allergies. PHYSICAL EXAM Vital Signs: 03/10/2017 14:33 BP: 141/99. HR: 93. RR: 18. O2 saturation: 100%. Temp: 98.3 F. Pain level now: 05/11. Have been reviewed as abnormal and appear to be correct. Hypertensive. Heart rate normal. Respiratory rate normal. Temperature normal. Oxygen saturation normal. Appearance: Alert. No acute distress. Appearance is normal. Anxious. Eyes: Pupils equal, round and reactive to light. Neck: Normal inspection. Neck supple. CVS: Normal heart rate and rhythm. Heart sounds normal. Respiratory: Breath sounds normal. Chest nontender. Abdomen: Mildly obese. Skin: Skin warm and dry. Normal skin color. Normal skin turgor. Extremities: Extremities exhibit normal ROM. No lower extremity edema. Psych / Neuro: Oriented X 3. Abnormal mood and affect. Speech normal. Cognition normal. Thought process and content normal. Insight and judgement normal. Cranial nerves normal (as tested). No cerebellar findings. No motor deficit. No sensory deficit. PROGRESS AND PROCEDURES Course of Care: 15:00 03/10/17. spoke to Hosea Parry, regarding Thursday's visit, and if pt f/u with her or she was aware of pt, Ms Parry did not meet with pt or speak to him, but did look up his plan, and according to his insurance he has full coverage, and should have issues getting meds, or visits in to dr Harp. had foot gatherer call pat and [facility], no [facility] person available, pat available at midnight if pt wants to be medically cleared pt informed of delay and asked if he wanted to stay, pt now telling me he can't wait that long unless he gets something for anxiety and something for pain for his back, that he can not lay here this long, last time I saw pt, pt got very irate and upset because I ordered toradol, so I asked journeyman glazier to come to room spoke to pt with journeyman glazier Javier, offered pt the choice of waiting for pat, without meds, or now be treated for anxiety and back pain, pt aware that I had to check more records first before I would order controlled substance, because I thought I gave toradol last time because pt was over the narc policy here or jing visits verified and pt has maxed out on narcs/controlled substances 15:57 03/10/17. records also reviewed for lab results, mainly glucose in order to determine medical clearance for pat 03/08 Glucose 346 5 Glucose 435 02/16 Glucose 550 02/08 Glucose 624 01/30 Glucose 497 1610. pt aware of controlled/narc policy and given copy, again offered to medically clear him, pt declined stating he would leave and come back around 10 or later, so he wouldn't have to wait so long here for pat arrival 17:15 03/10/17. found narcotic policy [facility], pt threw it away. 03/10/2017 16:17 BP: 133/89. HR: 80. RR: 15. O2 saturation: 99%. Temp: 98.2 F. Vital Signs: have been reviewed as normal and appear to be correct. Critical care performed (30 minutes). Time includes: direct patient care, patient reassessment, review of patient's medical records and documentation of patient care. Patient counseled in person regarding the patient's stable condition and diagnosis. Differential Diagnosis: Other possible considerations: substance abuse, noncompliance, uncontrolled dm, bipolar, schizophrenia, si. Above considerations are based on history, physical exam and reassessment. Differential diagnosis was discussed with patient. Disposition: Discharged home in good and improved condition (16:15). Condition: good and stable. CLINICAL IMPRESSION Anxiety reaction. No hyperventilation. INSTRUCTIONS Warnings: GENERAL WARNINGS: Return or contact your physician immediately if your condition worsens or changes unexpectedly, if not improving as expected, or if other problems arise. Specifically return if problem worsens. Follow-up: Follow up with your doctor in about two days. Call for an appointment. Summary of care provided to patient. Understanding of the discharge instructions verbalized by patient. (Electronically signed by Pennie Wharton A.R.N.P. 03/10/2017 18:02)
--- NOTE | 2017-03-10 18:02 | ED DISCHARGE INSTRUCTIONS ---
Patient: JUANIS HENSON General Instructions [facility] VisitID: [id number] [place] [address] 41y, M Registration Date/Time: 03/10/2017 Anxiety reaction. No hyperventilation. INSTRUCTIONS Warnings: GENERAL WARNINGS: Return or contact your physician immediately if your condition worsens or changes unexpectedly, if not improving as expected, or if other problems arise. Specifically return if problem worsens. Follow-up: Follow up with your doctor in about two days. Call for an appointment. Summary of care provided to patient. Understanding of the discharge instructions verbalized by patient. ADDITIONAL INFORMATION Stress Reaction Anxiety is the feeling we all get when we think something bad might happen. It is a normal response to stress and usually causes only a mild reaction. When anxiety becomes more severe, emotions may interfere with daily life. In some cases, you may not even be aware of what it is youre anxious about! During an anxiety reaction, you may feel like you are helpless, nervous, depressed or irritable. Your body may show signs of anxiety in many ways. You may experience dry mouth, shakiness, dizziness, weakness, trouble breathing, chest pressure, headache, nausea, diarrhea, tiredness, inability to sleep or sexual problems. Home Care: 1) Try to locate the sources of stress in your life. They may not be obvious! These may include: -- Daily hassles of life which pile up (traffic jams, missed appointments, car troubles, etc.) -- Major life changes, both good (new baby, job promotion) and bad (loss of job, loss of loved one) -- Overload: feeling that you have too many responsibilities and can't take care of all of them at once -- Feeling helpless, feeling that your problems are beyond what youre able to solve 2) Notice how your body reacts to stress. Learn to listen to your body signals. This will help you take action before the stress becomes severe. 3) When you can, do something about the source of your stress. (Avoid hassles, limit the amount of change that happens in your life at one time and take a break when you feel overloaded). 4) Unfortunately, many stressful situations cannot be avoided. It is necessary to learn HOW TO MANAGE STRESS better. There are many proven methods that will reduce your anxiety. These include simple things like exercise, good nutrition and adequate rest. Also, there are certain techniques that are helpful: relaxation and breathing exercises, visualization, biofeedback and meditation. For more information about this, consult your doctor or go to a local bookstore and review the many books and tapes available on this subject. Follow Up If you feel that your anxiety is not responding to self-help measures, contact your doctor or make an appointment with a counselor. Get Prompt Medical Attention if any of the following occur: -- Your symptoms get worse -- Chest pain or trouble breathing -- Severe headache not relieved by rest and mild pain reliever -- Rapid or irregular heartbeat, fainting You have been given the following additional information: Anxiety Reaction (Electronically signed by Pennie Wharton A.R.N.P. 03/10/2017 18:02)
--- NOTE | 2017-03-10 18:02 | ED MED RECONCILIATION SUMMARY ---
Patient: JUANIS HENSON Medication Reconciliation Report [facility] VisitID: [id number] [address] [place] [address] 41y, M Registration Date/Time: 03/10/2017 Weight: 120.2 kg Height/Length: 70 in. BMI: 38.0 ALLERGIES: Toradol The patient's Home Medications are listed below: THE FOLLOWING MEDICATIONS NEED TO BE RECONCILED: ASA Oral 81, daily Dilaudid 4mg q 6 hrs prn Flexeril Insulin Regular Human Injection KlonoPIN Oral Levamir 50 uniits, 2x a day Lisinopril Oral 20 mg, 2x a day Metoprolol Tartrate Oral 25 mg Nitroglycerin Sublingual 0.4 mg NovoLOG FlexPen Subcutaneous 40-50, 4x daily Synthroid Oral 75 mcg, daily The source(s) of the original Home Medication information: Not obtained. The following Medications were given to the patient in the Emergency Department: None. The following Medications were prescribed to the patient: None.
--- NOTE | 2017-03-10 18:02 | ED MAR SUMMARY ---
..... Medication Administration Record [facility] [address], [place] [id number] Patient: JUANIS HENSON Visit ID: [id number] 41y, M Weight: 120.2 kg Height/Length: 70 in BMI: 38 ALLERGIES: Toradol
--- NOTE | 2017-03-10 18:02 | ED MED RECONCILIATION SUMMARY ---
Patient: JUANIS HENSON Medication Reconciliation Report [facility] VisitID: [id number] [address] [place] [address] 41y, M Registration Date/Time: 03/10/2017 Weight: 120.2 kg Height/Length: 70 in. BMI: 38.0 ALLERGIES: Toradol The patient's Home Medications are listed below: THE FOLLOWING MEDICATIONS NEED TO BE RECONCILED: ASA Oral 81, daily Dilaudid 4mg q 6 hrs prn Flexeril Insulin Regular Human Injection KlonoPIN Oral Levamir 50 uniits, 2x a day Lisinopril Oral 20 mg, 2x a day Metoprolol Tartrate Oral 25 mg Nitroglycerin Sublingual 0.4 mg NovoLOG FlexPen Subcutaneous 40-50, 4x daily Synthroid Oral 75 mcg, daily The source(s) of the original Home Medication information: Not obtained. The following Medications were given to the patient in the Emergency Department: None. The following Medications were prescribed to the patient: None.
--- NOTE | 2017-03-10 18:02 | ED MAR SUMMARY ---
..... Medication Administration Record [facility] [address], [place] [id number] Patient: JUANIS HENSON Visit ID: [id number] 41y, M Weight: 120.2 kg Height/Length: 70 in BMI: 38 ALLERGIES: Toradol
== END 2017-03-10 16:19 | disposition home or self-care (01) ==
LOC: ED SRH 13:55
DX: F41.1 Generalized anxiety disorder (principal); I10 Essential (primary) hypertension; E11.9 Type 2 diabetes mellitus without complications; F17.210 Nicotine dependence, cigarettes, uncomplicated; Z79.899 Other long term (current) drug therapy

== ENCOUNTER 2017-03-10 20:48 | Emergency (ER) | payer OTHER ==
--- NOTE | 2017-03-10 23:20 | DIAGNOSTIC IMAGING REPORT ---
PROCEDURE: XR CHEST 1 VIEW INDICATION: CHEST PAIN TECHNIQUE: Portable AP view 10:39 p.m. COMPARISON: Chest x-ray 03/08/2017. FINDINGS: Poor inspiration but lungs are clear. Heart and mediastinum are normal. Thorax is normal. No significant interval change. IMPRESSION: 1. Negative chest.
--- NOTE | 2017-03-11 04:57 | ED CLINICAL REPORT ---
Clinical Report - Physicians/Mid Levels [facility] [address] [place] [address] 03/10/2017 20:48 Patient: JUANIS HENSON Time Seen: 21:01. Arrived- By private vehicle. Historian- patient. HISTORY OF PRESENT ILLNESS Chief Complaint: DEPRESSED. This started today. The patient has experienced situational problems (He reports that he moved a trailer on to the family members property and he planned to live and it. However, apparently the property is not zoned and he has been instructed to move his trailer. He says he does not have enough money for this.). He is non-compliant with medication- cannot remember the last dose. The patient has had anxiety. Has been depressed. No suicidal thoughts or self-injury inflicted. He has had mild auditory hallucinations. The symptoms are described as severe. No injury is present. Additional history - patient has long-standing history of diabetes and coronary artery disease. He says that he is noncompliant because he is on disability and only has $800 a month. Similar symptoms previously: REVIEW OF SYSTEMS No chills, fever, sweats, calf pain or difficulty breathing. No pedal edema, palpitations, abdominal pain, constipation or diarrhea. No nausea or vomiting. He has had chest pain ("sometimes), currently gone. He has had back pain (chronically). It has been similar to previous symptoms. He has had diabetic symptoms, including polyuria and fatigue. No weight loss. All systems otherwise negative, except as recorded above. PAST HISTORY ( PCP - CASI VARGAS). Problems: Mental Illness. Anxiety Reaction. Depression. Cardiovascular Risk Factors. Hyperglycemia. Cellulitis. Peptic Ulcer Disease. Coronary Artery Disease. Chest Pain. Substance Abuse. Schizophrenia. Atypical Chest Pain. Abscess. Thyroid Disease. Hypertension. Diabetes Mellitus. Additional Surgeries: Back Surgery. Coronary stents. Stent. Medications: ASA Oral 81, daily. Dilaudid 4mg q 6 hrs prn . Flexeril. Insulin Regular Human Injection. KlonoPIN Oral. Levamir 50 uniits, 2x a day. Lisinopril Oral 20 mg, 2x a day. Metoprolol Tartrate Oral 25 mg. Nitroglycerin Sublingual 0.4 mg, as needed. NovoLOG FlexPen Subcutaneous 40-50, 4x daily. Synthroid Oral 75 mcg, daily. Allergies: Toradol. SOCIAL HISTORY Current every day heavy tobacco smoker (cigarette)- 1 pack per day. No alcohol use or drug use. Has poor social support. FAMILY HISTORY Denies family medical history. ADDITIONAL NOTES The nursing notes have been reviewed. PHYSICAL EXAM Vital Signs: 03/10/2017 21:01 BP: 143/86. HR: 94. RR: 18. O2 saturation: 96%. Temp: 98.2 F. Pain level now: 05/11. Have been reviewed. Appearance: Alert. He appears older than stated age and is disheveled. ( tearful). Eyes: Pupils equal, round and reactive to light. Neck: Neck supple. CVS: Normal heart rate and rhythm. Heart sounds normal. Respiratory: Breath sounds normal. Abdomen: Soft and nontender. Obese. Skin: Skin warm and dry. Normal skin color. Normal skin turgor. Extremities: Extremities exhibit normal ROM. No lower extremity edema. Psych / Neuro: Appears to have auditory hallucinations. Cranial nerves normal (as tested). No cerebellar findings. No motor deficit. No sensory deficit. LABS, X-RAYS, AND EKG EKG: No acute process. Normal EKG. Rate: 83. EKG unchanged when compared with prior EKG. The study has been independently viewed by me. Chest X-ray: No acute disease. The X-rays were independently viewed by me. Laboratory Tests: UA-Culture if indicated: (NIKOLAS: 03/10/2017 15:00) ( MsgRcvd 03/10/2017 23:06) Final results Test Result Flag Units (Reference) URINE COLOR YELLOW URINE APPEARANCE CLEAR URINE GLUCOSE 3+ (NEGATIVE) URINE BILIRUBIN NEGATIVE (NEGATIVE) URINE KETONE NEGATIVE (NEGATIVE) URINE SPECIFIC GRAVITY 1.010 (1.010-1.030) URINE PH 5.5 (5.0-8.0) URINE PROTEIN NEGATIVE (NEGATIVE) URINE UROBILINOGEN 0.2 EU/dL (0.2-1.0) URINE NITRITE NEGATIVE (NEGATIVE) URINE BLOOD NEGATIVE (NEGATIVE) URINE LEUK ESTERASE NEGATIVE (NEGATIVE) URINE RBC 0-1 rbc/hpf (0-1) URINE WBC 0-1 wbc/hpf (0-1) URINE EPITHELIAL CELLS NONE SEEN EPI/hpf (0-5) URINE BACTERIA NONE SEEN (NONE SEEN) URINE COMMENT CULT NOT INDICATED URINE CULTURES ARE SET-UP BASED ON THE FOLLOWING CRITERIA:POSITIVE NITRITEPOSITIVE LEUKOCYTE ESTERASEGREATER THAN 10 WHITE BLOOD CELLSMODERATE (2+) OR GREATER BACTERIA CBC w Diff: (NIKOLAS: 03/10/2017 23:10) ( [facility] 03/10/2017 23:32) Final results Test Result Flag Units (Reference) WHITE BLOOD COUNT 5.1 K/uL (4.5-11.5) RED BLOOD COUNT 5.29 M/uL (4.50-5.90) HEMOGLOBIN 14.0 gm/dL (13.5-17.5) HEMATOCRIT 42.7 % (41.0-53.0) MEAN CELL VOLUME 81 fL (80-100) MEAN CORPUSCULAR HGB 27 pg (26-34) MEAN CORPUSCULAR HGB CONC 33 g/dL (31-37) RED CELL DISTRIBUTION WIDTH 14.8 % (11.6-14.8) PLATELET COUNT 215 K/uL (150-400) LYMPH % 32.0 % (25-40) MONO % 2.6 L % (3-14) GRANULOCYTE % 65.4 Urine Drug Screen: (NIKOLAS: 03/10/2017 15:00) ( [facility] 03/10/2017 23:17) Final results Test Result Flag Units (Reference) AMPHETAMINE/METHAMPHETAMINE NEGATIVE (NEGATIVE) BARBITURATE NEGATIVE (NEGATIVE) BENZODIAZEPINE NEGATIVE (NEGATIVE) CANNABINOID NEGATIVE (NEGATIVE) COCAINE NEGATIVE (NEGATIVE) ECSTASY NEGATIVE (NEGATIVE) METHADONE NEGATIVE (NEGATIVE) OPIATE NEGATIVE (NEGATIVE) The urine drug screen is a qualitative screening test fordrug overdose and abuse. All screen results should beconsidered as presumptive.Drugs screened for are as follows:BenzodiazepinesCocaineAmphetamines/MetamphetaminesTHC (Tetrahydrocannabinol)OpiatesBarbituratesEcstasyMethadonePositive results are unconfirmed. For confirmation, notifythe lab for the specimen to be sent to the reference lab.All confirmations must be performed by a differentmethodology.The ingestion of natural herbal and plant productscontaining Ephedra/Ephedra metabolites can produce in urineone or more substances capable of cross reacting withamphetamine/methamphetamine immunoassays. These testsprovide a preliminary result only. A more specificalternative chemical method must be used to obtain aconfirmed analytical result. CMP: (NIKOLAS: 03/10/2017 23:10) ( MsgRcvd 03/10/2017 23:46) Final results Test Result Flag Units (Reference) GLUCOSE 400 H mg/dL (70-110) BUN 12 mg/dL (7-18) CREATININE 1.0 mg/dL (0.6-1.3) Estimated GFR >60 mL/min Estimated GFR- >60 mL/min Note: Persistent reduction over 3 months in eGFR<60 mL/min/1.73 m2 defines CKD. Patients with eGFR values>=60 mL/min/1.73 m2 may also have CKD if evidence ofpersistent proteinuria. Additional information may be foundat www.kidney.org. SODIUM 138 mmol/L (136-145) POTASSIUM 3.9 mmol/L (3.5-5.1) CHLORIDE 103 mmol/L (98-107) CARBON DIOXIDE 24 mmol/L (21-32) CALCIUM 8.7 mg/dL (8.5-10.1) TOTAL PROTEIN 7.4 g/dL (6.4-8.2) ALBUMIN 3.1 L g/dL (3.3-5.0) BILIRUBIN, TOTAL 0.4 mg/dL (0.0-1.0) ALKALINE PHOSPHATASE 82 U/L (46-116) AST (SGOT) 23 U/L (15-37) ALT (SGPT) 47 U/L (12-78) LIPASE 134 U/L (73-393) AMYLASE 21 L U/L (25-115) CPK 36 U/L (24-260) TROPONIN I <0.05 ng/mL (0.00-1.5) TROPONIN REFERENCE RANGE:<0.1 NEGATIVE0.1-1.5 INDETERMINANT>1.5 POSITIVE ETHYL ALCOHOL <3 L mg/dL (3-10) . PROGRESS AND PROCEDURES Course of Care: the patient says that he is very frustrated. He would like to be seen by a mental health provider but says that because of his diabetes that [facility] won't see him. As we explored this further it became clear that it was because his diabetes is poorly controlled due to his noncompliance. When I discussed his noncompliance with him he attributes this to "I don't have enough money to buy my medicines." He is on disability for spine problems he says that he has had 5 fusions in the past. he is also requesting treatment with Dilaudid for his back pain and he wants clonazepam or another benzodiazepine "for my anxiety." I explained to him that I would not prescribe or order any scheduled drugs. He did agree to a workup for medical clearance and a mental health consult. He had been in earlier today and then returned because mental health would not be available till midnight. After treating his diabetes with some insulin here, I medically cleared him. When we contacted the PET team we were told it would be after noon today before they would be able to evaluate him. He clearly and adamantly states that he is not suicidal or homicidal. He would like to be discharged. I encouraged him to follow-up with the [facility] and for him to be compliant with his medical treatments. Additionally I asked him to ask his primary care provider to assist him in getting care and treatment through [facility] or another mental health organization. Patient is stable. Patient/family counseled. Old medical records reviewed. Disposition: Condition: stable. CLINICAL IMPRESSION Depression. Diabetes. INSTRUCTIONS Do not smoke- benefits of smoking cessation discussed (>3 -10 minutes). Seek medical help to quit smoking. Warnings: Further evaluation is necessary. GENERAL WARNINGS: Return or contact your physician immediately if your condition worsens or changes unexpectedly, if not improving as expected, or if other problems arise. Your Current Medications: CONTINUE TAKING THE FOLLOWING MEDICATIONS: ASA Oral : 81 daily. Insulin Regular Human Injection. Levamir* : 50 uniits 2x a day. Lisinopril Oral : 20 mg 2x a day. Metoprolol Tartrate Oral : 25 mg. Nitroglycerin Sublingual : 0.4 mg, prn. NovoLOG FlexPen Subcutaneous : 40-50 4x daily. Synthroid Oral : 75 mcg daily. CONTINUE TAKING THE FOLLOWING MEDICATIONS UNTIL YOU CHECK WITH YOUR PHYSICIAN: Dilaudid 4mg q 6 hrs prn *. Flexeril*. KlonoPIN Oral. Understanding of the discharge instructions verbalized by patient. Follow-up with: [facility], , , [address], , [place], [address] Follow up today. Call for an appointment. Follow-up with: [facility], [facility] [employer] [facility], , , , , Follow up. Call for the next available appointment. (Electronically signed by Edgardo Nuñez MD 03/11/2017 9:25)
--- NOTE | 2017-03-11 04:57 | ED NURSING NOTES ---
Clinical Report - Nurses [facility] [place] [address] 03/10/2017 20:48 Patient: JUANIS HENSON TRIAGE Triage time 2100 PM. Acuity: LEVEL 3. Chief Complaint: ANXIETY and HALLUCINATIONS. --21:06 Sheriff Rod R.N. 21:01 03/10/17. BP: 143/86. HR: 94. RR: 18. O2 saturation: 96%. Temp: 98.2 F. Pain level now: 05/11. --21:06 Sheriff oRd R.N. Weight: 120.2 kg stated. Height/Length: 70 inches Per Patient. BMI: 38. --00:24 Sheriff Rod R.N. Medications ASA Oral 81, daily. Dilaudid 4mg q 6 hrs prn . Flexeril. Insulin Regular Human Injection. KlonoPIN Oral. Levamir 50 uniits, 2x a day. Lisinopril Oral 20 mg, 2x a day. Metoprolol Tartrate Oral 25 mg. Nitroglycerin Sublingual 0.4 mg, as needed. NovoLOG FlexPen Subcutaneous 40-50, 4x daily. Synthroid Oral 75 mcg, daily. --21:03 Sheriff Rod R.N. Allergies Toradol. --21:03 Sheriff Rod R.N. History Arrived by private vehicle. Historian: patient. Onset. (4 days ago). ( Chest pain, Seen here earlier today, back for mental health follow up and evaluation.). PAST MEDICAL HX: Diabetes mellitus. SURGERY HX: Back surgery. SOCIAL HX: Heavy tobacco smoker- 1 pack per day. No alcohol use or drug use. FALL RISK ASSESSMENT: Fall risk assessment completed. No fall risk identified. NUTRITIONAL RISK ASSESSMENT: The nutritional risk assessment revealed no deficiencies. FUNCTIONAL ASSESSMENT: Functional assessment: no impairments noted. LEARNING NEEDS ASSESSMENT: The learning needs assessment revealed no barriers. SKIN INTEGRITY ASSESSMENT: Skin integrity risk assessment completed. No skin integrity risk identified. --21:06 Sheriff Rod R.N. PROBLEMS: Mental Illness. Anxiety Reaction. Depression. Cardiovascular Risk Factors. Hyperglycemia. Cellulitis. Peptic Ulcer Disease. Coronary Artery Disease. Chest Pain. Substance Abuse. Schizophrenia. Atypical Chest Pain. Abscess. Thyroid Disease. Hypertension. Diabetes Mellitus. --21:04 Sheriff Rod R.N. Interventions ID band on patient. To room. --21:06 Sheriff Rod R.N. PHYSICAL ASSESSMENT Ambulatory to room. GENERAL / NEURO / PSYCH: Alert. Oriented X 4. Speech within normal limits. Affect appears normal. Patient appears calm and cooperative. Good eye contact. Patient appears well-nourished and neat and clean. RESPIRATORY: Respirations not labored. SKIN: Skin intact. Skin is warm and dry. Skin color is within normal limits. --21:07 Sheriff Rod R.N. NURSING PROGRESS NOTES Patient gowned. Head of bed elevated. Reassurance given. Two patient identifiers checked. Call light placed in reach. Side rails up x 2. Bed placed in lowest position. Brakes of bed on. Brakes of chair on. Patient ready for evaluation- PA notified. --21:17 Sheriff Rod R.N. ( Blood sugar is 386.). --21:23 Sheriff Rod R.N. EKG time: (1568). EKG was ordered, performed by a tech and shown to the ED physician. --22:54 Marie Pena ER Tech1 23:45 03/10/2017 Site #1 started via IV in the left forearm with an 22g angiocath, with aseptic technique and good blood return; two attempts. Blood drawn: rainbow set. Labeled in the presence of the patient and sent to the lab. Saline lock flushed with saline. --23:45 Sheriff Rod R.N. 00:10 [place] called PAT evaluation requested. --00:11 Debbie Amador ER Tech1 00:19 03/11/2017 Insulin Reg Subcutaneous 10 unit given. Given in the right upper arm. Allergies verified and confirmed 5 rights. --00:34 Sheriff Rod R.N. 01:49 03/11/17. BP: 113/73. HR: 80. RR: 14. O2 saturation: 97%. --01:50 Sheriff Rod R.N. 02:29. Finger stick glucose: 255 mg/dL; performed by tech; result shown to the ED physician. --02:30 Debbie Amador ER Tech1 ( Patient is a little frustrated for waiting mental health evaluation. Reassured and encouraged to wait.). --02:35 Sheriff Rod R.N. 04:25 [place] contacted, status update request. Dispatch states that patient won't be evaluated until new PAT animal science instructor comes on a noon. --04:56 Debbie Amador ER Tech1 04:30 Patient informed of update from [facility] fax. --04:56 Debbie Aamdor ER Tech1 04:38 ER Physician at bedside, patient states SI/HI. --04:57 Debbie Amador ER Tech1 05:16 03/11/2017 IV Saline Lock Drip IV Discontinued: (PIV discontinued, catheter intact.). --05:16 Sheriff Rod R.N. DISPOSITION / DISCHARGE Condition at departure: stable. No learning barriers present. Discharge instructions provided and reviewed with the patient. Patient verbalized understanding. Written instructions provided in Sinhala. The patient was discharged by the physician. He was discharged home. He left the Emergency Department ambulatory and via private vehicle. Patient driving. --05:13 Sheriff Rod R.N. Locked/Released at 03/11/2017 5:16 by Sheriff Rod R.N.
--- NOTE | 2017-03-11 04:57 | ED NURSING NOTES ---
Clinical Report - Nurses [facility] [place] [place] [address] 03/10/2017 20:48 Patient: UJANIS HENSON TRIAGE Triage time 2100 PM. Acuity: LEVEL 3. Chief Complaint: ANXIETY and HALLUCINATIONS. --21:06 Sheriff Rod R.N. 21:01 03/10/17. BP: 143/86. HR: 94. RR: 18. O2 saturation: 96%. Temp: 98.2 F. Pain level now: 05/11. --21:06 Sheriff Rod R.N. Weight: 120.2 kg stated. Height/Length: 70 inches Per Patient. BMI: 38. --00:24 Sheriff Rod R.N. Medications ASA Oral 81, daily. Dilaudid 4mg q 6 hrs prn . Flexeril. Insulin Regular Human Injection. KlonoPIN Oral. Levamir 50 uniits, 2x a day. Lisinopril Oral 20 mg, 2x a day. Metoprolol Tartrate Oral 25 mg. Nitroglycerin Sublingual 0.4 mg, as needed. NovoLOG FlexPen Subcutaneous 40-50, 4x daily. Synthroid Oral 75 mcg, daily. --21:03 Sheriff Rod R.N. Allergies Toradol. --21:03 Sheriff Rod R.N. History Arrived by private vehicle. Historian: patient. Onset. (4 days ago). ( Chest pain, Seen here earlier today, back for mental health follow up and evaluation.). PAST MEDICAL HX: Diabetes mellitus. SURGERY HX: Back surgery. SOCIAL HX: Heavy tobacco smoker- 1 pack per day. No alcohol use or drug use. FALL RISK ASSESSMENT: Fall risk assessment completed. No fall risk identified. NUTRITIONAL RISK ASSESSMENT: The nutritional risk assessment revealed no deficiencies. FUNCTIONAL ASSESSMENT: Functional assessment: no impairments noted. LEARNING NEEDS ASSESSMENT: The learning needs assessment revealed no barriers. SKIN INTEGRITY ASSESSMENT: Skin integrity risk assessment completed. No skin integrity risk identified. --21:06 Sheriff Rod R.N. PROBLEMS: Mental Illness. Anxiety Reaction. Depression. Cardiovascular Risk Factors. Hyperglycemia. Cellulitis. Peptic Ulcer Disease. Coronary Artery Disease. Chest Pain. Substance Abuse. Schizophrenia. Atypical Chest Pain. Abscess. Thyroid Disease. Hypertension. Diabetes Mellitus. --21:04 Sheriff Rod R.N. Interventions ID band on patient. To room. --21:06 Sheriff Rod R.N. PHYSICAL ASSESSMENT Ambulatory to room. GENERAL / NEURO / PSYCH: Alert. Oriented X 4. Speech within normal limits. Affect appears normal. Patient appears calm and cooperative. Good eye contact. Patient appears well-nourished and neat and clean. RESPIRATORY: Respirations not labored. SKIN: Skin intact. Skin is warm and dry. Skin color is within normal limits. --21:07 Sheriff Rod R.N. NURSING PROGRESS NOTES Patient gowned. Head of bed elevated. Reassurance given. Two patient identifiers checked. Call light placed in reach. Side rails up x 2. Bed placed in lowest position. Brakes of bed on. Brakes of chair on. Patient ready for evaluation- PA notified. --21:17 Sheriff Rod R.N. ( Blood sugar is 386.). --21:23 Sheriff Rod R.N. EKG time: (3684). EKG was ordered, performed by a tech and shown to the ED physician. --22:54 Marie Pena ER Tech1 23:45 03/10/2017 Site #1 started via IV in the left forearm with an 22g angiocath, with aseptic technique and good blood return; two attempts. Blood drawn: rainbow set. Labeled in the presence of the patient and sent to the lab. Saline lock flushed with saline. --23:45 Sheriff Rod R.N. 00:10 [place] called PAT evaluation requested. --00:11 Debbie Amador ER Tech1 00:19 03/11/2017 Insulin Reg Subcutaneous 10 unit given. Given in the right upper arm. Allergies verified and confirmed 5 rights. --00:34 Sheriff Rod R.N. 01:49 03/11/17. BP: 113/73. HR: 80. RR: 14. O2 saturation: 97%. --01:50 Sheriff Rod R.N. 02:29. Finger stick glucose: 255 mg/dL; performed by tech; result shown to the ED physician. --02:30 Debbie Amador ER Tech1 ( Patient is a little frustrated for waiting mental health evaluation. Reassured and encouraged to wait.). --02:35 Sheriff Rod R.N. 04:25 [place] contacted, status update request. Dispatch states that patient won't be evaluated until new PAT veterinarian assistant comes on a noon. --04:56 Debbie Amador ER Tech1 04:30 Patient informed of update from [facility] fax. --04:56 Debbie Amador ER Tech1 04:38 ER Physician at bedside, patient states SI/HI. --04:57 Debbie Amador ER Tech1 05:16 03/11/2017 IV Saline Lock Drip IV Discontinued: (PIV discontinued, catheter intact.). --05:16 Sheriff Rod R.N. DISPOSITION / DISCHARGE Condition at departure: stable. No learning barriers present. Discharge instructions provided and reviewed with the patient. Patient verbalized understanding. Written instructions provided in Japanese. The patient was discharged by the physician. He was discharged home. He left the Emergency Department ambulatory and via private vehicle. Patient driving. --05:13 Sheriff Rod R.N. Locked/Released at 03/11/2017 5:16 by Sheriff Rod R.N.
--- NOTE | 2017-03-11 04:57 | ED ORDER SUMMARY ---
..... Patient: JUANIS HENSON OrderSheet [facility] VisitID: [id number] [place] [address] 41y, M Registration Date/Time: 03/10/2017 ORDER SHEET Weight: 120.2 kg (stated) Allergies: Toradol GENERAL ORDERS: Chest 1V Urgent (22:03/10/2017 Cain LUCIO) (Ack 22:40 AMcQuoid ER Tech1) (22:58 MCampbell) Asphalt Plant Worker (Continuous) (22:03/10/2017 Cain LUCIO) (Ack 22:40 AMcQuoid ER Tech1) (0:27 NHouse ER Tech1) CBC w Diff Urgent (:03/10/2017 Cain LUCIO) (Ack 22:40 AMcQuoid ER Tech1) (0:27 NHouse ER Tech1) CMP Urgent (22:03/10/2017 Cain LUCIO) (Ack 22:40 AMcQuoid ER Tech1) (0:27 NHouse ER Tech1) UA-Culture if indicated Urgent (22:03/10/2017 Cain LUCIO) (Ack 22:40 AMcQuoid ER Tech1) (0:27 NHouse ER Tech1) Urine Drug Screen Urgent (22:03/10/2017 Cain LUCIO) (Ack 22:40 AMcQuoid ER Tech1) (0:27 NHouse ER Tech1) Amylase Urgent (22:03/10/2017 Cain LUCIO) (Ack 22:40 AMcQuoid ER Tech1) (0:27 NHouse ER Tech1) Lipase Urgent (22:03/10/2017 Cain LUCIO) (Ack 22:40 AMcQuoid ER Tech1) (0:27 NHouse ER Tech1) CPK Urgent (22:03/10/2017 Cain LUCIO) (Ack 22:40 AMcQuoid ER Tech1) (0:27 NHouse ER Tech1) Troponin-I Urgent (22:03/10/2017 Cain LUCIO) (Ack 22:40 AMcQuoid ER Tech1) (0:27 NHouse ER Tech1) Ethyl Alcohol Urgent (22:03/10/2017 Cain LUCIO) (Ack 22:40 AMcQuoid ER Tech1) (0:27 NHouse ER Tech1) Oxygen (2 L/min) (NC) (22:32 03/10/2017 Cain LUCIO) (Ack 22:40 AMcQuoid ER Tech1) Pulse oximeter (22:03/10/2017 Cain LUCIO) (Ack 22:40 AMcQuoid ER Tech1) (0:27 NHouse ER Tech1) EKG - ER Stat (22:03/10/2017 Cain LUCIO) (Ack 22:40 AMcQuoid ER Tech1) (22:54 NHouse ER Tech1) POC Glucose (1 hour after his insulin dose, please) (00:32 03/11/2017 Cain LUCIO) TSH Urgent (04:21 03/11/2017 Cain LUCIO) (4:23 AMcQuoid ER Tech1) MEDICATION ORDERS: Insulin Reg Subcut 10 units (HIGH ALERT MEDICATION, NOW) (00:31 03/11/2017 Cain LUCIO) (0:34 SSambou R.N.) IV FLUIDS: IV Saline Lock (22:32 03/10/2017 Cain LUCIO) (23:45 SSambou R.N.) ORDER SHEET NOTES: [Electronically signed by Sheriff Wilbert Rod (05:16 03/11/2017)] [Electronically signed by Edgardo Nuñez MD (09:25 03/11/2017)] [Electronically locked/signed by Sheriff Wilbert Rod (05:16 03/11/2017)]
--- NOTE | 2017-03-11 04:57 | ED ORDER SUMMARY ---
..... Patient: JUANIS HENSON OrderSheet [facility] VisitID: [id number] [address] [place] [address] 41y, M Registration Date/Time: 03/10/2017 ORDER SHEET Weight: 120.2 kg (stated) Allergies: Toradol GENERAL ORDERS: Chest 1V Urgent (22:03/10/2017 Cain LUCIO) (Ack 22:40 AMcQuoid ER Tech1) (22:58 MCampbell) Outbound Call Center Representative (Continuous) (22:03/10/2017 Cain LUCIO) (Ack 22:40 AMcQuoid ER Tech1) (0:27 NHouse ER Tech1) CBC w Diff Urgent (:03/10/2017 Cain LUCIO) (Ack 22:40 AMcQuoid ER Tech1) (0:27 NHouse ER Tech1) CMP Urgent (22:03/10/2017 Cain LUCIO) (Ack 22:40 AMcQuoid ER Tech1) (0:27 NHouse ER Tech1) UA-Culture if indicated Urgent (22:03/10/2017 Cain LUCIO) (Ack 22:40 AMcQuoid ER Tech1) (0:27 NHouse ER Tech1) Urine Drug Screen Urgent (22:03/10/2017 Cain LUCIO) (Ack 22:40 AMcQuoid ER Tech1) (0:27 NHouse ER Tech1) Amylase Urgent (22:03/10/2017 Cain LUCIO) (Ack 22:40 AMcQuoid ER Tech1) (0:27 NHouse ER Tech1) Lipase Urgent (22:03/10/2017 Cain LUCIO) (Ack 22:40 AMcQuoid ER Tech1) (0:27 NHouse ER Tech1) CPK Urgent (22:03/10/2017 Cain LUCIO) (Ack 22:40 AMcQuoid ER Tech1) (0:27 NHouse ER Tech1) Troponin-I Urgent (22:03/10/2017 Cain LUCIO) (Ack 22:40 AMcQuoid ER Tech1) (0:27 NHouse ER Tech1) Ethyl Alcohol Urgent (22:03/10/2017 Cain LUCIO) (Ack 22:40 AMcQuoid ER Tech1) (0:27 NHouse ER Tech1) Oxygen (2 L/min) (NC) (22:32 03/10/2017 Cain LUCIO) (Ack 22:40 AMcQuoid ER Tech1) Pulse oximeter (22:03/10/2017 Cain LUCIO) (Ack 22:40 AMcQuoid ER Tech1) (0:27 NHouse ER Tech1) EKG - ER Stat (22:03/10/2017 Cain LUCIO) (Ack 22:40 AMcQuoid ER Tech1) (22:54 NHouse ER Tech1) POC Glucose (1 hour after his insulin dose, please) (00:32 03/11/2017 Cain LUCIO) TSH Urgent (04:21 03/11/2017 Cain LUCIO) (4:23 AMcQuoid ER Tech1) MEDICATION ORDERS: Insulin Reg Subcut 10 units (HIGH ALERT MEDICATION, NOW) (00:31 03/11/2017 Cain LUCIO) (0:34 SSambou R.N.) IV FLUIDS: IV Saline Lock (22:32 03/10/2017 Cain LUCIO) (23:45 SSambou R.N.) ORDER SHEET NOTES: [Electronically signed by Sheriff Wilbert Rod (05:16 03/11/2017)] [Electronically signed by Edgardo Nuñez MD (09:25 03/11/2017)] [Electronically locked/signed by Sheriff Wilbert Rod (05:16 03/11/2017)]
--- NOTE | 2017-03-11 04:57 | ED CLINICAL REPORT ---
Clinical Report - Physicians/Mid Levels [facility] [address] [place] [address] 03/10/2017 20:48 Patient: JUANIS HENSON Time Seen: 21:01. Arrived- By private vehicle. Historian- patient. HISTORY OF PRESENT ILLNESS Chief Complaint: DEPRESSED. This started today. The patient has experienced situational problems (He reports that he moved a trailer on to the family members property and he planned to live and it. However, apparently the property is not zoned and he has been instructed to move his trailer. He says he does not have enough money for this.). He is non-compliant with medication- cannot remember the last dose. The patient has had anxiety. Has been depressed. No suicidal thoughts or self-injury inflicted. He has had mild auditory hallucinations. The symptoms are described as severe. No injury is present. Additional history - patient has long-standing history of diabetes and coronary artery disease. He says that he is noncompliant because he is on disability and only has $800 a month. Similar symptoms previously: REVIEW OF SYSTEMS No chills, fever, sweats, calf pain or difficulty breathing. No pedal edema, palpitations, abdominal pain, constipation or diarrhea. No nausea or vomiting. He has had chest pain ("sometimes), currently gone. He has had back pain (chronically). It has been similar to previous symptoms. He has had diabetic symptoms, including polyuria and fatigue. No weight loss. All systems otherwise negative, except as recorded above. PAST HISTORY ( PCP - CASI VARGAS). Problems: Mental Illness. Anxiety Reaction. Depression. Cardiovascular Risk Factors. Hyperglycemia. Cellulitis. Peptic Ulcer Disease. Coronary Artery Disease. Chest Pain. Substance Abuse. Schizophrenia. Atypical Chest Pain. Abscess. Thyroid Disease. Hypertension. Diabetes Mellitus. Additional Surgeries: Back Surgery. Coronary stents. Stent. Medications: ASA Oral 81, daily. Dilaudid 4mg q 6 hrs prn . Flexeril. Insulin Regular Human Injection. KlonoPIN Oral. Levamir 50 uniits, 2x a day. Lisinopril Oral 20 mg, 2x a day. Metoprolol Tartrate Oral 25 mg. Nitroglycerin Sublingual 0.4 mg, as needed. NovoLOG FlexPen Subcutaneous 40-50, 4x daily. Synthroid Oral 75 mcg, daily. Allergies: Toradol. SOCIAL HISTORY Current every day heavy tobacco smoker (cigarette)- 1 pack per day. No alcohol use or drug use. Has poor social support. FAMILY HISTORY Denies family medical history. ADDITIONAL NOTES The nursing notes have been reviewed. PHYSICAL EXAM Vital Signs: 03/10/2017 21:01 BP: 143/86. HR: 94. RR: 18. O2 saturation: 96%. Temp: 98.2 F. Pain level now: 05/11. Have been reviewed. Appearance: Alert. He appears older than stated age and is disheveled. ( tearful). Eyes: Pupils equal, round and reactive to light. Neck: Neck supple. CVS: Normal heart rate and rhythm. Heart sounds normal. Respiratory: Breath sounds normal. Abdomen: Soft and nontender. Obese. Skin: Skin warm and dry. Normal skin color. Normal skin turgor. Extremities: Extremities exhibit normal ROM. No lower extremity edema. Psych / Neuro: Appears to have auditory hallucinations. Cranial nerves normal (as tested). No cerebellar findings. No motor deficit. No sensory deficit. LABS, X-RAYS, AND EKG EKG: No acute process. Normal EKG. Rate: 83. EKG unchanged when compared with prior EKG. The study has been independently viewed by me. Chest X-ray: No acute disease. The X-rays were independently viewed by me. Laboratory Tests: UA-Culture if indicated: (NIKOLAS: 03/10/2017 15:00) ( MsgRcvd 03/10/2017 23:06) Final results Test Result Flag Units (Reference) URINE COLOR YELLOW URINE APPEARANCE CLEAR URINE GLUCOSE 3+ (NEGATIVE) URINE BILIRUBIN NEGATIVE (NEGATIVE) URINE KETONE NEGATIVE (NEGATIVE) URINE SPECIFIC GRAVITY 1.010 (1.010-1.030) URINE PH 5.5 (5.0-8.0) URINE PROTEIN NEGATIVE (NEGATIVE) URINE UROBILINOGEN 0.2 EU/dL (0.2-1.0) URINE NITRITE NEGATIVE (NEGATIVE) URINE BLOOD NEGATIVE (NEGATIVE) URINE LEUK ESTERASE NEGATIVE (NEGATIVE) URINE RBC 0-1 rbc/hpf (0-1) URINE WBC 0-1 wbc/hpf (0-1) URINE EPITHELIAL CELLS NONE SEEN EPI/hpf (0-5) URINE BACTERIA NONE SEEN (NONE SEEN) URINE COMMENT CULT NOT INDICATED URINE CULTURES ARE SET-UP BASED ON THE FOLLOWING CRITERIA:POSITIVE NITRITEPOSITIVE LEUKOCYTE ESTERASEGREATER THAN 10 WHITE BLOOD CELLSMODERATE (2+) OR GREATER BACTERIA CBC w Diff: (NIKOLAS: 03/10/2017 23:10) ( [facility] 03/10/2017 23:32) Final results Test Result Flag Units (Reference) WHITE BLOOD COUNT 5.1 K/uL (4.5-11.5) RED BLOOD COUNT 5.29 M/uL (4.50-5.90) HEMOGLOBIN 14.0 gm/dL (13.5-17.5) HEMATOCRIT 42.7 % (41.0-53.0) MEAN CELL VOLUME 81 fL (80-100) MEAN CORPUSCULAR HGB 27 pg (26-34) MEAN CORPUSCULAR HGB CONC 33 g/dL (31-37) RED CELL DISTRIBUTION WIDTH 14.8 % (11.6-14.8) PLATELET COUNT 215 K/uL (150-400) LYMPH % 32.0 % (25-40) MONO % 2.6 L % (3-14) GRANULOCYTE % 65.4 Urine Drug Screen: (NIKOLAS: 03/10/2017 15:00) ( [facility] 03/10/2017 23:17) Final results Test Result Flag Units (Reference) AMPHETAMINE/METHAMPHETAMINE NEGATIVE (NEGATIVE) BARBITURATE NEGATIVE (NEGATIVE) BENZODIAZEPINE NEGATIVE (NEGATIVE) CANNABINOID NEGATIVE (NEGATIVE) COCAINE NEGATIVE (NEGATIVE) ECSTASY NEGATIVE (NEGATIVE) METHADONE NEGATIVE (NEGATIVE) OPIATE NEGATIVE (NEGATIVE) The urine drug screen is a qualitative screening test fordrug overdose and abuse. All screen results should beconsidered as presumptive.Drugs screened for are as follows:BenzodiazepinesCocaineAmphetamines/MetamphetaminesTHC (Tetrahydrocannabinol)OpiatesBarbituratesEcstasyMethadonePositive results are unconfirmed. For confirmation, notifythe lab for the specimen to be sent to the reference lab.All confirmations must be performed by a differentmethodology.The ingestion of natural herbal and plant productscontaining Ephedra/Ephedra metabolites can produce in urineone or more substances capable of cross reacting withamphetamine/methamphetamine immunoassays. These testsprovide a preliminary result only. A more specificalternative chemical method must be used to obtain aconfirmed analytical result. CMP: (NIKOLAS: 03/10/2017 23:10) ( MsgRcvd 03/10/2017 23:46) Final results Test Result Flag Units (Reference) GLUCOSE 400 H mg/dL (70-110) BUN 12 mg/dL (7-18) CREATININE 1.0 mg/dL (0.6-1.3) Estimated GFR >60 mL/min Estimated GFR- >60 mL/min Note: Persistent reduction over 3 months in eGFR<60 mL/min/1.73 m2 defines CKD. Patients with eGFR values>=60 mL/min/1.73 m2 may also have CKD if evidence ofpersistent proteinuria. Additional information may be foundat www.kidney.org. SODIUM 138 mmol/L (136-145) POTASSIUM 3.9 mmol/L (3.5-5.1) CHLORIDE 103 mmol/L (98-107) CARBON DIOXIDE 24 mmol/L (21-32) CALCIUM 8.7 mg/dL (8.5-10.1) TOTAL PROTEIN 7.4 g/dL (6.4-8.2) ALBUMIN 3.1 L g/dL (3.3-5.0) BILIRUBIN, TOTAL 0.4 mg/dL (0.0-1.0) ALKALINE PHOSPHATASE 82 U/L (46-116) AST (SGOT) 23 U/L (15-37) ALT (SGPT) 47 U/L (12-78) LIPASE 134 U/L (73-393) AMYLASE 21 L U/L (25-115) CPK 36 U/L (24-260) TROPONIN I <0.05 ng/mL (0.00-1.5) TROPONIN REFERENCE RANGE:<0.1 NEGATIVE0.1-1.5 INDETERMINANT>1.5 POSITIVE ETHYL ALCOHOL <3 L mg/dL (3-10) . PROGRESS AND PROCEDURES Course of Care: the patient says that he is very frustrated. He would like to be seen by a mental health provider but says that because of his diabetes that [facility] won't see him. As we explored this further it became clear that it was because his diabetes is poorly controlled due to his noncompliance. When I discussed his noncompliance with him he attributes this to "I don't have enough money to buy my medicines." He is on disability for spine problems he says that he has had 5 fusions in the past. he is also requesting treatment with Dilaudid for his back pain and he wants clonazepam or another benzodiazepine "for my anxiety." I explained to him that I would not prescribe or order any scheduled drugs. He did agree to a workup for medical clearance and a mental health consult. He had been in earlier today and then returned because mental health would not be available till midnight. After treating his diabetes with some insulin here, I medically cleared him. When we contacted the PET team we were told it would be after noon today before they would be able to evaluate him. He clearly and adamantly states that he is not suicidal or homicidal. He would like to be discharged. I encouraged him to follow-up with the [facility] and for him to be compliant with his medical treatments. Additionally I asked him to ask his primary care provider to assist him in getting care and treatment through [facility] or another mental health organization. Patient is stable. Patient/family counseled. Old medical records reviewed. Disposition: Condition: stable. CLINICAL IMPRESSION Depression. Diabetes. INSTRUCTIONS Do not smoke- benefits of smoking cessation discussed (>3 -10 minutes). Seek medical help to quit smoking. Warnings: Further evaluation is necessary. GENERAL WARNINGS: Return or contact your physician immediately if your condition worsens or changes unexpectedly, if not improving as expected, or if other problems arise. Your Current Medications: CONTINUE TAKING THE FOLLOWING MEDICATIONS: ASA Oral : 81 daily. Insulin Regular Human Injection. Levamir* : 50 uniits 2x a day. Lisinopril Oral : 20 mg 2x a day. Metoprolol Tartrate Oral : 25 mg. Nitroglycerin Sublingual : 0.4 mg, prn. NovoLOG FlexPen Subcutaneous : 40-50 4x daily. Synthroid Oral : 75 mcg daily. CONTINUE TAKING THE FOLLOWING MEDICATIONS UNTIL YOU CHECK WITH YOUR PHYSICIAN: Dilaudid 4mg q 6 hrs prn *. Flexeril*. KlonoPIN Oral. Understanding of the discharge instructions verbalized by patient. Follow-up with: [facility], , , [address], , [place], [address] Follow up today. Call for an appointment. Follow-up with: [facility], [facility], , , , , Follow up. Call for the next available appointment. (Electronically signed by Edgardo Nuñez MD 03/11/2017 9:25)
--- NOTE | 2017-03-11 09:25 | ED MAR SUMMARY ---
..... Medication Administration Record Located Within [facility] [address] [place] [address] Patient: JUANIS HENSON Visit ID: [id number] 41y, M Weight: 120.2 kg Height/Length: 70 in BMI: 38 ALLERGIES: Toradol Given 00:19 03/11/2017 Sheriff Rod R.N. Medication Administered: INSULIN REG [SUBCUTANEOUS], Dose: 10 unit Subcutaneous. Medication Ordered: Insulin Reg Subcut 10 units (HIGH ALERT MEDICATION, NOW).
--- NOTE | 2017-03-11 09:25 | ED MED RECONCILIATION SUMMARY ---
Patient: JUANIS HENSON Medication Reconciliation Report [facility]: [id number] [address] [place] [address] 41y, M Registration Date/Time: 03/10/2017 Weight: 120.2 kg Height/Length: 70 in. BMI: 38.0 ALLERGIES: Toradol The patient's Home Medications are listed below: CONTINUE TAKING THE FOLLOWING MEDICATIONS: ASA Oral 81, daily Insulin Regular Human Injection Levamir 50 uniits, 2x a day Lisinopril Oral 20 mg, 2x a day Metoprolol Tartrate Oral 25 mg Nitroglycerin Sublingual 0.4 mg NovoLOG FlexPen Subcutaneous 40-50, 4x daily Synthroid Oral 75 mcg, daily CONTINUE TAKING THE FOLLOWING MEDICATIONS UNTIL YOU CHECK WITH YOUR PHYSICIAN: Dilaudid 4mg q 6 hrs prn Flexeril KlonoPIN Oral The source(s) of the original Home Medication information: Not obtained. The following Medications were given to the patient in the Emergency Department: Insulin Reg [Subcutaneous] Subcutaneous 10 unit, administered: 03/11/2017 12:19:00 AM The following Medications were prescribed to the patient: None.
--- NOTE | 2017-03-11 09:25 | ED MAR SUMMARY ---
..... Medication Administration Record [facility] [address] [place] [address] Patient: JUANIS HENSON Visit ID: [id number] 41y, M Weight: 120.2 kg Height/Length: 70 in BMI: 38 ALLERGIES: Toradol Given 00:19 03/11/2017 Sheriff Rod R.N. Medication Administered: INSULIN REG [SUBCUTANEOUS], Dose: 10 unit Subcutaneous. Medication Ordered: Insulin Reg Subcut 10 units (HIGH ALERT MEDICATION, NOW).
--- NOTE | 2017-03-11 09:25 | ED DISCHARGE INSTRUCTIONS ---
Patient: JUANIS HENSON General Instructions [facility] VisitID: [id number] [address] [place] [address] 41y, M Registration Date/Time: 03/10/2017 Depression. Diabetes. INSTRUCTIONS Do not smoke- benefits of smoking cessation discussed (>3 -10 minutes). Seek medical help to quit smoking. Warnings: Further evaluation is necessary. GENERAL WARNINGS: Return or contact your physician immediately if your condition worsens or changes unexpectedly, if not improving as expected, or if other problems arise. Your Current Medications: CONTINUE TAKING THE FOLLOWING MEDICATIONS: ASA Oral : 81 daily. Insulin Regular Human Injection. Levamir* : 50 uniits 2x a day. Lisinopril Oral : 20 mg 2x a day. Metoprolol Tartrate Oral : 25 mg. Nitroglycerin Sublingual : 0.4 mg, prn. NovoLOG FlexPen Subcutaneous : 40-50 4x daily. Synthroid Oral : 75 mcg daily. CONTINUE TAKING THE FOLLOWING MEDICATIONS UNTIL YOU CHECK WITH YOUR PHYSICIAN: Dilaudid 4mg q 6 hrs prn *. Flexeril*. KlonoPIN Oral. Understanding of the discharge instructions verbalized by patient. Follow-up with: [facility], , , [address], [place], [address] Follow up today. Call for an appointment. Follow-up with: [facility], [employer], , , , , Follow up. Call for the next available appointment. ADDITIONAL INFORMATION Depression Depression is one of the most common mental health problems today. It is not just a state of unhappiness or sadness. It is a true disease. The cause seems to be related to a decrease in chemicals that transmit signals in the brain. Having a family history of depression, alcoholism or suicide increases the risk. Chronic illness, chronic pain, migraine headaches and high emotional stress also increase the risk. Depression can cause many different symptoms, such as: -- Loss of appetite -- Over-eating -- Not being able to sleep -- Sleeping too much -- Tiredness not related to physical exertion -- Restlessness or irritability -- Slowness of movement or speech -- Feeling depressed or withdrawn -- Loss of interest in things you once enjoyed -- Difficulty in concentrating, poor memory, have trouble making decisions -- Thoughts of harming or killing oneself, or thoughts that life is not worth living -- Low self-esteem The best treatment for depression is a combination of medicine and psychotherapy. Antidepressant medicines can reduce suffering and can improve the ability to function during the depressed period. Therapy can offer emotional support and help you understand emotional factors that may be causing the depression. Home Care: 1) Be kind to yourself. Make it a point to do things that you enjoy (gardening, walking in nature, going to a movie, etc.). Reward yourself for small successes. 2) Take care of your physical body. Eat a balanced diet (low in saturated fat and high in fruits and vegetables). Establish an exercise plan at least 3 times a week for 30 minutes. Even mild-moderate exercise (like brisk walking) can make you feel better. 3) Avoid alcohol, which can make depression worse. Follow-Up with your doctor as advised. It is important to keep in contact with a health care provider until your symptoms begin to improve. Get Prompt Medical Attention if any of the following occur: -- Feeling extreme depression, fear, anxiety, or anger toward yourself or others -- Feeling out of control -- Feeling that you may try to harm yourself or another -- Hearing voices that others do not hear -- Seeing things that others do not see -- Cant sleep or eat for 3 days in a row Diabetes with High Blood Sugar You have been treated for high blood sugar (hyperglycemia). This may be becauseof an infection or other illness;eating too many sweets or starches ; not taking enough insulin. Home care High blood sugar may cause symptoms that you can learn to recognize, such as these: If you feel like your blood sugar may be too high, measure it using a blood or urine test. If it is above your usual range, use the "sliding scale"rRegular insulin dose your doctor gave you to correct this. If no "sliding scale" orders were given, contact your doctor for further advice. If your blood sugar is over 300, and you can't reach your doctor, go to the hospital emergency room. Monitor and write down your blood sugars - and insulin dose, if you take insulin - atleast twice a day. Do this before breakfast and before dinner. Do this for the next 3 to 5 days. Follow-up care Follow up with your health care provderduring the next week to review your blood sugar records. You will find out if you need to adjust your dose of insulin or other medicine for blood sugar. When to seek medical care Get prompt medical attention if either of these occur: High blood sugar.Symptoms are frequent urination, feeling dizzy, thirst, headache, nausea or vomiting, abdominal pain, and drowsiness or loss of consciousness. Low blood sugar. Symptoms are fatigue, headache, shakes, excess sweating, hunger, anxiety, reduced vision, drowsiness, weakness, confusion or loss of consciousness, and seizure. Diabetes (General Information) Cells of the body need glucose (sugar) for fuel. Insulin is the hormone in the body that lets glucose move from the blood into the cells. Diabetes is a chronic health condition where the body is not able to produce enough insulin, or does not respond well to its own insulin. Because the glucose in the blood cannot get into the cells, it builds up in the blood causing high blood sugar (hyperglycemia). Your actual blood sugar level is a result of the balance between several factors. These include what kind of food you eat and how much of it you eat, how much exercise you get, and the amount of insulin present in your body. Eating too much of the wrong kinds of food or not taking diabetes medicine on time can cause high blood sugar. Infections can cause high blood sugar even if you are taking medicines correctly. Missing meals, not eating enough food, or taking too much diabetes medicine can lead to low blood sugar. Untreated over long periods of time, diabetes can cause serious problems such as heart disease, stroke, kidney failure, blindness, nerve pain or loss of feeling in the legs and feet, and gangrene of the feet. With good treatment keeping your blood sugar under control, you can prevent or delay the complications of diabetes. Normal blood sugar levels are 70-130 one to two hours before a meal and not more than 180 two hours after a meal. Home Care: Follow your prescribed diabetic diet and take insulin or oral diabetic medicine exactly as ordered. Monitor blood sugars as advised. Keep a log of your results. This will help your doctor adjust your medicines to keep your blood sugar under control. Try to achieve your ideal weight. Proper diet and exercise can reduce or eliminate the need to take diabetes medicine. Avoid tobacco smoking, which worsens the effect of diabetes on your circulation. The risk of a heart attack in a diabetic is 15 times more likely if you smoke. Pay attention to good foot care. If you have lost feeling in your feet you may not notice an injury or infection. Check your feet and between your toes at least once a week. Wear a medical alert bracelet or carry a card in your wallet explaining that you are diabetic. In the event that you become very ill and are unable to give this information, it will help medical personnel provide proper care. If you become sick with a cold, the flu, or an infection (viral or bacterial), please do the following: Review your diabetes sick plan and contact your physician as instructed. You may have been advised to call the doctor immediately if: Your blood sugar is above 240 while taking your diabetes medication Your urine ketone levels are above normal or showing high levels of ketones You have been vomiting more than 6 hours You experience difficulty to trouble breathing You develop a high fever or you have had a fever for a couple of days and you aren't getting better You become light-headed and more sleepy than usual Keep taking your oral diabetes medicine (pills) even if you have been vomiting and feeling sick. Contact your doctor immediately for advice because you may need insulin to lower your blood sugar until you recover from your illness. Keep taking your insulin, even if you have been vomiting and feeling sick. Call your doctor immediately and ask if a temporary adjustment of your insulin dose is needed based on your blood glucose (sugar) results. Check your blood sugar every 2 to 4 hours, or at least 4 times a day. Check your keytones often. If you are vomiting and having diarrhea, monitor them more frequently. Don't skip meals. Try to eat small meals on a regular schedule, even if you do not have an appetite. Drink water or other calorie-free, non-caffeinated liquids to stay hydrated. If you are nauseated or vomiting, drink small amounts (sips, a teaspoon) every 5 minutes. To prevent dehydration, try to drink a cup or 8 ounces of fluids every hour while you are awake. Always carry a source of fast-acting sugar with you in case you get symptoms of low blood sugar (below 70). At the first sign of low blood sugar, eat or drink 15 to 20 grams of fast-acting sugar to raise your blood sugar. Examples include: 3 to 4 glucose tablets (found at most drugstores) 4 ounces (1/2 cup) of regular (not diet) softdrinks 4 ounces (1/2 cup) of any fruit juice 8 ounces (1 cup) of milk 5 to 6 pieces of hard candy 1 tablespoon of honey Check your blood sugar 15 minutes after treating yourself. If it is still low (below 70), take another 15 to 20 grams of fast-acting sugar. Test again in 15 minutes. If it returns to normal (70 or above), eat a snack or meal to keep your blood sugar in a safe range. If it remains low, call your doctor or go to an emergency room. Follow Up with your doctor as advised by our staff. For more information, contact the [place] [employer]. www.diabetes.org or 967-185-7958. Get Prompt Medical Attention if any of the following occur: HIGH BLOOD SUGAR: frequent urination, dizziness, drowsiness, thirst, headache, nausea or vomiting, abdominal pain, vision changes, fast breathing, confusion or loss of consciousness LOW BLOOD SUGAR: fatigue, headache, shakes, excess sweating, hunger, feeling anxious or restless, vision changes, drowsiness, weakness, confusion or loss of consciousness Chest pain or shortness of breath Dizziness or fainting Weakness of an arm or leg or one side of the face Trouble with speech or vision How To Quit Smoking Smoking is one of the hardest habits to break. About half of all those who have ever smoked have been able to quit, and most of those (about 70%) who still smoke want to quit. Here are some of the best ways to stop smoking. Keep Trying: It takes most smokers about 8 tries before they are finally able to fully quit. So, the more often you try and fail, the better your chance of quitting the next time! So, don't give up! Go Cold [place]: Most ex-smokers quit cold turkey. Trying to cut back gradually doesn't seem to work as well, perhaps because it continues the smoking habit. Also, it is possible to fool yourself by inhaling more while smoking fewer cigarettes. This results in the same amount of nicotine in your body! Get Support: Support programs can make an important difference, especially for the heavy smoker. These groups offer lectures, methods to change your behavior and peer support. Call the free national Quitline for more information. 436-MAIH-DXB (444-968-0207). Low-cost or free programs are offered by many hospitals, local chapters of the [place] [employer] (031-342-2637) and the [place] [employer] (877-343-1231). Support at home is important too. Non-smokers can help by offering praise and encouragement. If the smoker fails to quit, encourage them to try again! [id number]-[id number] Medicines: For those who can't quit on their own, Nicotine Replacement Therapy (NRT) may make quitting much easier. Certain aids such as the nicotine patch, gum and lozenge are available without a prescription. However, it is best to use these under the guidance of your doctor. The skin patch provides a steady supply of nicotine to the body. Nicotine gum and lozenge gives temporary bursts of low levels of nicotine. Both methods take the edge off the craving for cigarettes. WARNING: If you feel symptoms of nicotine overdose, such as nausea, vomiting, dizziness, weakness, or fast heartbeat, stop using these and see your doctor. Prescription Medicines: After evaluating your smoking patterns and prior attempts at quitting, your doctor may offer a prescription medicine such as bupropion (Zyban, Wellbutrin), varenicline (Chantix, Champix), a niocotine inhaler or nasal spray. Each has its unique advantage and side effects which your doctor can review with you. Health Benefits Of Quitting: The benefits of quitting start right away and keep improving the longer you go without smokin minutes: blood pressure and pulse return to normal 8 hours: oxygen levels return to normal 2 days: ability to smell and taste begins to improve as damaged nerves start to regrow 2-3 weeks: circulation and lung function improves 1-9 months: decreased cough, congestion and shortness of breath; less tired 1 year: risk of heart attack decreases by half 5 years: risk of lung cancer decreases by half; risk of stroke becomes the same as a non-smoker For information about how to quit smoking, visit the following links: [employer] [place] , Clearing the Air, Quit Smoking Today - an online booklet. http://www.smokefree.gov/pubs/clearing_the_air.pdf Smokefree.gov http://smokefree.gov/ QuitNet http://www.quitnet.com/ You have been given the following additional information: Depression Diabetic Hyperglycemia Diabetes, General Info Smoking Cessation (Electronically signed by Edgardo Nuñez MD 03/11/2017 9:25)
--- NOTE | 2017-03-11 09:25 | ED MED RECONCILIATION SUMMARY ---
Patient: JUANIS HENSON Medication Reconciliation Report [facility] VisitID: [id number] [address] [place] [address] 41y, M Registration Date/Time: 03/10/2017 Weight: 120.2 kg Height/Length: 70 in. BMI: 38.0 ALLERGIES: Toradol The patient's Home Medications are listed below: CONTINUE TAKING THE FOLLOWING MEDICATIONS: ASA Oral 81, daily Insulin Regular Human Injection Levamir 50 uniits, 2x a day Lisinopril Oral 20 mg, 2x a day Metoprolol Tartrate Oral 25 mg Nitroglycerin Sublingual 0.4 mg NovoLOG FlexPen Subcutaneous 40-50, 4x daily Synthroid Oral 75 mcg, daily CONTINUE TAKING THE FOLLOWING MEDICATIONS UNTIL YOU CHECK WITH YOUR PHYSICIAN: Dilaudid 4mg q 6 hrs prn Flexeril KlonoPIN Oral The source(s) of the original Home Medication information: Not obtained. The following Medications were given to the patient in the Emergency Department: Insulin Reg [Subcutaneous] Subcutaneous 10 unit, administered: 03/11/2017 12:19:00 AM The following Medications were prescribed to the patient: None.
== END 2017-03-11 05:05 | disposition home or self-care (01) ==
LOC: ED SRH 20:48
DX: F32.9 Major depressive disorder, single episode, unspecified (principal); E11.9 Type 2 diabetes mellitus without complications; I10 Essential (primary) hypertension; Z79.82 Long term (current) use of aspirin; Z79.4 Long term (current) use of insulin; Z88.6 Allergy status to analgesic agent; F17.210 Nicotine dependence, cigarettes, uncomplicated
CPT/HCPCS: 90004; 90098; 90100; 90616; 92010; 92235; 92530; 92610; 92760; 92761; 92762; 92763; 92764; 92765; 92766; 92767; 93140; 95059